=== PATIENT | female | born 1990 | race Caucasian/White ===

== ENCOUNTER → 2017-06-16 15:09 | Outpatient (CLI) | payer MEDICAID, SELFPAY | PROVIDERS: Visit Provider Obstetrics & Gynecology | DX: R30.0 Dysuria (principal) | CPT/HCPCS: 87086; 87088 ==

== ENCOUNTER → 2017-06-23 14:53 | Outpatient (CLI) | payer MEDICAID, SELFPAY | DX: O28.3 Abnormal ultrasonic finding on antenatal screening of mother (principal) | CPT/HCPCS: 36415 ==

== ENCOUNTER 2017-08-05 20:25 | Outpatient (CLI) | payer MEDICAID, SELFPAY ==
[2017-08-05 21:27] LABS: Bacteria 0 SEEN /hpf (None Seen); Mucous, Urine 0 SEEN /hpf (<or=2+)
[2017-08-05 21:48] LABS: Color, Urine Yellow (Yellow); Glucose, Dipstick Normal (Normal); Ketone-Dipstick Negative (Negative); Leukocyte Esterase-Dipstick Negative /ul (Negative); Nitrite-Dipstick Negative (Negative); Occult Blood-Urine 10 /ul (Negative); Protein-Dipstick 100 mg/dl (Negative); Specific Gravity, Urine 1.015 (1.002-1.030); Urine Bilirubin Dipstick Negative (Negative); Urine Clarity Clear (Clear); Urine Urobilinogen Normal (Normal); Urine pH 6.5 (5.0 - 8.0)
[2017-08-05 21:49] LABS: Red Blood Cells-Urine 0-5 SEEN /hpf (0-5); Squamous Epithelial Cells - UA 5-10 SEEN /hpf (5-10); White Blood Cells 0-5 SEEN /hpf (0-5)
[2017-08-05 21:51] VITALS: BMI 35.9
--- NOTE | 2017-08-06 13:06 | OB.TRI.NOTE ---
History of Present Illness Date of Service: 08/05/17 Was patient seen by the physician?: Yes Reason For Visit: R/O LABOR Date of Service: 08/05/17 Final BASILIO: 12/01/17 Gestational age: 23 Weeks and 2 Days History of Present Illness: 27 yo female with twin IUP at 23 + wks. presents for evaluation due to some akers, possible red/pink vaginal dischg which happened today. no recent IC. No yeast symptoms. No cramping. She has been seeing [facility] for evaluation and to follow slightly discordant growth of identical twins. No other concerns. Just anxious and felt better coming in for evaluation, to be sure all OK. Home Medications Medication Instructions Recorded Folic Acid 1 mg PO DAILY 08/05/17 [place]-3 Fatty Acids [Fish Oil] 600 mg PO DAILY 08/05/17 Vits [Prenatabs FA] 1 tablet PO DAILY 08/05/17 Allergies No Known Allergies Allergy (Verified 08/05/17 21:53) Physical Exam General: Alert, Oriented x3, Cooperative, No apparent distress Cardiovascular: Regular rate Abdomen: Soft, Non Tender, Gravid Cervix Dilation (cm): 0 - PELVIC EXAM: speculum placed, No blood noted. Physiologic dischg only Station: -3 Effacement (%): 0 NST - FHR Rate Baby A Baseline: 130 Uterine Activity:: no UCs noted. - FHR Rate Baby B Baseline: 130 Impression/Plan 24 wk twin IUP. Physiologic dischg, no evidence of blood on exam. Keep appt with [facility] as planned.
--- NOTE | 2017-08-06 13:11 | OB.TRI.HP_ITS ---
History of Present Illness Date of Service: 08/05/17 Was patient seen by the physician?: Yes Reason For Visit: R/O LABOR Date of Service: 08/05/17 Final BASILIO: 12/01/17 Gestational age: 23 Weeks and 2 Days History of Present Illness: 27 yo female with twin IUP at 23 + wks. presents for evaluation due to some akers, possible red/pink vaginal dischg which happened today. no recent IC. No yeast symptoms. No cramping. She has been seeing [facility] for evaluation and to follow slightly discordant growth of identical twins. No other concerns. Just anxious and felt better coming in for evaluation, to be sure all OK. Home Medications Medication Instructions Recorded Folic Acid 1 mg PO DAILY 08/05/17 [place]-3 Fatty Acids [Fish Oil] 600 mg PO DAILY 08/05/17 Vits [Prenatabs FA] 1 tablet PO DAILY 08/05/17 Allergies No Known Allergies Allergy (Verified 08/05/17 21:53) Physical Exam General: Alert, Oriented x3, Cooperative, No apparent distress Cardiovascular: Regular rate Abdomen: Soft, Non Tender, Gravid Cervix Dilation (cm): 0 - PELVIC EXAM: speculum placed, No blood noted. Physiologic dischg only Station: -3 Effacement (%): 0 NST - FHR Rate Baby A Baseline: 130 Uterine Activity:: no UCs noted. - FHR Rate Baby B Baseline: 130 Impression/Plan 24 wk twin IUP. Physiologic dischg, no evidence of blood on exam. Keep appt with [facility] as planned.
== END 2017-08-05 22:00 | disposition home or self-care (01) ==
LOC: WPOUT 21:05 → WP 21:06
PROVIDERS: Visit Provider Obstetrics & Gynecology
DX: O30.002 Twin pregnancy, unspecified number of placenta and unspecified number of amniotic sacs, second trimester (principal); Z3A.24 24 weeks gestation of pregnancy
CPT/HCPCS: 59050; 81001; 99218; G0378

== ENCOUNTER → 2020-02-29 14:30 | Outpatient (CLI) | payer MEDICAID, SELFPAY ==
[2020-02-29 15:04] LABS: Bacteria 0 SEEN /hpf (None Seen); Mucous, Urine 0 SEEN /hpf (<or=2+); Red Blood Cells-Urine 0 SEEN /hpf (0-5); White Blood Cells 0 SEEN /hpf (0-5)
[2020-02-29 15:50] LABS: Glucose, Dipstick Normal (Normal); Ketone-Dipstick Negative (Negative); Leukocyte Esterase-Dipstick Negative /ul (Negative); Nitrite-Dipstick Negative (Negative); Occult Blood-Urine Negative /ul (Negative); Protein-Dipstick 30 mg/dl (Negative); Urine Bilirubin Dipstick Negative (Negative); Urine Clarity Clear (Clear); Urine Urobilinogen Normal (Normal)
[2020-02-29 15:58] LABS: Color, Urine SEE COMMENT BELOW (Yellow)
[2020-02-29 16:44] LABS: Squamous Epithelial Cells - UA 0-5 SEEN /hpf (5-10)
== END ==
PROVIDERS: Visit Provider Obstetrics & Gynecology
DX: N39.0 Urinary tract infection, site not specified (principal)
CPT/HCPCS: 81001; 87086; 87088

== ENCOUNTER → 2020-03-24 13:05 | Outpatient (CLI) | payer MEDICAID, SELFPAY ==
[2020-03-24 14:40] LABS: Absolute Lymphocyte Count 2.19 X10^3/uL (0.83-4.51); Absolute Neutrophil Count 10.1 X10^3/uL (2.0-7.7); Basophil# 0.04 X10^3/uL; Basophil% 0.3 % (0-1); Color, Urine Yellow (Yellow); Eosinophil# 0.06 X10^3/uL; Eosinophils% 0.5 % (0-5); Glucose, Dipstick Normal (Normal); Hemoglobin 13.6 g/dL (12.0-15.0); Ketone-Dipstick 5 mg/dl (Negative); Leukocyte Esterase-Dipstick Negative /ul (Negative); Lymphocyte # 2.19 X10^3/ul (4.0); Lymphocyte % 16.7 % (19-41); Mean Corp Hgb Conc 31.6 g/dL (32-36); Mean Corpuscular Hgb 27.2 pg (27.0-32.0); Mean Platelet Vol. 10.4 fl (6.2-12.0); Monocyte# 0.59 X10^3/uL; Monocyte% 4.5 % (0-10); NRBC Flagged by Analyzer 0 % (0-5); Neutrophil # 10.12 X10^3/uL (2.7-7.7); Neutrophil % 77.4 % (47-70); Nitrite-Dipstick Negative (Negative); Occult Blood-Urine 10 /ul (Negative); Platelet Count 494 K/mm3 (150-450); Protein-Dipstick 500 mg/dl (Negative); RBC Distribution Width CV 14.4 % (11.6-14.6); RBC Distribution Width SD 44.9 fl (35.1-43.9); Urine Bilirubin Dipstick Negative (Negative); Urine Clarity Sl. Cloudy (Clear); Urine Urobilinogen Normal (Normal); White Blood Count 13.1 K/mm3 (4.4-11.0)
[2020-03-24 15:11] LABS: ALB/GLOB Ratio 0.7 RATIO (0.9-2.4); AST(SGOT) 14 U/L (15-37); Alanine Aminotransfer ALT/SGPT 30 U/L (13-56); Albumin, Serum 3.4 g/dL (3.2-5.0); Alkaline Phosphatase 78 U/L (45-117); Anion Gap 8 (5-15); BUN 8 mg/dL (7-18); BUN/Creat Ratio 11.8 RATIO (10-20); Calcium,Total 9.6 mg/dL (8.5-10.1); Chloride 104 mmol/L (98-107); Creatinine, Serum 0.68 mg/dL (0.55-1.02); EST Glomerular Filtration Rate 109 mL/min (>60); Est Glom Filt Rate - Afr Amer 132 mL/min (>60); Globulin 4.9 g/dL (2.2-4.2); Glucose 78 mg/dL (74-106); Potassium 3.7 mmol/L (3.5-5.1); Protein, Total 8.3 g/dL (6.4-8.2); Sodium Level 136 mmol/L (136-145); Thyroid Stim Hormone (TSH) 0.79 uIU/mL (0.358-3.74)
[2020-03-24 15:12] LABS: Amphetamine Urine VISTA NEGATIVE (<1000 ng/mL); Barbiturate Urine VISTA NEGATIVE (< 200 ng/mL); Benzodiazepine Urine VISTA NEGATIVE (< 200 ng/mL); Cocaine Urine VISTA NEGATIVE (< 300 ng/mL); Ecstacy Urine VISTA NEGATIVE (< 500 ng/mL); Methadone Urine VISTA NEGATIVE (< 300 ng/mL); PCP Urine VISTA NEGATIVE (< 25 ng/mL); THC Urine VISTA NEGATIVE (< 50 ng/mL); Vista UDS pH Range 6
[2020-03-24 16:23] LABS: HIV - WCH Non-Reactive (Nonreactive); Hepatitis B Surface Antigen Non-Reactive (Nonreactive); Hepatitis C Antibody Non-Reactive (Nonreactive); Progesterone Level 14.06 ng/mL (See Comment); Rubella IgG Reactive (Nonreactive); Vitamin D,25 Hydroxy 17.6 ng/mL
[2020-03-28 03:07] LABS: Chlamydia By Nucleic Acid AMP Negative (Negative)
[2020-03-28 06:27] LABS: Gonococcus By Nucleic Acid AMP Negative (Negative)
[2020-03-28 15:03] LABS: HPV Reflexed? NOT INDICATED
[2020-03-30 01:20] LABS: Prenatal RPR NONREACTIVE (NONREACTIVE)
== END ==
PROVIDERS: Visit Provider Obstetrics & Gynecology
DX: Z34.81 Encounter for supervision of other normal pregnancy, first trimester (principal); Z3A.08 8 weeks gestation of pregnancy; R30.0 Dysuria
CPT/HCPCS: 36415; 80053; 80307; 81002; 82306; 84144; 84443; 85025; 86703; 86762; 86803; 87086; 87088; 87340; 87491; 87591; 88175; G0145

== ENCOUNTER → 2020-04-21 10:58 | Outpatient (CLI) | payer MEDICAID, SELFPAY ==
[2020-04-21 12:23] LABS: Glucose Challenge Gest 1H 50g 83 mg/dL (70-140)
[2020-04-21 12:34] LABS: Progesterone Level 10.88 ng/mL (See Comment)
== END ==
PROVIDERS: Visit Provider Obstetrics & Gynecology
DX: Z34.81 Encounter for supervision of other normal pregnancy, first trimester (principal)
CPT/HCPCS: 36415; 82950; 84144

== ENCOUNTER → 2020-04-24 12:11 | Outpatient (CLI) | payer MEDICAID, SELFPAY ==
[2020-04-24 13:45] LABS: Progesterone Level 14.05 ng/mL (See Comment)
== END ==
PROVIDERS: Visit Provider Obstetrics & Gynecology
DX: O30.041 Twin pregnancy, dichorionic/diamniotic, first trimester (principal); Z3A.00 Weeks of gestation of pregnancy not specified
CPT/HCPCS: 36415; 84144

== ENCOUNTER → 2020-05-16 11:30 | Outpatient (CLI) | payer MEDICAID, SELFPAY ==
[2020-05-16 11:35] LABS: Mucous, Urine 0 SEEN /hpf (<or=2+); Red Blood Cells-Urine 0 SEEN /hpf (0-5); White Blood Cells 0 SEEN /hpf (0-5)
[2020-05-16 13:46] LABS: Color, Urine Yellow (Yellow); Glucose, Dipstick Normal (Normal); Ketone-Dipstick Negative (Negative); Leukocyte Esterase-Dipstick Negative /ul (Negative); Nitrite-Dipstick Negative (Negative); Occult Blood-Urine 10 /ul (Negative); Protein-Dipstick 100 mg/dl (Negative); Specific Gravity, Urine 1.005 (1.002-1.030); Urine Bilirubin Dipstick Negative (Negative); Urine Clarity Clear (Clear); Urine Urobilinogen Normal (Normal)
[2020-05-16 13:47] LABS: Bacteria RARE /hpf (None Seen); Squamous Epithelial Cells - UA 0-5 SEEN /hpf (5-10)
[2020-05-16 13:49] LABS: Anion Gap 7 (5-15); BUN 6 mg/dL (7-18); BUN/Creat Ratio 10.7 RATIO (10-20); Calcium,Total 8.7 mg/dL (8.5-10.1); Chloride 105 mmol/L (98-107); Creatinine, Serum 0.56 mg/dL (0.55-1.02); EST Glomerular Filtration Rate 136 mL/min (>60); Est Glom Filt Rate - Afr Amer 165 mL/min (>60); Glucose 89 mg/dL (74-106); Potassium 3.6 mmol/L (3.5-5.1); Sodium Level 135 mmol/L (136-145)
[2020-05-16 13:54] LABS: Progesterone Level 17.68 ng/mL (See Comment)
== END ==
PROVIDERS: Visit Provider Obstetrics & Gynecology
DX: N97.0 Female infertility associated with anovulation (principal); R80.9 Proteinuria, unspecified; R30.0 Dysuria
CPT/HCPCS: 36415; 80048; 81001; 84144; 87086; 87088

== ENCOUNTER → 2020-06-05 11:24 | Outpatient (CLI) | payer MEDICAID, SELFPAY ==
[2020-06-05 13:41] LABS: Progesterone Level 26.98 ng/mL (See Comment)
== END ==
PROVIDERS: Visit Provider Obstetrics & Gynecology
DX: O30.041 Twin pregnancy, dichorionic/diamniotic, first trimester (principal); Z3A.00 Weeks of gestation of pregnancy not specified
CPT/HCPCS: 36415; 84144

== ENCOUNTER → 2020-06-13 13:28 | Outpatient (CLI) | payer MEDICAID, SELFPAY ==
[2020-06-13 14:16] LABS: Mucous, Urine 0 SEEN /hpf (<or=2+); Red Blood Cells-Urine 0 SEEN /hpf (0-5)
[2020-06-13 16:02] LABS: Color, Urine Yellow (Yellow); Glucose, Dipstick Normal (Normal); Ketone-Dipstick Negative (Negative); Leukocyte Esterase-Dipstick Negative /ul (Negative); Nitrite-Dipstick Negative (Negative); Occult Blood-Urine 25 /ul (Negative); Protein-Dipstick 500 mg/dl (Negative); Urine Bilirubin Dipstick Negative (Negative); Urine Clarity Clear (Clear); Urine Urobilinogen Normal (Normal); Urine pH 6.5 (5.0 - 8.0)
[2020-06-13 16:17] LABS: Bacteria 1+ /hpf (None Seen); Fine Granular Cast- Urine 0-5 SEEN /lpf (0-5); Hyaline Cast 0-5 SEEN /lpf (0-5); Squamous Epithelial Cells - UA 0-5 SEEN /hpf (5-10); White Blood Cells 0-5 SEEN /hpf (0-5); White Cell Cast 0-5 SEEN /lpf (None Seen)
== END ==
PROVIDERS: Visit Provider Obstetrics & Gynecology
DX: R31.9 Hematuria, unspecified (principal)
CPT/HCPCS: 81001; 87086; 87088

== ENCOUNTER → 2020-07-14 10:12 | Outpatient (CLI) | payer MEDICAID, SELFPAY ==
[2020-07-14 11:27] LABS: Hematocrit 37.3 % (37-47); Hemoglobin 11.5 g/dL (12.0-15.0); Mean Corp Hgb Conc 30.8 g/dL (32-36); Mean Corpuscular Hgb 26.4 pg (27.0-32.0); Mean Corpuscular Volume 85.6 fL (81-99); Platelet Count 389 K/mm3 (150-450); RBC Distribution Width CV 14.2 % (11.6-14.6); RBC Distribution Width SD 44.2 fl (35.1-43.9); Red Blood Count 4.36 M/mm3 (4.2-5.4); White Blood Count 10.7 K/mm3 (4.4-11.0)
[2020-07-14 11:37] LABS: Glucose Challenge Gest 1H 50g 89 mg/dL (70-140)
[2020-07-14 11:43] LABS: Progesterone Level 34.13 ng/mL (See Comment)
== END ==
PROVIDERS: Visit Provider Student in an Organized Health Care Education/Training Program
DX: Z34.82 Encounter for supervision of other normal pregnancy, second trimester (principal)
CPT/HCPCS: 36415; 82950; 84144; 85027

== ENCOUNTER → 2020-08-07 11:52 | Outpatient (CLI) | payer MEDICAID, SELFPAY ==
[2020-08-07 12:41] LABS: Progesterone Level 56.19 ng/mL (See Comment)
== END ==
PROVIDERS: Visit Provider Student in an Organized Health Care Education/Training Program
DX: Z34.83 Encounter for supervision of other normal pregnancy, third trimester (principal); Z87.51 Personal history of pre-term labor
CPT/HCPCS: 36415; 84144

== ENCOUNTER → 2020-09-05 11:22 | Outpatient (CLI) | payer MEDICAID, SELFPAY ==
[2020-09-05 14:27] LABS: Progesterone Level 68.62 ng/mL (See Comment)
== END ==
PROVIDERS: Visit Provider Student in an Organized Health Care Education/Training Program
DX: Z87.51 Personal history of pre-term labor (principal)
CPT/HCPCS: 36415; 84144

== ENCOUNTER → 2020-09-13 16:16 | Outpatient (CLI) | payer MEDICAID, SELFPAY ==
[2020-09-13 16:48] LABS: Hematocrit 34.3 % (37-47); Hemoglobin 10.6 g/dL (12.0-15.0); Mean Corp Hgb Conc 30.9 g/dL (32-36); Mean Corpuscular Hgb 24.9 pg (27.0-32.0); Mean Corpuscular Volume 80.7 fL (81-99); Mean Platelet Vol. 9.6 fl (6.2-12.0); Platelet Count 357 K/mm3 (150-450); RBC Distribution Width CV 14.5 % (11.6-14.6); RBC Distribution Width SD 42.5 fl (35.1-43.9); Red Blood Count 4.25 M/mm3 (4.2-5.4); White Blood Count 8.8 K/mm3 (4.4-11.0)
[2020-09-13 17:06] LABS: Partial Thromboplast Time 28.7 Seconds (24.1-36.2)
[2020-09-13 17:08] LABS: International Normalized Ratio 0.9; Prothrombin Time (Protime)PT. 11.9 SECONDS (11.7-14.9)
[2020-09-13 17:12] LABS: AST(SGOT) 23 U/L (15-37); Alanine Aminotransfer ALT/SGPT 26 U/L (13-56); Creatinine, Serum 0.54 mg/dL (0.55-1.02); EST Glomerular Filtration Rate 141 mL/min (>60); Est Glom Filt Rate - Afr Amer 171 mL/min (>60); Uric Acid 4.7 mg/dL (2.6-6.0)
== END ==
PROVIDERS: Visit Provider Obstetrics & Gynecology
DX: O13.3 Gestational [pregnancy-induced] hypertension without significant proteinuria, third trimester (principal); Z3A.00 Weeks of gestation of pregnancy not specified
CPT/HCPCS: 36415; 82565; 84450; 84460; 84550; 85027; 85610; 85730

== ENCOUNTER → 2020-09-15 12:04 | Outpatient (CLI) | payer MEDICAID, SELFPAY ==
[2020-09-15 12:19] LABS: 24HR. UA Prot. Total Volume 2900 mL; Urine Protein (24 Hour) 170.6 mg/dL (<11.9)
== END ==
PROVIDERS: Visit Provider Obstetrics & Gynecology
DX: O13.9 Gestational [pregnancy-induced] hypertension without significant proteinuria, unspecified trimester (principal); Z3A.00 Weeks of gestation of pregnancy not specified
CPT/HCPCS: 81050; 84156

== ENCOUNTER 2020-09-21 08:35 | Inpatient (IN) | payer MEDICAID, SELFPAY ==
[2020-09-20] VITALS (8 sets, daily range): BP systolic 137–156; BP diastolic 77–93; PULSE 80–93; TEMP 36.3–36.6; O2SAT 98–99; BMI 41.5
[2020-09-20] MEDS: Lactated Ringers 1,000 ML 999 ML IV (17:30)
[2020-09-20 17:48] LABS: Hematocrit 35.8 % (37-47); Hemoglobin 11.1 g/dL (12.0-15.0); Mean Corpuscular Hgb 25.2 pg (27.0-32.0); Mean Corpuscular Volume 81.4 fL (81-99); Mean Platelet Vol. 9.7 fl (6.2-12.0); Platelet Count 353 K/mm3 (150-450); RBC Distribution Width CV 14.5 % (11.6-14.6); RBC Distribution Width SD 42.8 fl (35.1-43.9); White Blood Count 5.6 K/mm3 (4.4-11.0)
[2020-09-20 18:07] LABS: AST(SGOT) 51 U/L (15-37); Alanine Aminotransfer ALT/SGPT 61 U/L (13-56); Creatinine, Serum 0.49 mg/dL (0.55-1.02); EST Glomerular Filtration Rate 158 mL/min (>60); Est Glom Filt Rate - Afr Amer 191 mL/min (>60); Estimated Creatinine Clearance 152.44 ml/min; Uric Acid 4.8 mg/dL (2.6-6.0)
[2020-09-20 19:28] LABS: Protein, Urine (Random) 295.7 mg/dL (<11.9); Protein:Creat Ratio 4029 mg/g CRE (0-200)
[2020-09-20] MEDS: Betamethasone/Betamethasone 30 MG/5 ML Vial 12 MG IM (21:00)
[2020-09-20 22:09] LABS: Probe Check PASS
[2020-09-20 22:11] LABS: Group B Strep DNA By PCR POSITIVE (Negative)
[2020-09-21] VITALS (34 sets, daily range): BP systolic 115–160; BP diastolic 55–92; PULSE 61–94; RESP 16–18; TEMP 35.8–36.9; O2SAT 95–100
[2020-09-21 04:55] LABS: Absolute Lymphocyte Count 1.31 X10^3/uL (0.83-4.51); Absolute Neutrophil Count 5.5 X10^3/uL (2.0-7.7); Basophil# 0.02 X10^3/uL; Basophil% 0.3 % (0-1); Hematocrit 33.8 % (37-47); Hemoglobin 10.7 g/dL (12.0-15.0); Lymphocyte # 1.31 X10^3/ul (0.83-4.51); Lymphocyte % 18.5 % (19-41); Mean Corp Hgb Conc 31.7 g/dL (32-36); Mean Corpuscular Hgb 25.2 pg (27.0-32.0); Mean Corpuscular Volume 79.5 fL (81-99); Mean Platelet Vol. 9.5 fl (6.2-12.0); Monocyte# 0.19 X10^3/uL; Monocyte% 2.7 % (0-10); NRBC Flagged by Analyzer 0 % (0-5); Neutrophil # 5.53 X10^3/uL (2.7-7.7); Neutrophil % 77.8 % (47-70); Platelet Count 346 K/mm3 (150-450); RBC Distribution Width CV 14.6 % (11.6-14.6); Red Blood Count 4.25 M/mm3 (4.2-5.4); White Blood Count 7.1 K/mm3 (4.4-11.0)
[2020-09-21 05:07] LABS: Anion Gap 7 (5-15); BUN 3 mg/dL (7-18); BUN/Creat Ratio 6.3 RATIO (10-20); Chloride 108 mmol/L (98-107); Creatinine, Serum 0.48 mg/dL (0.55-1.02); EST Glomerular Filtration Rate 163 mL/min (>60); Est Glom Filt Rate - Afr Amer 197 mL/min (>60); Estimated Creatinine Clearance 155.61 ml/min; Glucose 128 mg/dL (74-106); Potassium 3.4 mmol/L (3.5-5.1); Sodium Level 140 mmol/L (136-145)
[2020-09-21 05:45] LABS: AST(SGOT) 49 U/L (15-37); Alanine Aminotransfer ALT/SGPT 68 U/L (13-56); Albumin, Serum 2.1 g/dL (3.2-5.0); Alkaline Phosphatase 124 U/L (45-117); Bilirubin, Direct 0.07 mg/dL (0.00-0.30); Globulin 4.3 g/dL (2.2-4.2); Protein, Total 6.4 g/dL (6.4-8.2)
--- NOTE | 2020-09-21 08:50 | PCM.HP.BLA ---
History and Physical Date of Admission: 09/20/20 History of This : This is a 30-year-old G2, P1 who presents to labor and delivery due to issues of proteinuria, headache and a recent history of elevated blood pressures. Upon presentation her blood pressures are 140s over 80s and initial blood work showed elevated liver functions and confirmed continued severe proteinuria. Repeat liver function tests this morning showed persistent elevation. Platelets are normal. Patient had a headache prior to presentation but this resolved with some IV fluids. Patient has had issues with flulike symptoms over the past week. Patient is 34+ weeks with a prior section for twins at 28 weeks gestation. OB PROBLEM LIST: Declines genetics testing. States she is NOT allergic to Ibuprofen or Amoxicillin. Has taken both multiple times without any type of reaction. 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 PLACE OF DLEIVERY LABOR YES/NO COMMENTS/ COMPLICATIONS 09/03 28 0 2 lbs. 1 oz. M C-Sect Spinal [facility] yes B 2#12, ABRUPTION, IUGR MEDICAL HISTORY O Neg. + Pos. DETAIL POSITIVE REMARKS INCLUDE DATE & TREATMENT O Neg. + Pos. DETAIL POSITIVE REMARKS INCLUDE DATE & TREATMENT GENETIC SCREENING/TERATOLOGY COUNSELING INCLUDES PATIENT, BABY'S FATHER, OR ANYONE IN EITHER FAMILY WITH: YES NO YES NO 1. PATIENT'S AGE >35 YEARS OF ESTIMATED DATE OF DELIVERY No 12. AVELINA'S CHOREA No 2. THALASSENMIA (NORTH KOREAN, MALAY, MEDITERRANEAN, OR BACKGROUND): MCV <80 No 13. MENTAL RETARDATION/AUTISM No 3. NEURAL TUBE DEFECT (MENINGOMYELOCELE, SPINA BIFICA, OR ANENCEPHALY) No IF YES, WAS PERSON TESTED FOR FRAGILE X? No 4. CONGENITAL HEART DEFECT No 14. OTHER INHERITED GENETIC OR CHROMOSOMAL DISORDER No 5. DOWN SYNDROME No 15. MATERNAL METABOLIC DISORDER (EG, TYPE 1 DIABETES, PKU) No 6. SOPHIA-SACHS (EG, SIKHISM, CAJUN, THAI SCOTTISH) No 16. PATIENT OR BABY'S FATHER HAD A CHILD WITH DEFECTS NOT LISTED ABOVE No 7. BRET DISEASE 17. RECURRENT LOSS, OR A ASTILLBIRTH No 8. SICKLE CELL DISEASE OR TRAIT () No 18. MEDICATIONS (INCLUIDNG SUPPLEMENTS, VITAMINS, HERBS OR OTC DRUGS) /ILLICIT/RECREATIONAL DRUGS /ALCOHOL SINCE LAST MENSTRUAL PERIOD Yes 9. HEMOPHILIA OR OTHER BLOOD DISORDERS No IF YES, AGENT(S) AND STRENGTH/DOSAGE 10. MUSCULAR DSTROPHY No 11. CYSTIC FIBROSIS No-declines screening 19. ANY OTHER COMMENTS/ COUNSELING progesterone IM, promethazine INFECTION HISTORY YES NO YES NO 1. LIVE WITH SOMEONE WITH TB OR EXPOSED TO TB No 4. HISTORY OF STD, GONORRHEA, CHLAMYDIA, HPV, SYPHILIS No 2. PATIENT OR PARTNER HAS HISTORY OF GENITAL HERPES No 5. OTHER (See Comments) 3. RASH OR VIRAL ILLNESS SINCE LAS MENTRUAL PERIOD No COMMENTS Hx HPV INTERVIEWER'S SIGNATURE INITIAL PHYSICAL EXAMINATION DATE 03/24/2020 HEIGHT 64.50 inches BP 130/84 WEIGHT 231.79130 pounds 1. HEENT normocephalic, atraumatic, sclerae anicteric 12. VULVA non-tender without lesions 2. FUNDI EOMI with normal external exam 13. VAGINA vaginal mchugh are pink and moist without loss of rugae and no evidence of atropy 3. TEETH 14. CERVIX without cervical motion tenderness and has normal size and features without evident lesions 4. THYROID thyroid normal size and texture 15. UTERUS SIZE 5-6 cm in size, mobile and nontender 5. BREASTS No dominant masses, no tenderness, no axillary adenopathy, no nipple discharge, no skin changes 16. ADNEXA clear without massess or tenderness 6. LUNGS CTA x2 without wheezes, crackles or rales 17. RECTUM 7. HEART Regular rate and rhythm without rubs, murmurs, or gallops 18. DIAGONAL CONJUGATE 8. ABDOMEN Without hepatosplenomegaly, distention, masses, rebound, or guarding; normal bowel sounds; no hernias 19. SPINES 9. EXTREMITIES No edema or calf tenderness 20. SACRUM 10. SKIN No rash, lesions, or ulcers 21. SUBPUBIC ARCH 11 LYMPH NODES Palpation of lymph nodes in neck and groins within normal limits 22. GYNECOID PELVIS TYPE COMMENTS (Number and explain abnormals) Hx HPV PREPREGNANCY WEIGHT 231 DRUG ALLERGY LATEX ALLERGY No Known Drug Allergies Ibuprofen Amoxicillin No Known Drug Allergies NONE IS BLOOD TRANSFUSION ACCEPTABLE BERNICE AN EMERGENCY? YES NO ANESTHESIA CONSULT PLANNED YES NO PROBLEMS/PLANS 1 Declines genetics testing. 2 States she is NOT allergic to Ibuprofen or Amoxicillin. Has taken both multiple times without any type of reaction. 3 4g PROTEINURIA 4 ASA 81mg in second trimester 5 Chronic intermittent hematuria 6 Considering TOLAC 7 G1- MCDA twins, short cervix, PIH/abruption, C/S at 28wga 8 IM progesterone 9 PREECLAMPSIA - deliver at 37+ wga MEDICATION LIST START DATE STOP DATE 1 folic acid 1 mg tablet 04/28/2017 03/24/2020 2 Fish Oil 1,000 mg (120 mg-180 mg) capsule 05/27/2017 03/24/2020 3 Keflex 500 mg capsule 06/16/2017 02/29/2020 4 Keflex 500 mg capsule 02/29/2020 03/24/2020 5 progesterone 50 mg/mL intramuscular oil 03/24/2020 03/31/2020 6 Vitamin D3 125 mcg (5,000 unit) tablet 04/21/2020 05/25/2020 7 28 mg-800 mcg tablet 04/22/2017 8 promethazine 25 mg tablet 03/24/2020 9 progesterone 50 mg/mL intramuscular oil 03/31/2020 10 aspirin 81 mg tablet,delayed release 05/02/2020 11 progesterone micronized 100 mg capsule 05/17/2020 12 Vitamin D3 125 mcg (5,000 unit) tablet 05/25/2020 13 Zofran 4 mg tablet 05/26/2020 14 ondansetron 4 mg disintegrating tablet 07/14/2020 15 Pepcid 20 mg tablet 08/22/2020 BASILIO CONFIRMATION FINAL BASILIO 10/29/2020 04/21/20 12 + o 130/76 234 1+/- 0 4 SHM 05/16/20 16 + - 132/88 237 2+/- 0 4 SHM nausea 06/13/20 20 20 ? + + 132/74 239 3+/neg 0 4 SHM US today, glucola given 07/14/20 24 24 + + 146/84 244 1+/- tr 4 CM 07/25/20 26 + 138/80 245 2+/- 0 08/07/20 28 28 + + 134/88 245 2+/- sl 2 CM 08/22/20 30 on US + 134/78 248 tr/- 0 2 JM see note 08/24/20 30 / 248 / JM 09/05/20 32 32 V + + 136/82 249 2+/neg 0 2 CM 09/13/20 33 + dec 150/80 250 3+/- sl NST for dec FM. Repeat B/P: 144/82 PROBLEMS 02/29/20 Jillian is here following call to Triage w c/o UTI symptoms. Hx 3-4 days of urinary urgency, frequency and stinging at urethra. Having some low to mid back pain. She states she's 5-6 weeks w probable BASILIO October 29, 2020. Clean catch urine obtained w long dip- SG 1.000, pH 6.0, protein 1+ with remainder WNL. T.98.[address] EDWARDS. Urine to lab for complete UA and C&S. Keflex escripted to [place] by Dr EDWARDS. MACIEJ. 03/24/20 Jillian is being seen for missed menses. FOB is with pt for visit today. . 29 years old. UPT in office is positive. LMP 01/23/20. Pt is about 8 weeks and 5 days. BASILIO 10/29/20. Pt is nauseous and spitting due to nausea. She would like prescription for nausea. Last pap 2017 WNL, pt would like to talk about not having that done due to last having some bleeding. STD cultures due today. information reviewed and given to pt. Medicaitons and allergies are up to date. AM 03/24/20 as above. hx emergent C/S in 2018 for placental abruption at 28 6/7 wga for mono-di twin gestation previously complicated by short cervix and growth discordance. She was told she had preeclampsia, but denies elevated BP and notes only that she had blood and protein in her urine. She reports her 2 yo boys are active and healthy with mild neurologic impairments at this time. She is accompanied today by her partner Bhavani Quiroz. Reports anxiety about this and risk for recurrent PTL, placental abruption. +fatigue and nausea. No recent travel or plans for travel. shadia 04/21/20 Jillian is here with SO for 12 + 5 PNV. Reports that she is feeling much better since she has been on Promethazine. Still has some nausea and no emesis. No edema present today. Expressed that she might have felt baby move but not sure. Expressed wanting to know if she can have IC. Medications and allergies reviewed. No other concerns or questions expressed today. ROSAURAW New 04/21/20 Jillian is here for appt with Dr EDWARDS and will be giving Progesterone medication and they requested teaching. Reviewed large muscle for this injection. Reviewed upper outer quadrant of hip. Technique for drawing, giving, aspiration reviewed and demonstrated. All questions answered. Both feel confident they can do this and was not as bad as Jillian felt it might be. LMT 04/21/20 US today AGA, BASILIO 10/29/20, CL 42mm. Pt did not yet start progesterone. Progesterone IM injection teaching today. Reviewed labs reviewed. Start Vitamin D 5000 IU PO daily. Will need progesterone levels [id number] by Napro protocol. Nausea significantly improved. Has started weaning Promethazine. Early glucola today. 05/01/20 TELEHEALTH NOB--- Jillian is a 30 yo G 2 P 2 with BASILIO 10-29-20 planning RCS vs TOLAC at [facility] w epidural using [facility] for post discharge ped care and to breastfeed. was in [facility] from week 23 to 28.6 with PTL when twin boys with IUGR were born by PCS after abruption weighing 2# 1 oz and 2# 12 oz. Jillian states she was unable to produce milk to breastfeed despite pumping and IBCLC assistance. The boys are 2 1/2 y now, healthy but both w hypothyroidism- possibly re to extreme prematurity. FOB is Bhavani Quiroz. He and Jillian are both on SSI Disability. They live in a trailer together w their sons. They are pleased about the pg. Jillian is a lifetime non smoker, denies street drug use and rarely drinks alcohol. Her diet sounds balanced with lactose free milk, minimal caffeine and close to 2+ liters of water daily with NVP allowing. They are on [facility]. Jillian states she has NKA to drugs and clarified she is NOT allergic to Ibuprofen or Amoxicillin. Genetics Screening form completed no family issues. Her meds are IM progesterone and promethazine besides vitamins and Vit D 3. Warning signs in pg reviewed as well as wearing her seatbelt low on her abd, lifting restriction of 25#, walking 20-30 min most days with understanding voiced. Past medical history includes chickenpox, HPV, Crohn's as a teen but IBS now, anxiety w some depression. She have no cats but she is aware of litter box issues. She has a copy of What to Expect. She hasn't had a flu shot but was enc to do so. Office Class suggested as well as Gladys Bowden's book Making More Milk. As Jillian states she made no milk she could have functional insufficient glandular tissue. She stated she really wants to try to nurse this baby if possible. Enc to call w any concerns. Visit took almost 45 min. Jodie RUSSELL. 05/16/20 Jillian is here with her SO for a PNV. SL nausea, wonders if she should continue taking promethazine. Decreased fatigue. Reports she had UTI sx's over last week and took a few of the antibiotic pills she was given for a UTI at the beginning of her . No longer having sx's. 2+ protein in urine, denies dizziness and changes in vision. MK 05/16/20 Nausea improved, taking promethazine prn ok. Discussed movement. Continues progesterone IM qTues and Friday pm. U/A, Ucx today, reviewed importance of urine testing with UTI in and discouraged self treatment and partial treatment to avoid abx resistance. 06/13/20 Jillian is here for PNV following US. Very excited about another boy. Twin boys at home. Having good FM. Taking promethazine half tab in am and half in pm. Eating well and taking fluids but does have issues with nausea and gagging. No vomiting. Urine long dipped. Protein 3+, glucose neg, pH 6, blood 2+, spG 1.010, ketones tr. Having no urinary symptoms. Urine clear, darrick. States she had this with previous prreg. LSS 06/13/20 Anatomy scan today, wnl, EFW 69th%. Placenta ANTERIOR no previa, ok for TOLAC. Pt still considering. MALE, circ planned. D/C'd prometrium. Will continue progesterone injections only. Discussed r/b/i ASA 81mg in including theoretical increased risk for platelet abnormaly. Pt elects to start. PTL precautions. Glucola info given for next visit. Chronic hematuria, proteinuria, etiology unknown with normal kidney function. Ucx today. Will plan to refer to Urology unless has gross hematuria or large protein. 07/14/20 Jillian and SO are here for appt following blood draw. Baby active. Jillian has heartburn daily which she treats w Tums. Pepcid suggested. She's having diarrhea 4-5x w. Also feels her anxiety is worse lately. Cheerful and talkative. MACIEJ. 07/14/20 24/5w visit. Hx of PTD secondary to pre-e/abruption with mono/di twins. Doing 2x weekly progesterone injections. Anxiety/depression - feels anxious and like this is working. DIsucssed counseling, pt consider. Declines medications. Will notify if she is ready. Diarrhea - 4-5x weekly. Discussed diet changes, she is not very willing to do this. Does not appear to be infectious. Okay to use immodium as needed. Nausea - change phenergan to zofran. No changes/not new. BP slightly elevated today - will have pt come for BP RN check in 2w due o hx. Obesity - will need growth US. F/u 4w. CM 07/25/20 Jillian is here w Bhavani RIBERA for nurse visit BP check. Feeling well. No headaches. No epigastric pain. No edema. BP 138/80 with large cuff lt arm. Parents pleased w BP. Reviewed w Dr PARKS To keep next visit. Reminded plenty of water and watch sodium intake. States not too good at that but I do try. Cheerful, talkative. MACIEJ. DATE 09/21/2020 Page Number 6 NAME ZENOBIA OSORIO [facility] [id number] Medical Record 08/07/20 Reporting decreased FM past few days. Anterior placenta. Reporting a headache the past few days, but resolved w/Tylenol. Cramping last Friday night for a few hours. No spotting. No leaking fluid. Asking to have progesterone checked today. kbm 08/07/20 28/1w visit. Hx of PTD secondary to twins with abruption. On progesterone, level checked today. Hx of PIH - BP wnl. Reports some decreased movements, NST REACTIVE today. Discussed kick counts. F/u 2w. CM 08/22/20 Jillian is here for visit today. She is anxious regarding as prior twin delivery with early abruption/emergency C/S. She is concerned as she has occ ctx and some cramping often in the middle of the night. She is advised regarding PTL- call if progressive or worsening ctx's. TO WP if SROM. Discussed late term discomforts. Having increased heartburn that TUMS does not help and would like Rx for Pepcid. She has anterior placenta and discusses this. Feels mvmt when at rest but not as much when doing things. Discussed anterior placenta does decrease perception of mvmt. Sometimes feels very fatigued and worried about anemia. Advised CBC done and appears ok. Some fatigue is normal in . Call if concerned. U/S done today and will discuss this with Dr Ernie Moulton. LMT 08/22/20 30wk, u/s today with Hx of PTD growth AGA and cervical length 39mm. Consider repeat gorwth at 34wks. Pt skipped visit secondary to wait time, called multiple times with no answer. Will need discussion of the u/s and follow up scheduled. DONNA 08/24/20 TELEHEALTH VISIT: Patient called for u/s results that were not reviewed at 08/22/20 appt. U/s AGA, hx of PTD but CL 3.9cm. All wnl. BPP /, reassuring. Pt states abdominal pain at appt went away, noted that babies position at that time was placing pressure on the areas of pain. Pt to keep scheduled appts. JM 09/05/20 Jillian is here with SO for PNV. Requesting progesterone level check. Drawn today. Feeling well with some lower abd cramping. No LOF. Good FM. No edema presently but states her fingers do occ feel swollen. Urine 2+/neg. No complaints. LSS 09/05/20 32/2w. Hx of PTD. On progesterone, level checked today. F/u 2w. CM 09/13/20 Jillian is here for a NST for dec FM x 3 days, as well as uterine tightening. She feels occasional period-like cramping, but none today. She states that she feels a little FM. She denies spotting/LoF. Slight edema noted below knees, no pitting. Jillian is familiar with NST/EEFM. She denies headaches/visual changes/epigastric pian. DTR's 2+ bilaterally. B/P checked twice, second time in a left tilt position. Report to Dr. Maddox, PIH labs will be drawn today. NST reactive, read per DR. Maddox. 6 ctx's noted in 26 minutes on EEFM, lasting 50-70, all felt as tightening, not uncomfortable. Jillian is in agreement with having PIH labs drawn, as she has a hx of PIH with her last . She will call the office if she has further concerns. AW COMMENTS DATE 09/21/2020 Page Number 7 NAME ZENOBIA OSORIO [facility] [id number] Medical Record Lab Results since: 03/03/2020 ORDER DATEIN DESCRIPTION VALUE COMMENT PROTEIN, URINE 24HR 09/15/20 NOTE UR COLLECT TIME 24.0 UR TOTAL VOLUME 2900 URINE PROTEIN 170.6 24HR UR PROTEIN 4947.4 ALANINE AMINOTRANSFERAS (SGPT) 09/13/20 NOTE ALT 26 AST(SGOT) 09/13/20 NOTE AST 23 URIC ACID 09/13/20 NOTE URIC 4.7 SERUM CREATININE AND GFR 09/13/20 NOTE CREAT,SERUM 0.54 EST GFR 141 EST GFR - AA 171 PARTIAL THROMBOPLAST TIME 09/13/20 NOTE PTT 28.7 PROTHROMBIN TIME W/INR 09/13/20 NOTE PROTIME 11.9 INR 0.9 CBC-COMPLETE BLOOD CNT NO DIFF 09/13/20 NOTE WBC 8.8 RBC 4.25 HGB 10.6 HCT 34.3 MCV 80.7 MCH 24.9 MCHC 30.9 RDW CV 14.5 RDW SD 42.5 PLT 357 MPV 9.6 PROGESTERONE LEVEL 09/05/20 NOTE PROGESTERONE 68.62 PROGESTERONE LEVEL 08/07/20 NOTE PROGESTERONE 56.19 PROGESTERONE LEVEL 07/14/20 NOTE PROGESTERONE 34.13 DATE 09/21/2020 Page Number 8 NAME ZENOBIA OSORIO [facility] [id number] Medical Record GLUCOSE CHALLENGE GEST 1H 50G 07/14/20 NOTE GLU GEST 50G 1H 89 CBC-COMPLETE BLOOD CNT NO DIFF 07/14/20 NOTE WBC 10.7 RBC 4.36 HGB 11.5 HCT 37.3 MCV 85.6 MCH 26.4 MCHC 30.8 RDW CV 14.2 RDW SD 44.2 PLT 389 MPV 10.0 URINE CULTURE 06/13/20 NOTE URINALYSIS, COMPLETE 06/13/20 NOTE WBC 0-5 SEEN RBC 0 SEEN EPI,SQUAMOUS 0-5 SEEN BACTERIA 1+ MUCUS 0 SEEN CAST,HYALINE 0-5 SEEN CAST,FINE GRAN 0-5 SEEN CAST,WBC 0-5 SEEN PROGESTERONE LEVEL 06/05/20 NOTE PROGESTERONE 26.98 CULTURE, URINE 05/16/20 NOTE PROGESTERONE LEVEL 05/16/20 NOTE PROGESTERONE 17.68 BASIC METABOLIC PROFILE (BMP) 05/16/20 NOTE GLU 89 BUN 6 CREAT,SERUM 0.56 EST GFR 136 DATE 09/21/2020 Page Number 9 NAME ZENOBIA [facility]OVER [facility] [id number] Medical Record EST GFR - AA 165 BUN/CRE 10.7 CA 8.7 NA 135 K 3.6 CL 105 CO2 23.0 GAP 7 URINALYSIS, COMPLETE 05/16/20 NOTE COLOR Yellow CLARITY Clear GLUCOSE, UR Normal BILIRUBIN URINE Negative KETONE UR Negative SP.GR. DIPSTX 1.005 PH UR 7.0 PROT DIPSTX 100 UROBILI Normal NITRITE UR Negative OCCULT BLOOD-UR 10 LEUK ESTERASE Negative WBC 0 SEEN RBC-UA 0 SEEN SQUAM EPI 0-5 SEEN BACTERIA RARE MUCUS, URINE 0 SEEN PROGESTERONE LEVEL 04/24/20 NOTE PROGESTERONE 14.05 PROGESTERONE LEVEL 04/21/20 NOTE PROGESTERONE 10.88 GLUCOSE CHALLENGE GEST 1H 50G 04/21/20 NOTE GLU GEST 50G 1H 83 RPR 03/24/20 NOTE RPR NONREACTIVE CULTURE, URINE 03/24/20 NOTE HEPATITIS C ANTIBODY 03/24/20 NOTE HEPATITIS C AB Non-Reactive HEPATITIS B SURFACE ANTIGEN 03/24/20 NOTE HEPB SURFACE AG Non-Reactive HIV - [facility] 03/24/20 NOTE DATE 09/21/2020 Page Number 10 NAME ZENOBIA GLOVER [facility] [id number] Medical Record HIV - [facility] Non-Reactive RUBELLA IGG 03/24/20 NOTE RUBELLA IGG Reactive PROGESTERONE LEVEL 03/24/20 NOTE PROGESTERONE 14.06 VITAMIN D,25 HYDROXY 03/24/20 NOTE VITAMIN D 25-OH 17.6 T AND S-NO CHARGE W/PNP 03/24/20 BLOOD TYPE GEL O POSITIVE AB SCREEN GEL NEGATIVE URINE DRUG SCREEN (VISTA) 03/24/20 NOTE TO BE CONFIRMED SOUMYATA UDS PH 6 AMPHETAMINES NEGATIVE BARBITIURATES NEGATIVE BENZODIAZIPINE NEGATIVE COCAINE NEGATIVE ECSTACY NEGATIVE METHADONE NEGATIVE OPIATES NEGATIVE PCP NEGATIVE THC NEGATIVE THYROID STIM HORMONE (TSH) 03/24/20 NOTE TSH 0.79 COMPREHENSIVE METABOLIC PROFIL 03/24/20 NOTE GLU 78 BUN 8 CREAT,SERUM 0.68 EST GFR 109 EST GFR - AA 132 BUN/CRE 11.8 T PROT 8.3 ALB 3.4 GLOB 4.9 A/G 0.7 DATE 09/21/2020 Page Number 11 NAME ZENOBIA [facility] [id number] Medical Record CA 9.6 AST 14 ALK P 78 ALT 30 T BILI 0.30 NA 136 K 3.7 CL 104 CO2 24.0 GAP 8 CBC W/DIFF, AUTOMATED 03/24/20 NOTE WBC 13.1 RBC 5.00 HGB 13.6 HCT 43.0 MCV 86.0 MCH 27.2 MCHC 31.6 RDW CV 14.4 RDW SD 44.9 PLT 494 MPV 10.4 NEUT% 77.4 LY% 16.7 MONO% 4.5 EO% 0.5 BASO% 0.3 IM GRAN % 0.600 ABSOLUTE NEUT 10.1 ABSOLUTE LYMPH 2.19 NRBC, FLAGGED 0 URINALYSIS, ROUTINE (DIPSTICK) 03/24/20 NOTE COLOR Yellow CLARITY Sl. Cloudy GLUCOSE, UR Normal BILIRUBIN URINE Negative KETONE UR 5 SP.GR. DIPSTX 1.020 PH UR 6.0 PROT DIPSTX 500 UROBILI Normal NITRITE UR Negative OCCULT BLOOD-UR 10 LEUK ESTERASE Negative PAP I-G W/RFX HRHPV-APTIMA 03/24/20 NOTE ZULEYMA CONNER PERFORM TEST METHOD COMM . PAPSMR HPV RFLX CHLAMYDIA/GC SADI APTIMA 03/24/20 NOTE RMUA,NUC ACID Negative GC BY NUC ACID Negative Impression/Plan: 34-week 5-day gestation with severe preeclampsia. Patient was given steroids overnight in anticipation of possible delivery today. Blood pressures and platelets stable at present. Plan to proceed with repeat low transverse cervical section later today. Discussed risk, benefits, alternatives and all questions were answered.
[2020-09-21] MEDS: Acetaminophen 500 MG Tablet 1000 MG PO ×3 (09:47→22:40)
[2020-09-21] MEDS: Betamethasone/Betamethasone 30 MG/5 ML Vial 12 MG IM (09:48)
[2020-09-21] MEDS: 0.9% Saline Lock 10 ML Syringe IV (09:49)
[2020-09-21] MEDS: Lactated Ringers 1,000 ML 999 ML IV (09:49)
[2020-09-21] MEDS: Lactated Ringers 1,000 ML 150 ML IV (10:50)
[2020-09-21] MEDS: Sodium Citrate/Citric Acid 30 ML UDC PO (11:57)
[2020-09-21] MEDS: Cefazolin 2 GM in 0.9% Normal Saline 100 ML IV (12:02)
[2020-09-21] MEDS: Oxytocin 30 units/NS 500 ml 30 UNITS/500 ML IV.SOLN 167 UNITS IV (13:15)
--- NOTE | 2020-09-21 13:17 | OP.PCM_ITS ---
Problems Associated Problem List Diagnoses (1) delivery delivered: Report of Operation Date of Procedure: 09/21/20 Pre-Operative Diagnosis: Preeclampsia with severe features Prior section Post-Operative Diagnosis: Preeclampsia with severe features Prior section Surgery/Procedure Performed:: Repeat low transverse section Description of Surgical Findings:: Normal uterus and bilateral tubes and ovaries. No significant pelvic adhesions. fisher clam: Gladys Louise Type of Anesthesia: Spinal Anesthesiologist: Jeffrey Booker Specimen's removed: placenta - to special [facility] Estimated Blood Loss (mL): 600 Fluids Replaced: 800 ml Description of Procedure: Indications: 30 yo 2para 0102 at 34 5 /7 weeks gestational age admitted with preeclampsia, headache. Betamethasone was administered and her headache resolved however she had persistently elevated LFTs and was advised to proceed with delivery. She had prior section and desired a repeat. Procedural risks including but not limited to pain, bleeding, infection, injury to bowel or bladder, VTE, scarring and placenta accreta d/o with need for hysterectomy, as well as potential for hysterectomy, related to hemorrhage and loss of life were discussed preoperatively. The patient declined tubal sterilization and IUD at time of delivery. Patient was given opportunity to ask questions and questions answered to her satisfaction. She desired to proceed. PROCEDURE: Patient was brought to the OR and spinal anesthetic administered. Chen catheter was placed and patient was prepped and draped in sterile fashion. Time out performed. The spinal was found to be adequate. A Pfannensteil incision was made and brought down to incise the subcutaneous tissue and rectus fascia at the midline. The fascial incision was extended using curved Valenzuela scissors. The superior leaflet of the rectus fascia was bluntly and sharply dissected from the underlying rectus abdominus muscles. Similarly, the inferior leaflet of the rectus fascia was dissected from the underlying muscle. The rectus abdominus was at the midline and the peritoneum entered bluntly. The peritoneal incision was extended bluntly. A bladder blade was placed and the vesicouterine peritoneum identified. A bladder flap was created. A low transverse hysterotomy was made using the Metzembaum scissors with amniotomy revealing clear fluid. The hysterotomy was extended cephalad and caudad. The head was elevated to the hysterotomy and with gentle fundal pressure the head delivered. Infant mouth and nares were bulb suctioned and body delivered revealing a vigorous male infant. The cord was doubly clamped and cut and the infant passed to the awaiting Pediatric Hospitalist. The placenta was expressed from the uterus and appeared intact on inspection. The uterus was cleared of debris. The bladder was reintroduced and hysterotomy was repaired with 0 Vicryl in running interlocking fashion. There was excellent hemostasis. The paracolic gutters were cleared and adnexae inspected. The bladder blade was removed. The peritoneum was closed using 2-0 Vicryl. The rectus fascia was reapproximated using 0-Stratafix. The subcutaneous tissue was reapproximated with 2-0 Vicryl. The skin was closed with 4-0 Monocryl by the MASONRY INSTRUCTOR under my supervision. A Mepilex occlusive dressing as placed over the incisional wound. The fundus was firm. The patient was transferred to the recovery room for further care with complication. She tolerated the procedure well. Admit VTE Documentation VTE Present on Admission: No VTE Mechan Device Prophylaxis: SCD's VTE Pharm Prophylaxis ordered?: Yes
[2020-09-21] MEDS: Ketorolac 30 MG/ML Syringe IV ×2 (13:50→20:39)
[2020-09-21] MEDS: Magnesium Sulfate 4gm/100mL 4 GM/100 ML IV.SOLN. IV (14:51)
[2020-09-21] MEDS: Magnesium Sulfate 4gm/100mL 2 GM/50 ML IV.SOLN. IV (15:11)
[2020-09-21] MEDS: Magnesium Sulfate 20 GM/500 ML BAG IV (15:21)
[2020-09-21] MEDS: Lactated Ringers 1,000 ML 100 ML IV (16:16)
[2020-09-21 17:17] LABS: Hematocrit 35.6 % (37-47); Hemoglobin 11.1 g/dL (12.0-15.0); Mean Corp Hgb Conc 31.2 g/dL (32-36); Mean Corpuscular Volume 80.2 fL (81-99); Mean Platelet Vol. 9.6 fl (6.2-12.0); Platelet Count 413 K/mm3 (150-450); RBC Distribution Width CV 14.7 % (11.6-14.6); RBC Distribution Width SD 42.8 fl (35.1-43.9); Red Blood Count 4.44 M/mm3 (4.2-5.4); White Blood Count 17.5 K/mm3 (4.4-11.0)
[2020-09-21 18:06] LABS: ALB/GLOB Ratio 0.5 RATIO (0.9-2.4); AST(SGOT) 43 U/L (15-37); Alanine Aminotransfer ALT/SGPT 64 U/L (13-56); Albumin, Serum 2.1 g/dL (3.2-5.0); Alkaline Phosphatase 110 U/L (45-117); Anion Gap 9 (5-15); BUN 5 mg/dL (7-18); BUN/Creat Ratio 10.5 RATIO (10-20); Calcium,Total 7.5 mg/dL (8.5-10.1); Chloride 104 mmol/L (98-107); Creatinine, Serum 0.48 mg/dL (0.55-1.02); EST Glomerular Filtration Rate 163 mL/min (>60); Est Glom Filt Rate - Afr Amer 197 mL/min (>60); Estimated Creatinine Clearance 155.61 ml/min; Globulin 4.1 g/dL (2.2-4.2); Glucose 122 mg/dL (74-106); LDH 236 U/L (84-246); Potassium 3.2 mmol/L (3.5-5.1); Protein, Total 6.2 g/dL (6.4-8.2); Sodium Level 138 mmol/L (136-145)
[2020-09-21] MEDS: Heparin Injection (Vial) 5,000 UNIT/ML VIAL 5000 UNIT SC (22:39)
[2020-09-22] VITALS (12 sets, daily range): BP systolic 110–145; BP diastolic 49–79; PULSE 64–81; RESP 16–18; TEMP 36.1–36.7; O2SAT 98–99
[2020-09-22] MEDS: Magnesium Sulfate 20 GM/500 ML BAG IV (01:29)
[2020-09-22] MEDS: Lactated Ringers 1,000 ML 100 ML IV (01:40)
[2020-09-22] MEDS: Ketorolac 30 MG/ML Syringe IV ×2 (02:40→08:41)
[2020-09-22] MEDS: Acetaminophen 500 MG Tablet 1000 MG PO ×4 (04:44→22:53)
[2020-09-22 05:02] LABS: Hematocrit 33.6 % (37-47); Hemoglobin 10.4 g/dL (12.0-15.0); Mean Corpuscular Hgb 25.4 pg (27.0-32.0); Mean Corpuscular Volume 82.2 fL (81-99); Mean Platelet Vol. 9.3 fl (6.2-12.0); Platelet Count 393 K/mm3 (150-450); RBC Distribution Width CV 14.7 % (11.6-14.6); RBC Distribution Width SD 44.1 fl (35.1-43.9); Red Blood Count 4.09 M/mm3 (4.2-5.4); White Blood Count 12.4 K/mm3 (4.4-11.0)
[2020-09-22 05:20] LABS: ALB/GLOB Ratio 0.4 RATIO (0.9-2.4); AST(SGOT) 30 U/L (15-37); Alanine Aminotransfer ALT/SGPT 57 U/L (13-56); Albumin, Serum 1.8 g/dL (3.2-5.0); Alkaline Phosphatase 105 U/L (45-117); Anion Gap 7 (5-15); BUN 5 mg/dL (7-18); BUN/Creat Ratio 9.5 RATIO (10-20); Chloride 105 mmol/L (98-107); Creatinine, Serum 0.53 mg/dL (0.55-1.02); EST Glomerular Filtration Rate 145 mL/min (>60); Est Glom Filt Rate - Afr Amer 175 mL/min (>60); Estimated Creatinine Clearance 140.93 ml/min; Glucose 115 mg/dL (74-106); Potassium 3.3 mmol/L (3.5-5.1); Protein, Total 5.8 g/dL (6.4-8.2); Sodium Level 140 mmol/L (136-145)
[2020-09-22] MEDS: Heparin Injection (Vial) 5,000 UNIT/ML VIAL 5000 UNIT SC ×3 (06:43→23:52)
--- NOTE | 2020-09-22 08:12 | PCM.PN.OB ---
Subjective Subjective: Denies headache, vision changes, shortness of breath, chest pain, palpitations. Her pain is controlled. No flatus yet. She is pumping. Tolerates PO without nausea or vomiting. Objective Data Objective Data Vital Signs: Vital Signs Temp Pulse Resp BP Pulse Ox 98.0 F 72 16 134/77 H 98 09/22/20 07:49 09/22/20 08:00 09/22/20 08:00 09/22/20 08:00 09/22/20 08:00 Oxygen Delivery Method Room Air Weight: 113.2 kg Body Mass Index (BMI) 41.5 Intake & Output: Intake and Output for Last 24 Hours 09/20/20 09/21/20 09/22/20 23:59 23:59 23:59 Intake Total 1000 / 1000 4445.00 / 4445.00 2270.83 / 2270.83 Output Total 1935 / 1935 3300 / 3300 Balance 1000 / 1000 2510.00 / 2510.00 -1029.17 / -1029.17 Lab / Micro Data Result Diagrams: 09/22/20 04:50 09/22/20 04:50 Labs: Laboratory Results - last 24 hr 09/21/20 09/21/20 09/22/20 16:52 16:52 04:50 WBC 17.5 H 12.4 H RBC 4.44 4.09 L Hgb 11.1 L 10.4 L Hct 35.6 L 33.6 L MCV 80.2 L 82.2 MCH 25.0 L 25.4 L MCHC 31.2 L 31.0 L RDW Std Deviation 42.8 44.1 H RDW Coeff of Mckinley 14.7 H 14.7 H Plt Count 413 393 MPV 9.6 9.3 Sodium 138 Potassium 3.2 L Chloride 104 Carbon Dioxide 25.0 Anion Gap 9 BUN 5 L Creatinine 0.48 L Estim Creat Clear Calc 155.61 Est GFR (MDRD) Af Amer 197 Est GFR (MDRD) Non-Af 163 BUN/Creatinine Ratio 10.5 Glucose 122 H Calcium 7.5 L Total Bilirubin 0.30 AST 43 H ALT 64 H Alkaline Phosphatase 110 Lactate Dehydrogenase 236 Total Protein 6.2 L Albumin 2.1 L Globulin 4.1 Albumin/Globulin Ratio 0.5 L 09/22/20 04:50 WBC RBC Hgb Hct MCV MCH MCHC RDW Std Deviation RDW Coeff of Mckinley Plt Count MPV Sodium 140 Potassium 3.3 L Chloride 105 Carbon Dioxide 28.0 Anion Gap 7 BUN 5 L Creatinine 0.53 L Estim Creat Clear Calc 140.93 Est GFR (MDRD) Af Amer 175 Est GFR (MDRD) Non-Af 145 BUN/Creatinine Ratio 9.5 L Glucose 115 H Calcium 7.0 L Total Bilirubin 0.10 L AST 30 ALT 57 H Alkaline Phosphatase 105 Lactate Dehydrogenase Total Protein 5.8 L Albumin 1.8 L Globulin 4.0 Albumin/Globulin Ratio 0.4 L Micro: Microbiology 09/20/20 22:10 Interface Orders SARS-CoV-2 Antigen (Rapid) - Final Physical Exam Const alert, oriented x3, no apparent distress and well nourished General Appearance: cooperative and comfortable Orientation / Consciousness: awake, oriented to person, oriented to place and oriented to time HEENT normocephalic Eyes no scleral icterus Resp normal respiratory effort and normal air movement Auscultation: clear to auscultation bilaterally Cardio regular rate, regular rhythm, S1 normal heart sound and S2 normal heart sound GI soft to palpation, non-tender and non-distended Inspection: other Other Details: incisional dressing c/d/i Uterus Palpation: uterus fundus firm and other OB nontender at umbilicus Extremity General Extremity: other findings; Negative for calf tenderness Skin no rashes or lesions noted Neuro oriented x3 Neuro Narrative: +1 b/l LE DTRs, no clonus Psych mental status grossly normal Assessment & Plan (1) Pre-eclampsia: QUALIFIERS: Trimester: third trimester Qualified Code(s): O14.93 - Unspecified pre-eclampsia, third trimester PLAN: BPs normalizing with diuresis d/c IV magnesium No worsening of labs Potassium low - will replete PO (2) delivery delivered: PLAN: Routine post op care /pump education Infant in Special Care Nursery
[2020-09-22] MEDS: Potassium Chloride Oral Tablet 20 MEQ PO ×2 (08:42→18:35)
[2020-09-22] MEDS: 0.9% Saline Lock 10 ML Syringe IV (08:58)
--- NOTE | 2020-09-22 10:43 | NURSING ---
IV wrapped in plastic so patient can take a shower
[2020-09-22] MEDS: Ibuprofen 600 MG Tablet PO ×2 (14:06→20:12)
--- NOTE | 2020-09-22 16:35 | CASEMGMT ---
Social Work Assessment Labor and Delivery Unit Patient Address: [place] [address] Phone number: [phone] Date of Referral: 09.22.2020 Time of Referral: 829 Referred By: Social Work identification Date of Intervention: 09.22.2020 Time of Intervention: 1634 Reason for Referral: Baby admitted to the [facility]; maternal history of anxiety. History obtained from: medical records and mother of baby (MOB) Jillian Blanchard. Household composition: MOB, father of baby (FOB) True Quiroz, and patient's 2 older siblings. ?Home is reported to be a trailer, and is reported as safe and adequate. Patient's parent/guardian status: MOB is a 30 year old single female, involved with the FOB for the last 13 years. ?MOB denies any domestic violence or intimate partner abuse in this relationship. ??Parents now have 3 children together: ?Twins Judd and Richard who are 2.5 years old, and then patient/ Mehrdad (born 09.21.2019). ? Medical History: MOB is G2, P2 to 3 after delivering Mehrdad. ?? care adequate. ??Maternal history of 28 week delivery with twins and placental abruption. ??Pre-eclampsia during with Mehrdad. ??Delivering Mehrdad at 34 weeks gestation. ?Apgars 9 and 10 at 1 and 5 minutes of life. ?? Educational Status: DIANE reports she finished the 10th grade and dropped out. ?Denies any IEP in school or learning/comprehension issues. ?? Financial Status: MOB and FOB are both on SSI disability related to diagnoses of anxiety.? Infant Supplies: Reports to have bassinet, pack-n-play, car seat, clothing, diapers, wipes for baby. Planning to breast and bottle feed. Childcare/Caregiver(s): MOB and FOB. Transportation: MOB denies any issues.?? Programs/Agencies Involved: Active with S for food and medical. Active with WIC. Denies any other agency involvement such as children services (or history of such), no legal issues, and declines referrals to support programs such as [employer] or [employer]. Behavioral Health Issues: Mental Health History: MOB had history of depression and anxiety, with history of counseling, but denies any current involvement. Initially denied that mood and anxiety were of concerns, but later on in conversation acknowledged that may have had some flairs of such during this , with the COVID pandemic adding a layer of stress. MOB denies any history of suicidal ideation, planning, intent, or attempts. No thoughts of harm to others. Substance Use History: Denies any illicit drugs use or alcohol use during . Reports as a teen may have used marijuana. No tobacco use. Drug Screens: Maternal drug screen negative on 03.24.2020. No further testing for mom or baby Family/Social Stressors: COVID Pandemic creating feelings of increased isolation. Baby now admitted to [facility]. Support Systems: MOB reports support from the FOB, parents, sister, and FOB's parents. ???MOB reports to feel to have an adequate support system. ? Depression/Shaken Baby/Safe Sleeping : Educated to said topics. ASSESSMENT: Met with MOB in her room on [facility] labor and delivery unit. MOB pleasant, cooperative, and willing to talk to aids social worker. Educated MOB that this radio news writer is the aids social worker assigned to the [facility], for continuity of care of families. MOB expressed understanding. MOB with anxious mood, good eye contact, slightly rapid speech but directable. MOB acknowledges that has felt emotional today and teary off/on. MOB reports to feel her mood is doing okay though, and reports acceptance of baby being in [facility]. MOB reports to just want baby to have the care needed, and understands from last NICU experience that the baby getting needs met is the most important. MOB reports to feel to have a good support system, has all supplies set for the baby at home including a car seat and a safe sleep space. MOB educated to mood and anxiety disorders, risk for such, and importance of self care. MOB reports should symptoms become distressing for MOB, the MOB would seek out additional help and support. MOB reports to cope by taking things out with her mother or sister. MOB reports FOB is also a support. Supportive listening offered. Providing MOB with [facility] resource list and packet on mood and anxiety disorders. PLAN: MOB will discharge home when ready for discharge. Social work will be following family while on the [facility]. No other services requested or indicated. -MONE Cheatham, NISA
[2020-09-23 02:20] VITALS: BP 147/91; PULSE 87; RESP 16
[2020-09-23] MEDS: NIFEdipine 30 MG Tablet PO ×2 (02:24→11:18)
[2020-09-23] MEDS: Ibuprofen 600 MG Tablet PO ×4 (03:37→21:01)
[2020-09-23] MEDS: Acetaminophen 500 MG Tablet 1000 MG PO ×4 (04:56→22:07)
[2020-09-23] MEDS: Heparin Injection (Vial) 5,000 UNIT/ML VIAL 5000 UNIT SC ×3 (05:53→22:07)
[2020-09-23 07:35] VITALS: BP 153/93; PULSE 87; RESP 18; TEMP 36.6
[2020-09-23] MEDS: Potassium Chloride Oral Tablet 20 MEQ PO ×2 (08:46→16:55)
--- NOTE | 2020-09-23 09:45 | PCM.PN.OB ---
Subjective Subjective: Overall no overnight complaints. Patient notes moments of emotion but not depression. Pain well controlled. Objective Data Objective Data Vital Signs: Vital Signs Temp Pulse Resp BP Pulse Ox 97.8 F 87 18 153/93 H 98 09/23/20 07:35 09/23/20 07:35 09/23/20 07:35 09/23/20 07:35 09/22/20 14:45 Oxygen Delivery Method Room Air Weight: 249 lb 9.012 oz Body Mass Index (BMI) 41.5 Intake & Output: Intake and Output for Last 24 Hours 09/21/20 09/22/20 09/23/20 23:59 23:59 23:59 Intake Total 4445.00 / 4445.00 3043.33 / 3043.33 Output Total 1935 / 1935 3700 / 3700 Balance 2510.00 / 2510.00 -656.67 / -656.67 Lab / Micro Data Result Diagrams: 09/22/20 04:50 09/22/20 04:50 Micro: Microbiology 09/20/20 22:10 Interface Orders SARS-CoV-2 Antigen (Rapid) - Final Physical Exam Const alert, oriented x3 and no apparent distress HEENT normocephalic Neck full ROM Resp normal respiratory effort, no retractions and no use of accessory muscles Extremity normal to inspection, full ROM and no clubbing, cyanosis or edema Skin no rashes or lesions noted Psych mental status grossly normal, affect normal and speech normal Assessment & Plan (1) delivery delivered: PLAN: Postoperative day 1. Preeclampsia with severe features based on severe range blood pressures. Started on Procardia XL 30 mg daily, for early repeat dose this morning. We will continue to monitor blood pressures and increase p.o. medications as needed. Patient currently asymptomatic denies headache, visual changes, chest pain, shortness of breath, nausea vomiting, right upper quadrant pain. HELLP labs normalizing. Will consider d/c POD# 3-4 if BP's wnl. Patient emotional over night but overall happy, discussed depression and offered treatment but patient declined. To consider going forward.
[2020-09-23 11:15] VITALS: BP 151/97; PULSE 87; RESP 16; TEMP 36.2
[2020-09-23 16:50] VITALS: BP 149/81; PULSE 75; RESP 20; TEMP 36.4
[2020-09-23 21:00] VITALS: BP 150/75; PULSE 71; RESP 16; TEMP 36.4
[2020-09-24] MEDS: Ibuprofen 600 MG Tablet PO ×3 (02:35→15:22)
[2020-09-24 02:36] VITALS: BP 138/75; PULSE 71; RESP 16; TEMP 37
[2020-09-24] MEDS: Acetaminophen 500 MG Tablet 1000 MG PO ×2 (04:18→10:20)
[2020-09-24] MEDS: Heparin Injection (Vial) 5,000 UNIT/ML VIAL 5000 UNIT SC ×2 (06:07→15:22)
[2020-09-24 08:56] VITALS: BP 148/79; PULSE 61; RESP 16; TEMP 36; O2SAT 99
[2020-09-24] MEDS: Potassium Chloride Oral Tablet 20 MEQ PO (09:01)
[2020-09-24] MEDS: NIFEdipine 60 MG Tablet PO (09:30)
--- NOTE | 2020-09-24 10:24 | PCM.PN.OB ---
Subjective Subjective: No overnight complaints. Pain well controlled. Denies visual changes, chest pain, shortness of breath, nausea vomiting, right upper quadrant pain. Feels much more emotionally stable. Objective Data Objective Data Vital Signs: Vital Signs Temp Pulse Resp BP Pulse Ox 96.8 F L 61 16 148/79 H 99 09/24/20 08:56 09/24/20 08:56 09/24/20 08:56 09/24/20 08:56 09/24/20 08:56 Oxygen Delivery Method Room Air Weight: 249 lb 9.012 oz Body Mass Index (BMI) 41.5 Intake & Output: Intake and Output for Last 24 Hours 09/22/20 09/23/20 09/24/20 23:59 23:59 23:59 Intake Total 3043.33 / 3043.33 1200 / 1200 700 / 700 Output Total 3700 / 3700 Balance -656.67 / -656.67 1200 / 1200 700 / 700 Lab / Micro Data Result Diagrams: 09/22/20 04:50 09/22/20 04:50 Micro: Microbiology 09/20/20 22:10 Interface Orders SARS-CoV-2 Antigen (Rapid) - Final Physical Exam Const alert, oriented x3 and no apparent distress HEENT normocephalic Neck full ROM Resp normal respiratory effort, no retractions and no use of accessory muscles Extremity normal to inspection and full ROM Psych mental status grossly normal, affect normal and speech normal Assessment & Plan (1) delivery delivered: PLAN: Postoperative day 3. Pain well controlled. Patient with severe preeclampsia previously started on Procardia XL 30 mg daily. Today with borderline blood pressures will increase dose to Procardia XL 60 mg daily. If blood pressures stable will discharge home this afternoon. Educated on preeclamptic signs and symptoms. For blood pressure check this week in office. To order blood pressure cuff at home, discussed blood pressure ranges.
--- NOTE | 2020-09-24 10:27 | PCM.DC ---
Discharge Instructions Diet Discharge Diet: No restrictions Activity Discharge Activity: Return to Normal Activity, May Drive, May Shower and - (No tub baths for 2 weeks) May resume sexual activity in: 4-6 weeks Lifting Restrictions: No lifting over 25 pounds for 3 weeks Dressing / Incision Call your doctor if your incision/area has: Continuous Slow Oozing, Sudden Increased Bleeding and Foul Smelling Discharge Call your doctor if you observe: Fever of 101 or Higher, Shortness of breath and Chest pain Follow Up Care Please Follow Up With: Jonel Moulton MD When: 1 week blood pressure check, 2 week postoperative, 6-week Test Results: Test results from this visit will be discussed in further detail at your follow-up appointment, if applicable. Discharge Plan Admission Admit Date/Time: 09/21/20 08:35 Attending Provider: Kay Rocha Primary Care Provider: Care Physician,Christiana Primary Instructions Patient Instructions: After a Vaginal Discharge Orders/Prescriptions Prescriptions: No Action progesterone [Progesterone-50] 50 mg/mL Oil 50 mg IM QWEEK RF: 0 One Daily [phone] mg-mcg-mg Combo Pack 1 pkg PO DAILY RF: 0 Referrals / Follow Up: Care Physician,No Primary [Primary Care Provider] -
[2020-09-24 12:06] VITALS: BP 139/80; PULSE 75; RESP 16; TEMP 36.3
--- NOTE | 2020-09-24 12:10 | NURSING ---
Call placed to Dr. Moulton to update on patient's blood pressure. Retake BP at 1400. Call with results.
[2020-09-24 14:25] VITALS: BP 150/85
--- NOTE | 2020-09-24 14:26 | NURSING ---
Dr. Moulton notified of patient's BP. Plan is for patient to be seen in the office and discharge.
--- NOTE | 2020-09-26 18:13 | PCM.PN.OB ---
Subjective Subjective No issues overnight. Doing well. OOB. Denies heavy lochia. No voiding difficulty. Objective Data Objective Data Vital Signs: Vital Signs Temp Pulse Resp BP Pulse Ox 97.3 F L 75 16 150/85 H 99 09/24/20 12:06 09/24/20 12:06 09/24/20 12:06 09/24/20 14:25 09/24/20 08:56 Oxygen Delivery Method Room Air Weight: 113.2 kg Body Mass Index (BMI) 41.5 Intake & Output: Intake and Output for Last 24 Hours 09/24/20 09/25/20 09/26/20 23:59 23:59 23:59 Intake Total 700 / 700 Balance 700 / 700 Lab / Micro Data Result Diagrams: 09/22/20 04:50 09/22/20 04:50 Micro: Microbiology 09/20/20 22:10 Interface Orders SARS-CoV-2 Antigen (Rapid) - Final Physical Exam Const alert, oriented x3 and no apparent distress Resp normal respiratory effort and normal air movement Cardio regular rate, regular rhythm, S1 normal heart sound and S2 normal heart sound GI normal to inspection, nondistended, normoactive bowel sounds, soft to palpation, non-tender and non-distended Uterus Palpation: uterus fundus firm and other OB fundus nontender Extremity no calf tenderness Neuro oriented x3 Assessment & Plan (1) Pre-eclampsia: QUALIFIERS: Trimester: third trimester Qualified Code(s): O14.93 - Unspecified pre-eclampsia, third trimester (2) delivery delivered:
== END 2020-09-24 15:27 | disposition home or self-care (01) | DRG 540 ==
LOC: WPOUT 08:40 → WP 08:40
PROVIDERS: Obstetrics & Gynecology; Admitting Provider Obstetrics & Gynecology; Referring Provider Obstetrics & Gynecology; Visit Provider Obstetrics & Gynecology
DX: O14.14 Severe pre-eclampsia complicating childbirth (principal); O34.211 Maternal care for low transverse scar from previous cesarean delivery; Z20.822 Contact with and (suspected) exposure to COVID-19; Z3A.34 34 weeks gestation of pregnancy; Z37.0 Single live birth
CPT/HCPCS: 59025; 59050; 80048; 80053; 80076; 82565; 82570; 83615; 84156; 84450; 84460; 84550; 85025; 85027; 86850; 86900; 86901; 87426; 87653; 96372; 99218; 99251; J7120; A4216; G0378; G0463; J0702; J2405

== ENCOUNTER → 2020-11-13 11:16 | Outpatient (CLI) | payer MEDICAID, SELFPAY ==
[2020-09-20 16:59] VITALS: BMI 41.5
[2020-11-13 11:36] LABS: 24 Hour Urine Protein 2535.1 mg/24HR (<150 MG/24HR); 24HR. UA Prot. Total Volume 2525 mL; Urine Protein (24 Hour) 100.4 mg/dL (<11.9)
== END ==
PROVIDERS: Visit Provider Obstetrics & Gynecology
DX: R80.9 Proteinuria, unspecified (principal)
CPT/HCPCS: 81050; 84156

== ENCOUNTER → 2020-11-30 11:11 | Outpatient (CLI) | payer MEDICAID, SELFPAY ==
[2020-09-20 16:59] VITALS: BMI 41.5
[2020-11-30 12:31] LABS: Creatinine, Urine (random) < 13.00 mg/dL (NO RANGE EST.); Protein, Urine (Random) 46.1 mg/dL (<11.9)
== END ==
PROVIDERS: Visit Provider Internal Medicine Nephrology
DX: R80.9 Proteinuria, unspecified (principal)
CPT/HCPCS: 82570; 84156

== ENCOUNTER → 2020-12-08 12:53 | Outpatient (CLI) | payer MEDICAID, SELFPAY ==
[2020-09-20 16:59] VITALS: BMI 41.5
--- NOTE | 2020-12-08 12:56 | US_ITS ---
STUDY: RENAL ULTRASOUND - COMPLETE REASON FOR EXAM: Female, 30 years old. PROTEINURIA TECHNIQUE: Ultrasound evaluation of the kidneys was performed with real-time and static conway-scale imaging. COMPARISON: None. FINDINGS: RIGHT KIDNEY: Normal location of the right kidney, which is normal in size. The right kidney measures 11.1 cm x 5.1 cm x 4.1 cm. There is a normal cortex of the right kidney. The renal cortex measures 1.3 cm. There is no right renal mass or cyst. There are no right renal calculi. There is no right hydronephrosis. DISTAL RIGHT URETER: There is non-visualization of the distal right ureter. There is no demonstrated right ureterovesical junction calculus. There is a visualized right ureteral jet. LEFT KIDNEY: Normal location of the left kidney, which is normal in size. The left kidney measures 10.6 cm x 5 cm x 5.5 cm. There is a normal cortex of the left kidney. The renal cortex measures 1.5 cm. There is no left renal mass or cyst. There are no left renal calculi. There is no left hydronephrosis. DISTAL LEFT URETER: There is non-visualization of the distal left ureter. There is no demonstrated left ureterovesical junction calculus. There is a visualized left ureteral jet. BLADDER: The distended urinary bladder has a volume of 220 ml. There is a normal wall thickness of the distended urinary bladder. There is no demonstrated mass within the urinary bladder. There are no demonstrated bladder calculi. US/Kidney and Bladder IMPRESSION: Normal ultrasound of the kidneys and urinary bladder. Electronically Signed: Sadiq Arriola MD at 14:49 EDT , Service support ,
== END ==
PROVIDERS: PCP Nurse Practitioner Family; Referring Provider Internal Medicine Nephrology; Visit Provider Internal Medicine Nephrology
DX: R80.9 Proteinuria, unspecified (principal)
CPT/HCPCS: 76770

== ENCOUNTER → 2020-12-26 11:00 | Outpatient (CLI) | payer MEDICAID, SELFPAY ==
[2020-09-20 16:59] VITALS: BMI 41.5
[2020-12-26 11:24] LABS: 24HR. UA Prot. Total Volume 2600 mL; Urine Protein (24 Hour) 131.1 mg/dL (<11.9)
[2020-12-26 12:01] LABS: Hematocrit 41.7 % (37-47); Hemoglobin 12.8 g/dL (12.0-15.0); Mean Corp Hgb Conc 30.7 g/dL (32-36); Mean Corpuscular Hgb 24.7 pg (27.0-32.0); Mean Corpuscular Volume 80.5 fL (81-99); Mean Platelet Vol. 9.7 fl (6.2-12.0); Platelet Count 383 K/mm3 (150-450); RBC Distribution Width CV 15.1 % (11.6-14.6); RBC Distribution Width SD 44.2 fl (35.1-43.9); Red Blood Count 5.18 M/mm3 (4.2-5.4); White Blood Count 8.3 K/mm3 (4.4-11.0)
[2020-12-26 12:17] LABS: Protein, Urine (Random) 678.2 mg/dL (<11.9); Protein:Creat Ratio 2886 mg/g CRE (0-200)
[2020-12-26 12:19] LABS: Albumin, Serum 3.5 g/dL (3.2-5.0); BUN 10 mg/dL (7-18); BUN/Creat Ratio 15.4 RATIO (10-20); Calcium,Total 8.8 mg/dL (8.5-10.1); Chloride 106 mmol/L (98-107); Creatinine, Serum 0.65 mg/dL (0.55-1.02); EST Glomerular Filtration Rate 114 mL/min (>60); Est Glom Filt Rate - Afr Amer 138 mL/min (>60); Glucose 94 mg/dL (74-106); Phosphorus 2.8 mg/dL (2.5-4.9); Potassium 3.6 mmol/L (3.5-5.1); Sodium Level 140 mmol/L (136-145)
[2020-12-28 13:23] LABS: Anti-Nuclear Antibody Test Negative (.)
== END ==
PROVIDERS: PCP Nurse Practitioner Family; Referring Provider Internal Medicine Nephrology; Visit Provider Internal Medicine Nephrology
DX: R80.9 Proteinuria, unspecified (principal)
CPT/HCPCS: 36415; 80069; 81050; 82570; 84156; 85027; 86038

== ENCOUNTER → 2021-03-07 11:11 | Outpatient (CLI) | payer MEDICAID, SELFPAY ==
[2021-03-07 12:05] LABS: Protein, Urine (Random) 53.3 mg/dL (<11.9); Protein:Creat Ratio 3862 mg/g CRE (0-200)
[2021-03-07 12:10] LABS: Hematocrit 41.6 % (37-47); Hemoglobin 12.6 g/dL (12.0-15.0); Mean Corp Hgb Conc 30.3 g/dL (32-36); Mean Corpuscular Hgb 24.8 pg (27.0-32.0); Mean Corpuscular Volume 81.9 fL (81-99); Mean Platelet Vol. 9.9 fl (6.2-12.0); Platelet Count 424 K/mm3 (150-450); RBC Distribution Width CV 15.1 % (11.6-14.6); RBC Distribution Width SD 45.2 fl (35.1-43.9); Red Blood Count 5.08 M/mm3 (4.2-5.4); White Blood Count 7.8 K/mm3 (4.4-11.0)
[2021-03-07 12:43] LABS: Albumin, Serum 3.4 g/dL (3.2-5.0); BUN 9 mg/dL (7-18); BUN/Creat Ratio 13.5 RATIO (10-20); Calcium,Total 8.9 mg/dL (8.5-10.1); Chloride 106 mmol/L (98-107); Creatinine, Serum 0.67 mg/dL (0.55-1.02); EST Glomerular Filtration Rate 111 mL/min (>60); Est Glom Filt Rate - Afr Amer 134 mL/min (>60); Glucose 94 mg/dL (74-106); Phosphorus 2.7 mg/dL (2.5-4.9); Potassium 3.9 mmol/L (3.5-5.1); Sodium Level 139 mmol/L (136-145)
[2021-03-09 08:15] LABS: Anti-Nuclear Antibody Test Negative (.)
== END ==
PROVIDERS: PCP Nurse Practitioner Family; Referring Provider Internal Medicine Nephrology; Visit Provider Internal Medicine Nephrology
DX: R80.9 Proteinuria, unspecified (principal)
CPT/HCPCS: 36415; 80069; 82570; 84156; 85027; 86038

== ENCOUNTER → 2021-03-20 11:49 | Outpatient (CLI) | payer MEDICAID, SELFPAY ==
[2021-03-20 12:32] LABS: Hematocrit 39.7 % (37-47); Hemoglobin 12.4 g/dL (12.0-15.0); Mean Corp Hgb Conc 31.2 g/dL (32-36); Mean Corpuscular Hgb 25.7 pg (27.0-32.0); Mean Corpuscular Volume 82.4 fL (81-99); Mean Platelet Vol. 9.9 fl (6.2-12.0); Platelet Count 378 K/mm3 (150-450); RBC Distribution Width CV 15.6 % (11.6-14.6); RBC Distribution Width SD 47.1 fl (35.1-43.9); Red Blood Count 4.82 M/mm3 (4.2-5.4); White Blood Count 9.1 K/mm3 (4.4-11.0)
[2021-03-20 12:50] LABS: Albumin, Serum 3.4 g/dL (3.2-5.0); BUN 8 mg/dL (7-18); BUN/Creat Ratio 11.1 RATIO (10-20); Calcium,Total 8.8 mg/dL (8.5-10.1); Chloride 105 mmol/L (98-107); Creatinine, Serum 0.72 mg/dL (0.55-1.02); EST Glomerular Filtration Rate 101 mL/min (>60); Est Glom Filt Rate - Afr Amer 122 mL/min (>60); Glucose 98 mg/dL (74-106); Phosphorus 3.3 mg/dL (2.5-4.9); Potassium 3.9 mmol/L (3.5-5.1); Sodium Level 139 mmol/L (136-145)
[2021-03-20 13:04] LABS: Protein:Creat Ratio 2397 mg/g CRE (0-200)
== END ==
PROVIDERS: PCP Nurse Practitioner Family; Referring Provider Internal Medicine Nephrology; Visit Provider Internal Medicine Nephrology
DX: R80.9 Proteinuria, unspecified (principal)
CPT/HCPCS: 36415; 80069; 82570; 84156; 85027

== ENCOUNTER → 2021-03-26 08:38 | Outpatient (CLI) | payer MEDICAID, SELFPAY ==
[2021-03-26] VITALS (8 sets, daily range): BP systolic 112–135; BP diastolic 59–89; PULSE 64–86; RESP 12–25; TEMP 37.2; O2SAT 96–100; BMI 37.4
[2021-03-26 09:05] LABS: International Normalized Ratio 0.9
[2021-03-26] MEDS: fentaNYL 100 MCG/2 ML Ampul IV (10:05)
[2021-03-26] MEDS: Midazolam 2 MG/2 ML Syringe IV (10:05)
[2021-03-26] MEDS: Lidocaine 2% (20 ml mdv) 20 ML Vial INFILT (10:15)
--- NOTE | 2021-03-26 10:25 | KI_PTH ---
PATIENT: DEVON FREGOSO LOC: CT U#:[id number] AGE/SX: 35/F ROOM: RE03/26/[address]: Dr. Diana Vazquez DO : 1990 BED: DIS: SPEC #: [id number] RECD: 03/26/21 10:31 STATUS: ESTELA REAlex #: [id number] JANES: 03/26/21 10:[address]: Diana Vazquez DEPT: SURGICAL PATHOLOGY RECD BY: Kita Moreno ENTERED: 03/26/21 11:51 SP TYPE: KIDNEY BX OTHR DR: Margaret Segura, TRANSPORTATION ECONOMICS TEACHER-C Tissues: Kidney, NOS Procedures: Fluorescent Antibody (ACH) Sp St Grp II Kidney (ACH) Kidney Biopsy (ACH) Fluorescent antibody (ACH) add'l HEADER OPERATION: CT-guided left kidney biopsy PRE-OP DIAGNOSIS: Proteinuria TISSUE SUBMITTED: Kidney 18-gauge x4 MICROSCOPIC DIAGNOSIS Kidney, needle biopsy: Predominantly medullary renal tissue, insufficient for complete evaluation (see microscopic description and comment). Tubular changes suggestive of acute tubular necrosis. COMMENT The biopsy has only scant amounts of cortex, thus limiting full evaluation. Based on the tissue available, the glomeruli look normal, although with the caveat that only four glomeruli are sampled on light microscopy and two on immunofluorescence, with none on electron microscopy. It is possible that there is an unsampled glomerular process. There is no evidence of IgA or other immunoglobulin deposition on immunofluorescence microscopy. Evaluation for minimal change disease cannot be completed due to the absence of glomeruli on the tissue utilized for electron microscopy studies. Some cortical tubules are in the light microscopy sections and show damage, suggestive of acute tubular necrosis. Given that the specimen is insufficient for full evaluation, clinical correlation is recommended. MICROSCOPIC DESCRIPTION The tissue submitted for light microscopy shows multiple cores of predominantly renal medulla with scant cortical tissue. There are four glomeruli present, one of which is globally sclerotic. Glomeruli show no evidence of segmental scars, crescent formation, necrosis, thrombosis or inflammation. PAS, silver and trichrome stains show no evidence of glomerular basement membrane double contours, spikes or fuchsinophilic immune-type deposits. The amount of cortex is so limited that valuation of the degree of interstitial fibrosis and tubular atrophy is not possible. Tubules show sloughing of epithelial mchugh, suggestive of acute tubular necrosis. Arteries and arterioles are limited, but the ones present do not show significant arterio- or arteriosclerosis. The tissue submitted for immunofluorescence studies shows two glomeruli, none of which are globally sclerotic. IgG, IgA, IgM, C3, C1q, albumin and fibrinogen all show nonspecific staining. The tissue submitted for electron microscopy studies does not contain any glomeruli on toluidine blue stained thick sections. No ultrastructural examination was performed. GROSS DESCRIPTION The specimen is sent entirely to [facility] for diagnosis. Received within transport media labeled with the patient?s name and ?kidney biopsy? are six core fragments of akers-pink soft tissue, ranging in size from 0.3-1.5 cm in length. Tissue is submitted fresh for immunofluorescence, in glutaraldehyde for electron microscopy and the remaining in formalin for light microscopy (cassette A1).
--- NOTE | 2021-03-26 10:30 | CT_ITS ---
PROCEDURE: CT GUIDED PERCUTANEOUS KIDNEY BIOPSY. DATE: 03/26/2021. INDICATION: Female, 30 years old. Proteinuria PHYSICIAN: Sadiq Arriola M.D. MEDICATIONS: 2 mg of VERSED and 50 mcg of FENTANYL. Conscious sedation was started at 10:05 AM and terminated at 10:22 AM. The patient was independently monitored by the nurse. ACCESS SITE: Lower pole left kidney. NEEDLE: 18-gauge core biopsy needle. SPECIMEN: 4 18-gauge cores. EBL: None. COMPLICATIONS: None immediate. RADIATION DOSAGE (If Supplied By Facility): CTDIvol = ( 11 ) mGy, DLP = ( 357.73 ) mGycm. Individualized dose optimization techniques were utilized. The risks, benefits, and alternatives to the procedure and sedation were explained to the patient. The specific risk of hemorrhage requiring further treatment or intervention was detailed and accepted. Written informed consent was obtained. The patient was placed on the CT table in the prone position. Multiple axial images were obtained from the lung base through the caudal extent of the kidneys. An appropriate entry site was identified and a barbara made on the skin. The skin overlying the [left] posterior flank was prepped and draped in sterile fashion. 1% lidocaine was administered subcutaneously for local anesthesia. Initially, a 22 gauge needle was advanced and CT images confirmed good needle position. The 22 gauge needle was then exchanged for an 17 gauge introducer needle which was advanced. Repeat CT images confirmed good needle trajectory and tip position. The introducer needle was then advanced into the periphery of the inferior renal pole, and CT images were again obtained to confirm exact tip location. The inner stylet of the introducer needle was then removed and an 18 gauge coaxial needle was advanced thru the introducer needle and biopsy performed. A total of [4 ] passes were performed and the specimen collected was sent to Pathology for further evaluation. The needle was withdrawn. Hemostasis was achieved with manual compression and a sterile dressing was applied. Repeat CT images of the biopsy area was performed which demonstrated no gross bleeding or hematoma. The patient tolerated the procedure well without immediate complications. The patient was transported to the [floor/recovery area] in stable condition. CT/Biopsy/Inj or Needle Placement IMPRESSION: Successful CT guided percutaneous kidney biopsy. Conscious sedation protocol was followed. Electronically Signed: Sadiq Arriola MD at 10:46 EST , Service support ,
== END | disposition home or self-care (01) ==
PROVIDERS: PCP Nurse Practitioner Family; Referring Provider Internal Medicine Nephrology; Visit Provider Internal Medicine Nephrology
DX: R80.9 Proteinuria, unspecified (principal)
CPT/HCPCS: 50200; 36415; 77012; 85610; 85730; 88300; 88305; 88313; 88346; 88350; 99156; J7040; A4216

== ENCOUNTER → 2021-04-19 11:14 | Outpatient (CLI) | payer MEDICAID, SELFPAY ==
[2021-04-19 11:34] LABS: Hematocrit 39.3 % (37-47); Hemoglobin 12.6 g/dL (12.0-15.0); Mean Corp Hgb Conc 32.1 g/dL (32-36); Mean Corpuscular Hgb 25.7 pg (27.0-32.0); Mean Platelet Vol. 9.8 fl (6.2-12.0); Platelet Count 391 K/mm3 (150-450); RBC Distribution Width CV 15.2 % (11.6-14.6); RBC Distribution Width SD 44.1 fl (35.1-43.9); Red Blood Count 4.91 M/mm3 (4.2-5.4); White Blood Count 9.3 K/mm3 (4.4-11.0)
[2021-04-19 11:45] LABS: Protein, Urine (Random) 363.4 mg/dL (<11.9); Protein:Creat Ratio 2125 mg/g CRE (0-200)
[2021-04-19 12:05] LABS: Albumin, Serum 3.5 g/dL (3.2-5.0); BUN 9 mg/dL (7-18); BUN/Creat Ratio 13.2 RATIO (10-20); Calcium,Total 8.8 mg/dL (8.5-10.1); Chloride 107 mmol/L (98-107); Creatinine, Serum 0.68 mg/dL (0.55-1.02); EST Glomerular Filtration Rate 108 mL/min (>60); Est Glom Filt Rate - Afr Amer 131 mL/min (>60); Glucose 97 mg/dL (74-106); Phosphorus 2.6 mg/dL (2.5-4.9); Potassium 3.9 mmol/L (3.5-5.1); Sodium Level 138 mmol/L (136-145)
== END ==
LOC: LAB.FUTURE 11:15 → LAB 11:20
PROVIDERS: PCP Nurse Practitioner Family; Visit Provider Internal Medicine Nephrology
DX: R80.9 Proteinuria, unspecified (principal)
CPT/HCPCS: 36415; 80069; 82570; 84156; 85027

== ENCOUNTER → 2021-05-10 11:33 | Outpatient (CLI) | payer MEDICAID, SELFPAY ==
[2021-05-10 12:02] LABS: Partial Thromboplast Time 33.1 Seconds (24.1-36.2)
[2021-05-10 12:08] LABS: International Normalized Ratio 0.9; Prothrombin Time (Protime)PT. 11.9 SECONDS (11.7-14.9)
== END ==
PROVIDERS: PCP Nurse Practitioner Family; Visit Provider Internal Medicine Nephrology
DX: R80.9 Proteinuria, unspecified (principal)
CPT/HCPCS: 36415; 85610; 85730

== ENCOUNTER → 2021-05-15 08:49 | Outpatient (CLI) | payer MEDICAID, SELFPAY ==
[2021-05-15] VITALS (9 sets, daily range): BP systolic 111–135; BP diastolic 17–78; PULSE 17–78; RESP 12–71; TEMP 36.9; O2SAT 94–100; BMI 37.4
--- NOTE | 2021-05-15 08:57 | CT_ITS ---
PROCEDURE: CT-guided percutaneous random renal biopsy. CLINICAL HISTORY: Female, 31 years old presenting withPROTEINURIA, UNSPECIFIED. CONSENT: Time-Out Called: Yes Consent form signed: YES PT-PTT Levels Checked: Yes PROCEDURE: CT-guided percutaneous right renal biopsy. Patient oriented dose modulation technique utilized. SEDATION: VERSED 2 mg and FENTANYL 100 mcg intravenous. PERFORMING PHYSICIAN: Raghu Mccray MD DATE OF PROCEDURE: 05/15/2021 MEDICAL CODING SPECIALIST: NONE ESTIMATED BLOOD LOSS: Minimal SPECIMENS REMOVED: Sample sent to laboratory with appropriate orders. COMPLICATIONS: None TECHNIQUE: The procedure, risks, alternatives and complications were explained to the patient and written informed consent was obtained. Patient was positioned prone on the CT table. A timeout procedure was obtained. Limited axial CT images of the abdomen were obtained and demonstrated bilateral kidneys, the decision was made to biopsy the lower pole of the right kidney.. An access site was marked on the patient''s skin overlying the posterolateral aspect of the lower pole of the right kidney after which the overlying skin was prepared in standard, sterile fashion. The skin was anesthetized with lidocaine and a small skin incision was made. Under CT fluoroscopic guidance a 17-gauge coaxial introducer needle was intermittently advanced into the lower pole of the right kidney. An 18 gauge coaxial core biopsy needle was then inserted through the needle and 5 core biopsy specimens were obtained and sent to lab for analysis. Gelfoam embolization of the biopsy site and access tract was then performed after which the access needle was removed and sterile dressing was applied. Follow-up imaging demonstrated no evidence of significant complications. The patient tolerated the procedure well with no immediate complications and was transferred to recovery in stable condition. CT/Biopsy/Inj or Needle Placement IMPRESSION: Technically successful random percutaneous CT biopsy of the lower pole of the right kidney, five 18-gauge core biopsy specimens obtained and sent to lab for analysis. Electronically Signed: Raghu Mccray MD at 12:38 EST Tel , Service support ,
[2021-05-15] MEDS: fentaNYL 100 MCG/2 ML Ampul IV ×2 (10:54→11:14)
[2021-05-15] MEDS: Midazolam 2 MG/2 ML Syringe IV ×2 (10:55→11:14)
[2021-05-15] MEDS: 0.9% Saline Lock 10 ML Syringe IV (10:57)
[2021-05-15] MEDS: Lidocaine 2% (20 ml mdv) 20 ML Vial INFILT (11:04)
--- NOTE | 2021-05-15 11:28 | KID_PTH ---
PATIENT: DEVON FREGOSO LOC: CT U#:[id number] AGE/SX: 35/F ROOM: RE05/15/[address]: Dr. Diana Vazquez DO : 1990 BED: DIS: SPEC #: [id number] RECD: 05/15/21 11:47 STATUS: ESTELA REQ #: [id number] JANES: 05/15/21 11:[address]: Diana Vazquez DEPT: SURGICAL PATHOLOGY RECD BY: Kita Moreno ENTERED: 05/15/21 13:03 SP TYPE: KIDNEY OTHR DR: Margaret Segura, SNUFF PACKING MACHINE OPERATOR-C Tissues: Kidney, NOS Procedures: Electron Microscopy (ACH) Fluorescent Antibody (ACH) Sp St Grp II Kidney (ACH) Kidney Biopsy (ACH) Fluorescent antibody (ACH) add'l HEADER OPERATION: CT-guided kidney biopsy - right PRE-OP DIAGNOSIS: Not noted TISSUE SUBMITTED: Right kidney 18-gauge x5 cores MICROSCOPIC DIAGNOSIS Kidney, right, renal biopsy: 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 Arteriosclerosis (large and mid-sized vasculature), mild. COMMENT The findings are those of adequate (adequately sampled) renal cortex and medulla with a total of 33 glomeruli or portions of glomeruli for histologic evaluation. Four glomeruli demonstrate global sclerosis and overall shrunken nature while three glomeruli demonstrate focal and segmental pattern of glomerulosclerosis (partial glomerulosclerosis) with predominantly vascular pole/hilar areas of sclerosis in the absence of hypercellularity or acute glomerulonephritis. No epithelial crescents are seen. Immunofluorescent microscopy studies are uniformly negative to immune deposits. No appreciable tubular atrophy of interstitial/parenchymal fibrosis is identified in renal parenchyma (light microscopy). Protein resorption droplets (tubular epithelial cell cytoplasm) are noted consistent with the patient?s history of proteinuria and peripheral edema. Although mild arterial sclerosis/arteriosclerosis is noted, no significant arteriolar hyalinosis is seen. No significant diabetic changes are identified. The findings are those of glomerulosclerosis (few) in the background of otherwise normal-appearing renal parenchyma with numerous tubular epithelial cell cytoplasm protein resorption droplets and with isolated focal and segmental sclerosis pattern of injury within open glomeruli which demonstrate normal mesangial matrix and cellularity. The remainder (open) glomeruli demonstrate normal basement membranes as well as epithelial cell/cellularity. The presence of normal glomerular basement membrane thickness with uniform epithelial/podocyte foot process effacement by electron microscopy in the absence of electron-dense deposits, altered basement membranes or increased mesangial/glomerular cellularity or inflammatory infiltrate best fits with focal and segmental pattern of glomerulosclerosis. Ultrastructural studies also demonstrate focal epithelial capillary loop collapse and segmental sclerosis of glomerulus (ultrastructural studies). The presence of global glomerulosclerosis (few) in the background of unscarred renal interstitium and with few glomeruli demonstrating normal mesangial matrix and cellularity and with focal and segmental glomerulosclerosis pattern of injury best fits with focal and segmental glomerulosclerosis pattern of injury as would be seen in primary focal and segmental glomerulosclerosis, NOS. No appreciable arteriolar hyalinosis or hypertensive changes are noted to explain vascular-pole collapse in these few glomeruli. The presence of uniform foot process effacement best fits with the patient?s history of proteinuria and edema in the absence of other vascular lesions. A primary focal and segmental glomerulosclerosis, not otherwise specified, is most favored in the case/patient. Clinical correlation and follow-up are essential. MICROSCOPIC DESCRIPTION LIGHT MICROSCOPY: Good/adequate biopsy consisting of cortical medullary portions of renal parenchyma and up to 21 glomeruli are portions of glomeruli for histologic evaluation. Two glomeruli demonstrate global sclerosis and overall shrunken nature/diameter while and additional three glomeruli demonstrate focal and segmental pattern of glomerular sclerosis with thickening of Aguirre?s capsule and with hilar/perihilar collapse (sclerosis). No interstitial inflammatory infiltrate is seen. No areas of tubular atrophy or interstitial fibrosis or marked interstitial fibrosis is seen. No marked arteriolar hyalinosis is identified. Mild arterial sclerosis is noted. PAS stain highlights glomeruli as well as focal and segmental collapse in three glomeruli. These areas are seen in vascular pole/perihilar region and are not associated with significant arteriolar hyalinosis. Moderate protein resorption droplets are identified when epithelial (tubular epithelial) cell cytoplasm. Nicholas (silver) stain also highlights focal and segmental (perihilar) pattern of injury in three glomeruli and demonstrates otherwise normal-thickness glomerular basement membranes and open capillary loops and the remainder of glomeruli. No areas of thickening are seen. No ?breaks,? ?splits,? or irregular luminal outlines are seen. Trichrome stain is negative for interstitial fibrosis. No fuchsinophilic deposits are identified with an open capillary loops within open glomeruli. Three glomeruli demonstrate focal and segmental pattern of sclerosis with trichrome-positive areas of sclerosis in vascular pole and near region of hilum; two of these glomeruli demonstrate associated Aguirre?s capsule fibrosis. IMMUNOFLUORESCENCE: tissue submitted for immunofluorescence microscopy demonstrates renal cortex and medulla and up to seven glomeruli or portions of glomeruli for histologic evaluation. One glomerulus demonstrates global sclerosis and oval shrunken nature/diameter. IgG, IgA, IgM, C3, C1q. and fibrin are negative with glomeruli, tubules and vascular structures. Albumin demonstrates 2+ positivity within tubular cell (epithelial cell) cytoplasm (resorption droplets), but is negative in vascular structures and glomeruli. ELECTRON MICROSCOPY: Toluidine blue-stained sections (thick/?diaper machine tender? sections) reveal predominantly renal cortex and up to five glomeruli or portions of glomeruli for histologic evaluation. One glomerulus demonstrates global sclerosis and overall shrunken nature/diameter of the remaining glomeruli demonstrate open capillary loops with normal mesangial matrix and cellularity and glomerular basement membrane thickness. Small areas of focal and segmental collapse/sclerosis area identified within one glomerulus but these are not associated with increased inflammatory cell infiltrate or increase in glomerular/mesangial cellularity. Ultrastructure examination reveals a normal-thickness glomerular basement membranes with uniform epithelial foot process effacement within one glomerulus examined ultrastructure only. The glomerulus also demonstrates two areas of focal and segmental capillary loop collapse in the absence of glomerular acute or chronic inflammation or increase glomerular cellularity. No electron-dense deposits are identified. No abnormal deposition of extracellular material is seen. GROSS DESCRIPTION The specimen is sent entirely to [facility] for diagnosis. Received in transport media labeled with the patient?s name and ?CT-guided kidney biopsy - right,? the specimen consists of 5 thin cylindrical cores of akers to akers-yellow renal parenchyma which are, in range, 0.3 to 1.4 cm maximum dimension. Laboratory Mechanic Helper section/piece is submitted for immunofluorescence microscopy while additional piece/section is submitted for electron microscopic studies. The remainder of the specimen is entirely submitted as A1.
== END | disposition home or self-care (01) ==
PROVIDERS: PCP Nurse Practitioner Family; Referring Provider Internal Medicine Nephrology; Visit Provider Internal Medicine Nephrology
DX: R80.9 Proteinuria, unspecified (principal); N26.9 Renal sclerosis, unspecified
CPT/HCPCS: 50200; 77012; 88305; 88313; 88346; 88348; 88350; 99156; 99157; J7040; A4216

== ENCOUNTER 2021-05-30 12:19 | Outpatient (CLI) | payer MEDICAID, SELFPAY ==
[2021-05-30 12:45] LABS: Hematocrit 42.1 % (37-47); Hemoglobin 12.9 g/dL (12.0-15.0); Mean Corp Hgb Conc 30.6 g/dL (32-36); Mean Corpuscular Hgb 25.1 pg (27.0-32.0); Mean Corpuscular Volume 82.1 fL (81-99); Mean Platelet Vol. 9.6 fl (6.2-12.0); Platelet Count 431 K/mm3 (150-450); RBC Distribution Width CV 14.5 % (11.6-14.6); RBC Distribution Width SD 43.3 fl (35.1-43.9); Red Blood Count 5.13 M/mm3 (4.2-5.4); White Blood Count 7.6 K/mm3 (4.4-11.0)
[2021-05-30 12:54] LABS: Protein, Urine (Random) 76.5 mg/dL (<11.9); Protein:Creat Ratio 2325 mg/g CRE (0-200)
[2021-05-30 12:58] LABS: Partial Thromboplast Time 33.9 Seconds (24.1-36.2)
[2021-05-30 13:02] LABS: International Normalized Ratio 0.9; Prothrombin Time (Protime)PT. 11.4 SECONDS (11.7-14.9)
[2021-05-30 13:10] LABS: Albumin, Serum 3.5 g/dL (3.2-5.0); BUN 9 mg/dL (7-18); BUN/Creat Ratio 13.4 RATIO (10-20); Calcium,Total 9.2 mg/dL (8.5-10.1); Chloride 106 mmol/L (98-107); Creatinine, Serum 0.67 mg/dL (0.55-1.02); EST Glomerular Filtration Rate 110 mL/min (>60); Est Glom Filt Rate - Afr Amer 133 mL/min (>60); Glucose 86 mg/dL (74-106); Phosphorus 2.8 mg/dL (2.5-4.9); Potassium 4.1 mmol/L (3.5-5.1); Sodium Level 138 mmol/L (136-145)
== END 2021-05-30 23:59 | disposition short-term general hospital (02) ==
LOC: LAB 12:22
PROVIDERS: PCP Nurse Practitioner Family; Referring Provider Internal Medicine Nephrology
DX: R80.9 Proteinuria, unspecified (principal)
CPT/HCPCS: 36415; 80069; 82570; 84156; 85027; 85610; 85730

== ENCOUNTER 2021-06-25 10:20 | Outpatient (CLI) | payer MEDICAID, SELFPAY ==
[2021-06-25 12:00] LABS: Albumin, Serum 3.6 g/dL (3.2-5.0); BUN 13 mg/dL (7-18); BUN/Creat Ratio 19.4 RATIO (10-20); Calcium,Total 8.8 mg/dL (8.5-10.1); Chloride 104 mmol/L (98-107); Creatinine, Serum 0.67 mg/dL (0.55-1.02); EST Glomerular Filtration Rate 110 mL/min (>60); Est Glom Filt Rate - Afr Amer 133 mL/min (>60); Glucose 93 mg/dL (74-106); Phosphorus 2.6 mg/dL (2.5-4.9); Sodium Level 136 mmol/L (136-145)
[2021-06-28 11:02] LABS: Cyclosporine 92 ng/mL (100-400)
== END 2021-06-25 23:59 | disposition home or self-care (01) ==
PROVIDERS: PCP Nurse Practitioner Family; Referring Provider Internal Medicine Nephrology; Visit Provider Internal Medicine Nephrology
DX: N04.1 Nephrotic syndrome with focal and segmental glomerular lesions (principal)
CPT/HCPCS: 36415; 80069; 80158

== ENCOUNTER 2021-08-01 10:57 | Outpatient (CLI) | payer MEDICAID, SELFPAY ==
[2021-08-01 11:29] LABS: Hematocrit 41.2 % (37-47); Hemoglobin 13.1 g/dL (12.0-15.0); Mean Corp Hgb Conc 31.8 g/dL (32-36); Mean Corpuscular Volume 81.7 fL (81-99); Mean Platelet Vol. 9.8 fl (6.2-12.0); Platelet Count 382 K/mm3 (150-450); RBC Distribution Width CV 15.3 % (11.6-14.6); RBC Distribution Width SD 45.1 fl (35.1-43.9); Red Blood Count 5.04 M/mm3 (4.2-5.4); White Blood Count 8.8 K/mm3 (4.4-11.0)
[2021-08-01 11:40] LABS: Protein:Creat Ratio 1147 mg/g CRE (0-200)
[2021-08-01 11:51] LABS: Albumin, Serum 3.9 g/dL (3.2-5.0); BUN 12 mg/dL (7-18); BUN/Creat Ratio 14.7 RATIO (10-20); Calcium,Total 9.5 mg/dL (8.5-10.1); Chloride 105 mmol/L (98-107); Creatinine, Serum 0.81 mg/dL (0.55-1.02); EST Glomerular Filtration Rate 88 mL/min (>60); Est Glom Filt Rate - Afr Amer 106 mL/min (>60); Glucose 91 mg/dL (74-106); Phosphorus 3.5 mg/dL (2.5-4.9); Sodium Level 138 mmol/L (136-145)
== END 2021-08-01 23:59 | disposition home or self-care (01) ==
LOC: LAB 10:58
PROVIDERS: PCP Nurse Practitioner Family; Visit Provider Internal Medicine Nephrology
DX: N04.1 Nephrotic syndrome with focal and segmental glomerular lesions (principal)
CPT/HCPCS: 36415; 80069; 82570; 84156; 85027

== ENCOUNTER → 2021-12-04 | Outpatient (CLI) | payer MEDICAID, SELFPAY ==
[2021-12-04 11:51] LABS: Protein:Creat Ratio 1304 mg/g CRE (0-200)
[2021-12-04 12:08] LABS: ALB/GLOB Ratio 0.9 RATIO (0.9-2.4); AST(SGOT) 13 U/L (15-37); Alanine Aminotransfer ALT/SGPT 21 U/L (13-56); Albumin, Serum 3.7 g/dL (3.2-5.0); Alkaline Phosphatase 65 U/L (45-117); Anion Gap 7 (5-15); BUN 11 mg/dL (7-18); BUN/Creat Ratio 15.4 RATIO (10-20); Chloride 103 mmol/L (98-107); Creatinine, Serum 0.72 mg/dL (0.55-1.02); EST Glomerular Filtration Rate 102 mL/min (>60); Est Glom Filt Rate - Afr Amer 123 mL/min (>60); Glucose 97 mg/dL (74-106); Potassium 3.9 mmol/L (3.5-5.1); Protein, Total 7.7 g/dL (6.4-8.2); Sodium Level 137 mmol/L (136-145)
== END | disposition home or self-care (01) ==
LOC: LAB 10:45
PROVIDERS: PCP Nurse Practitioner Family; Referring Provider Internal Medicine Nephrology; Visit Provider Internal Medicine Nephrology
DX: N04.1 Nephrotic syndrome with focal and segmental glomerular lesions (principal)
CPT/HCPCS: 36415; 80053; 82570; 84156

== ENCOUNTER → 2022-05-27 | Outpatient (CLI) | payer MEDICAID, SELFPAY ==
[2022-05-27 09:47] LABS: Protein, Urine (Random) 32.3 mg/dL (<11.9); Protein:Creat Ratio 1313 mg/g CRE (0-200)
[2022-05-27 10:03] LABS: Albumin, Serum 3.6 g/dL (3.2-5.0); BUN 12 mg/dL (7-18); BUN/Creat Ratio 16.5 RATIO (10-20); Calcium,Total 8.9 mg/dL (8.5-10.1); Chloride 101 mmol/L (98-107); Creatinine, Serum 0.73 mg/dL (0.55-1.02); EST Glomerular Filtration Rate 99 mL/min (>60); Est Glom Filt Rate - Afr Amer 120 mL/min (>60); Glucose 87 mg/dL (74-106); Potassium 3.6 mmol/L (3.5-5.1); Sodium Level 138 mmol/L (136-145)
== END | disposition home or self-care (01) ==
LOC: LAB 09:22
PROVIDERS: PCP Nurse Practitioner Family; Referring Provider Internal Medicine Nephrology; Visit Provider Internal Medicine Nephrology
DX: R80.9 Proteinuria, unspecified (principal)
CPT/HCPCS: 36415; 80069; 82570; 84156

== ENCOUNTER → 2022-10-04 | Outpatient (CLI) | payer MEDICAID, SELFPAY ==
[2022-10-04 12:07] LABS: Erythrocyte Sedimentation Rate 29 mm/hr (0-30)
[2022-10-04 12:10] LABS: Absolute Lymphocyte Count 1.88 X10^3/uL (0.83-4.51); Basophil# 0.03 X10^3/uL; Basophil% 0.4 % (0-1); Eosinophil# 0.08 X10^3/uL; Eosinophils% 0.9 % (0-5); Hematocrit 42.5 % (37-47); Hemoglobin 13.2 g/dL (12.0-15.0); Lymphocyte # 1.88 X10^3/ul (0.83-4.51); Lymphocyte % 22.2 % (19-41); Mean Corp Hgb Conc 31.1 g/dL (32-36); Mean Corpuscular Volume 83.7 fL (81-99); Monocyte# 0.41 X10^3/uL; Monocyte% 4.8 % (0-10); NRBC Flagged by Analyzer 0 % (0-5); Neutrophil # 6.04 X10^3/uL (2.7-7.7); Neutrophil % 71.2 % (47-70); Platelet Count 430 K/mm3 (150-450); RBC Distribution Width CV 14.6 % (11.6-14.6); RBC Distribution Width SD 44.1 fl (35.1-43.9); Red Blood Count 5.08 M/mm3 (4.2-5.4); White Blood Count 8.5 K/mm3 (4.4-11.0)
[2022-10-04 12:12] LABS: ALB/GLOB Ratio 0.8 RATIO (0.9-2.4); AST(SGOT) 20 U/L (15-37); Alanine Aminotransfer ALT/SGPT 24 U/L (13-56); Albumin, Serum 3.9 g/dL (3.2-5.0); Alkaline Phosphatase 82 U/L (45-117); Anion Gap 5 (5-15); BUN 12 mg/dL (7-18); BUN/Creat Ratio 16.2 RATIO (10-20); CRP 5.91 mg/L (0.0-3.0); Calcium,Total 9.2 mg/dL (8.5-10.1); Chloride 107 mmol/L (98-107); Creatinine, Serum 0.74 mg/dL (0.55-1.02); EST Glomerular Filtration Rate 97 mL/min (>60); Est Glom Filt Rate - Afr Amer 117 mL/min (>60); Globulin 4.7 g/dL (2.2-4.2); Glucose 94 mg/dL (74-106); LDH 202 U/L (84-246); Magnesium 1.7 mg/dL (1.6-2.6); Protein, Total 8.6 g/dL (6.4-8.2); Sodium Level 136 mmol/L (136-145)
[2022-10-07 15:08] LABS: Endomysial Antibody IgA Negative (Negative); Immunoglobulin A 254 mg/dL (87-352); t-Transglutaminase IgA <2 U/mL (0-3)
[2022-10-09 17:08] LABS: Anti-Centromere B Ab <0.2 AI (0.0-0.9); Anti-Chromatin <0.2 AI (0.0-0.9); Anti-Jo <0.2 AI (0.0-0.9); Anti-Mitochondrial AB <20.0 Units (0.0-20.0); Anti-Scleroderma-70 AB <0.2 AI (0.0-0.9); Anti-dsDNA Ab <1 IU/mL (0-9); Beef <0.10 kU/L (Class 0); Chocolate <0.10 kU/L (Class 0); Corn <0.10 kU/L (Class 0); Egg, Whole <0.10 kU/L (Class 0); Milk (Cow) <0.10 kU/L (Class 0); Peanut <0.10 kU/L (Class 0); Pork <0.10 kU/L (Class 0); RNP Ab 0.2 AI (0.0-0.9); SJOGREN'S Anti-SS-A test < 0.2 AI (0.0-0.9); SJOGREN'S Anti-SS-B test 2.4 AI (0.0-0.9); Smith Ab <0.2 AI (0.0-0.9); Soybean <0.10 kU/L (Class 0); Wheat <0.10 kU/L (Class 0)
[2022-10-10 11:09] LABS: Albumin 3.7 g/dL (2.9-4.4); Alpha-1-Globulins 0.2 g/dL (0.0-0.4); Cytoplasmic Ab (C-ANCA) <1:20 titer (Neg:<1:20); Gamma Globulin 1.2 g/dL (0.4-1.8); Immunoglobulin A 252 mg/dL (87-352); Immunoglobulin E 16 IU/mL (6-495); Immunoglobulin G 1197 mg/dL (586-1602); Immunoglobulin M 142 mg/dL (26-217); PROEL- TOTAL PROTEIN 7.5 g/dL (6.0-8.5); Perinuclear Ab (P-ANCA) <1:20 titer (Neg:<1:20)
== END | disposition home or self-care (01) ==
PROVIDERS: PCP Nurse Practitioner Family; Referring Provider Internal Medicine Gastroenterology; Visit Provider Internal Medicine Gastroenterology
DX: K52.9 Noninfective gastroenteritis and colitis, unspecified (principal)
CPT/HCPCS: 36415; 80053; 82784; 82785; 83516; 83615; 83735; 84165; 85025; 85652; 86003; 86005; 86140; 86225; 86235; 86255; 86256; 86334

== ENCOUNTER → 2022-10-25 | Outpatient (CLI) | payer MEDICAID, SELFPAY ==
[2022-10-30 22:07] LABS: Pancreatic Elastase, Fecal 226 (>200)
[2022-11-03 22:06] LABS: Calprotectin, Stool 287 ug/g (0-120); Fats, Neutral Normal (.); Fats, Total Normal (.)
== END | disposition home or self-care (01) ==
LOC: LABSPEC 10:49
PROVIDERS: PCP Nurse Practitioner Family; Referring Provider Internal Medicine Gastroenterology; Visit Provider Internal Medicine Gastroenterology
DX: K58.9 Irritable bowel syndrome, unspecified (principal); K52.9 Noninfective gastroenteritis and colitis, unspecified
CPT/HCPCS: 82274; 82653; 82705; 83630; 83993; 87177; 87209; 87329; 87493; 87506

== ENCOUNTER → 2022-11-09 | Outpatient (CLI) | payer MEDICAID, SELFPAY ==
[2022-11-09 11:20] LABS: Protein, Urine (Random) 219.8 mg/dL (<11.9); Protein:Creat Ratio 859 mg/g CRE (0-200)
[2022-11-09 11:21] LABS: Albumin, Serum 3.4 g/dL (3.2-5.0); BUN 11 mg/dL (7-18); BUN/Creat Ratio 14.9 RATIO (10-20); Calcium,Total 8.9 mg/dL (8.5-10.1); Chloride 107 mmol/L (98-107); Creatinine, Serum 0.74 mg/dL (0.55-1.02); EST Glomerular Filtration Rate 97 mL/min (>60); Est Glom Filt Rate - Afr Amer 118 mL/min (>60); Glucose 91 mg/dL (74-106); Phosphorus 2.5 mg/dL (2.5-4.9); Potassium 3.9 mmol/L (3.5-5.1); Sodium Level 138 mmol/L (136-145)
== END | disposition home or self-care (01) ==
LOC: LAB 09:46
PROVIDERS: PCP Nurse Practitioner Family; Referring Provider Internal Medicine Nephrology; Visit Provider Internal Medicine Nephrology
DX: R80.9 Proteinuria, unspecified (principal)
CPT/HCPCS: 36415; 80069; 82570; 84156

== ENCOUNTER → 2022-11-20 | Outpatient (CLI) | payer MEDICAID, SELFPAY ==
--- NOTE | 2022-11-20 09:09 | MRI_ITS ---
MR Enterography Abdomen/Pelvis WO/W Contrast 11/20/2022 11:08 AM COMPARISON: None available. CLINICAL HISTORY: K52.9 - Noninfective gastroenteritis and colitis, unspecified TECHNIQUE: Following oral administration of enteric contrast and administration of glucagon, multiplanar T1 and T2 weighted images along with dynamic post-gadolinium images were obtained through the abdomen and pelvis. 20 cc of IV Clariscan was used. FINDINGS: GI Tract: Several short loops of small bowel demonstrate increased wall thickening and mucosal hyperenhancement including the terminal ileum. There is surrounding inflammatory changes. No stricture, fistula, or obstruction. No drainable fluid collections. Liver: Unremarkable Gallbladder: Unremarkable Spleen: Unremarkable Pancreas: Unremarkable Adrenal Glands: Unremarkable Kidneys: Unremarkable Reproductive: Unremarkable Bladder: Unremarkable Lymphadenopathy: Absent Ascites: Absent Bones: No suspicious lesions MRI/Enterography Abd/Pel IMPRESSION: Findings consistent with acute flare of inflammatory bowel disease, most likely Crohn''s disease. No stricture, fistula, or obstruction. No drainable fluid collections. Electronically Signed: Ross Greer MD at 0:06 EDT ,
[2022-11-20 09:42] VITALS: BP 161/78; PULSE 81; RESP 16; TEMP 36.9; O2SAT 98; BMI 38.2
[2022-11-20] MEDS: Glucagon 1 MG/ML Syringe IV (11:30)
[2022-11-20 11:45] VITALS: BP 155/99; PULSE 98; RESP 16; O2SAT 97
== END | disposition home or self-care (01) ==
PROVIDERS: PCP Nurse Practitioner Family; Referring Provider Internal Medicine Gastroenterology; Visit Provider Internal Medicine Gastroenterology
DX: K52.9 Noninfective gastroenteritis and colitis, unspecified (principal); K50.90 Crohn's disease, unspecified, without complications
CPT/HCPCS: 74183; 96374; A9575; J1610

== ENCOUNTER 2023-01-10 05:23 | Day surgery (SDC) | payer MEDICAID, SELFPAY ==
--- NOTE | 2023-01-10 | IMM_PTH ---
PATIENT: DEVON FREGOSO LOC: EN U#:[id number] AGE/SX: 32/ ROOM: RE01/10/[address]: Dr. Benji Burch DO : 1990 BED: DIS: 01/10/2023 SPEC #: [id number] RECD: 01/10/23 14:09 STATUS: ESTELA REAlex #: [id number] JANES: 01/10/23 00:[address]: Benji Burch DEPT: IMMUNOHISTOCHEMISTRY RECD BY: Ismael Pappas ENTERED: 01/10/23 14:10 SP TYPE: IMMUNO OTHR DR: Margaret Segura, LABOR TRAINER-C Tissues: Gastric mucous membrane Procedures: H Pylori (initial) PHYSICIAN & [place] [id number] SPECIMEN INFORMATION: Tissue Source: B - Gastric antrum, F - Rectum polyp Clinical Info: Chronic diarrhea Specimen Number: [id number] B & F CPT code: 39698 x2, 78177 x6 METHODOLOGY: Deparaffinized sections of prefer/formalin-fixed tissue or PAP/DQ stained slides are incubated with monoclonal/polyclonal antibodies/oligonucleotide probes. Localization is made via biotin free immunoperoxidase method. Appropriate controls are performed and reacted as expected. Results on target cell population are indicated in the following table: RESULTS: ANTIBODY / CLONE RESULT Block B H Pylori (polyclonal) negative Block F AE1-3 (AE1/AE3/PCK26) negative CK8 (43psmeB70) negative Vimentin (V9) positive Actin (1A4) negative Desmin (CE-R-11) negative S-100 (4C4.9) positive Ki-67 (30-9) positive, very low These tests were developed and their performance characteristics determined by [facility]. They may not have been cleared or approved by the U.S. Food and Drug Administration. The FDA has determined that such clearance or approval is not necessary. The above immunohistochemical/dualISH markers are ordered and reviewed by the Pathologist. INTERPRETATION: A. Gastric antrum, biopsy: Negative for Helicobacter pylori organisms. F. Rectum polyp, biopsy: Consistent with mucosal neuroma. CHLEITA:jorge 01/14/2023
[2023-01-10] MEDS: Lactated Ringers 1,000 ML 15 ML IV (06:00)
[2023-01-10 06:04] VITALS: BP 145/100; PULSE 95; RESP 16; TEMP 36.6; O2SAT 100; BMI 37.4
[2023-01-10 06:05] LABS: Internal QC Validated? YES +Cl - CLEAR BKGD; Pregnancy, Urine Negative Negative
--- NOTE | 2023-01-10 06:30 | EGD_PTH ---
PATIENT: DEVON FREGOSO LOC: EN U#:[id number] AGE/SX: 32/F ROOM: RE01/10/[address]: Dr. Benji Burch DO : 1990 BED: DIS: 01/10/2023 SPEC #: [id number] RECD: 01/10/23 11:55 STATUS: ESTELA REAlex #: [id number] JANES: 01/10/23 06:[address]: Benji Burch DEPT: SURGICAL PATHOLOGY RECD BY: Kita Moreno ENTERED: 01/10/23 13:03 SP TYPE: EGD BIOPSY [facility] DR: Margaret Segura, CHIEF CATALYST OPERATOR-C Tissues: A - Duodenum, NOS B - Gastric mucous membrane C - Esophagus, NOS D - Ileum, NOS E - COLON BIOPSY F - Rectum, NOS Procedures: Surgery Specimen Level IV HEADER OPERATION: Colonoscopy, EGD ([facility]), biopsy PRE-OP DIAGNOSIS: Chronic diarrhea TISSUE SUBMITTED: A - Duodenum biopsy, B - Gastric antrum biopsy, H. pylori and path, C - Distal esophagus biopsy, D - Terminal ileum biopsy, E - Appendiceal orifice biopsy, F - Rectum polyp biopsy MICROSCOPIC DIAGNOSIS A. Duodenum, biopsy: Fragments of duodenal mucosa with focal gastric metaplasia. B. Gastric antrum, biopsy: Mild gastritis. See microscopic description and comment. C. Distal esophagus, biopsy: Fragments of gastroesophageal mucosa with chronic inflammation. Intestinal metaplasia (goblet cell metaplasia) not identified. See comment. D. Terminal ileum, biopsy: Fragments of small intestinal mucosa with mild chronic active inflammation. See microscopic description. E. Appendiceal orifice, biopsy: Focal mild chronic active colitis. See microscopic description. F. Rectal polyp, biopsy: Consistent with mucosal neuroma. See comment. SJ:rg 01/13/2023 COMMENT B. The results of immunohistochemistry for Helicobacter pylori will be reported separately ([id number]). C. Alcian blue/PAS stain with matched control is used in the evaluation of the specimen. F. Immunohistochemistry ([id number]) supports the above diagnosis. MICROSCOPIC DESCRIPTION Slides are reviewed. B. The specimen shows fragments of gastric mucosa with chronic inflammatory cell infiltrates in the lamina propria consisting of lymphocytes and plasma cells, consistent with mild chronic gastritis. D. The specimen shows fragments of small intestinal mucosa with acute and chronic inflammatory cell infiltrate in the lamina propria, mild granular distortion and cryptitis. Crypt abscesses or granulomas are not seen. No evidence of dysplasia. E. The specimen shows fragments of colonic mucosa with acute and chronic inflammatory cell infiltrate in the lamina propria, cryptitis, crypt abscesses and minimal glandular distortion. Granulomas are not seen. No evidence of dysplasia. GROSS DESCRIPTION A - Received in fixative is one container labeled with the patient's name and designated duodenum biopsy. The specimen consists of multiple irregular fragments of light akers soft tissue that in aggregate measure 1.0 x 0.3 x 0.1 cm. The specimen is totally submitted in one cassette. B - Received in fixative is one container labeled with the patient's name and designated antrum biopsy. The specimen consists of one irregular fragment of light akers soft tissue that measures 0.5 x 0.3 x 0.1 cm. The specimen is totally submitted in one cassette. C - Received in fixative is one container labeled with the patient's name and designated distal esophagus biopsy. The specimen consists of two irregular fragments of light akers soft tissue that in aggregate measure 0.6 x 0.3 x 0.1 cm. The specimen is totally submitted in one cassette. D - Received in fixative is one container labeled with the patient's name and designated terminal ileum biopsy. The specimen consists of multiple irregular fragments of light akers soft tissue that in aggregate measure 1.8 x 0.5 x 0.1 cm. The specimen is totally submitted in one cassette. E - Received in fixative is one container labeled with the patient's name and designated appendiceal orifice biopsy. The specimen consists of multiple irregular fragments of light akers soft tissue that in aggregate measure 1.0 x 0.4 x 0.1 cm. The specimen is totally submitted in one cassette. F - Received in fixative is one container labeled with the patient's name and designated rectum polyp biopsy. The specimen consists of one irregular fragment of light akers soft tissue that measures 0.3 x 0.2 x 0.1 cm. The specimen is totally submitted in one cassette. / SJ:rg 01/10/2023 TC:2 [facility]: [id number] x6, 83517
--- NOTE | 2023-01-10 06:34 | PCM.HP.BLA ---
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 PCP OV 07.03.22 with generalized abdominal pain, nausea, loose stools and bloating with PO intake exacerbating. Previously established with GI as teen who diagnosed Crohn?s disease. *BGI established 10.04.22 GI distress onset 14/15 years with colonoscopy and reports Crohn?s; she does not remember any follow ups but PCP did prescribe Pentasa which was effective at that time; symptoms resolved and medication stopped. Symptoms are as noted above. She will avoid PO intake to minimize stool. Stools occur up to 15/day or more with abdominal cramping and urgency. Notes anxiety may have component. ROS Const Constitutional: No anorexia, fatigue, fever(s), weight change or sleep problems Eyes Eyes: No change in vision ENT ENT: No abnormal hearing, difficulty swallowing, mouth lesions, tongue swelling or throat swelling Resp Respiratory: No cough or shortness of breath Cardio Cardiology: No chest pain at rest, chest pain with exertion, shortness of breath or dyspnea on exertion Gastro GI: No difficulty swallowing Genitourinary-Female: No difficulty urinating or burning urination Musc Musculoskeletal: No joint pain, joint swelling, muscle weakness or decreased muscle mass Skin Skin: No hair loss in leg, yellowing of the eye, itchy eyes, rash, skin ulcer or skin swelling Neuro Neurology: No abnormal hearing, abnormal movements, confusion, unsteady gait/balance or memory loss Psych Psychiatric: No anxiety, No confusion and No memory loss Endo Endocrine: No fatigue or weight change Aller/Imm Allergy/Immunologic: No itchy eyes, throat swelling or tongue swelling Gt/Lymp Hematologic/Lymphatic: No easy bleeding, easy bruising or enlarged lymph nodes Exam Const General: cooperative and comfortable Nutritional Appearance: average body habitus and well nourished [facility] Head: normal to inspection Ears: hearing grossly normal bilaterally Nose: external nose normal Face and sinus: normal facial exam Mouth: oral mucosae normal Throat: posterior oropharynx normal Eyes General: appearance normal, both eyes and all related structures Neck Neck: normal visual inspection Chest Chest palpation & inspection: normal inspection of the chest and normal palpation of entire chest wall Resp Effort & Inspection: normal respiratory effort Auscultation: Bilateral: Clear to Auscultation Cardio Palpation: normal PMI Rate: regular rate Rhythm: regular rhythm GI Inspection: normal to inspection Auscultation: normal bowel sounds Percussion: normal to percussion Palpation: no hepatosplenomegaly Skin General: no rashes or lesions noted Neuro General: patient alert Extrem General: normal to inspection Psych Affect: normal affect Quality Reporting Tobacco Screening ([facility] 138) Smoking Status: Never smoker Assessment and Plan Assessment and Plan (1) Chronic diarrhea: Status: Chronic Plan: 32-year-old mother of 3 with history of focal segmental glomerulosclerosis. She has a pre-existing history of possible Crohn's disease that was treated with 5-ASA medication such as Pentasa. She is having diarrhea on a daily basis but is mostly in the mid afternoon to late evening. She is not having any nocturnal diarrhea. She has no rashes, arthritis or I findings possibly consistent with Crohn's disease. She is on cyclosporine at a 5 mg kilogram dose and when she takes 100 mg twice a day for focal segmental glomerulosclerosis. This has allowed her nephrotic range protein to go down to about 1.3 g from 4 to 4 g/day. Treatment with cyclosporine is also used in the treatment of Crohn's disease of the small bowel. She will need to undergo biochemical testing and staging with an EGD and colonoscopy and possible MR enterography and capsule endoscopy in order to delineate the extent of her disease biochemically, radiologically and histologically. She is okay with this plan Orders: Orders Comprehensive Metabolic Profil Today K52.9 - Noninfective gastroenteritis and colitis, unspecified CRP Today K52.9 - Noninfective gastroenteritis and colitis, unspecified LDH Today K52.9 - Noninfective gastroenteritis and colitis, unspecified CBC W/Diff, Automated Today K52.9 - Noninfective gastroenteritis and colitis, unspecified Erythrocyte Sed Rate Today K52.9 - Noninfective gastroenteritis and colitis, unspecified Allergen, Rast Food Profile Today K52.9 - Noninfective gastroenteritis and colitis, unspecified Anti-Mitochondrial AB Today K52.9 - Noninfective gastroenteritis and colitis, unspecified CARMITA Comprehensive Panel Today K52.9 - Noninfective gastroenteritis and colitis, unspecified Calprotectin, Stool Today K52.9 - Noninfective gastroenteritis and colitis, unspecified Fecal Fat, Qualitative Today K52.9 - Noninfective gastroenteritis and colitis, unspecified OVA+PARA w/Giardia EIA [id number] Today K52.9 - Noninfective gastroenteritis and colitis, unspecified CDIFF (PCR) Today K52.9 - Noninfective gastroenteritis and colitis, unspecified ENTERIC PATHOGEN PANEL STOOL Today K52.9 - Noninfective gastroenteritis and colitis, unspecified, K58.9 - Irritable bowel syndrome without diarrhea Stool Occult Blood iFOB Today K52.9 - Noninfective gastroenteritis and colitis, unspecified Stool Lactoferrin/WBC Today K52.9 - Noninfective gastroenteritis and colitis, unspecified ANCA Today K52.9 - Noninfective gastroenteritis and colitis, unspecified Celiac Disease Profile Today K52.9 - Noninfective gastroenteritis and colitis, unspecified Immunoglobulins G/A/M/E Today K52.9 - Noninfective gastroenteritis and colitis, unspecified GLORY + Protein Elect, Serum Today K52.9 - Noninfective gastroenteritis and colitis, unspecified Pancreatic Elastase, Fecal Today K52.9 - Noninfective gastroenteritis and colitis, unspecified Miscellaneous Lab Procedure Today K52.9 - Noninfective gastroenteritis and colitis, unspecified Miscellaneous Lab Procedure 2 Today K52.9 - Noninfective gastroenteritis and colitis, unspecified Magnesium Today K52.9 - Noninfective gastroenteritis and colitis, unspecified I have examined the patient and the H&P has been reviewed. There are no clinical changes since date of exam.
[2023-01-10 07:07] VITALS: BP 117/91; BP 145/100; PULSE 81; RESP 18; TEMP 36.5; O2SAT 97
[2023-01-10 07:09] VITALS: BP 115/77; BP 145/100; PULSE 71; RESP 18; O2SAT 97
--- NOTE | 2023-01-10 07:10 | OP.EGD_ITS ---
Patient Name: Jillian Blanchard Procedure Date: 01/10/2023 6:22 AM Date of : 1990 Age: 32 Procedure: Upper GI endoscopy Indications: Generalized abdominal pain Providers: Benji Burch DO Referring MD: Martinez Greco Medicines: Monitored Anesthesia Care Patient Profile: This is a 32 year old female. Refer to note in patient chart for documentation of history and physical. Patient has symptoms of chronic abdominal cramping, chronic epigastric abdominal pain and chronic nausea. Complications: No immediate complications. Procedure: Pre-Anesthesia Assessment: - Prior to the procedure, a History and Physical was performed, and patient medications and allergies were reviewed. The patient is competent. The risks and benefits of the procedure and the sedation options and risks were discussed with the patient. All questions were answered and informed consent was obtained. Patient identification and proposed procedure were verified by the physician in the pre-procedure area. Mental Status Examination: alert and oriented. Airway Examination: normal oropharyngeal airway and neck mobility. Respiratory Examination: clear to auscultation. CV Examination: normal. Prophylactic Antibiotics: The patient does not require prophylactic antibiotics. Prior Anticoagulants: The patient has taken no anticoagulant or antiplatelet agents. ASA Grade Assessment: II - A patient with mild systemic disease. After reviewing the risks and benefits, the patient was deemed in satisfactory condition to undergo the procedure. The anesthesia plan was to use monitored anesthesia care (MAC). Immediately prior to administration of medications, the patient was re-assessed for adequacy to receive sedatives. The heart rate, respiratory rate, oxygen saturations, blood pressure, adequacy of pulmonary ventilation, and response to care were monitored throughout the procedure. The physical status of the patient was re-assessed after the procedure. After obtaining informed consent, the endoscope was passed under direct vision. Throughout the procedure, the patient's blood pressure, pulse, and oxygen saturations were monitored continuously. The Colonoscope was introduced through the mouth, and advanced to the second part of duodenum. The upper GI endoscopy was accomplished without difficulty. The patient tolerated the procedure well. Scope In: 6:42:17 AM Scope Out: 6:47:22 AM Total Procedure Duration Time 0 hours 5 minutes 5 seconds Findings: The Z-line was irregular and was found 39 cm from the incisors. Biopsies were taken with a cold forceps for histology. Verification of patient identification for the specimen was done. Estimated blood loss was minimal. Patchy mildly erythematous mucosa without bleeding was found in the gastric body and in the gastric antrum. Biopsies were taken with a cold forceps for histology. Verification of patient identification for the specimen was done. Estimated blood loss was minimal. Biopsies were taken with a cold forceps for Helicobacter pylori testing. Verification of patient identification for the specimen was done. Estimated blood loss was minimal. No gross lesions were noted in the second portion of the duodenum. Biopsies were taken with a cold forceps for histology. Verification of patient identification for the specimen was done. Estimated blood loss was minimal. Impression: - Z-line irregular, 39 cm from the incisors. Biopsied. - Erythematous mucosa in the gastric body and antrum. Biopsied. - No gross lesions in the second portion of the duodenum. Biopsied. Recommendation: - Discharge patient to home. - Resume previous diet. - Continue present medications. - Await pathology results. Procedure Code(s): --- Professional --- 14502, Esophagogastroduodenoscopy, flexible, transoral; with biopsy, single or multiple CPT copyright 2021 [employer] [place] [employer]. All rights reserved. The codes documented in this report are preliminary and upon data coder operator review may be revised to meet current compliance requirements. Benji Burch DO 01/10/2023 7:09:43 AM This report has been signed electronically. Number of Addenda: 0 Note Initiated On: 01/10/2023 6:22 AM
--- NOTE | 2023-01-10 07:10 | OP.CCLET_ITS ---
01/10/2023 Martinez Greco Re : Upper GI endoscopy procedure for Jillian Blanchard Dear Imelda This procedure was performed on Tuesday, January 10, 2023. My impressions and recommendations are as follows: Impressions : - Z-line irregular, 39 cm from the incisors. Biopsied. - Erythematous mucosa in the gastric body and antrum. Biopsied. - No gross lesions in the second portion of the duodenum. Biopsied. Recommendations : - Discharge patient to home. - Resume previous diet. - Continue present medications. - Await pathology results. My findings are described in the full procedure note, which is enclosed. If I can be of further assistance, please feel free to contact me at . Sincerely, Benji Burch, 01/10/2023 7:09:43 AM This report has been signed electronically.
[2023-01-10 07:14] VITALS: BP 112/77; BP 145/100; PULSE 60; RESP 18; O2SAT 95
--- NOTE | 2023-01-10 07:15 | OP.COLON_ITS ---
Patient Name: Jillian Blanchard Procedure Date: 01/10/2023 6:47 AM Date of : 1990 Age: 32 Procedure: Colonoscopy Indications: Suspected Crohn's disease of the small bowel Providers: Benji Burch DO Referring MD: Martinez Greco Medicines: Monitored Anesthesia Care Patient Profile: This is a 32 year old female. Refer to note in patient chart for documentation of history and physical. Patient has symptoms of chronic abdominal cramping, chronic epigastric abdominal pain and chronic nausea. Last Colonoscopy: more than 10 years ago. Complications: No immediate complications. Procedure: Pre-Anesthesia Assessment: - Prior to the procedure, a History and Physical was performed, and patient medications and allergies were reviewed. The patient is competent. The risks and benefits of the procedure and the sedation options and risks were discussed with the patient. All questions were answered and informed consent was obtained. Patient identification and proposed procedure were verified by the physician in the pre-procedure area. Mental Status Examination: alert and oriented. Airway Examination: normal oropharyngeal airway and neck mobility. Respiratory Examination: clear to auscultation. CV Examination: normal. Prophylactic Antibiotics: The patient does not require prophylactic antibiotics. Prior Anticoagulants: The patient has taken no anticoagulant or antiplatelet agents. ASA Grade Assessment: II - A patient with mild systemic disease. After reviewing the risks and benefits, the patient was deemed in satisfactory condition to undergo the procedure. The anesthesia plan was to use monitored anesthesia care (MAC). Immediately prior to administration of medications, the patient was re-assessed for adequacy to receive sedatives. The heart rate, respiratory rate, oxygen saturations, blood pressure, adequacy of pulmonary ventilation, and response to care were monitored throughout the procedure. The physical status of the patient was re-assessed after the procedure. After I obtained informed consent, the scope was passed under direct vision. Throughout the procedure, the patient's blood pressure, pulse, and oxygen saturations were monitored continuously. The Colonoscope was introduced through the anus and advanced to the terminal ileum. The colonoscopy was performed without difficulty. The patient tolerated the procedure well. The quality of the bowel preparation was good. The terminal ileum, ileocecal valve, appendiceal orifice, and rectum were photographed. Scope In: 6:49:34 AM Scope Withdrawal Time 0 hours 8 minutes 1 second Scope Out: 7:00:18 AM Total Procedure Duration Time 0 hours 10 minutes 44 seconds Findings: The perianal and digital rectal examinations were normal. A 5 mm polyp was found in the rectum. The polyp was sessile. The polyp was removed with a cold snare. Resection and retrieval were complete. Verification of patient identification for the specimen was done. Estimated blood loss was minimal. Inflammation characterized by congestion (edema), erosions, granularity and aphthous ulcerations was found as small patches surrounded by normal mucosa 1 cm apart. The ascending colon, the cecum, the appendiceal orifice and the ileocecal valve were spared. The inflammation was moderate in severity. Biopsies were taken with a cold forceps for histology. Verification of patient identification for the specimen was done. Estimated blood loss was minimal. Inflammation characterized by granularity, mucus, scarring and aphthous ulcerations was found in the distal ileum and in the terminal ileum. The inflammation was moderate in severity. Biopsies were taken with a cold forceps for histology. Verification of patient identification for the specimen was done. Estimated blood loss was minimal. Impression: - One 5 mm polyp in the rectum, removed with a cold snare. Resected and retrieved. - Colitis. Inflammation was found in the colon 1 cm apart. This was moderate in severity. Biopsied. - Crohn's disease. Inflammation was found. This was moderate in severity. Biopsied. Recommendation: - Discharge patient to home. - Resume previous diet. - Continue present medications. - Await pathology results. - Repeat colonoscopy to assess disease activity. Procedure Code(s): --- Professional --- 15462, Colonoscopy, flexible; with removal of tumor(s), polyp(s), or other lesion(s) by snare technique 78126, 59, Colonoscopy, flexible; with biopsy, single or multiple CPT copyright 2021 [employer]. All rights reserved. The codes documented in this report are preliminary and upon hims coder review may be revised to meet current compliance requirements. Benji Burch DO 01/10/2023 7:14:53 AM This report has been signed electronically. Number of Addenda: 0 Note Initiated On: 01/10/2023 6:47 AM
--- NOTE | 2023-01-10 07:15 | OP.CCLET_ITS ---
01/10/2023 Martinez Greco Re : Colonoscopy procedure for Jillian Blanchard Chelar Imelda This procedure was performed on Tuesday, January 10, 2023. My impressions and recommendations are as follows: Impressions : - One 5 mm polyp in the rectum, removed with a cold snare. Resected and retrieved. - Colitis. Inflammation was found in the colon 1 cm apart. This was moderate in severity. Biopsied. - Crohn's disease. Inflammation was found. This was moderate in severity. Biopsied. Recommendations : - Discharge patient to home. - Resume previous diet. - Continue present medications. - Await pathology results. - Repeat colonoscopy to assess disease activity. My findings are described in the full procedure note, which is enclosed. If I can be of further assistance, please feel free to contact me at . Sincerely, Benji Burch, 01/10/2023 7:14:53 AM This report has been signed electronically.
[2023-01-10 07:19] VITALS: BP 101/59; BP 145/100; PULSE 56; RESP 18; TEMP 36; O2SAT 98
[2023-01-10 07:50] VITALS: BP 145/100
[2023-01-15 09:09] LABS: HEPATITIS B SURFACE AG Negative (Negative); Hep C Antibodies Non Reactive (Non Reactive); Hepatitis A IgM Antibody Negative (Negative); Hepatitis B Core AB IgM Negative (Negative); QNTFERON TB Mitogen Value > 10.00 IU/mL (.); QNTFERON TB Nil Value 0.52 IU/mL (.); QNTFERON TB1+ Ag Value 0.34 IU/mL (.); QNTFERON TB2+ Ag Value 0.18 IU/mL (.); QNTIFERON TB Positive Criteria Negative (Negative)
== END 2023-01-10 08:02 | disposition home or self-care (01) ==
LOC: EN 05:24 → AC 05:25
PROVIDERS: Anesthesiology; PCP Nurse Practitioner Family; Referring Provider Nurse Practitioner Family; Visit Provider Internal Medicine Gastroenterology
PROC: 0DJD8ZZ Inspection of Lower Intestinal Tract, Via Natural or Artificial Opening Endoscopic (ICD-10-PCS; CPT 45378; principal; 2023-01-10 06:25)
DX: K52.9 Noninfective gastroenteritis and colitis, unspecified (principal); K50.90 Crohn's disease, unspecified, without complications; R10.84 Generalized abdominal pain; K62.1 Rectal polyp; K29.70 Gastritis, unspecified, without bleeding
CPT/HCPCS: 43239; 45380; 45385; 36415; 80074; 81025; 86480; 88305; 88342; J7120; J2405

== ENCOUNTER → 2023-03-27 | Outpatient (CLI) | payer MEDICAID, SELFPAY ==
[2023-03-27 10:37] LABS: Erythrocyte Sedimentation Rate 14 mm/hr (0-30)
[2023-03-27 10:40] LABS: Absolute Lymphocyte Count 2.13 X10^3/uL (0.83-4.51); Absolute Neutrophil Count 5.5 X10^3/uL (2.0-7.7); Basophil# 0.03 X10^3/uL; Basophil% 0.4 % (0-1); Eosinophil# 0.15 X10^3/uL; Eosinophils% 1.8 % (0-5); Lymphocyte # 2.13 X10^3/ul (0.83-4.51); Lymphocyte % 25.6 % (19-41); Mean Corp Hgb Conc 30.8 g/dL (32-36); Mean Corpuscular Hgb 26.2 pg (27.0-32.0); Mean Corpuscular Volume 85.2 fL (81-99); Mean Platelet Vol. 10.1 fl (6.2-12.0); Monocyte# 0.41 X10^3/uL; Monocyte% 4.9 % (0-10); NRBC Flagged by Analyzer 0 % (0-5); Neutrophil # 5.54 X10^3/uL (2.7-7.7); Neutrophil % 66.6 % (47-70); Platelet Count 447 K/mm3 (150-450); RBC Distribution Width CV 14.3 % (11.6-14.6); RBC Distribution Width SD 44.1 fl (35.1-43.9); Red Blood Count 4.58 M/mm3 (4.2-5.4); White Blood Count 8.3 K/mm3 (4.4-11.0)
[2023-03-27 10:51] LABS: CRP 7.63 mg/L (0.0-3.0)
[2023-03-27 10:58] LABS: Protein, Urine (Random) 227.8 mg/dL (<11.9); Protein:Creat Ratio 1186 mg/g CRE (0-200)
[2023-03-28 12:09] LABS: Anti-Centromere B Ab <0.2 AI (0.0-0.9); Anti-Chromatin <0.2 AI (0.0-0.9); Anti-Jo <0.2 AI (0.0-0.9); Anti-Scleroderma-70 AB <0.2 AI (0.0-0.9); Anti-dsDNA Ab <1 IU/mL (0-9); RNP Ab <0.2 AI (0.0-0.9); SJOGREN'S Anti-SS-A test < 0.2 AI (0.0-0.9); SJOGREN'S Anti-SS-B test 1.7 AI (0.0-0.9); Smith Ab <0.2 AI (0.0-0.9)
== END | disposition home or self-care (01) ==
PROVIDERS: Internal Medicine Gastroenterology; PCP Nurse Practitioner Family; Referring Provider Internal Medicine Nephrology; Visit Provider Internal Medicine Nephrology
DX: R80.9 Proteinuria, unspecified (principal)
CPT/HCPCS: 36415; 82570; 84156; 85025; 85652; 86140; 86225; 86235

== ENCOUNTER → 2023-07-10 | Outpatient (CLI) | payer MEDICAID, SELFPAY ==
[2023-07-10 12:24] LABS: Anion Gap 4 (5-15); BUN 11 mg/dL (7-18); BUN/Creat Ratio 15.3 RATIO (10-20); Calcium,Total 8.6 mg/dL (8.5-10.1); Chloride 107 mmol/L (98-107); Creatinine, Serum 0.72 mg/dL (0.55-1.02); EST Glomerular Filtration Rate 100 mL/min (>60); Est Glom Filt Rate - Afr Amer 121 mL/min (>60); Glucose 95 mg/dL (74-106); Potassium 3.9 mmol/L (3.5-5.1); Sodium Level 137 mmol/L (136-145)
[2023-07-10 14:50] LABS: Protein, Urine (Random) 169.6 mg/dL (<11.9); Protein:Creat Ratio 1170 mg/g CRE (0-200)
== END | disposition home or self-care (01) ==
LOC: LAB 11:05
PROVIDERS: PCP Nurse Practitioner Family; Referring Provider Internal Medicine Nephrology; Visit Provider Internal Medicine Nephrology
DX: R80.9 Proteinuria, unspecified (principal); N04.1 Nephrotic syndrome with focal and segmental glomerular lesions
CPT/HCPCS: 36415; 80048; 82570; 84156

== ENCOUNTER 2023-09-12 09:37 | Outpatient (CLI) | payer MEDICAID, SELFPAY ==
[2023-09-12 10:06] VITALS: BP 159/88; PULSE 66; RESP 16; TEMP 36.1; O2SAT 97; BMI 38.9
[2023-09-12] MEDS: 0.9% NaCl Peripheral Flush Adult/Peds IV (10:15)
[2023-09-12] MEDS: 0.9% NaCl IVPB Med Flush (250 mL) 15 ML IV (10:50)
[2023-09-12] MEDS: Vedolizumab 300 MG in 0.9% Normal Saline (250mL Bag) 250 ML 500 MG IV (10:50)
[2023-09-12 11:38] VITALS: BP 138/81; PULSE 72; RESP 16; TEMP 36.3
== END 2023-09-12 09:38 | disposition home or self-care (01) ==
LOC: MEDOUTP 09:37
PROVIDERS: PCP Nurse Practitioner Family; Referring Provider Internal Medicine Gastroenterology; Visit Provider Internal Medicine Gastroenterology
DX: K50.90 Crohn's disease, unspecified, without complications (principal)
CPT/HCPCS: 96365; J7050; A4216; J3380

== ENCOUNTER 2023-09-26 10:21 | Outpatient (CLI) | payer MEDICAID, SELFPAY ==
[2023-09-26 10:26] VITALS: BP 149/74; PULSE 65; RESP 16; TEMP 36.1; O2SAT 99
[2023-09-26] MEDS: 0.9% NaCl Peripheral Flush Adult/Peds IV (10:29)
[2023-09-26] MEDS: 0.9% NaCl IVPB Med Flush (250 mL) 15 ML IV (10:29)
[2023-09-26] MEDS: Vedolizumab 300 MG in 0.9% Normal Saline (250mL Bag) 250 ML 500 MG IV (10:53)
[2023-09-26 11:36] VITALS: BP 137/76; PULSE 76; TEMP 36.4
== END 2023-09-26 10:22 | disposition home or self-care (01) ==
LOC: MEDOUTP 10:21
PROVIDERS: PCP Nurse Practitioner Family; Referring Provider Internal Medicine Gastroenterology; Visit Provider Internal Medicine Gastroenterology
DX: K50.90 Crohn's disease, unspecified, without complications (principal)
CPT/HCPCS: 96365; J7050; A4216; J3380

== ENCOUNTER 2023-10-24 10:18 | Outpatient (CLI) | payer MEDICAID, SELFPAY ==
[2023-10-24 10:34] VITALS: BP 149/95; PULSE 62; RESP 16; TEMP 36.2; O2SAT 100; BMI 37.4
[2023-10-24] MEDS: 0.9% NaCl Peripheral Flush Adult/Peds IV (10:44)
[2023-10-24] MEDS: 0.9% NaCl IVPB Med Flush (250 mL) 15 ML IV (10:44)
[2023-10-24] MEDS: Vedolizumab 300 MG in 0.9% Normal Saline (250mL Bag) 250 ML 500 MG IV (10:52)
[2023-10-24 11:44] VITALS: BP 149/78; PULSE 55
== END 2023-10-24 23:59 | disposition home or self-care (01) ==
LOC: MEDOUTP 10:18
PROVIDERS: PCP Nurse Practitioner Family; Referring Provider Internal Medicine Gastroenterology; Visit Provider Internal Medicine Gastroenterology
DX: K50.90 Crohn's disease, unspecified, without complications (principal)
CPT/HCPCS: 96365; J7050; A4216; J3380

== ENCOUNTER 2023-12-19 10:26 | Outpatient (CLI) | payer MEDICAID, SELFPAY ==
[2023-12-19 10:36] VITALS: BP 124/72; PULSE 72; RESP 16; TEMP 36.8; O2SAT 97; BMI 36.9
[2023-12-19] MEDS: 0.9% NaCl Peripheral Flush Adult/Peds IV (10:46)
[2023-12-19] MEDS: Vedolizumab 300 MG in 0.9% Normal Saline (250mL Bag) 250 ML 500 MG IV (10:46)
[2023-12-19] MEDS: 0.9% Normal Saline (100mL Bag) 100 ML 15 ML IV (10:46)
[2023-12-19 11:28] VITALS: BP 130/70; PULSE 60; RESP 16; TEMP 36.8; O2SAT 98
== END 2023-12-19 23:59 | disposition home or self-care (01) ==
LOC: MEDOUTP 10:26
PROVIDERS: PCP Nurse Practitioner Family; Referring Provider Internal Medicine Gastroenterology; Visit Provider Internal Medicine Gastroenterology
DX: K50.90 Crohn's disease, unspecified, without complications (principal)
CPT/HCPCS: 96365; J7050; A4216; J3380

== ENCOUNTER → 2024-01-02 | Outpatient (CLI) | payer MEDICAID, SELFPAY ==
[2024-01-02 11:03] LABS: Bacteria 0 SEEN /hpf (None Seen); Mucous, Urine 0 SEEN /hpf (<or=2+); Red Blood Cells-Urine 0 SEEN /hpf (0-5); White Blood Cells 0 SEEN /hpf (0-5)
[2024-01-02 11:51] LABS: Color, Urine Yellow (Yellow); Glucose, Dipstick Normal (Normal); Ketone-Dipstick Negative (Negative); Leukocyte Esterase-Dipstick Negative /ul (Negative); Nitrite-Dipstick Negative (Negative); Occult Blood-Urine 10 /ul (Negative); Protein-Dipstick 100 mg/dl (Negative); Urine Bilirubin Dipstick Negative (Negative); Urine Clarity Clear (Clear); Urine Urobilinogen Normal (Normal)
[2024-01-02 11:57] LABS: Absolute Lymphocyte Count 1.92 X10^3/uL (0.83-4.51); Basophil# 0.04 X10^3/uL; Basophil% 0.5 % (0-1); Eosinophil# 0.13 X10^3/uL; Eosinophils% 1.5 % (0-5); Hematocrit 42.8 % (37-47); Hemoglobin 13.5 g/dL (12.0-15.0); Lymphocyte # 1.92 X10^3/ul (0.83-4.51); Lymphocyte % 22.4 % (19-41); Mean Corp Hgb Conc 31.5 g/dL (32-36); Mean Corpuscular Hgb 27.4 pg (27.0-32.0); Mean Corpuscular Volume 86.8 fL (81-99); Mean Platelet Vol. 10.1 fl (6.2-12.0); Monocyte# 0.48 X10^3/uL; Monocyte% 5.6 % (0-10); NRBC Flagged by Analyzer 0 % (0-5); Neutrophil # 5.99 X10^3/uL (2.7-7.7); Neutrophil % 69.8 % (47-70); Platelet Count 414 K/mm3 (150-450); RBC Distribution Width CV 13.7 % (11.6-14.6); RBC Distribution Width SD 43.3 fl (35.1-43.9); Red Blood Count 4.93 M/mm3 (4.2-5.4); White Blood Count 8.6 K/mm3 (4.4-11.0)
[2024-01-02 12:00] LABS: Squamous Epithelial Cells - UA 0-5 SEEN /hpf (5-10)
[2024-01-02 12:05] LABS: Erythrocyte Sedimentation Rate 16 mm/hr (0-30)
[2024-01-02 12:14] LABS: ALB/GLOB Ratio 0.9 RATIO (0.9-2.4); AST(SGOT) 14 U/L (15-37); Alanine Aminotransfer ALT/SGPT 25 U/L (13-56); Albumin, Serum 3.8 g/dL (3.2-5.0); Alkaline Phosphatase 75 U/L (45-117); Anion Gap 6 (5-15); BUN 10 mg/dL (7-18); BUN/Creat Ratio 14.2 RATIO (10-20); CRP 4.68 mg/L (0.0-3.0); Calcium,Total 9.1 mg/dL (8.5-10.1); Chloride 104 mmol/L (98-107); EST Glomerular Filtration Rate 102 mL/min (>60); Est Glom Filt Rate - Afr Amer 123 mL/min (>60); Globulin 4.3 g/dL (2.2-4.2); Glucose 99 mg/dL (74-106); LDH 180 U/L (84-246); Potassium 4.1 mmol/L (3.5-5.1); Protein, Total 8.1 g/dL (6.4-8.2); Sodium Level 136 mmol/L (136-145)
[2024-01-06 20:08] LABS: QNTFERON TB Mitogen Value > 10.00 IU/mL (.); QNTFERON TB Nil Value 0.08 IU/mL (.); QNTFERON TB1+ Ag Value 0.08 IU/mL (.); QNTFERON TB2+ Ag Value 0.08 IU/mL (.); QNTIFERON TB Positive Criteria Negative (Negative)
== END | disposition home or self-care (01) ==
LOC: LAB 11:00
PROVIDERS: PCP Nurse Practitioner Family; Referring Provider Internal Medicine Gastroenterology; Visit Provider Internal Medicine Gastroenterology
DX: K50.00 Crohn's disease of small intestine without complications (principal); R79.9 Abnormal finding of blood chemistry, unspecified
CPT/HCPCS: 36415; 80053; 81001; 83615; 85025; 85652; 86140; 86480; 87086; 87088

== ENCOUNTER 2024-02-13 10:20 | Outpatient (CLI) | payer MEDICAID, SELFPAY ==
[2024-02-13 10:32] VITALS: BP 134/80; PULSE 60; RESP 16; TEMP 36.1; O2SAT 100; BMI 36.6
[2024-02-13] MEDS: Vedolizumab 300 MG in 0.9% Normal Saline (250mL Bag) 250 ML 500 MG IV (11:19)
[2024-02-13] MEDS: 0.9% NaCl IVPB Med Flush (250 mL) 15 ML IV (11:19)
[2024-02-13] MEDS: 0.9% NaCl Peripheral Flush Adult/Peds IV (11:55)
[2024-02-13 12:07] VITALS: BP 144/87; PULSE 79; RESP 16; TEMP 36.1; O2SAT 97
== END 2024-02-13 23:59 | disposition home or self-care (01) ==
LOC: MEDOUTP 10:20
PROVIDERS: PCP Nurse Practitioner Family; Referring Provider Internal Medicine Gastroenterology; Visit Provider Internal Medicine Gastroenterology
DX: K50.90 Crohn's disease, unspecified, without complications (principal)
CPT/HCPCS: 96365; J7050; A4216; J3380

== ENCOUNTER → 2024-03-02 | Outpatient (CLI) | payer MEDICAID, SELFPAY ==
[2024-03-02 11:53] LABS: Protein, Urine (Random) 66.8 mg/dL (<11.9); Protein:Creat Ratio 953 mg/g CRE (0-200)
[2024-03-02 12:08] LABS: Anion Gap 3 (5-15); BUN 10 mg/dL (7-18); BUN/Creat Ratio 14.5 RATIO (10-20); Calcium,Total 9.3 mg/dL (8.5-10.1); Chloride 105 mmol/L (98-107); Creatinine, Serum 0.69 mg/dL (0.55-1.02); EST Glomerular Filtration Rate 104 mL/min (>60); Est Glom Filt Rate - Afr Amer 126 mL/min (>60); Glucose 95 mg/dL (74-106); Potassium 4.1 mmol/L (3.5-5.1); Sodium Level 136 mmol/L (136-145)
== END | disposition home or self-care (01) ==
LOC: LAB 10:56
PROVIDERS: PCP Nurse Practitioner Family; Referring Provider Internal Medicine Nephrology; Visit Provider Internal Medicine Nephrology
DX: N04.1 Nephrotic syndrome with focal and segmental glomerular lesions (principal)
CPT/HCPCS: 36415; 80048; 82570; 84156

== ENCOUNTER 2024-04-09 10:25 | Outpatient (CLI) | payer MEDICAID, SELFPAY ==
[2024-04-09 10:58] VITALS: BP 132/75; PULSE 62; RESP 16; TEMP 36.3
[2024-04-09] MEDS: Vedolizumab 300 MG in 0.9% Normal Saline (250mL Bag) 250 ML 500 MG IV (11:37)
[2024-04-09] MEDS: 0.9% NaCl IVPB Med Flush (250 mL) 15 ML IV (11:40)
[2024-04-09] MEDS: 0.9% NaCl Peripheral Flush Adult/Peds IV (11:40)
[2024-04-09 12:26] VITALS: BP 120/69; PULSE 80; RESP 16; TEMP 36.8
== END 2024-04-09 23:59 | disposition home or self-care (01) ==
LOC: MEDOUTP 10:25
PROVIDERS: PCP Nurse Practitioner Family; Referring Provider Internal Medicine Gastroenterology; Visit Provider Internal Medicine Gastroenterology
DX: K50.90 Crohn's disease, unspecified, without complications (principal)
CPT/HCPCS: 96365; J7050; A4216; J3380

== ENCOUNTER 2024-06-11 10:19 | Outpatient (CLI) | payer MEDICAID, SELFPAY ==
[2024-06-11 10:30] VITALS: BP 142/85; PULSE 86; RESP 16; TEMP 35.9; O2SAT 97; BMI 37.9
[2024-06-11] MEDS: 0.9% NaCl Peripheral Flush Adult/Peds IV (10:41)
[2024-06-11] MEDS: Vedolizumab 300 MG in 0.9% Normal Saline (250mL Bag) 250 ML 500 MG IV (10:57)
[2024-06-11 11:39] VITALS: BP 135/71; PULSE 73
== END 2024-06-11 23:59 | disposition home or self-care (01) ==
PROVIDERS: PCP Nurse Practitioner Family; Referring Provider Internal Medicine Gastroenterology; Visit Provider Internal Medicine Gastroenterology
DX: K50.90 Crohn's disease, unspecified, without complications (principal)
CPT/HCPCS: 96365; A4216; J3380

== ENCOUNTER → 2024-06-18 | Outpatient (CLI) | payer MEDICAID, SELFPAY ==
[2024-06-18 12:10] LABS: Hematocrit 39.2 % (37-47); Hemoglobin 12.8 g/dL (12.0-15.0); Mean Corp Hgb Conc 32.7 g/dL (32-36); Mean Corpuscular Hgb 27.4 pg (27.0-32.0); Mean Corpuscular Volume 83.9 fL (81-99); Platelet Count 392 K/mm3 (150-450); RBC Distribution Width CV 13.3 % (11.6-14.6); RBC Distribution Width SD 40.4 fl (35.1-43.9); Red Blood Count 4.67 M/mm3 (4.2-5.4); White Blood Count 9.7 K/mm3 (4.4-11.0)
[2024-06-18 12:37] LABS: CRP 5.92 mg/L (0.0-3.0)
[2024-06-23 13:07] LABS: ANTINUCLEAR ANTIBODIES DIRECT Positive (Negative); Anti-Histone Abs 0.5 Units (0.0-0.9); Anti-dsDNA Ab <1 IU/mL (0-9); RNP Ab <0.2 AI (0.0-0.9); SJOGREN'S Anti-SS-A test < 0.2 AI (0.0-0.9); SJOGREN'S Anti-SS-B test 1.6 AI (0.0-0.9)
== END | disposition home or self-care (01) ==
LOC: LAB 11:11
PROVIDERS: PCP Nurse Practitioner Family
DX: R76.8 Other specified abnormal immunological findings in serum (principal)
CPT/HCPCS: 36415; 85027; 86038; 86140; 86225; 86235

== ENCOUNTER → 2024-06-21 | Outpatient (CLI) | payer MEDICAID, SELFPAY ==
[2024-06-21 11:47] LABS: Erythrocyte Sedimentation Rate 24 mm/hr (0-30)
[2024-06-21 11:55] LABS: CRP 6.48 mg/L (0.0-3.0)
== END | disposition home or self-care (01) ==
PROVIDERS: PCP Nurse Practitioner Family; Referring Provider Internal Medicine Gastroenterology; Visit Provider Internal Medicine Gastroenterology
DX: K50.00 Crohn's disease of small intestine without complications (principal)
CPT/HCPCS: 85652; 86140

== ENCOUNTER 2024-08-11 10:08 | Outpatient (CLI) | payer MEDICAID, SELFPAY ==
[2024-08-11 10:20] VITALS: BP 137/67; PULSE 71; RESP 16; TEMP 36.1; O2SAT 98; BMI 38.2
[2024-08-11] MEDS: 0.9% NaCl Peripheral Flush Adult IV (10:22)
[2024-08-11] MEDS: Vedolizumab 300 MG in 0.9% Normal Saline (250mL Bag) 250 ML 500 MG IV (10:43)
[2024-08-11] MEDS: 0.9% NaCl IVPB Med Flush (100mL) 15 ML IV (10:43)
[2024-08-11 11:35] VITALS: BP 137/67; PULSE 71; RESP 16; TEMP 36.1; O2SAT 98
== END 2024-08-11 23:59 | disposition home or self-care (01) ==
LOC: MEDOUTP 10:08
PROVIDERS: PCP Nurse Practitioner Family; Referring Provider Internal Medicine Gastroenterology; Visit Provider Internal Medicine Gastroenterology
DX: K50.90 Crohn's disease, unspecified, without complications (principal)
CPT/HCPCS: 96365; A4216; J3380

== ENCOUNTER 2024-10-01 10:24 | Outpatient (CLI) | payer MEDICAID, SELFPAY ==
[2024-10-01 10:39] VITALS: BP 138/80; PULSE 86; RESP 16; TEMP 36.2; O2SAT 98; BMI 38.2
[2024-10-01] MEDS: 0.9% NaCl IVPB Med Flush (100mL) 15 ML IV (10:44)
[2024-10-01] MEDS: 0.9% NaCl Peripheral Flush Adult IV (10:44)
[2024-10-01] MEDS: Vedolizumab 300 MG in 0.9% Normal Saline (250mL Bag) 250 ML 500 MG IV (11:14)
[2024-10-01 11:52] VITALS: BP 138/77; PULSE 83; RESP 16; TEMP 36.1
== END 2024-10-01 23:59 | disposition home or self-care (01) ==
LOC: MEDOUTP 10:24
PROVIDERS: PCP Nurse Practitioner Family; Referring Provider Internal Medicine Gastroenterology; Visit Provider Internal Medicine Gastroenterology
DX: K50.90 Crohn's disease, unspecified, without complications (principal)
CPT/HCPCS: 96365; A4216; J3380

== ENCOUNTER → 2024-10-19 | Outpatient (CLI) | payer MEDICAID, SELFPAY ==
[2024-10-19 11:20] LABS: Hematocrit 40.2 % (37-47); Hemoglobin 12.8 g/dL (12.0-15.0); Mean Corp Hgb Conc 31.8 g/dL (32-36); Mean Corpuscular Hgb 26.6 pg (27.0-32.0); Mean Corpuscular Volume 83.6 fL (81-99); Platelet Count 415 K/mm3 (150-450); RBC Distribution Width CV 14.3 % (11.6-14.6); RBC Distribution Width SD 43.2 fl (35.1-43.9); Red Blood Count 4.81 M/mm3 (4.2-5.4)
[2024-10-19 11:46] LABS: Anion Gap 11 (5-15); BUN 10 mg/dL (4-19); BUN/Creat Ratio 16.5 RATIO (10-20); Calcium,Total 9.1 mg/dL (7.6-11.0); Carbon Dioxide 22.6 mmol/L (21.0-32.0); Chloride 103 mmol/L (98-108); Creatinine, Serum 0.62 mg/dL (0.70-1.20); EST Glomerular Filtration Rate 121 (>60); Glucose 95 mg/dL (70-99); Potassium 4.2 mmol/L (3.3-5.1); Sodium Level 137 mmol/L (133-145)
[2024-10-19 11:50] LABS: Protein:Creat Ratio 1598 mg/g CRE (0-200)
--- OUTSIDE RECORDS SUMMARY | 2024-10-19 21:08 | XMS RPT_ITS | CCD ---
Author Organization [facility] Care Team Providers Care Business Support Assistant Name Role Phone ADAN GONSALEZ Unavailable Unavailable ELAINE ARLET, SUMMER T Unavailable Unavailab le NO PRIMARY CARE, MD Unavailable Unavailable ADAN GONSALEZ Unavailable Unavailable CHELE ARLET, SUMMER T Unavailable Unavailab le NO PRIMARY CARE, MD Unavailable Unavailable JHON BALL Unavailable Unavailable ELAINE ARLET, SUMMER T Unavailable Unavailab le NO PRIMARY CARE, MD Unavailable Unavailable KANDY BENITEZ Unavailable Unavailable ELAINE ARLET, SUMMER T Unavailable Unavailab le NO PRIMARY CARE, MD Unavailable Unavailable ADAN GONSALEZ Unavailable Unavailable CHELE ARLET, SUMMER T Unavailable Unavailab le NO PRIMARY CARE, MD Unavailable Unavailable SHERRI, LIAN T Unavailable Unavailable ELAINE ARLET, SUMMER T Unavailable Unavailab le NO PRIMARY CARE, MD Unavailable Unavailable SHERRI, LIAN T Unavailable Unavailable SHERRI, LIAN T Unavailable Unavailable NO PRIMARY CARE, MD Unavailable Unavailable SHERRI, LIAN T Unavailable Unavailable ELAINE ARLET, SUMMER T Unavailable Unavailab le NO PRIMARY CARE, MD Unavailable Unavailable ADAN GONSALEZ Unavailable Unavailable ELAINE ARLET, SUMMER T Unavailable Unavailab le NO PRIMARY CARE, MD Unavailable Unavailable DUY, LIAN L Unavailable Unavailable SHERRI, LIAN T Unavailable Unavailable NO PRIMARY CARE, MD Unavailable Unavailable DUY, LIAN L Unavailable Unavailable SHERRI, LIAN T Unavailable Unavailable NO PRIMARY CARE, MD Unavailable Unavailable DUY, LIAN L Unavailable Unavailable DUY, LIAN L Unavailable Unavailable NO PRIMARY CARE, MD Unavailable Unavailable Imelda RADIOLOGIC TECHNOLOGIST.Myles OWEN Primary Care Provider Imelda FRAIRE.Myles OWEN Primary Care Provider Imelda DNA SEQUENCING ASSOCIATE, DNA SEQUENCING ASSOCIATE-C Myles Primary Care Provider [phone] Imelda DNA SEQUENCING ASSOCIATE, DNA SEQUENCING ASSOCIATE-C Myles Referring Provider Dr. Sri Andersen Attending Provider Unavailable Primary Care Provider Unavailabl e Dr. Sri Andersen Other Provider Trill DNA SEQUENCING ASSOCIATE, DNA SEQUENCING ASSOCIATE-C Myles Primary Care Provider Trill DNA SEQUENCING ASSOCIATE, DNA SEQUENCING ASSOCIATE-C Myles Referring Provider Dr. Sri Andersen Attending Provider Dr. Sri Andersen Other Provider Trill DNA SEQUENCING ASSOCIATE, DNA SEQUENCING ASSOCIATE-C Myles Primary Care Provider Trill DNA SEQUENCING ASSOCIATE, DNA SEQUENCING ASSOCIATE-C Myles Referring Provider Dr. Sri Andersen Attending Provider Trill RADIOLOGIC TECHNOLOGIST.CLINICAL DIRECTOR, Myles C Primary Care Provider ROSA LESLIE Attending Unavailable FRIENDSRI Referring Unavailable DOV ANTON Attending Unavailable Trill DNA SEQUENCING ASSOCIATE-C, Myles Primary Care Provider Dr. Sri Andersen DO Attending Provider Dr. Sri Andersen DO Referring Provider DOV ANTON Attending Provider [phone] DOV ANTON Referring Provider Trill DNA SEQUENCING ASSOCIATE-C, Myles Referring Provider TRILL, MYLES C Referring Unavailable TRILL, MYLES C Primary Care Unavailable TRILL, MYLES C Primary Care Unavailable TRILL, MYLES C Attending Unavailable SELF Referring Unavailable Trill DNA SEQUENCING ASSOCIATE, Myles Primary Care Unavailable Friend, Sri Attending Unavailable Friend, Sri Referring Unavailable Trill DNA SEQUENCING ASSOCIATE, Myles Primary Care Unavailable Friend, Sri Attending Unavailable Friend, Sri Referring Unavailable Friend, Sri Attending Unavailable Trill DNA SEQUENCING ASSOCIATE, Myles Referring Unavailable Trill DNA SEQUENCING ASSOCIATE, Myles Primary Care Unavailable Trill DNA SEQUENCING ASSOCIATE, Myles Primary Care Unavailable Friend, Sri Attending Unavailable Trill DNA SEQUENCING ASSOCIATE, Myles Referring Unavailable Trill DNA SEQUENCING ASSOCIATE, Myles Primary Care Unavailable Trill DNA SEQUENCING ASSOCIATE, Myles Referring Unavailable Friend, Sri Attending Unavailable Trill DNA SEQUENCING ASSOCIATE, Myles Primary Care Unavailable Friend, Sri Attending Unavailable Friend, Sri Referring Unavailable Trill DNA SEQUENCING ASSOCIATE, Myles Primary Care Unavailable Diana Vazquez Attending Unavailable George, Diana Referring Unavailable Trill DNA SEQUENCING ASSOCIATE, Myles Primary Care Unavailable Friend, Sri Attending Unavailable Friend, Sri Referring Unavailable Trill DNA SEQUENCING ASSOCIATE, Myles Primary Care Unavailable Friend, Sri Attending Unavailable Friend, Sri Referring Unavailable Trill DNA SEQUENCING ASSOCIATE, Myles Primary Care Unavailable Friend, Sri Attending Unavailable Friend, Sri Referring Unavailable Trill DNA SEQUENCING ASSOCIATE, Myles Primary Care Unavailable GAMA, IA Referring Unavailable GAMA, IA Attending Unavailable Trill DNA SEQUENCING ASSOCIATE, Myles Primary Care Unavailable Friend, Sri Referring Unavailable Friend, Sri Attending Unavailable Trill DNA SEQUENCING ASSOCIATE, Myles Primary Care Unavailable Friend, Sri Referring Unavailable Friend, Sri Attending Unavailable George, Diana Attending Unavailable Trill DNA SEQUENCING ASSOCIATE, Myles Primary Care Unavailable Trill DNA SEQUENCING ASSOCIATE, Myles Primary Care Unavailable GAMA, IA Referring Unavailable Diana Vazquez Attending Unavailable Friend, Sri Referring Unavailable Friend, Sri Attending Unavailable Trill DNA SEQUENCING ASSOCIATE, Myles Primary Care Unavailable Allergies Allergy Classification Reported Allergen(s) Allergy Type Date of Onset Reaction(s) Facility (11 sources) amoxicillin; Translations: [AMOXICILLIN] Drug Allergy 8 Other: See Comments [facility] Repository (16 sources) ibuprofen; Translations: [IBUPROFEN] Drug Allergy 7 Other: See Comments [facility] Medications Current Medications Medication Drug Class(es) Dates Sig (Normalized) Sig (Original) acetaminophen 325 mg oral tablet (5 sources) take 1 tablet by mouth every six hours as needed acetaminophen (Tylenol) 325 MG tablet Take 325 mg by mouth every 6 hours as needed. Active benzoyl peroxide 0.05 mg/mg / erythromycin 0.03 mg/mg topical gel (17 sources) Macrolide, Macrolide Antimicrobial Start: 07-03-2022 End: 10-13-2024 Erythromycin-Benzo yl Peroxide gel Indications: Acne vulgaris Apply to affected area two times a day. APPLY TO AFFECTED AREA 46.6 g 11 10/13/2024 Active Start: 05-17-2022 End: 07-03-2022 Erythromycin-Benzoyl Peroxid e gel Apply to affected area twice daily. APPLY TO AFFECTED AREA 0 05/17/2022 07/03/2022 Discontinued Comment on above: Apply to affected ar ea twice daily. APPLY TO AFFECTED AREA Apply to affected ar ea two times a day. APPLY TO AFFECTED AREA cycloSPORINE 100 mg oral capsule (20 sources) Calcineurin Inhibitor Immunosuppressant Start: 07-20-2021 cycloSPORINE (SANDIMMUNE) 100 mg capsule 07/20/2021 Active Start: 07-20-2021 take 100 mg by mouth once daily Cyclosporine Active 100 MG PO DAILY July 18, 2022 1:00am On Hold: Order Changed docosahexaenoic acid 120 mg / eicosapentaenoic acid 180 mg oral capsule (5 sources) take 1 capsule by mouth twice daily fish oil-omega-3 fatty acids 1000 MG capsule Take 300 mg by mouth twice a day. Active lisinopril 10 mg oral tablet (20 sources) Angiotensin Converting Enzyme Inhibitor Start: 03-26-20 21 take 1 tablet by mouth once daily lisinopril (ZESTRIL, PRINIVIL) 10 mg tablet Take 10 mg by mouth once daily. 07/16/2021 Active take 1 tablet by mouth twice precious ly lisinopril 10 MG tablet Take 10 mg by mouth 2 times daily. Active Comment on above: Take 10 mg by mouth once daily. VIT W/NA-WLTTMOPIA-AN PO (5 sources) take 1 tablet by mouth once daily VIT W/KT-QSUNTLDWC-RY PO Take 1 tablet by mouth daily. Active tretinoin 0.25 mg/ml topical cream (14 sources) Retinoid Start: 2 End: 5 tretinoin (RETIN-A) 0.025 % topical cream Indications: Acne vulgaris Apply 1 application to affected area daily at bedtime. 20 g 5 10/13/2024 11/12/2024 Active Comment on above: Apply 1 application to affected area daily at bedtime. vedolizumab 300 mg injection (10 sources) Integrin Receptor Antagonist Start: 4 Vedolizumab (Entyvio) 300 mg recon soln Active 300 mg IV .[id number] August 22, 2023 12:00am 300 mg intravenously [id number]; 300 mg; Infuse 300mg per IV route at 0,2,6,then every 8 weeks for Crohn's K50.90 Completed/Discontinued Medications Medication Drug Class(es) Dates Sig (Normalized) Sig (Original) budesonide 3 mg delayed release oral capsule (8 sources) Corticosteroid Start: 11-28-2022 End: 07-30-2023 take 3 capsules by mouth once daily Budesonide 3 mg capsule,delayed,ext end.release Discontinued 9 mg PO DAILY November 28, 2022 12:00am July 30, 2023 9:43am On Hold: PATIENT HAS NOT STARTED MED Start: 11-28-2022 End: 07-30-2023 take 9 mg by mouth once daily Budesonide Discontinued 9 MG PO DAILY November 28, 2022 12:00am July 30, 2023 9:43am On Hold: PATIENT HAS NOT STARTED MED colestipol hydrochloride 1000 mg oral tablet (6 sources) Bile Acid Sequestrant Start: 02-27-2023 End: 04-10-2023 Colestipol 1 gram tablet Discontinued 1 g PO THREE TIMES A DAY 126 42 February 27, 2023 12:00am 2023 1:00am April 10, 2023 1:04am dicyclomine hydrochloride 20 mg oral tablet (6 sources) Anticholinergic Start: 03-03-2023 End: 07-30-2023 take 1 tablet by mouth three times daily as needed for pain Dicyclomine 20 mg tablet Discontinued 20 mg PO THREE TIMES A DAY as needed for abdominal pain 90 March 03, 2023 12:00am July 30, 2023 9:43am fluconazole 150 mg oral tablet (5 sources) Azole Antifungal Start: 07-14-2023 End: 10-13-2024 fluconazole (DIFLUCAN) 150 mg tablet Indications: vulvovaginal candidiasis Take 1 tablet by mouth once, may repeat dose in 72 hours for persistent symptoms 2 tablet 3 07/14/2023 10/13/2024 Discontinued Comment on above: Take 1 tablet by pawel once, may repeat dose in 72 hours for persistent symptoms hydrocortisone 25 mg/ml topical cream (5 sources) Corticosteroid Start: 08-05-2018 hydrocortisone topical cream 2.5% mesalamine 500 mg extended release oral capsule (12 sources) Aminosalicylate Start: 03-20-2023 End: 04-19-2023 take 2 capsules by mouth twice daily Mesalamine (Pentasa) 500 mg capsule, extended release Discontinued 1000 mg PO TWICE A DAY 120 March 20, 2023 12:00am April 18, 2023 1:00am April 19, 2023 1:28am Start: 03-03-2023 End: 07-30-2023 take 2 capsules by mouth twice daily Mesalamine (Pentasa) 500 mg capsule, extended release Discontinued 1000 mg PO TWICE A DAY 120 March 03, 2023 12:00am July 30, 2023 9:43am methylPREDNISolone (2 sources) Corticosteroid Start: 04-18-2022 End: 07-03-2022 methylPREDNISolone (MEDROL, MELBA,) 4 mg Dose-Pack As Instructed per package 21 tablet 0 04/18/2022 07/03/2022 Discontinued Start: 04-18-2022 methylPREDNISo lone (MEDROL, MELBA,) 4 mg Dose-Pack As Instructed per package 21 tablet 0 04/18/2022 Active Comment on above: As Instructed per vidhya ckage Problems Active Problems Problem Classification Problem Date Documented Da te Episodic/Chronic Acute and chronic tonsillitis (1 source) Hypertrophy of tonsils; Translations: [Hypertrophy of tonsils] Chronic Anxiety disorders (20 sources) Anxiety; Translations: [Anxiety disorder, unspecified] Onset: 06-27-2016 11-15-2016 Chronic Conditions associated with dizziness or vertigo (3 sources) Dizziness; Translations: [Dizziness and giddiness] Onset: 10-13-2024 10-13-2024 Episodic Genitourinary symptoms and ill-defined conditions (1 source) Proteinuria; Translations: [Proteinuria, unspecified] Onset: 10-13-2024 10-13-2024 Episodic Headache; including migraine (2 sources) Headache; Translations: [Left-sided headache] 07-14-2023 Episodic Hypertension complicating ; childbirth and the puerperium (11 sources) Pre-eclampsia; Translations: [Unspecified pre-eclampsia, unspecified trimester] 09-22-2020 Episodic Malaise and fatigue (2 sources) Fatigue; Translations: [Other fatigue] Onset: 10-13-2024 10-13-2024 Episodic Mood disorders (12 sources) Major depression, single episode; Translations: [Major depressive disorder, single episode, unspecified] Onset: 04-08-2017 04-08-2017 Chronic Nausea and vomiting (2 sources) Nausea; Translations: [Nausea] Episodic Nephritis; nephrosis; renal sclerosis (14 sources) Focal segmental glomerulosclerosis; 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] Onset: 07-25-2021 07-25-2021 Chronic Nonmalignant breast conditions (3 sources) Mastodynia; Translations: [Mastodynia] Onset: 06-23-2024 06-23-2024 Episodic Nonspecific chest pain (3 sources) Tight chest; Translations: [Other chest pain] Onset: 10-13-2024 10-13-2024 Episodic Other complications of ; puerperium affecting management of mother (2 sources) delivery - delivered; Translations: [Encounter for delivery without indication] 09-21-2020 Episodic Other complications of ; puerperium affecting management of mother (9 sources) Deliveries by ; Translations: [Encounter for delivery without indication] 10-04-2022 Episodic Other connective tissue disease (1 source) Swelling of hand; Translations: [Other specified soft tissue disorders] 06-25-2023 Episodic Other connective tissue disease (1 source) Swelling of bilateral feet; Translations: [Other specified soft tissue disorders] 06-23-2023 Episodic Other gastrointestinal disorders (2 sources) Abdominal bloating; Translations: [Abdominal distension (gaseous)] Episodic Other hematologic conditions (1 source) History of anemia; Translations: [Personal history of diseases of the blood and blood-forming organs and certain disorders involving the immune mechanism] 06-23-2023 Episodic Other hereditary and degenerative nervous system conditions (1 source) Blepharospasm; 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 Chronic Other inflammatory condition of skin (1 source) Palmar erythema; Translations: [Other specified erythematous conditions] 10-13-2024 Episodic Other inflammatory condition of skin (1 source) Other specified erythematous conditions; Translations: [Palmar erythema] Onset: 10-13-2024 Episodic Other nervous system disorders (1 source) Taste sense altered; Translations: [Unspecified disturbances of smell and taste] 07-14-2023 Episodic Other nutritional; endocrine; and metabolic disorders (1 source) Weight gain; Translations: [Abnormal weight gain] Episodic Other skin disorders (15 sources) Acne vulgaris; Translations: [Acne vulgaris] Onset: 03-28-2017 03-28-2017 Episodic Other skin disorders (1 source) Night sweats; Translations: [Generalized hyperhidrosis] 10-13-2024 Episodic Other skin disorders (1 source) Generalized hyperhidrosis; Translations: [Night sweats] Onset: 10-13-2024 Episodic Other upper respiratory disease (1 source) Pain in throat; Translations: [Pain in throat] Episodic Regional enteritis and ulcerative colitis (20 sources) Crohn's disease; Translations: [Crohn's disease, unspecified, without complications] Onset: 06-22-2023 02-07-2023 Chronic Residual codes; unclassified (1 source) Flushing; Translations: [Flushing] 10-13-2024 Episodic Residual codes; unclassified (1 source) Flushing; Translations: [Hot flashes] Onset: 10-13-2024 Episodic Unclassified (1 source) Headaches; Translations: [Headaches] Onset: 10-13-2024 Past or Other Problems Problem Classification Problem Date Documented Da te Episodic/Chronic Acute posthemorrhagic anemia (11 sources) Acute posthemorrhagic anemia; Translations: [Acute posthemorrhagic anemia] Onset: 09-17-2017 09-17-2017 Episodic Hemorrhage during ; abruptio placenta; placenta previa (3 sources) Placental abruption; Translations: [Premature separation of placenta, unspecified, third trimester] Onset: 09-17-2017 Resolved: 09-17-2017 09-17-2017 Episodic Immunizations and screening for infectious disease (12 sources) Anti-nuclear factor positive; Translations: [Other specified abnormal immunological findings in serum] Onset: 04-30-2024 04-30-2024 Episodic Noninfectious gastroenteritis (20 sources) Chronic diarrhea; Translations: [Noninfective gastroenteritis and colitis, unspecified] Onset: 12-03-2022 Episodic Other gastrointestinal disorders (4 sources) Irritable bowel syndrome; Translations: [Irritable bowel syndrome without diarrhea] Onset: 10-30-2022 Resolved: 10-13-2024 07-21-2023 Chronic Other and delivery including normal (3 sources) Diamniotic-monochorio roderick twins; Translations: [Twin , monochorionic/diamnio tic, unspecified trimester] Onset: 08-07-2017 Resolved: 09-17-2017 09-17-2017 Episodic Other screening for suspected conditions (not mental disorders or infectious disease) (20 sources) Patient encounter status; Translations: [Encounter for screening for diabetes mellitus] Onset: 01-02-2024 Episodic Other skin disorders (1 source) Acne vulgaris; Translations: [Acne vulgaris] Onset: 03-28-2017 Episodic Results Test Name Value Interpretation Reference Range Facility 25(OH)D3 SerPl-mCncon 2024 25-hydroxyvitamin D3 [Mass/Vol] 25.1 ng/mL Low >=30.0 [facility] Comment on above: Order Comment: Speci men Type: BLOOD SPECIMEN Ordering Facility: [facility] Address: [address] [place] [address] Result Comment: Clajay sification of 25 [place] Vitamin D status: Deficiency: <= 20.0 ng/ml. Insufficiency: 21.0-29.0 ng/ml. Sufficiency: >= 30.0 ng/ml. Performed By: #### 1 989-3 #### [facility] CLIA [id number] [address] [place] [id number] [place] 25-hydroxyvitamin D3 [Mass/V ol]on 10-13-2024 Interpretation and review of laboratory results Abnormal [facility] C-REACTIVE PROTEINon 025 CRP [Mass/Vol] 0.7 mg/dL NINF - 0.9 mg/dL [facility] CBC panel Auto (Bld)on 10-13 Erythrocyte distribution width (RBC) [Ratio] 13.9 % 11.5 - 15.0 % [facility] Hematocrit (Bld) [Volume fraction] 40.8 % 36.0 - 46.0 % [facility] Hemoglobin (Bld) [Mass/Vol] 12.7 g/dL 11.5 - 15.5 g/dL [facility] Interpretation and review of laboratory results Abnormal [facility] MCH (RBC) [Entitic mass] 26.7 pg 26. 0 - 34.0 pg [facility] MCHC (RBC) [Mass/Vol] 31.1 g/dL 30.5 - 36.0 g/dL [facility] MCV (RBC) [Entitic vol] 85.7 fL 80.0 - 100.0 fL [facility] Platelet mean volume (Bld) [Entitic vol] 9.9 fL 9.0 - 12.7 fL [facility] Platelets (Bld) [#/Vol] 404 10*3/uL High [facility] RBC (Bld) [#/Vol] 4.76 10*6/uL 3.90 - 5.20 m/uL [facility] WBC (Bld) [#/Vol] 7.28 10*3/uL [facility] Erythrocyte distribution width (RBC) [Ratio] 13.9 % Normal 11.5-15.0 [facility] Comment on above: Order Comment: Speci medina Type: BLOOD SPECIMEN Ordering Facility: [facility] Address: [address] [place] [address] Performed By: #### 5 8410-2 #### [facility] CLIA [id number] [address] [place], [place] [id number] [place] [address] [place] [facility] Hematocrit (Bld) [Volume fraction] 40.8 % Normal 36.0-46.0 [facility] Comment on above: Order Comment: Speci medina Type: BLOOD SPECIMEN Ordering Facility: [facility] Address: [address] [place] [address] Performed By: #### 5 8410-2 #### [facility] CLIA [id number] [address] [id number] [place] Hemoglobin (Bld) [Mass/Vol] 12.7 g/dL Normal 11.5-15.5 [facility] Comment on above: Order Comment: Speci men Type: BLOOD SPECIMEN Ordering Facility: [facility] Address: [address] [place] [address] Performed By: #### 5 8410-2 #### [facility] CLIA [id number] [address] [place] [id number] [place] MCH (RBC) [Entitic mass] 26.7 pg Normal 26.0-34.0 [facility] Comment on above: Order Comment: Speci men Type: BLOOD SPECIMEN Ordering Facility: [facility] Address: [address] [place] [address] Performed By: #### 5 8410-2 #### [facility] CLIA [id number] [address] [place] [address] [place] MCHC (RBC) [Mass/Vol] 31.1 g/dL Normal 30.5-36.0 [facility] Comment on above: Order Comment: Speci men Type: BLOOD SPECIMEN Ordering Facility: [facility] Address: [address] [place] [address] Performed By: #### 5 8410-2 #### [facility] CLIA [id number] [address] [place] [address] [place] MCV (RBC) [Entitic vol] 85.7 fL Normal 80.0-100.0 [facility] Comment on above: Order Comment: Speci men Type: BLOOD SPECIMEN Ordering Facility: [facility] Address: [address] [place] [address] Performed By: #### 5 8410-2 #### [facility] CLIA [id number] [address] [place], [place] [id number] [place] [address] [place] Platelet mean volume (Bld) [Entitic vol] 9.9 fL Normal 9.0-12.7 [facility] Comment on above: Order Comment: Speci men Type: BLOOD SPECIMEN Ordering Facility: [facility] Address: [address] [place] [address] Performed By: #### 5 8410-2 #### [facility] CLIA [id number] [address] [place] [address] [place] Platelets (Bld) [#/Vol] 404 10*3/uL High 150-400 [facility] Comment on above: Order Comment: Speci men Type: BLOOD SPECIMEN Ordering Facility: [facility] Address: [address] [place] [address] Performed By: #### 5 8410-2 #### [facility] CLIA [id number] [address] [place] [address] [place] RBC (Bld) [#/Vol] 4.76 10*6/uL Normal 3.90-5.20 [facility] Comment on above: Order Comment: Jeannine haney Type: BLOOD SPECIMEN Ordering Facility: [facility] [address]: [address] [place] [id number] Performed By: #### 5 8410-2 #### [facility] CLIA [id number] [address] [place] [address] [facility] WBC (Bld) [#/Vol] 7.28 10*3/uL Normal 3.70-11.00 [facility] Comment on above: Order Comment: Jeannine medina Type: BLOOD SPECIMEN Ordering Facility: [facility] Address: [address] [place] [id number] Performed By: #### 5 8410-2 #### [facility] CLIA [id number] [address] [place] [address] [facility] CNOVon 10-13-2024 CNOV Office Visit (AGCRISTIAN LARIOS) ----- DEVON BLANCHARD ([id number]) 1990 [facility] Date Time Provider Department 10/13/24 11:20 AM MYLES FELIX During your visit today, we recorded the following information about you: Temperature Pulse Blood pressure Weight 97.9 degrees 72/minute 124/74 105.7 kg Height 1.651 m Myles Felix, RADIOLOGIC TECHNOLOGIST.CLINICAL DIRECTOR 10/13/2024 11:57 AM Signed Subjective The patient consented to the use of ambient [employer] software for draft documentation of the visit consistent with [facility]?s Notice of Privacy Practices. LIZZETH Walsh is a 34-year-old female with a history of Crohn's disease, nephropathy, and depression, presenting for a wellness visit. Devon reports situational depression secondary to relationship stressors and weight gain. She denies current use of antidepressants and expresses reluctance to initiate them due to already being on multiple medications. She endorses fatigue and requests comprehensive blood work to monitor for potential side effects of her current medications. She also requests a refill of her acne medication. Devon is currently under the care of Dr. Vazquez for nephropathy and Dr. Andersen for Crohn's disease. She reports stable kidney function, with the last evaluation in February or March showing proteinuria of 900 grams. She is scheduled for a follow-up in 1-2 weeks. She is on Entyvio for Crohn's disease, administered every 8 weeks, and reports good control of her symptoms. She is also on cyclosporine for approximately 3.5 years. Devon reports erythema of the palms, which she has been experiencing for about 1.5 years. She notes that this erythema often occurs during heat exposure, potential flares, and premenstrual syndrome (PMS). She also reports a sensation of chest tightness and tension in her arms and shoulders during these episodes, but denies tachycardia, palpitations, or chest pain. She has a history of anxiety since childhood and does not believe these symptoms are anxiety-related. She denies arthralgia, myalgia, or urinary issues. She reports a positive CARMITA test in May and is scheduled to see her teasel setter, Dr. Dov Anton, on October 26. Devon has a history of regular menstrual cycles with severe PMS, including both physical and mental symptoms. She reports hot flashes during ovulation and night sweats during severe PMS episodes. She also experiences migraines at the onset of menstruation and reports constant dizziness. She notes that her hormonal symptoms have intensified since childbirth. She reports weight gain after losing 16 pounds last summer and struggles with maintaining a healthy diet. She denies recent iron level checks and has not had an echocardiogram since 2019. She also reports current allergy symptoms. I reviewed past medical, surgical, social, and family histories today and updated chart. Allergies, chronic medications, and supplements were also reviewed. PAST MEDICAL HISTORY Diagnosis Date Abnormal Pap smear of cervix Acute blood loss anemia 09/17/2017 FSGS (focal segmental glomerulosclerosis) 07/25/2021 Mental disorder Placental abruption in third trimester (HCC) 09/17/2017 PAST SURGICAL HISTORY Procedure Laterality Date CATARACT EXTRACTION HX EXTRACTION ERUPTED TOOTH 2012 INCISION LINGUAL FRENUM FRENOTOMY 3yo ALLERGIES Patient has no known allergies. MEDICATIONS vedolizumab (ENTYVIO) 300 mg injection Inject 300 mg intravenously. lisinopril (ZESTRIL, PRINIVIL) 10 mg tablet Take 10 mg by mouth once daily. cycloSPORINE (SANDIMMUNE) 100 mg capsule tretinoin (RETIN-A) 0.025 % topical cream Apply 1 application to affected area daily at bedtime. Erythromycin-Benzoyl Peroxide gel Apply to affected area two times a day. APPLY TO AFFECTED AREA FAMILY HISTORY Problem Relation Age of Onset Hypertension Maternal Grandfather Social History Tobacco Use Smoking status: Never Smokeless tobacco: Never Vaping Use Vaping status: Never Used Substance Use Topics Alcohol use: No Drug use: No Review of Systems Constitutional: Positive for diaphoresis and fatigue. Negative for appetite change, chills, fever and unexpected weight change. Regained weight that was lost over last summer HENT: Negative for congestion, ear pain, rhinorrhea and sore throat. Eyes: Negative for pain, discharge, itching and visual disturbance. Respiratory: Negative for cough, shortness of breath and wheezing. Cardiovascular: Negative for chest pain, palpitations and leg swelling. Face and hands swollen Gastrointestinal: Negative for abdominal pain, constipation, diarrhea, nausea and vomiting. Genitourinary: Negative for difficulty urinating. Musculoskeletal: Negative for arthralgias. Skin: Negative for rash. Neurological: Positive for dizziness, tremors, weakness and headaches. Psychiatric/Behavioral: Positive for d (more content not included)... Normal [facility] CORTISOL, SERUMon 10-13-2024 Cortisol [Mass/Vol] 9 ug/dL 4.8 - 19 .5 ug/dL [facility] Comment on above: Provided reference r esther is from 6-10 AM sample collection time. Cortisol Reference Range: 6-10 AM = 4.8-19.5 ug/dL, 4-8 PM = 2.5-11.9 ug/dL CRP SerPl-ncon 10-13-2024 CRP [Mass/Vol] 0.7 mg/dL Normal <0.9 [facility] Comment on above: Order Comment: Speci men Type: BLOOD SPECIMEN Ordering Facility: [facility] Address: [address] [place] [address] Performed By: #### 1 988-5, 79780-4, 95410-9, [facility] #### [facility] CLIA [id number] [address] [place] [address] [place] Cobalamin (Vitamin B12) [Mas s/Vol]on 10-13-2024 Interpretation and review of laboratory results Normal [facility] Comprehensive metabolic 2000 panelon 10-13-2024 Albumin [Mass/Vol] 4.4 g/dL 3.9 - 4.9 g/dL [facility] ALP [Catalytic activity/Vol] 77 U/L 34 - 123 U/L [facility] ALT With P-5'-P [Catalytic activity/Vol] 18 U/L 7 - 38 U/L [facility] Anion gap [Moles/Vol] 14 mmol/L 8 - 15 mmol/L [facility] AST With P-5'-P [Catalytic activity/Vol] 18 U/L 13 - 35 U/L [facility] Bilirubin [Mass/Vol] 0.4 mg/dL 0.2 - 1 .3 mg/dL [facility] Calcium [Mass/Vol] 9.1 mg/dL 8.5 - 10. 2 mg/dL [facility] Chloride [Moles/Vol] 102 mmol/L 98 - 10 7 mmol/L [facility] CO2 [Moles/Vol] 23 mmol/L 22 - 30 mmol/L [facility] Creatinine [Mass/Vol] 0.68 mg/dL 0.58 - 0.96 mg/dL [facility] GFR/1.73 sq M.predicted among non-blacks MDRD (S/P/Bld) [Vol rate/Area] 118 mL/min/{1.73_m2} - [facility] Comment on above: Estimated Glomerular Filtration Rate (eGFR) is calculated using the 2020 CKD-EPI creatinine equation. This equation utilizes serum creatinine, sex, and age as parameters. The creatinine assay has traceable calibration to isotope dilution-mass spectrometry. Refer to KDIGO guidelines for clinical interpretation. In patients with unstable renal function, e.g. those with acute kidney injury, the eGFR may not accurately reflect actual GFR. Glucose [Mass/Vol] 93 mg/dL 74 - 99 mg/dL [facility] Comment on above: The [place] Diabete s Association (ADA) provides guidance for cutoff values for fasting glucose and random glucose. The ADA defines fasting as no caloric intake for at least 8 hours. Fasting plasma glucose results between 100 to 125 mg/dL indicate increased risk for diabetes (prediabetes). Fasting plasma glucose results greater than or equal to 126 mg/dL meet the criteria for diagnosis of diabetes. In the absence of unequivocal hyperglycemia, results should be confirmed by repeat testing. In a patient with classic symptoms of hyperglycemia or hyperglycemic crisis, random plasma glucose results greater than or equal to 200 mg/dL meet the criteria for diagnosis of diabetes. Reference: Standards of Medical Care in Diabetes 2016, [place] Diabetes Association. Diabetes Care. 2016.39(Suppl 1). Potassium [Moles/Vol] 4.3 mmol/L 3.7 - 5.1 mmol/L [facility] Protein [Mass/Vol] 7.8 g/dL 6.3 - 8.0 g/dL [facility] Sodium [Moles/Vol] 139 mmol/L 136 - 144 mmol/L [facility] Urea nitrogen [Mass/Vol] 10 mg/dL 7 - 21 mg/dL [facility] Albumin [Mass/Vol] 4.4 g/dL Normal 3.9-4.9 [facility] Comment on above: Order Comment: Jeannine haney Type: BLOOD SPECIMEN Ordering Facility: [facility] Address: [address] [place] [address] Performed By: #### 1 988-5, 23936-7, 83273-8, TSHRF #### [facility] CLIA [id number] [address] [facility] ALP [Catalytic activity/Vol] 77 U/L Normal 34-123 [facility] Comment on above: Order Comment: Jeannine haney Type: BLOOD SPECIMEN Ordering Facility: [facility] Address: [address] [place] [address] Performed By: #### 1 988-5, 78534-3, 62751-0, TSHRF #### [facility] CLIA [id number] [address] [place], [place] [address] [place] [address] OF CARMINE ALT With P-5'-P [Catalytic activity/Vol] 18 U/L Normal 7-38 [facility] Comment on above: Order Comment: Jeannine haney Type: BLOOD SPECIMEN Ordering Facility: [facility] Address: [address] [place] [address] Performed By: #### 1 988-5, 85156-8, 07898-0, TSHRF #### [facility] [place] [facility] CLIA [id number] [address] [place] [address] [place] Anion gap [Moles/Vol] 14 mmol/L Normal 8-15 [facility] Comment on above: Order Comment: Speci men Type: BLOOD SPECIMEN Ordering Facility: [facility] Address: [address] [place] [address] Performed By: #### 1 988-5, 16964-2, 41957-6, TSHRF #### [facility] [place] [facility] CLIA [id number] [address] [place] [address] [place] AST With P-5'-P [Catalytic activity/Vol] 18 U/L Normal 13-35 [facility] Comment on above: Order Comment: Speci men Type: BLOOD SPECIMEN Ordering Facility: [facility] Address: [address] [place] [address] Performed By: #### 1 988-5, 74191-0, , TSHRF #### [facility] [place] [facility] CLIA [id number] [address] [place] [address] [place] Bilirubin [Mass/Vol] 0.4 mg/dL Normal 0.2-1.3 [facility] Comment on above: Order Comment: Speci men Type: BLOOD SPECIMEN Ordering Facility: [facility] Address: [address] [place] [address] Performed By: #### 1 988-5, 94872-2, 82470-2, TSHRF #### [facility] [place] [facility] CLIA [id number] [address] [place] [address] [place] Calcium [Mass/Vol] 9.1 mg/dL Normal 8.5-10.2 [facility] Comment on above: Order Comment: Speci men Type: BLOOD SPECIMEN Ordering Facility: [facility] Address: [address] [place] [address] Performed By: #### 1 988-5, 96451-4, 81219-9, TSHRF #### [facility] [place] [facility] CLIA [id number] [address] [place] [address] [place] Chloride [Moles/Vol] 102 mmol/L Normal 98-107 [facility] Comment on above: Order Comment: Speci men Type: BLOOD SPECIMEN Ordering Facility: [facility] Address: [address] [place] [address] Performed By: #### 1 988-5, 60838-2, 60968-6, TSHRF #### [facility] [place] [facility] CLIA [id number] [address] [place] [address] [place] CO2 [Moles/Vol] 23 mmol/L Normal 22-30 [facility] Comment on above: Order Comment: Speci men Type: BLOOD SPECIMEN Ordering Facility: [facility] Address: [address] [place] [address] Performed By: #### 1 988-5, 14980-6, 66290-8, TSHRF #### [facility] CLIA [id number] [address] Creatinine [Mass/Vol] 0.68 mg/dL Normal 0.58-0.96 [facility] Comment on above: Order Comment: Speci men Type: BLOOD SPECIMEN Ordering Facility: [facility] Address: [address] [place] [address] Performed By: #### 1 988-5, 59809-3, 87500-8, TSHRF #### [facility] CLIA [id number] [address] [place], [place] [address] [place] [address] Creatinine and Glomerular filtration rate.predicted panel (S/P/Bld) 118 mL/min/1.73m??? Normal >=60 [facility] Comment on above: Order Comment: Speci men Type: BLOOD SPECIMEN Ordering Facility: [facility] Address: [address] [place] [address] Result Comment: Indu mated Glomerular Filtration Rate (eGFR) is calculated using the 2020 CKD-EPI creatinine equation. This equation utilizes serum creatinine, sex, and age as parameters. The creatinine assay has traceable calibration to isotope dilution-mass spectrometry. Refer to KDIGO guidelines for clinical interpretation. In patients with unstable renal function, e.g. those with acute kidney injury, the eGFR may not accurately reflect actual GFR. Performed By: #### 1 988-5, 45100-2, , TSHRF #### [facility] [place] [facility] CLIA [id number] [address] [place] [address] [place] Glucose [Mass/Vol] 93 mg/dL Normal 74-99 [facility] Comment on above: Order Comment: Jeannine haney Type: BLOOD SPECIMEN Ordering Facility: [facility] Address: [address] [place] [address] Result Comment: The [place] Diabetes Association (ADA) provides guidance for cutoff values for fasting glucose and random glucose. The ADA defines fasting as no caloric intake for at least 8 hours. Fasting plasma glucose results between 100 to 125 mg/dL indicate increased risk for diabetes (prediabetes). Fasting plasma glucose results greater than or equal to 126 mg/dL meet the criteria for diagnosis of diabetes. In the absence of unequivocal hyperglycemia, results should be confirmed by repeat testing. In a patient with classic symptoms of hyperglycemia or hyperglycemic crisis, random plasma glucose results greater than or equal to 200 mg/dL meet the criteria for diagnosis of diabetes. Reference: Standards of Medical Care in Diabetes 2016, [place] Diabetes Association. Diabetes Care. 2016.39(Suppl 1). Performed By: #### 1 988-5, 85791-9, , TSHRF #### [facility] [place] [facility] CLIA [id number] [address] [place] [address] [place] Potassium [Moles/Vol] 4.3 mmol/L Normal 3.7-5.1 [facility] Comment on above: Order Comment: Jeannine haney Type: BLOOD SPECIMEN Ordering Facility: [facility] Address: [address] [place] [address] Performed By: #### 1 988-5, 11782-2, , TSHRF #### [facility] [place] [facility] CLIA [id number] [address] [place] [address] [place] Protein [Mass/Vol] 7.8 g/dL Normal 6.3-8.0 [facility] Comment on above: Order Comment: Speci men Type: BLOOD SPECIMEN Ordering Facility: [facility] Address: [address] [place] [address] Performed By: #### 1 988-5, 91526-8, 00430-6, TSHRF #### [facility] [place] [facility] CLIA [id number] [address] [place] [address] [place] Sodium [Moles/Vol] 139 mmol/L Normal 136-144 [facility] Comment on above: Order Comment: Speci men Type: BLOOD SPECIMEN Ordering Facility: [facility] Address: [address] [place] [address] Performed By: #### 1 988-5, 44871-1, , TSHRF #### [facility] [place] [facility] CLIA [id number] [address] [place] [address] [place] Urea nitrogen [Mass/Vol] 10 mg/dL Normal 7-21 [facility] Comment on above: Order Comment: Speci men Type: BLOOD SPECIMEN Ordering Facility: [facility] Address: [address] [place] [address] Performed By: #### 1 988-5, 20297-8, , TSHRF #### [facility] [place] [facility] CLIA [id number] [address] [place] [address] [facility] Cortis SerPl-mCncon 10-14-19 25 Cortisol [Mass/Vol] 9.0 ug/dL Normal 4.8-19.5 [facility] Comment on above: Order Comment: Speci men Type: BLOOD SPECIMENOrdering Facility: [facility] Address: [address] [place] [address] Result Comment: Prov ided reference range is from 6-10 AM sample collection time. Cortisol Reference Range: 6-10 AM = 4.8-19.5 ug/dL, 4-8 PM = 2.5-11.9 ug/dL Performed By: #### 2 143-6 ####[facility] [id number] [place] [address] [place] Cortisol [Mass/Vol]on 2024 Interpretation and review of laboratory results Normal [facility] Iron and Iron binding capaci ty panelon 10-13-2024 Interpretation and review of laboratory results Abnormal [facility] Iron [Mass/Vol] 50 ug/dL 41 - 186 ug/dL [facility] Iron binding capacity [Mass/Vol] 409 ug/dL High 232 - 386 ug/dL [facility] Iron saturation [Mass fraction] 12.2 % Low 15.0 - 57.0 % [facility] Iron [Mass/Vol] 50 ug/dL Normal 41-186 [facility] Comment on above: Order Comment: Speci men Type: BLOOD SPECIMENOrdering Facility: [facility] Address: [address] [place] [address] Performed By: #### 2 132-9, 43364-8 ####[facility] [id number] [address] Iron binding capacity [Mass/Vol] 409 ug/dL High 232-386 [facility] Comment on above: Order Comment: Speci men Type: BLOOD SPECIMENOrdering Facility: [facility] Address: [address] [place] [address] Performed By: #### 2 132-9, 04136-5 ####[facility] [id number] [address] Iron saturation [Mass fraction] 12.2 % Low 15.0-57.0 [facility] Comment on above: Order Comment: Speci men Type: BLOOD SPECIMENOrdering Facility: [facility] Address: [address] [place] [address] Performed By: #### 2 132-9, 20653-5 ####[facility] [id number] [address] Lipid 1996 panelon 5 Cholesterol [Mass/Vol] 214 mg/dL High NINF - 200 mg/dL [facility] Comment on above: <200 mg/dL, Desirabl e 200-239 mg/dL, Borderline high >239 mg/dL, High Cholesterol in HDL [Mass/Vol] 44 mg/dL 39 - PINF mg/dL [facility] Comment on above: 40-59 mg/dL, Accepta ble >59 mg/dL, High: Negative risk factor for coronary heart disease <40 mg/dL, Low: Positive risk factor for coronary heart disease Cholesterol in LDL [Mass/Vol] 113 mg/dL High NINF - 100 mg/dL [facility] Comment on above: <100 mg/dL, Optimal 100-129 mg/dL, Near optimal/above optimal 130-159 mg/dL, Borderline high 160-189 mg/dL, High >189 mg/dL, Very high Secondary prevention optimal LDL Cholesterol levels are recommended to be <70 mg/dL LDL cholesterol is calculated using the Zavaleta-NIH equation. Cholesterol in LDL/Cholesterol in HDL [Mass ratio] 2.57 {ratio} High NINF - 2.54 [facility] Comment on above: Reference: 1. National Cholesterol Education Program ATP III Guideline At-A-Glance Quick Desk Reference: National Heart, Lung, and Blood [place]. National Institutes of Health. 2001: NIH Publication No. 01-3305. 2. An International Atherosclerosis Society position paper: global recommendations for the management of dyslipidemia: executive summary, Atherosclerosis. 2014: 232(2):410-413. Cholesterol in VLDL [Mass/Vol] 57 mg/dL High NINF - 30 mg/dL [facility] Cholesterol non HDL [Mass/Vol] 170 mg/dL High NINF - 130 mg/dL [facility] Comment on above: <130 mg/dL, Optimal 130-159 mg/dL, Near optimal/above optimal 160-189 mg/dL, Borderline high 190-219 mg/dL, High >219 mg/dL, Very high Secondary prevention optimal non HDL Cholesterol levels are recommended to be <100 mg/dL Cholesterol.total/Cholest cathi in HDL [Mass ratio] 4.86 {ratio} NINF - 5.10 [facility] Fasting Time 12 hrs [facility] Interpretation and review of laboratory results Abnormal [facility] Triglyceride [Mass/Vol] 329 mg/dL High NINF - 150 mg/dL [facility] Comment on above: <150 mg/dL, Normal 150-199 mg/dL, Borderline high 200-499 mg/dL, High >499 mg/dL, Very high Cholesterol [Mass/Vol] 214 mg/dL High <200 [facility] Comment on above: Order Comment: Jeannine haney Type: BLOOD SPECIMEN Ordering Facility: [facility] Address: [address] [place] [address] Result Comment: <200 mg/dL, Desirable 200-239 mg/dL, Borderline high >239 mg/dL, High Performed By: #### 1 988-5, 74856-4, 93267-7, TSHRF #### [facility] [place] [facility] CLIA [id number] [address] [place] [address] [place] Cholesterol in HDL [Mass/Vol] 44 mg/dL Normal >39 [facility] Comment on above: Order Comment: Jeannine medina Type: BLOOD SPECIMEN Ordering Facility: [facility] Address: [address] [place] [address] Result Comment: 40-5 9 mg/dL, Acceptable >59 mg/dL, High: Negative risk factor for coronary heart disease <40 mg/dL, Low: Positive risk factor for coronary heart disease Performed By: #### 1 988-5, 98886-8, 89095-2, TSHRF #### [facility] [place] [facility] CLIA [id number] [address] [place] [address] [place] Cholesterol in LDL [Mass/Vol] 113 mg/dL High <100 [facility] Comment on above: Order Comment: Jeannine medina Type: BLOOD SPECIMEN Ordering Facility: [facility] Address: [address] [place] [address] Result Comment: <100 mg/dL, Optimal 100-129 mg/dL, Near optimal/above optimal 130-159 mg/dL, Borderline high 160-189 mg/dL, High >189 mg/dL, Very high Secondary prevention optimal LDL Cholesterol levels are recommended to be <70 mg/dL LDL cholesterol is calculated using the Zavaleta-NIH equation. Performed By: #### 1 988-5, 05992-1, 76992-8, TSHRF #### [facility] [place] [facility] CLIA [id number] [address] [place] [address] [place] Cholesterol in LDL/Cholesterol in HDL [Mass ratio] 2.57 {ratio} High <2.54 [facility] Comment on above: Order Comment: Jeannine haney Type: BLOOD SPECIMEN Ordering Facility: [facility] Address: [address] [place] [address] Result Comment: Toshia vidal: 1. National Cholesterol Education Program ATP III Guideline At-A-Glance Quick Desk Reference: National Heart, Lung, and Blood [place]. National Institutes of Health. 2001: NIH Publication No. 01-3305. 2. An International Atherosclerosis Society position paper: global recommendations for the management of dyslipidemia: executive summary, Atherosclerosis. 2014: 232(2):410-413. Performed By: #### 1 988-5, 07329-5, 07453-1, TSHRF #### [facility] [place] [facility] CLIA [id number] [address] [place] [address] [place] Cholesterol in VLDL [Mass/Vol] 57 mg/dL High <30 [facility] Comment on above: Order Comment: Jeannine haney Type: BLOOD SPECIMEN Ordering Facility: [facility] Address: [address] [place] [address] Performed By: #### 1 988-5, 36059-1, 01378-2, TSHRF #### [facility] [place] [facility] CLIA [id number] [address] [place] [address] [place] Cholesterol non HDL [Mass/Vol] 170 mg/dL High <130 [facility] Comment on above: Order Comment: Jeannine haney Type: BLOOD SPECIMEN Ordering Facility: [facility] Address: [address] [place] [address] Result Comment: <130 mg/dL, Optimal 130-159 mg/dL, Near optimal/above optimal 160-189 mg/dL, Borderline high 190-219 mg/dL, High >219 mg/dL, Very high Secondary prevention optimal non HDL Cholesterol levels are recommended to be <100 mg/dL Performed By: #### 1 988-5, 15707-0, 23817-9, TSHRF #### [facility] [place] [facility] CLIA [id number] [address] [place] [address] [place] Cholesterol.total/Cholest cathi in HDL [Mass ratio] 4.86 {ratio} Normal <5.10 [facility] Comment on above: Order Comment: Speci men Type: BLOOD SPECIMEN Ordering Facility: [facility] Address: [address] [place] [address] Performed By: #### 1 988-5, 94922-1, 47589-5, TSHRF #### [facility] [place] [facility] CLIA [id number] [address] [place] [address] [place] FASTING TIME 12 hrs Normal [facility] Comment on above: Order Comment: Speci men Type: BLOOD SPECIMEN Ordering Facility: [facility] Address: [address] [place], [place] [address] Performed By: #### 1 988-5, 49274-6, 23498-4, TSHRF #### [facility] [place] [facility] CLIA [id number] [address] [place] [address] [place] Triglyceride [Mass/Vol] 329 mg/dL High <150 [facility] Comment on above: Order Comment: Speci men Type: BLOOD SPECIMEN Ordering Facility: [facility] Address: [address] [place] [address] Result Comment: <150 mg/dL, Normal 150-199 mg/dL, Borderline high 200-499 mg/dL, High >499 mg/dL, Very high Performed By: #### 1 988-5, 94843-6, 64399-4, TSHRF #### [facility] [place] [facility] CLIA [id number] [address] [place] [address] [place] [place] MAGNESIUMon 10-13-2024 Magnesium [Mass/Vol] 1.8 mg/dL 1.7 - 2 .3 mg/dL [facility] Magnesium SerPl-mCncon 10-13 Magnesium [Mass/Vol] 1.8 mg/dL Normal 1.7-2.3 [facility] Comment on above: Order Comment: Speci men Type: BLOOD SPECIMENOrdering Facility: [facility] Address: [address] [place], [place] [id number] Performed By: #### 2 777-1, 76127-9 ####[facility] LABCLIA [id number] [place] [address] [place] Magnesium [Mass/Vol]on 10-13 Interpretation and review of laboratory results Normal [facility] No Panel Informationon 10-13 Interpretation and review of laboratory results Normal [facility] PHOSPHORUS INORGANICon 10-13 Phosphate [Mass/Vol] 2.6 mg/dL Low 2.7 - 4 .8 mg/dL [facility] Phosphate SerPl-mCncon 10-13 Phosphate [Mass/Vol] 2.6 mg/dL Low 2.7-4.8 [facility] Comment on above: Order Comment: Speckim haney Type: BLOOD SPECIMENOrdering Facility: [facility] Address: [address] [place] [address] Performed By: #### 2 777-1, 66496-2 ####[facility] LOD LABCLIA [id number] [place] [address] [place] [facility] Phosphate [Mass/Vol]on 10-13 Interpretation and review of laboratory results Abnormal [facility] Prolactin SerPl-ncon 10-13 Prolactin [Mass/Vol] 7.8 ng/mL Normal 4.4-33.8 [facility] Comment on above: Order Comment: Speckim haney Type: BLOOD SPECIMENOrdering Facility: [facility] Address: [address] [place] [address] Result Comment: Prol actin test is performed using the [employer] Electrochemiluminescence Immunoassay method. Results obtained with different methods or kits cannot be used interchangeably. Performed By: #### 2 842-3 ####[facility] [id number] [place] [address] [place] TSH W/REFLEX FT4on 5 TSH Qn 0.999 m[IU]/L [facility] Comment on above: If the patient is pr egnant, TSH reference range varies by gestational period: First Trimester (weeks 9-12): 0.180-2.990 mIU/L Second Trimester: 0.110-3.980 mIU/L Third Trimester: 0.480-4.710 mIU/L Dimas Paul et al. A Practical Approach for the Verifications and Determination of Site- and Trimester-Specific Reference Intervals for Thyroid Function tests in . Thyroid, 2019:29:3:412-420. Contreras Carlin et al. 2017 Guidelines of the [place] Thyroid [employer] for the Diagnosis and Management of Thyroid Disease during and the . Thyroid, 2017:27:3:315-389. TSH Qn 0.999 m[IU]/L Normal 0.270-4.20 0 [facility] Comment on above: Order Comment: Speci men Type: BLOOD SPECIMEN [facility]ing Facility[facility] Address: [address] [place] [address] Result Comment: If t he patient is , TSH reference range varies by gestational period: First Trimester (weeks 9-12): 0.180-2.990 mIU/L Second Trimester: 0.110-3.980 mIU/L Third Trimester: 0.480-4.710 mIU/L miguel angel Messer. A Practical Approach for the Verifications and Determination of Site- and Trimester-Specific Reference Intervals for Thyroid Function tests in . Thyroid, 2019:29:3:412-420. Contreras Carlin et al. 2017 Guidelines of the [place] Thyroid Association for the Diagnosis and Management of Thyroid Disease during and the . Thyroid, 2017:27:3:315-389. Performed By: #### 1 988-5, 17784-6, 61735-2, TSHRF #### [facility] CLIA [id number] [address] [place] [address] [place] VITAMIN B12on 10-13-2024 Cobalamin (Vitamin B12) [Mass/Vol] 455 pg/mL 232 - 1245 pg/mL [facility] VITAMIN D 25 HYDROXYon 10-13 25-hydroxyvitamin D3 [Mass/Vol] 25.1 ng/mL Low 30.0 - PINF ng/mL [facility] Comment on above: Classification of 25 [place] Vitamin D status: Deficiency: <= 20.0 ng/ml. Insufficiency: 21.0-29.0 ng/ml. Sufficiency: >= 30.0 ng/ml. Vit B12 SerPl-mCncon 025 Cobalamin (Vitamin B12) [Mass/Vol] 455 pg/mL Normal 232-1245 [facility] Comment on above: Order Comment: Speci men Type: BLOOD SPECIMENOrdering Facility: [facility] Address: [place] [address] Performed By: #### 2 132-9, 36264-2 ####[facility] LABORATORYCLIA [id number] [place] [address] [place] 36on 07-22-2024 36 Hello, Our office has attempted to contact your patient twice, to schedule their Diagnostic Breast Imaging. Thank you, Michelle Jordan Patient Parimutuel Ticket Checker [facility] Breast Imaging Normal [facility] [id number] 06-30-2024 [facility] Misc. COMMENT Normal . [facility] Comment on above: Order Comment: [id number] 7VEDOLIZUMAB LEVEL SERUM RED RF Result Comment: Test Ordered: [id number] Vedolizumab Drug + Antibody Vedolizumab 47 ug/mL ES Reference Range: . Quantitation Limit: <1.3 ug/mL Results of 1.3 or higher indicate detection of vedolizumab. COMMENTS: - The optimal drug concentration depends upon patient- specific factors including the disease and desired therapeutic endpoint. - The following vedolizumab trough concentration targets have been proposed: > 30.0 ug/mL at week 2 (1) > 24.0 ug/mL at week 6 (1) > 14 ug/mL during maintenance (1) - Mucosal healing in UC was more common in patients with higher week 6 trough levels (>30).(2) - Highest quartile week 6 levels (>35.8) and lowest quartile (<17.2) corresponded to week 52 remission rates of 37% and 15%, respectively.(3) - Patients with Crohn's Disease and Ulcerative Colitis had similar vedolizumab pharmacokinetic data.(4) - This assay measures the antibody-unbound (free) fraction of vedolizumab when serum anti-vedolizumab antibodies are present. Anti-Vedolizumab Antibody <25 ng/mL ES Reference Range: . Quantitation Limit: < 25 ng/mL. Results of 25 or higher indicate detection of anti- vedolizumab antibodies. COMMENTS: - Anti-vedolizumab antibodies developed in about 13% of IBD patients.(5) - Patients with persistently positive anti-vedolizumab antibodies had undetectable or reduced vedolizumab levels.(5) - Anti-drug antibody positivity should be interpreted in the context of the concomitant free drug level. - Serial measurements over time may be helpful. - This anti-vedolizumab antibody assay is drug tolerant, and all positive results are verified for anti-drug antibody specificity by a confirmatory test. References: 1. Elsa Carlin, et al. Clin Gastroenterol Hepatol 2018;16: 1937-46. 2. Raven Lin, et al. Inflamm Bowel Dis 2014;20:S1-S3. 3. Susy MT, et al. Aliment Pharmacol Ther 2019;49: 408-418. 4. Ace WALTON, et al. BioDrugs 2015;29:57-67. 5. [employer], Entyvio: [place] prescribing information. Accessed 08 Apr 2016. These tests were developed and their performance characteristics determined by [facility]. They have not been cleared or approved by the Food and Drug Administration. However, these electrochemiluminescence immunoassay (ECLIA) measurements of vedolizumab and anti-vedolizumab antibody (constituting DoseASSURE VDZ) have been developed and validated in accordance with FDA Guidance document, Assay Development and Validation for Immunogenicity Testing of Therapeutic Protein Products (2019). Performed at: [facility] [address] [place] [id number] Associate Professor Plant Pathology: Rickey Keita MD, Phone: [phone] Performed at: [address] [id number] Associate Professor Plant Pathology: Greg Keita PhD, Phone: [phone] Performed By: #### L 400.0001, L3400.8000, L501.6710, M100.2200, L101.9900, L504.2610, L500.4050, L100.0100 #### [facility] [place], [address] ANTINUCLEAR ANTIBODIES [facility] 06-23-2024 CARMITA,DIRECT Positive Abnormal Negative [facility] Comment on above: Result Comment: Perf ormed at: - [facility] [address] [id number] Associate Professor Plant Pathology: Greg Keita PhD, Phone: [phone] Performed at: - [facility] [id number] Associate Professor Plant Pathology: Nia Ryan MD, Phone: [phone] Performed By: #### L 400.0001, L3400.8000, L501.6710, M100.2200, L101.9900, L504.2610, L500.4050, L100.0100 #### [facility] [address] [place], [address] Anti-Histone Abson 5 ANTI-HISTONE AB 0.5 Units Normal 0.0-0.9 [facility] Comment on above: Result Comment: Nega tive <1.0 Weak Positive 1.0 - 1.5 Moderate Positive 1.6 - 2.5 Strong Positive >2.5 Performed By: #### L 400.0001, L3400.8000, L501.6710, M100.2200, L101.9900, L504.2610, L500.4050, L100.0100 #### [facility] [address] [place], [place], [id number] Anti-dsDNA Abon 06-23-2024 ANTI-DNA (DS)AB <1 Normal 0-9 [facility] Comment on above: Result Comment: Nega tive <5 Equivocal 5 - 9 Positive >9 AMENDED REPORT 06/23/24 1307 dsDNA AB previously reported as: Test not performed Performed By: #### L 400.0001, L3400.8000, L501.6710, M100.2200, L101.9900, L504.2610, L500.4050, L100.0100 #### [facility] [address] [place], [place], [id number] Office Visiton 06-23-2024 Follow-up visit [id number] Myra Blanchard 1990 F Date Provider Department Center 06/23/2024 [id number] LESLIE Baldomero [facility] OB Offi Family History Problem Relation Age of Onset No Known Problems Maternal Grandfather Anxiety disorder Mother No Known Problems Paternal Grandmother Depression Mother Cancer Maternal Grandmother Comments: skin cancer Depression Father No Known Problems Paternal Grandfather Family Status - Relation Status Age at Maternal Grandfather Mother Alive Paternal Grandmother Maternal Grandmother Alive Father Alive Paternal Grandfather Level of Service:[address]115 [place] INITIAL PREVENTIVE MEDICINE NEW PT AGE 18-39YRS Reason for Visit and Comments: New Patient [542] - Left breast pain recently worse in 6 month Normal [facility] Progress Noteon 06-23-2024 Progress Note Devon Blanchard 34 y.o. HPI: The patient was seen and examined today for her annual exam. Interested in STI screening, had intercourse with different partner last year and wants to be sure. Back with life long partner now. Also had chronic left breast pain since 2021. On immunosuppressants for FGS (kidney issues) and Crohns. No LMP recorded. Sexually Active: yes Any problems no Regular Periods: yes STD History: no, requests screening Control: partner with vasectomy Family History of Breast, Ovarian , Colon or Uterine Cancer: no Preventative Health Testing: Date of Last Pap Smear: UTD Abnormal Pap Smear History: yes HPV in the past Colposcopy History: no Mammogram: never Colonoscopy per PCP HPV vaccine discuss next visit OB History Para Term AB Living 2 2 1 1 0 3 SAB IAB Ectopic Multiple Live Births 0 0 0 1 3 # Outcome Date GA Lbr Nikolai/2nd Weight Sex Type Anes PTL Lv 2 Term 2020 CS-Classical DARLENE 1A 09/14/17 28w6d 2 lb 1.9 oz (0.96 kg) M CS-LTranv Spinal N DARLENE Comments: Apgars 2,7 Complications: Abruptio Placenta Name: Richard 1B 2 lb 12.8 oz (1.27 kg) M Spinal DARLENE Comments: Apgars 5,7 Name: Judd Past Medical History: Diagnosis Date Anxiety Depression Past Surgical History: Procedure Laterality Date CATARACT EXTRACTION TYMPANOSTOMY TUBE PLACEMENT WISDOM TOOTH EXTRACTION Review of Systems REVIEW OF SYSTEMS: Gen: denies weight loss, fatigue, fevers/chills GI: denies change in appetite, bloating, pain, lumps/masses, change in bowel/bladder habits Urinary: denies dysuria, frequency, hematuria, incontinence : see HPI Objective: BP 124/76 Ht 5' 5.5 (1.664 m) Wt 234 lb (106 kg) BMI 38.35 kg/m? Physical Exam Gen: normal appearance, NAD Neuro: AAOx3 Psych: normal affect Lungs: normal respiratory effort Heart: normal rate Breasts: No lymphadenopathy, no nipple discharge, no masses, no skin changes External genitalia: normal, no lesions, no skin discoloration, normal introitus Urethral meatus: normal, no diverticulum or irritation present Vagina: normal, no lesions Cervix: no lesions, no motion tenderness, normal appearance Uterus: normal mobility, non tender, normal size, shape and consistency Adnexa: no masses or tenderness bilaterally Bladder: non tender Assessment: Diagnosis Plan 1. Well woman exam with routine gynecological exam Pap Smear 2. Screening for cervical cancer Pap Smear 3. Encounter for assessment of STD exposure Chlamydia/N.Gonorrhoeae and T. Vaginalis RNA, QL TMA ([facility]) Trichomonas vaginalis RNA, Qualitative, TMA, Female Hepatitis C antibody Hepatitis B surface antigen HIV-1 and HIV-2 Antigen-Antibody Screen RPR Hepatitis C antibody Hepatitis B surface antigen HIV-1 and HIV-2 Antigen-Antibody Screen RPR 4. Breast pain, left Bilateral breast US limited Plan: 1. Perform monthly self breast exam. Exercise at least 30min three times per week. 2. Maintain yearly visits with DATA INTEGRATION ANALYST for well-woman exam. 3. Establish care with General PCP for routine health maintenance. -pt on lisinopril, current partner with vasectomy, reviewed risk a/w Follow up in about 1 year (around 06/23/2025) for Annual. Orders Placed This Encounter Procedures Chlamydia/N.Gonorrhoeae and T. Vaginalis RNA, QL TMA ([facility]) Bilateral breast US limited Standing Status: Future Standing Expiration Date: 08/21/2025 Trichomonas vaginalis RNA, Qualitative, TMA, Female Hepatitis C antibody Standing Status: Future Number of Occurrences: 1 Standing Expiration Date: 06/23/2025 Hepatitis B surface antigen Standing Status: Future Number of Occurrences: 1 Standing Expiration Date: 06/23/2025 HIV-1 and HIV-2 Antigen-Antibody Screen Standing Status: Future Number of Occurrences: 1 Standing Expiration Date: 06/23/2025 RPR Standing Status: Future Number of Occurrences: 1 Standing Expiration Date: 06/23/2025 Normal [facility] ENDOSCOPY SUPPORT SPECIALIST Abon 06-23-2024 ENDOSCOPY SUPPORT SPECIALIST Ab <0.2 Normal 0.0-0.9 [facility] Comment on above: Result Comment: AMENDED REPORT 06/23/241306 ENDOSCOPY SUPPORT SPECIALIST Ab previously reported as: Test not performed Performed By: #### L 400.0001, L3400.8000, L501.6710, M100.2200, L101.9900, L504.2610, L500.4050, L100.0100 #### [facility] [address] [place], [place], [id number] ([phone]) Sjogren's Antibodies A/Bon 0 06-23-2024 ANTI-SS-A < 0.2 Normal 0.0-0.9 [facility] Comment on above: Result Comment: AMENDED REPORT 06/23/241306 Anti-SS-A previously reported as: Test not performed Performed By: #### L 400.0001, L3400.8000, L501.6710, M100.2200, L101.9900, L504.2610, L500.4050, L100.0100 #### [facility] [address] [place], [place], [id number] [phone] ANTI-SS-B 1.6 AI High 0.0-0.9 [facility] Comment on above: Result Comment: AMENDED REPORT 06/23/241306 Anti-SS-B previously reported as: Test not performed Performed By: #### L 400.0001, L3400.8000, L501.6710, M100.2200, L101.9900, L504.2610, L500.4050, L100.0100 #### [facility] [address] [place], [place], [phone] ([phone] C-reactive protein measureme nt by high sensitivity methodOrdered By: Sri Andersen on 06-21-2024 C-Reactive Protein Extended Range 6.48 mg/L High 0.0-3.0 [facility] Comment on above: C-Reactive Protein ( CRP) provides useful information for thediagnosis, therapy and monitoring of inflammatory processesand associated diseases. For the evaluation of Relative Riskfor Cardiovascular Disease, a High Sensitivity CRP (HSCRP)should be ordered. C-reactive protein measurement by high sensitivity method 6.48 mg/L High 0.0-3.0 [facility] Comment on above: C-Reactive Protein ( CRP) provides useful information for thediagnosis, therapy and monitoring of inflammatory processesand associated diseases. For the evaluation of Relative Riskfor Cardiovascular Disease, a High Sensitivity CRP (HSCRP)should be ordered. CRPon 06-21-2024 C-REACTIVE PROT 6.48 mg/L High 0.0-3.0 [facility] Comment on above: Result Comment: C-Re active Protein (CRP) provides useful information for the diagnosis, therapy and monitoring of inflammatory processes and associated diseases. For the evaluation of Relative Risk for Cardiovascular Disease, a High Sensitivity CRP (HSCRP) should be ordered. Performed By: #### L 400.0001, L3400.8000, L501.6710, M100.2200, L101.9900, L504.2610, L500.4050, L100.0100 #### [facility] [address] [place], [place], [id number] Erythrocyte Sed Rateon 06-21 SED RATE 24 mm/hr Normal 0-30 [facility] Comment on above: Performed By: #### L 400.0001, L3400.8000, L501.6710, M100.2200, L101.9900, L504.2610, L500.4050, L100.0100 #### [facility] [address] [place], [place], [id number] Erythrocyte sedimentation ra teOrdered By: Sri Andersen on 06-21-2024 ESR (Bld) [Velocity] 24 mm/h 0-30 [facility] Gastroenterology Visit Repor ton 06-21-2024 Gastroenterology Visit Report [facility]astroenterology [address] [place] [address] OFFICE VISIT Date of Service: 06/21/24 MR#: [id number] Acct: [id number] Name: DEVON BLANCHARD Rep #: [id number] : 1990 Provider: Sri Andersen DO Age/Sex: 34/F Location: [facility] Status: Signed Intake Vital Signs 12/19/23 10:36 06/11/24 10:30 Height 5 ft 5 in 5 ft 5 in Intake Visit Reasons: 6 Month f/u Chief Complaint: entyvio Allergies ibuprofen Allergy (Intermediate, Verified 06/11/24 10:28) Other Medications ???Medication ???Instructions ???Recorded ???Confirmed ???Type lisinopril 10 mg tablet 10 mg PO DAILY 03/26/21 06/21/24 H istory cyclosporine 100 mg capsule 100 mg PO BID 11/20/22 06/21/24 Hi story vedolizumab 300 mg intravenous 300 mg IV .B2cgwcp 08/22/23 History solution (Entyvio) PFSH Medical History (Updated 02/07/23 @ 11:[address] Leblanc Friend, DO) Wears glasses Depression History of renal disease Migraine headache History of Crohn's disease Heartburn Non-smoker Leg cramps History of stress test Acne vulgaris Mental disorder Nausea Bloating Chronic diarrhea delivery delivered HPV (human papilloma virus) infection Anxiety Pre-eclampsia Surgical History (Updated 12/13/22 @ 10:36 by Margaret Bynum) Hx of right cataract extraction Hx of left cataract extraction Hx of wisdom tooth extraction Previous section Social History Smoking Status: Never smoker HPI HPI Chief Complaint: entyvio Details: DEVON BLANCHARD, is a 34 F who presents to the office today for follow up. PMH focal segmental glomerulosclerosis (ob/gyn physician Dr. Vazquez), mental disorder. PCP OV 2 with generalized abdominal pain, nausea, loose stools and bloating with PO intake exacerbating. Previously established with GI as teen who diagnosed Crohn???s disease. *BGI established 10.04.22 GI distress onset 14/15 years with colonoscopy and reports Crohn???s; she does not remember any follow ups but PCP did prescribe Pentasa which was effective at that time; symptoms resolved and medication stopped. Symptoms are as noted above. She will avoid PO intake to minimize stool. Stools occur up to 15/day or more with abdominal cramping and urgency. Notes anxiety may have component. ? Biochemical CBC, ESR, CMP, LFT, RAST, celiac, GAME, ANCA, IBD, MPO, PR3 without pertinent abnormality ? CRP H5.91, SS-B +2.4 ? Stool elastase, fat, c.difficile, EP, O/P, giardia. ? Occult +, lactoferrin +, calprotectin H287 Contact 11.06.22 with blood and stool results; offered rheumatology referral, MREnterography versus capsule endoscopy. ? MREnterography 11.20.22 several loops of small bowel with wall thickening and mucosal hyperenhancement including TI with surrounding inflammatory changes. Contact 11.29.22 with enterography results. Recommend capsule endoscopy and Budesonide 9mg. will pursue capsule endoscopy after EGD/colon if needed. ? 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 Biochemical hepatitis, TB WNL Contact 01.21.23 with results. Likely needs Stelara; mucosal neuroma repeat colon in one year. Has concern regarding use of Stelara with cyclosporine and will wait until later this month to discuss. OV 02.07.23 Budesonide not started. Feels she is doing well since LV but does have concern with abdominal discomfort, loose stools, N/V. No joint pain, rashes, vision changes. Continues with cyclosporine for management of glomerulosclerosis which is very well uncontrolled and numbers have been trending downward for this. ? Biochemical 03.27.23 CBC, ESR, Stelara ab WNL. ? CRP H7.63, SSB +1.7 ? Urine (Dr. Vazquez) total protein H227.8, protein/creatinine H1186 Update 04.18.23 clear Entyvio through urologist. Note to Dr. Vazquez delivered 04.21.23. Dr. Vazquez is agreeable to whatever medication is indicated through GI. OV 3 for the last 10 days she has been having abdominal pain and loose stools; felt it may have been following some days of poor diet. Currently taking lisinopril for protein in her urine. OV 01.02.24 (more content not included)... Normal [facility] CARMITA serumon 06-18-2024 Anti-Nuclear Antibody Screen Positive High Negative [facility] Comment on above: Performed at: [address] [id number] Director: Greg Keita PhD, Phone: [phone] at: BN - [facility] [address] [id number] Director: Nia Ryan MD, Phone: [phone] C-reactive protein measureme nt by high sensitivity methodon 06-18-2024 C-Reactive Protein Extended Range 5.92 mg/L High 0.0-3.0 [facility] Comment on above: C-Reactive Protein ( CRP) provides useful information for thediagnosis, therapy and monitoring of inflammatory processesand associated diseases. For the evaluation of Relative Riskfor Cardiovascular Disease, a High Sensitivity CRP (HSCRP)should be ordered. C-reactive protein measurement by high sensitivity method 5.92 mg/L High 0.0-3.0 [facility] Comment on above: C-Reactive Protein ( CRP) provides useful information for thediagnosis, therapy and monitoring of inflammatory processesand associated diseases. For the evaluation of Relative Riskfor Cardiovascular Disease, a High Sensitivity CRP (HSCRP)should be ordered. CBC-Complete Blood Cnt No Di ffon 06-18-2024 Erythrocyte distribution width (RBC) [Ratio] 13.3 % Normal 11.6-14.6 [facility] Comment on above: Performed By: #### L 400.0001, L3400.8000, L501.6710, M100.2200, L101.9900, L504.2610, L500.4050, L100.0100 #### [facility] [address] [place], [address] Hematocrit (Bld) [Volume fraction] 39.2 % Normal 37-47 [facility] Comment on above: Performed By: #### L 400.0001, L3400.8000, L501.6710, M100.2200, L101.9900, L504.2610, L500.4050, L100.0100 #### [facility] [address] [facility] [place], [address] Hemoglobin (Bld) [Mass/Vol] 12.8 g/dL Normal 12.0-15.0 [facility] Comment on above: Performed By: #### L 400.0001, L3400.8000, L501.6710, M100.2200, L101.9900, L504.2610, L500.4050, L100.0100 #### [facility] [address] [place], [address] MCH (RBC) [Entitic mass] 27.4 pg Normal 27.0-32.0 [facility] Comment on above: Performed By: #### L 400.0001, L3400.8000, L501.6710, M100.2200, L101.9900, L504.2610, L500.4050, L100.0100 #### [facility] [address] [place], [address] MCHC (RBC) [Mass/Vol] 32.7 g/dL Normal 32-36 [facility] Comment on above: Performed By: #### L 400.0001, L3400.8000, L501.6710, M100.2200, L101.9900, L504.2610, L500.4050, L100.0100 #### [facility] [address] [place], [place], [id number] (344) MCV (RBC) [Entitic vol] 83.9 fL Normal 81-99 [facility] Comment on above: Performed By: #### L 400.0001, L3400.8000, L501.6710, M100.2200, L101.9900, L504.2610, L500.4050, L100.0100 #### [facility] [address] [place], [address] Platelet mean volume (Bld) [Entitic vol] 10.0 fL Normal 6.2-12.0 [facility] Comment on above: Performed By: #### L 400.0001, L3400.8000, L501.6710, M100.2200, L101.9900, L504.2610, L500.4050, L100.0100 #### [facility] [address] [place], [address] Platelets (Bld) [#/Vol] 392 10*3/uL Normal 150-450 [facility] Comment on above: Performed By: #### L 400.0001, L3400.8000, L501.6710, M100.2200, L101.9900, L504.2610, L500.4050, L100.0100 #### [facility] [address] [place], [address] RBC (Bld) [#/Vol] 4.67 10*6/uL Normal 4.2-5.4 [facility] Comment on above: Performed By: #### L 400.0001, L3400.8000, L501.6710, M100.2200, L101.9900, L504.2610, L500.4050, L100.0100 #### [facility] [address] [place], [address] RDW SD 40.4 fl Normal 35.1-43.9 [facility] Comment on above: Performed By: #### L 400.0001, L3400.8000, L501.6710, M100.2200, L101.9900, L504.2610, L500.4050, L100.0100 #### [facility] [address] [place], [address] WBC (Bld) [#/Vol] 9.7 10*3/uL Normal 4.4-11.0 [facility] Comment on above: Performed By: #### L 400.0001, L3400.8000, L501.6710, M100.2200, L101.9900, L504.2610, L500.4050, L100.0100 #### [facility] [address] [place], [address] CRPon 06-18-2024 C-REACTIVE PROT 5.92 mg/L High 0.0-3.0 [facility] Comment on above: Result Comment: C-Re active Protein (CRP) provides useful information for the diagnosis, therapy and monitoring of inflammatory processes and associated diseases. For the evaluation of Relative Risk for Cardiovascular Disease, a High Sensitivity CRP (HSCRP) should be ordered. Performed By: #### L 400.0001, L3400.8000, L501.6710, M100.2200, L101.9900, L504.2610, L500.4050, L100.0100 #### [facility] [address] [place], [address] DNA double strand Ab Qn (S)o n 06-18-2024 Anti-Double Strand DNA Antibody <1 IU/mL 0-9 [facility] Comment on above: Negative <5 Equivoca l 5 - 9 Positive >9Previous reported result: TNP IU/mLEdited by: IAN on 06/23/24:1307 AMENDED REPORT 06/23/24 1307 dsDNA AB previously reported as: Test not performed Erythrocyte distribution wid th ratioon 06-18-2024 Erythrocyte distribution width (RBC) [Ratio] 13.3 % 11.6-14.6 [facility] Erythrocyte distribution wid th standard deviationon 06-18-2024 Erythrocyte distribution width (RBC) [Entitic vol] 40.4 fL 35.1-43.9 [facility] Erythrocyte distribution width (RBC) [Ratio] 40.4 fl 35.1-43.9 [facility] Hematocrit Auto (Bld) [Volum e fraction]on 06-18-2024 Hematocrit (Bld) [Volume fraction] 39.2 % 37-47 [facility] Hemoglobin measurementon Hemoglobin (Bld) [Mass/Vol] 12.8 g/dL 12.0-15.0 [facility] Histone Ab Qn (S)on 06-18-19 Histone IgG Antibody 0.5 Units 0.0-0.9 [facility] Comment on above: Negative <1.0 Weak P ositive 1.0 - 1.5 Moderate Positive 1.6 - 2.5 Strong Positive >2.5 MCV (mean corpuscular volume ) determinationon 01-31-2025 MCV (RBC) [Entitic vol] 83.9 fL 81-99 [facility] Mean corpuscular hemoglobin (MCH) determinationon 06-18-2024 MCH (RBC) [Entitic mass] 27.4 pg 27.0-32.0 [facility] Mean corpuscular hemoglobin concentration (MCHC) determinationon 06-18-2024 MCHC (RBC) [Mass/Vol] 32.7 g/dL 32-36 [facility] Mean platelet volume determi nationon 06-18-2024 Platelet mean volume (Bld) [Entitic vol] 10.0 fL 6.2-12.0 [facility] Platelet counton 06-18-2024 Platelets (Bld) [#/Vol] 392 10*3/uL 150-450 [facility] RBC Auto (Bld) [#/Vol]on RBC (Bld) [#/Vol] 4.67 10*6/uL 4.2-5.4 [facility] ENDOSCOPY SUPPORT SPECIALIST abon 06-18-2024 ENDOSCOPY SUPPORT SPECIALIST Antibody <0.2 AI 0.0-0.9 [facility] Comment on above: Previous reported re sult: TNP AIEdited by: IAN on 06/23/24:1307 AMENDED REPORT 06/23/24 130 ENDOSCOPY SUPPORT SPECIALIST Ab previously reported as: Test not performed SS-A IgG antibody assayon SS-A/Ro IgG Antibody < 0.2 AI 0.0-0.9 [facility] Comment on above: Previous reported re sult: TNP AIEdited by: IAN on 06/23/24:1307 AMENDED REPORT 06/23/24 1307 Anti-SS-A previously reported as: Test not performed SS-B IgG antibody assayon SS-B/La IgG Antibody 1.6 AI High 0.0-0.9 [facility] Comment on above: Previous reported re sult: TNP AIEdited by: IAN on 06/23/24:1307 AMENDED REPORT 06/23/24 1307 Anti-SS-B previously reported as: Test not performed Serum DNA double strand anti body assay (units/volume)on 06-18-2024 DNA double strand Ab Qn (S) [IU]/mL 0-9 [facility] Comment on above: Negative <5 Equivoca l 5 - 9 Positive >9Previous reported result: TNP IU/mLEdited by: IAN on 06/23/24:1307 AMENDED REPORT 06/23/24 1307 dsDNA AB previously reported as: Test not performed Serum histone antibody assay (units/volume)on 06-18-2024 Histone Ab Qn (S) 0.5 Units 0.0-0.9 [facility] Comment on above: Negative <1.0 Weak P ositive 1.0 - 1.5 Moderate Positive 1.6 - 2.5 Strong Positive >2.5 White blood cell (WBC) count on 06-18-2024 WBC (Bld) [#/Vol] 9.7 10*3/uL 4.4-11.0 [facility] 36on 06-17-2024 36 Faxed lab orders to [phone] [facility] 36on 06-16-2024 36 Name of caller: Rafaela caro Contact phone number: [phone] Relationship to Patient: patient Provider: Dr Anton Practice: Rheumatology Chief Complaint/Reason for Call: Patient called stating that [facility] did not received the lab orders and asking to re fax to [phone]. Please advise. Best time of day caller can be reached: Any Patient advised that office/PCP has 24-48 business hours to return their call: N/A [place] [address]on 06-01-2024 36 Faxed lab orders to [facility] per pt request. [facility] 36 Name of caller: Rafaela caro Contact phone number: [phone] Relationship to Patient: patient Provider: Dr. Anton Practice: Rheumatology Chief Complaint/Reason for Call: Patient is requesting all lab work be faxed to [facility]. Please advise. Best time of day caller can be reached: Any Patient advised that office/PCP has 24-48 business hours to return their call: Yes [facility] Office Visiton 04-30-2024 Follow-up visit [id number] Myra Blanchard 1990 F Date Provider Department Center 04/30/2024 [id number] [facility]TON RHEUM C None Family History Problem Relation Age of Onset No Known Problems Maternal Grandfather Anxiety disorder Mother No Known Problems Paternal Grandmother Depression Mother Cancer Maternal Grandmother Comments: skin cancer Depression Father No Known Problems Paternal Grandfather Family Status - Relation Status Age at Maternal Grandfather Mother Alive Paternal Grandmother Maternal Grandmother Alive Father Alive Paternal Grandfather Level of Service:61853 SC OFFICE/OUTPATIENT NEW MODERATE MDM 45 MINUTES Reason for Visit and Comments: Consult [484] - Abnormal labs Normal [facility] Progress Noteon 04-30-2024 Progress Note CHIEF COMPLAINT: swe lling HPI: 34 y/o woman with a history of increasing swelling in her hands and face which occur daily. She notices some occasional discoloration in her hands with a turn red on the palms. The symptoms started approximately 10 months ago. She has not had Raynaud's symptoms or sensitivity to cold. She has not had joint stiffness or pain. She does have a history of Crohn's disease, and is currently being treated with Entyvio which is working very well. 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 She has responded well to the medication and follows closely with her ob/gyn physician Dr. Vazquez. Her blood pressure has been doing well as have her labs with this. She started this medication in 2021. She has not had recurrent infections. The patient has no history of psoriasis. She does not have any photosensitivity or alopecia or mouth sores. She does not complain of dry eyes or dry mouth. With her swelling symptoms, she had autoimmune testing done, and was noted to have an elevated SSB but not SSA. Her other lupus serologies at the time in December 2022 were normal. The patient has been on prednisone for both of her conditions in the past, and is currently off of it. She has a family history of osteoarthritis in her mother, but no family history of lupus or other autoimmune disease. She was referred for further evaluation for possible underlying autoimmune conditions given her positive SSB antibody. General: no weight loss, fevers or night sweats HEENT: no dry eyes or mouth, oral ulcers, no visual changes or red eyes, no changes in hearing CV: no chest pain or palpitations Pulm: no worsening shortness of breath, no pleurisy GI: no nausea, GERD : no dysuria, incontinence or changes in kidney function Neuro: no new headaches, weakness or seizures Skin: no new rashes or skin lesions No Known Allergies Current Outpatient Medications Medication Sig Dispense Refill acetaminophen (Tylenol) 325 MG tablet Take 325 mg by mouth every 6 hours as needed. benzoyl peroxide-erythromycin (Benzamycin) gel Apply topically 2 times daily. cycloSPORINE (SandIMMUNE) 100 MG capsule Take 100 mg by mouth 2 times daily. lisinopril 10 MG tablet Take 10 mg by mouth 2 times daily. vedolizumab (Entyvio) 300 MG injection Infuse 300 mg into a venous catheter Once. fish oil-omega-3 fatty acids 1000 MG capsule Take 300 mg by mouth twice a day. (Patient not taking: Reported on 04/30/2024) VIT W/MC-[id number] PO Take 1 tablet by mouth daily. (Patient not taking: Reported on 04/30/2024) No current facility-administered medications for this visit. Past Medical History: Diagnosis Date Anxiety Depression Past Surgical History: Procedure Laterality Date CATARACT EXTRACTION TYMPANOSTOMY TUBE PLACEMENT WISDOM TOOTH EXTRACTION Family History Problem Relation Name Age of Onset No Known Problems Maternal Grandfather Anxiety disorder Mother No Known Problems Paternal Grandmother Depression Mother Cancer Maternal Grandmother skin cancer Depression Father No Known Problems Paternal Grandfather Social History Socioeconomic History Marital status: Significant Other Spouse name: Not on file Number of children: Not on file Years of education: Not on file Highest education level: Not on file Occupational History Not on file Tobacco Use Smoking status: Never Smokeless tobacco: Never Vaping Use Vaping status: Never Used Substance and Sexual Activity Alcohol use: No Drug use: No Sexual activity: Not on file Other Topics Concern Not on file Social History Narrative Not on file Social Drivers of Health Financial Resource Strain: Not on file Food Insecurity: Not on file Transportation Needs: Not on file Physical Activity: Not on file Stress: Not on file Social Connections: Not on file Intimate Partner Violence: Not on file Housing Stability: Not on file OBJECTIVE: Visit Vitals BP 129/85 (BP Location: Left arm, Patient Position: Sitting, BP Cuff Size: Large adult) Pulse 81 HEENT: no red or dry eyes, oral mucosa moist and without lesions, no alopecia or scalp rashes, no lymphadenopathy CV: S1S2 no mrg Pulm: CTA bilat without wheezes, crackles Abd: soft, nontender MSK: mild swelling in hands, no tenderness or warmth, good ROM Neuro: CN 2-12 grossly intact, strength 5/5, no sensory loss in UE, LE, DTRs 1+ Skin: no rashes, no purpura, no bruising A/P: 1) hand and occasional face swelling, with previous SSB positivity but no syndrome consistent with Sjogren's or lupus at present. She has significant autoimmune conditions including Crohn's disease and FSGS, but these are stable on current medications. We will recheck her full lupus and Sjogren's serologies, as well as a CRP. Would not recommend changing any of her other medications at this time, but may consider once daily hydroxychloroqu (more content not included)... Normal [facility] Basic Metabolic Profile (BMP )on 03-02-2024 BUN/CRE 14.5 RATIO Normal - [facility] Comment on above: Performed By: #### L 400.0001, L3400.8000, L501.6710, M100.2200, L101.9900, L504.2610, L500.4050, L100.0100 #### [facility] [address] [place], [address] CA,Total 9.3 mg/dL Normal 8.5-10.1 [facility] Comment on above: Performed By: #### L 400.0001, L3400.8000, L501.6710, M100.2200, L101.9900, L504.2610, L500.4050, L100.0100 #### [facility] [address] [place], [address] Chloride [Moles/Vol] 105 mmol/L Normal 98-107 [facility] Comment on above: Performed By: #### L 400.0001, L3400.8000, L501.6710, M100.2200, L101.9900, L504.2610, L500.4050, L100.0100 #### [facility] [address] [place], [address] CO2 [Moles/Vol] 28.0 mmol/L Normal 21.0-32.0 [facility] Comment on above: Performed By: #### L 400.0001, L3400.8000, L501.6710, M100.2200, L101.9900, L504.2610, L500.4050, L100.0100 #### [facility] [address] [place], [address] Creatinine [Mass/Vol] 0.69 mg/dL Normal 0.55-1.02 [facility] Comment on above: Result Comment: The validity of the calculated GFR GFRAA in patients over 70 years has not been determined. Clinical correlation is essential. Performed By: #### L 400.0001, L3400.8000, L501.6710, M100.2200, L101.9900, L504.2610, L500.4050, L100.0100 #### [facility] [address] [place], [address] EST GFR - AA 126 mL/min Normal >60 [facility] Comment on above: Result Comment: Afri can [place] GFR Calc Performed By: #### L 400.0001, L3400.8000, L501.6710, M100.2200, L101.9900, L504.2610, L500.4050, L100.0100 #### [facility] [address] [place], [address] GAP 3 Low 5-15 [facility] Comment on above: Performed By: #### L 400.0001, L3400.8000, L501.6710, M100.2200, L101.9900, L504.2610, L500.4050, L100.0100 #### [facility] [address] [place], [address] GFR/1.73 sq M.predicted among non-blacks MDRD (S/P/Bld) [Vol rate/Area] 104 mL/min/{1.73_m2} Normal >60 [facility] Comment on above: Result Comment: Non- GFR Calc Performed By: #### L 400.0001, L3400.8000, L501.6710, M100.2200, L101.9900, L504.2610, L500.4050, L100.0100 #### [facility] [address] [place], [address] Glucose [Mass/Vol] 95 mg/dL Normal 74-106 [facility] Comment on above: Performed By: #### L 400.0001, L3400.8000, L501.6710, M100.2200, L101.9900, L504.2610, L500.4050, L100.0100 #### [facility] [address] [place], [address] Potassium [Moles/Vol] 4.1 mmol/L Normal 3.5-5.1 [facility] Comment on above: Performed By: #### L 400.0001, L3400.8000, L501.6710, M100.2200, L101.9900, L504.2610, L500.4050, L100.0100 #### [facility] [address] [place], [address] Sodium [Moles/Vol] 136 mmol/L Normal 136-145 [facility] Comment on above: Performed By: #### L 400.0001, L3400.8000, L501.6710, M100.2200, L101.9900, L504.2610, L500.4050, L100.0100 #### [facility] [address] [place], [address] Urea nitrogen [Mass/Vol] 10 mg/dL Normal 7-18 [facility] Comment on above: Performed By: #### L 400.0001, L3400.8000, L501.6710, M100.2200, L101.9900, L504.2610, L500.4050, L100.0100 #### [facility] [address] [place], [address] Protein+Creatinine Ratio,Uri neon 03-02-2024 PROT:CRE RATIO 953 mg/g CRE High 0-200 [facility] Comment on above: Performed By: #### L 400.0001, L3400.8000, L501.6710, M100.2200, L101.9900, L504.2610, L500.4050, L100.0100 #### [facility] [address] [place], [address] Protein (U) [Mass/Vol] 66.8 mg/dL High <11.9 [facility] Comment on above: Performed By: #### L 400.0001, L3400.8000, L501.6710, M100.2200, L101.9900, L504.2610, L500.4050, L100.0100 #### [facility] [address] [place], [address] UR CREAT 70.10 mg/dL Normal NO RANGE EST. [facility] Comment on above: Performed By: #### L 400.0001, L3400.8000, L501.6710, M100.2200, L101.9900, L504.2610, L500.4050, L100.0100 #### [facility] [address] [place], [address] Quantiferon TB-Gold+on 01-05 QFT MITOGEN LAMBERTO > 10.00 Normal . [facility] Comment on above: Performed By: #### L 400.0001, L3400.8000, L501.6710, M100.2200, L101.9900, L504.2610, L500.4050, L100.0100 #### [facility] [address] [place], [address] QFT NIL VALUE 0.08 IU/mL Normal . [facility] Comment on above: Performed By: #### L 400.0001, L3400.8000, L501.6710, M100.2200, L101.9900, L504.2610, L500.4050, L100.0100 #### [facility] [address] [place], [place], [address] QFT TB GOLD+ Comment Normal . [facility] Comment on above: Result Comment: Eddi tiFERON-TB Gold Plus is a qualitative indirect test for M tuberculosis infection (including disease) and is intended for use in conjunction with risk assessment, radiography, and other medical and diagnostic evaluations. The QuantiFERON-TB Gold Plus result is determined by subtracting the Nil value from either TB antigen (Ag) value. The Mitogen tube serves as a control for the test. Performed By: #### L 400.0001, L3400.8000, L501.6710, M100.2200, L101.9900, L504.2610, L500.4050, L100.0100 #### [facility] [address] [place], [place], [id number] QFT TB POS CRIT Negative Normal Negative [facility] Comment on above: Result Comment: No r esponse to M tuberculosis antigens detected. Infection with M tuberculosis is unlikely, but high risk individuals should be considered for additional testing (ATS/IDSA/CDC Clinical Practice Guidelines, 2017). The reference range is an Antigen minus Nil result of <0.35 IU/mL. The specimen received for QuantiFERON testing was incubated by the ordering institution. Specific procedures outlined in our Directory of Services and in the package insert for the QuantiFERON Gold (In Tube) test must be followed to enable for proper stimulation of cells for the production of interferon gamma. Chemiluminescence immunoassay methodology Performed at: [facility] [id number] Associate Professor Plant Pathology: Greg Keita PhD, Phone: [phone] Performed By: #### L 400.0001, L3400.8000, L501.6710, M100.2200, L101.9900, L504.2610, L500.4050, L100.0100 #### [facility] [address] [place], [address] QFT TB1+ AG LAMBERTO 0.08 IU/mL Normal . [facility] Comment on above: Performed By: #### L 400.0001, L3400.8000, L501.6710, M100.2200, L101.9900, L504.2610, L500.4050, L100.0100 #### [facility] [address] [place], [address] QFT TB2+ AG LAMBERTO 0.08 IU/mL Normal . [facility] Comment on above: Performed By: #### L 400.0001, L3400.8000, L501.6710, M100.2200, L101.9900, L504.2610, L500.4050, L100.0100 #### [facility] [address] [place], [address] Urine Cultureon 01-04-2024 URC Below infection leve l. Mixed Gram Positive Organisms Hazard Count 1000-10,000 MIXC Mixed contaminants. Submit a new specimen if indicated. Normal [facility] Comment on above: Performed By: #### L 400.0001, L3400.8000, L501.6710, M100.2200, L101.9900, L504.2610, L500.4050, L100.0100 #### [facility] [address] [place], [address] CBC W/Diff, Automatedon - Absolute Lymph 1.92 X10 3/uL Normal 0.83-4.51 [facility] Comment on above: Performed By: #### L 400.0001, L3400.8000, L501.6710, M100.2200, L101.9900, L504.2610, L500.4050, L100.0100 #### [facility] [address] [place], [address] Absolute Neut 6.0 X10 3/uL Normal 2.0-7.7 [facility] Comment on above: Performed By: #### L 400.0001, L3400.8000, L501.6710, M100.2200, L101.9900, L504.2610, L500.4050, L100.0100 #### [facility] [address] [place], [address] Basophils/100 WBC (Bld) 0.5 % Normal 0-1 [facility] Comment on above: Performed By: #### L 400.0001, L3400.8000, L501.6710, M100.2200, L101.9900, L504.2610, L500.4050, L100.0100 #### [facility] [address] [place], [address] Eosinophils/100 WBC (Bld) 1.5 % Normal 0-5 [facility] Comment on above: Performed By: #### L 400.0001, L3400.8000, L501.6710, M100.2200, L101.9900, L504.2610, L500.4050, L100.0100 #### [facility] [address] [place], [address] Erythrocyte distribution width (RBC) [Ratio] 13.7 % Normal 11.6-14.6 [facility] Comment on above: Performed By: #### L 400.0001, L3400.8000, L501.6710, M100.2200, L101.9900, L504.2610, L500.4050, L100.0100 #### [facility] [address] [place], [address] Hematocrit (Bld) [Volume fraction] 42.8 % Normal 37-47 [facility] Comment on above: Performed By: #### L 400.0001, L3400.8000, L501.6710, M100.2200, L101.9900, L504.2610, L500.4050, L100.0100 #### [facility] [address] [place], [address] Hemoglobin (Bld) [Mass/Vol] 13.5 g/dL Normal 12.0-15.0 [facility] Comment on above: Performed By: #### L 400.0001, L3400.8000, L501.6710, M100.2200, L101.9900, L504.2610, L500.4050, L100.0100 #### [facility] [address] [place], [address] IG% 0.200 Normal 0.0-0.9 [facility] Comment on above: Result Comment: IG% - Immature Granulocytes (promyelocytes, myelocytes and metamyelocytes) > 1% indicates that a LEFT SHIFT is Present. Performed By: #### L 400.0001, L3400.8000, L501.6710, M100.2200, L101.9900, L504.2610, L500.4050, L100.0100 #### [facility] [address] [place], [address] Lymphocytes/100 WBC (Bld) 22.4 % Normal 19-41 [facility] Comment on above: Performed By: #### L 400.0001, L3400.8000, L501.6710, M100.2200, L101.9900, L504.2610, L500.4050, L100.0100 #### [facility] [address] [place], [address] MCH (RBC) [Entitic mass] 27.4 pg Normal 27.0-32.0 [facility] Comment on above: Performed By: #### L 400.0001, L3400.8000, L501.6710, M100.2200, L101.9900, L504.2610, L500.4050, L100.0100 #### [facility] [address] [place], [address] MCHC (RBC) [Mass/Vol] 31.5 g/dL Low 32-36 [facility] Comment on above: Performed By: #### L 400.0001, L3400.8000, L501.6710, M100.2200, L101.9900, L504.2610, L500.4050, L100.0100 #### [facility] [address] [place], [address] MCV (RBC) [Entitic vol] 86.8 fL Normal 81-99 [facility] Comment on above: Performed By: #### L 400.0001, L3400.8000, L501.6710, M100.2200, L101.9900, L504.2610, L500.4050, L100.0100 #### [facility] [address] [place], [address] Monocytes/100 WBC (Bld) 5.6 % Normal 0-10 [facility] Comment on above: Performed By: #### L 400.0001, L3400.8000, L501.6710, M100.2200, L101.9900, L504.2610, L500.4050, L100.0100 #### [facility] [address] [place], [address] Neutrophils/100 WBC (Bld) 69.8 % Normal 47-70 [facility] Comment on above: Performed By: #### L 400.0001, L3400.8000, L501.6710, M100.2200, L101.9900, L504.2610, L500.4050, L100.0100 #### [facility] [address] [place], [address] Nucleated RBC (Bld) [#/Vol] 0 10*3/uL Normal 0-5 [facility] Comment on above: Performed By: #### L 400.0001, L3400.8000, L501.6710, M100.2200, L101.9900, L504.2610, L500.4050, L100.0100 #### [facility] [address] [place], [address] Platelet mean volume (Bld) [Entitic vol] 10.1 fL Normal 6.2-12.0 [facility] Comment on above: Performed By: #### L 400.0001, L3400.8000, L501.6710, M100.2200, L101.9900, L504.2610, L500.4050, L100.0100 #### [facility] [address] [place], [address] Platelets (Bld) [#/Vol] 414 10*3/uL Normal 150-450 [facility] Comment on above: Performed By: #### L 400.0001, L3400.8000, L501.6710, M100.2200, L101.9900, L504.2610, L500.4050, L100.0100 #### [facility] [address] [place], [address] RBC (Bld) [#/Vol] 4.93 10*6/uL Normal 4.2-5.4 [facility] Comment on above: Performed By: #### L 400.0001, L3400.8000, L501.6710, M100.2200, L101.9900, L504.2610, L500.4050, L100.0100 #### [facility] [address] [place], [address] RDW SD 43.3 fl Normal 35.1-43.9 [facility] Comment on above: Performed By: #### L 400.0001, L3400.8000, L501.6710, M100.2200, L101.9900, L504.2610, L500.4050, L100.0100 #### [facility] [address] [place], [place], [id number] WBC (Bld) [#/Vol] 8.6 10*3/uL Normal 4.4-11.0 [facility] Comment on above: Performed By: #### L 400.0001, L3400.8000, L501.6710, M100.2200, L101.9900, L504.2610, L500.4050, L100.0100 #### [facility] [address] [place], [address] CRPon 01-02-2024 C-REACTIVE PROT 4.68 mg/L High 0.0-3.0 [facility] Comment on above: Order Comment: 1 Result Comment: C-Re active Protein (CRP) provides useful information for the diagnosis, therapy and monitoring of inflammatory processes and associated diseases. For the evaluation of Relative Risk for Cardiovascular Disease, a High Sensitivity CRP (HSCRP) should be ordered. Performed By: #### L 400.0001, L3400.8000, L501.6710, M100.2200, L101.9900, L504.2610, L500.4050, L100.0100 #### [facility] [address] [place], [address] Comprehensive Metabolic Prof ilon 01-02-2024 Albumin [Mass/Vol] 3.8 g/dL Normal 3.2-5.0 [facility] Comment on above: Order Comment: 1 Performed By: #### L 400.0001, L3400.8000, L501.6710, M100.2200, L101.9900, L504.2610, L500.4050, L100.0100 #### [facility] [address] [place], [address] Albumin/Globulin [Mass ratio] 0.9 {ratio} Normal 0.9-2.4 [facility] Comment on above: Order Comment: 1 Performed By: #### L 400.0001, L3400.8000, L501.6710, M100.2200, L101.9900, L504.2610, L500.4050, L100.0100 #### [facility] [address] [place], [address] ALK P 75 U/L Normal 45-117 [facility] Comment on above: Order Comment: 1 Performed By: #### L 400.0001, L3400.8000, L501.6710, M100.2200, L101.9900, L504.2610, L500.4050, L100.0100 #### [facility] [address] [place], [address] ALT [Catalytic activity/Vol] 25 U/L Normal 13-56 [facility] Comment on above: Order Comment: 1 Performed By: #### L 400.0001, L3400.8000, L501.6710, M100.2200, L101.9900, L504.2610, L500.4050, L100.0100 #### [facility] [address] [place], [address] AST [Catalytic activity/Vol] 14 U/L Low 15-37 [facility] Comment on above: Order Comment: 1 Performed By: #### L 400.0001, L3400.8000, L501.6710, M100.2200, L101.9900, L504.2610, L500.4050, L100.0100 #### [facility] [address] [place], [address] Bilirubin [Mass/Vol] 0.60 mg/dL Normal 0.20-1.00 [facility] Comment on above: Order Comment: 1 Result Comment: For patients on eltrombopag therapy, use of Dimension [place] TBIL is not recommended. Performed By: #### L 400.0001, L3400.8000, L501.6710, M100.2200, L101.9900, L504.2610, L500.4050, L100.0100 #### [facility] [address] [place], [address] BUN/CRE 14.2 RATIO Normal 10-20 [facility] Comment on above: Order Comment: 1 Performed By: #### L 400.0001, L3400.8000, L501.6710, M100.2200, L101.9900, L504.2610, L500.4050, L100.0100 #### [facility] [address] [place], [address] CA,Total 9.1 mg/dL Normal 8.5-10.1 [facility] Comment on above: Order Comment: 1 Performed By: #### L 400.0001, L3400.8000, L501.6710, M100.2200, L101.9900, L504.2610, L500.4050, L100.0100 #### [facility] [address] [place], [address] Chloride [Moles/Vol] 104 mmol/L Normal 98-107 [facility] Comment on above: Order Comment: 1 Performed By: #### L 400.0001, L3400.8000, L501.6710, M100.2200, L101.9900, L504.2610, L500.4050, L100.0100 #### [facility] [address] [place], [address] CO2 [Moles/Vol] 26.0 mmol/L Normal 21.0-32.0 [facility] Comment on above: Order Comment: 1 Performed By: #### L 400.0001, L3400.8000, L501.6710, M100.2200, L101.9900, L504.2610, L500.4050, L100.0100 #### [facility] [address] [place], [address] Creatinine [Mass/Vol] 0.70 mg/dL Normal 0.55-1.02 [facility] Comment on above: Order Comment: 1 Result Comment: The validity of the calculated GFR GFRAA in patients over 70 years has not been determined. Clinical correlation is essential. Performed By: #### L 400.0001, L3400.8000, L501.6710, M100.2200, L101.9900, L504.2610, L500.4050, L100.0100 #### [facility] [address] [place], [address] EST GFR - AA 123 mL/min Normal >60 [facility] Comment on above: Order Comment: 1 Result Comment: Afri can [place] GFR Calc Performed By: #### L 400.0001, L3400.8000, L501.6710, M100.2200, L101.9900, L504.2610, L500.4050, L100.0100 #### [facility] [address] [place], [place], [id number] (909) GAP 6 Normal 5-15 [facility] Comment on above: Order Comment: 1 Performed By: #### L 400.0001, L3400.8000, L501.6710, M100.2200, L101.9900, L504.2610, L500.4050, L100.0100 #### [facility] [address] [place], [address] GFR/1.73 sq M.predicted among non-blacks MDRD (S/P/Bld) [Vol rate/Area] 102 mL/min/{1.73_m2} Normal >60 [facility] Comment on above: Order Comment: 1 Result Comment: Non- GFR Calc Performed By: #### L 400.0001, L3400.8000, L501.6710, M100.2200, L101.9900, L504.2610, L500.4050, L100.0100 #### [facility] [address] [place], [address] Globulin (S) [Mass/Vol] 4.3 g/dL High 2.2-4.2 [facility] Comment on above: Order Comment: 1 Performed By: #### L 400.0001, L3400.8000, L501.6710, M100.2200, L101.9900, L504.2610, L500.4050, L100.0100 #### [facility] [address] [place], [address] Glucose [Mass/Vol] 99 mg/dL Normal 74-106 [facility] Comment on above: Order Comment: 1 Performed By: #### L 400.0001, L3400.8000, L501.6710, M100.2200, L101.9900, L504.2610, L500.4050, L100.0100 #### [facility] [address] [place], [address] Potassium [Moles/Vol] 4.1 mmol/L Normal 3.5-5.1 [facility] Comment on above: Order Comment: 1 Performed By: #### L 400.0001, L3400.8000, L501.6710, M100.2200, L101.9900, L504.2610, L500.4050, L100.0100 #### [facility] [address] [place], [address] Sodium [Moles/Vol] 136 mmol/L Normal 136-145 [facility] Comment on above: Order Comment: 1 Performed By: #### L 400.0001, L3400.8000, L501.6710, M100.2200, L101.9900, L504.2610, L500.4050, L100.0100 #### [facility] [address] [place], [address] T PROT 8.1 g/dL Normal 6.4-8.2 [facility] Comment on above: Order Comment: 1 Performed By: #### L 400.0001, L3400.8000, L501.6710, M100.2200, L101.9900, L504.2610, L500.4050, L100.0100 #### [facility] [address] [place], [address] Urea nitrogen [Mass/Vol] 10 mg/dL Normal 7-18 [facility] Comment on above: Order Comment: 1 Performed By: #### L 400.0001, L3400.8000, L501.6710, M100.2200, L101.9900, L504.2610, L500.4050, L100.0100 #### [facility] [address] [place], [address] Erythrocyte Sed Rateon 01-01 SED RATE 16 mm/hr Normal 0-30 [facility] Comment on above: Performed By: #### L 400.0001, L3400.8000, L501.6710, M100.2200, L101.9900, L504.2610, L500.4050, L100.0100 #### [facility] [address] [place], [address] Gastroenterology Visit Repor ton 01-02-2024 Gastroenterology Visit Report [facility] [address] [place] [address] OFFICE VISIT Date of Service: 01/02/24 MR#: [id number] Acct: [id number] Name: ZENOBIADEVONMINDY PALOMINO Rep #: [id number] : 1990 Provider: Sri Andersen DO Age/Sex: 33/F [facility] [facility] [place]: Signed Intake Vital Signs 01/10/23 06:04 12/19/23 10:36 Height 5 ft 5 in 5 ft 5 in Intake Visit Reasons: 6 M FU Allergies ibuprofen Allergy (Intermediate, Verified 12/19/23 10:36) Other Medications ???Medication ???Instructions ???Recorded ???Confirmed ???Type lisinopril 10 mg tablet 10 mg PO DAILY 03/26/21 01/02/24 History cyclosporine 100 mg capsule 100 mg PO BID 11/20/22 01/02/24 History vedolizumab 300 mg intravenous 300 mg IV .[id number] 08/22/23 01/02/24 History solution (Entyvio) PFSH Medical History (Updated 02/07/23 @ 11:[address] Leblanc Friend, DO) Wears glasses Depression History of renal disease Migraine headache History of Crohn's disease Heartburn Non-smoker Leg cramps History of stress test Acne vulgaris Mental disorder Nausea Bloating Chronic diarrhea delivery delivered HPV (human papilloma virus) infection Anxiety Pre-eclampsia Surgical History (Updated 12/13/22 @ 10:36 by Margaret Bynum) Hx of right cataract extraction Hx of left cataract extraction Hx of wisdom tooth extraction Previous section Social History Smoking Status: Never smoker HPI HPI Details: DEVON BLANCHARD, is a 33 F who presents to the office today for follow up. PMH focal segmental glomerulosclerosis (ob/gyn physician Dr. Vazquez), mental disorder. PCP OV 2.15.23 with generalized abdominal pain, nausea, loose stools and bloating with PO intake exacerbating. Previously established with GI as teen who diagnosed Crohn???s disease. *BGI established 5.19.23 GI distress onset 14/15 years with colonoscopy and reports Crohn???s; she does not remember any follow ups but PCP did prescribe Pentasa which was effective at that time; symptoms resolved and medication stopped. Symptoms are as noted above. She will avoid PO intake to minimize stool. Stools occur up to 15/day or more with abdominal cramping and urgency. Notes anxiety may have component. ? Biochemical CBC, ESR, CMP, LFT, RAST, celiac, GAME, ANCA, IBD, MPO, PR3 without pertinent abnormality ? CRP H5.91, SS-B +2.4 ? Stool elastase, fat, c.difficile, EP, O/P, giardia. ? Occult +, lactoferrin +, calprotectin H287 Contact 11.06.22 with blood and stool results; offered rheumatology referral, MREnterography versus capsule endoscopy. ? MREnterography 11.20.22 several loops of small bowel with wall thickening and mucosal hyperenhancement including TI with surrounding inflammatory changes. Contact 11.29.22 with enterography results. Recommend capsule endoscopy and Budesonide 9mg. will pursue capsule endoscopy after EGD/colon if needed. ? 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 Biochemical hepatitis, TB WNL Contact 01.21.23 with results. Likely needs Stelara; mucosal neuroma repeat colon in one year. Has concern regarding use of Stelara with cyclosporine and will wait until later this month to discuss. OV 02.07.23 Budesonide not started. Feels she is doing well since LV but does have concern with abdominal discomfort, loose stools, N/V. No joint pain, rashes, vision changes. Continues with cyclosporine for management of glomerulosclerosis which is very well uncontrolled and numbers have been trending downward for this. ? Biochemical 03.27.23 CBC, ESR, Stelara ab WNL. ? CRP H7.63, SSB +1.7 ? Urine (Dr. Vazquez) total protein H227.8, protein/creatinine H1186 Update 04.18.23 clear Entyvio through urologist. Note to Dr. Vazquez delivered 04.21.23. Dr. Vazquez is agreeable to whatever medication is indicated through GI. OV 3 for the last 10 days she has been having abdominal pain and loose stools; felt it may have been following some days of poor diet. Currently taking lisinopril for protein in her urine. OV 01.02.24 pt reports that she has noticed improvement since starting entyvio. (more content not included)... Normal [facility] LDHon 01-02-2024 LDH 180 U/L Normal 84-246 [facility] Comment on above: Order Comment: 1 Performed By: #### L 400.0001, L3400.8000, L501.6710, M100.2200, L101.9900, L504.2610, L500.4050, L100.0100 #### [facility] [address] [place], [address] Urinalysis, Completeon 01-01 EPI,SQUAMOUS 0-5 SEEN Normal 5-10 [facility] Comment on above: Order Comment: ANISHA CTOR TO SPECIFY Performed By: #### L 400.0001, L3400.8000, L501.6710, M100.2200, L101.9900, L504.2610, L500.4050, L100.0100 #### [facility] [address] [place], [address] BACTERIA 0 SEEN Normal None Seen [facility] Comment on above: Order Comment: ANISHA CTOR TO SPECIFY Performed By: #### L 400.0001, L3400.8000, L501.6710, M100.2200, L101.9900, L504.2610, L500.4050, L100.0100 #### [facility] [address] [place], [address] Mucus Ql (Urine sed) 0 SEEN Normal [facility] Comment on above: Order Comment: COLLE CTOR TO SPECIFY Performed By: #### L 400.0001, L3400.8000, L501.6710, M100.2200, L101.9900, L504.2610, L500.4050, L100.0100 #### [facility] [address] [place], [address] RBC 0 SEEN Normal 0-5 [facility] Comment on above: Order Comment: COLLE CTOR TO SPECIFY Performed By: #### L 400.0001, L3400.8000, L501.6710, M100.2200, L101.9900, L504.2610, L500.4050, L100.0100 #### [facility] [address] [place], [place], [id number] WBC 0 SEEN Normal 0-5 [facility] Comment on above: Order Comment: COLLE CTOR TO SPECIFY Performed By: #### L 400.0001, L3400.8000, L501.6710, M100.2200, L101.9900, L504.2610, L500.4050, L100.0100 #### [facility] [address] [place], [place], [id number] CNCAminah 11-11-2023 CNCO Letter Text Normal [facility] Marianne 11-11-2023 ENMANUEL Telephone (SAFIA) ----- BLANCHARDDEVON ([id number]) 1990 F YURY Date Time Provider Department 11/11/23 MYLES FELIX During your visit today, we recorded the following information about you: FabienalvaroAmy MA 11/11/2023 12:01 PM Signed Patient left message on voicemail stating she needs letter for jury duty due to having bad anxiety. PARMINDER Sun Kristin C, APRN.LEXIE 11/11/2023 12:55 PM Signed See letter. Myles Felix APRN.Corry Rodrigez MA 11/11/2023 2:38 PM Signed Left message informing patient, phone number to reach the office was left for any questions or concerns. PARMINDER Gomez Mary, MA 11/12/2023 9:09 AM Signed Patient notified that letter is at front. Amy Lovelace MA Allergies As of Date: 11/11/2023 (No Known Allergies) Date Reviewed: 07/21/2023 Reviewed by: Myles Felix APRN.LEXIE - Fully Assessed Reason for Visit: Patient Update [1234] Prescriptions as of 11/12/2023 - tretinoin (RETIN-A) 0.025 % topical cream Apply 1 application to affected area daily at bedtime. - Erythromycin-Benzoyl Peroxide gel Apply to affected area two times a day. APPLY TO AFFECTED AREA - fluconazole (DIFLUCAN) 150 mg tablet Take 1 tablet by mouth once, may repeat dose in 72 hours for persistent symptoms - lisinopril (ZESTRIL, PRINIVIL) 10 mg tablet Take 10 mg by mouth once daily. - cycloSPORINE (SANDIMMUNE) 100 mg capsule Problem List As Of Date 11/11/2023 Noted Resolved Anxiety [F41.9] 06/27/2016 Acne vulgaris [L70.0] 03/28/2017 Major depressive disorder, single episode [F32.*04/08/2017 Monochorionic diamniotic twin gestation [O30.03*08/07/2017 09/17/2017 Acute blood loss anemia [D62] 09/17/2017 Placental abruption in third trimester [O45.93] 09/17/2017 09/17/2017 FSGS (focal segmental glomerulosclerosis) [N05.*07/25/2021 Irritable bowel syndrome without diarrhea [K58.*10/30/2022 Crohn's disease (HCC) [K50.90] 07/21/2023 Chronic diarrhea [K52.9] 12/03/2022 Crohn's disease of both small and large intesti*06/22/2023 Encounter Status:Closed by AMY LOVELACE on 11/11/23 [facility] [place] 10[facility]07[facility]20[facility] ----- DEVON BLANCHARD ([id number]) 1990 [facility] Date Time Provider Department 10/07/23 [facility] During your visit today, we recorded the following information about you: Lian Em MA 10/07/2023 9:08 AM Signed Called pt name in waiting room and hallway, no answer Allergies As of Date: 10/07/2023 (No Known Allergies) Date Reviewed: 07/21/2023 Reviewed by: Myles Felix APRN.[facility] - Fully Assessed Reason for Visit: Appointment [186] Prescriptions as of 10/07/2023 - tretinoin (RETIN-A) 0.025 % topical cream Apply 1 application to affected area daily at bedtime. - Erythromycin-Benzoyl Peroxide gel Apply to affected area two times a day. APPLY TO AFFECTED AREA - fluconazole (DIFLUCAN) 150 mg tablet Take 1 tablet by mouth once, may repeat dose in 72 hours for persistent symptoms - lisinopril (ZESTRIL, PRINIVIL) 10 mg tablet Take 10 mg by mouth once daily. - cycloSPORINE (SANDIMMUNE) 100 mg capsule Problem List As Of Date 10/07/2023 Noted Resolved Anxiety [F41.9] 06/27/2016 Acne vulgaris [L70.0] 03/28/2017 Major depressive disorder, single episode [F32.*04/08/2017 Monochorionic diamniotic twin gestation [O30.03*08/07/2017 09/17/2017 Acute blood loss anemia [D62] 09/17/2017 Placental abruption in third trimester [O45.93] 09/17/2017 09/17/2017 FSGS (focal segmental glomerulosclerosis) [N05.*07/25/2021 Irritable bowel syndrome without diarrhea [K58.*10/30/2022 Crohn's disease (HCC) [K50.90] 07/21/2023 Chronic diarrhea [K52.9] 12/03/2022 Crohn's disease of both small and large intesti*06/22/2023 Encounter Status:Closed by LIAN EM on 10/07/23 [facility] 36on 08-28-2023 36 Name of Caller: Rafaela caro Contact Reason for Appointment: reschedule 08/20/23 ostomy rn appointment Office Name: [facility] Rheumatology [facility] 36on 08-20-2023 36 Canceled pt [employer] appt per pt req. [facility] 36 Name of Caller: Rafaela caro Contact Reason for Appointment: Pt needs to resx ppt due to not feeling well Office Name: Rheum [facility] Basophil percentageOrdered B y: Diana Vazquez on 07-10-2023 Chloride [Moles/Vol] 107 mmol/L 98-107 [facility] Glucose [Mass/Vol] 95 mg/dL 74-106 [facility] Potassium [Moles/Vol] 3.9 mmol/L 3.5-5.1 [facility] Sodium [Moles/Vol] 137 mmol/L 136-145 [facility] - Chemistry and C hemistry - challengeOrdered By: Diana Vazquez on 07-10-2023 CO2 [Moles/Vol] 26.0 mmol/L 21.0-32.0 [facility] Urea nitrogen/Creatinine [Mass ratio] 15.3 mg/mg 10-20 [facility] No Panel InformationOrdered By: Diana Vazquez on 07-10-2023 Estimated GFR (MDRD) Amer 121 mL/min >60 [facility] Comment on above: GFR Calc Estimated GFR (MDRD) Non-Af Amer 100 mL/min >60 [facility] Comment on above: Non- GFR Calc Serum or plasma calcium estela urement (mass/volume)Ordered By: Diana Vazquez on 07-10-2023 Calcium [Mass/Vol] 8.6 mg/dL 8.5-10.1 [facility] Serum or plasma creatinine m easurement (mass/volume)Ordered By: Diana Vazquez on 07-10-2023 Creatinine [Mass/Vol] 0.72 mg/dL 0.55-1.02 [facility] Comment on above: The validity of the calculated GFR & GFRAA in patients over 70 years has not been determined. Clinical correlation is essential. Serum or plasma urea nitroge n measurement (mass/volume)Ordered By: Diana Vazquez on 07-10-2023 Urea nitrogen [Mass/Vol] 11 mg/dL 7-18 [facility] Thin prep Papanicolaou smear with manual screeningOrdered By: Diana Vazquez on 07-10-2023 Protein (U) [Mass/Vol] 169.6 mg/dL 0.0-11.8 [facility] Thin prep Papanicolaou smear with manual screening 4 5-15 [facility] Urine creatinine measurement (mass/volume)Ordered By: Diana Vazquez on 07-10-2023 Creatinine (U) [Mass/Vol] 145.00 mg/dL NO RANGE EST. [facility] Urine protein/creatinine mas s ratioOrdered By: Diana Vazquez on 07-10-2023 Protein/Creatinine (U) [Mass ratio] 1170 mg/g CRE 0-200 [facility] CBC W Auto Differential pane l (Bld)on 06-24-2023 Basophils (Bld) [#/Vol] 0.05 10*3/uL <0.11 k/uL [facility] Basophils/100 WBC (Bld) 0.7 % C [facility] Differential cell count method Nom (Bld) Auto [facility] Eosinophils (Bld) [#/Vol] 0.09 10*3/uL <0.46 k/ uL [facility] Eosinophils/100 WBC (Bld) 1.2 % [facility] Erythrocyte distribution width (RBC) [Ratio] 14.2 % 11.5 - 15.0 % [facility] Hematocrit (Bld) [Volume fraction] 40.0 % 36.0 - 46.0 % [facility] Hemoglobin (Bld) [Mass/Vol] 12.5 g/dL 11.5 - 15.5 g/dL [facility] Immature granulocytes (Bld) [#/Vol] <0.10 k/uL [facility] Immature granulocytes/100 WBC (Bld) 0.3 % [facility] Lymphocytes (Bld) [#/Vol] 1.97 10*3/uL 1. 00 - 4.00 k/uL [facility] Lymphocytes/100 WBC (Bld) 25.7 % [facility] MCH (RBC) [Entitic mass] 26.9 pg 26. 0 - 34.0 pg [facility] MCHC (RBC) [Mass/Vol] 31.3 g/dL 30.5 - 36.0 g/dL [facility] MCV (RBC) [Entitic vol] 86.0 fL 80.0 - 100.0 fL [facility] Monocytes (Bld) [#/Vol] 0.39 10*3/uL <0.87 k/uL [facility] Monocytes/100 WBC (Bld) 5.1 % C [facility] Neutrophils (Bld) [#/Vol] 5.16 10*3/uL 1. 45 - 7.50 k/uL [facility] Neutrophils/100 WBC (Bld) 67.0 % [facility] Nucleated RBC (Bld) [#/Vol] [facility] Nucleated RBC/100 WBC (Bld) [Ratio] [facility] Platelet mean volume (Bld) [Entitic vol] 9.8 fL 9.0 - 12.7 fL [facility] Platelets (Bld) [#/Vol] 375 10*3/uL 150 - 400 k/uL [facility] RBC (Bld) [#/Vol] 4.65 10*6/uL 3.90 - 5.20 m/uL [facility] WBC (Bld) [#/Vol] 7.68 10*3/uL 3.70 - 11.00 k/uL [facility] Comprehensive metabolic 2000 panelon 06-24-2023 Albumin [Mass/Vol] 4.2 g/dL 3.9 - 4.9 g/dL [facility] ALP [Catalytic activity/Vol] 78 U/L 34 - 123 U/L [facility] ALT With P-5'-P [Catalytic activity/Vol] 17 U/L 7 - 38 U/L [facility] Anion gap [Moles/Vol] 11 mmol/L 9 - 18 mmol/L [facility] AST With P-5'-P [Catalytic activity/Vol] 14 U/L 13 - 35 U/L [facility] Bilirubin [Mass/Vol] 0.4 mg/dL 0.2 - 1 .3 mg/dL [facility] Calcium [Mass/Vol] 9.0 mg/dL 8.5 - 10. 2 mg/dL [facility] Chloride [Moles/Vol] 105 mmol/L 97 - 10 5 mmol/L [facility] CO2 [Moles/Vol] 24 mmol/L 22 - 30 mmol/L [facility] Creatinine [Mass/Vol] 0.66 mg/dL 0.58 - 0.96 mg/dL [facility] Estimated Glomerular Filtration Rate 120 mL/min/1.73m >=60 mL/min/1.7 3m [facility] Glucose [Mass/Vol] 98 mg/dL 74 - 99 mg/dL [facility] Potassium [Moles/Vol] 4.2 mmol/L 3.7 - 5.1 mmol/L [facility] Protein [Mass/Vol] 7.4 g/dL 6.3 - 8.0 g/dL [facility] Sodium [Moles/Vol] 140 mmol/L 136 - 144 mmol/L [facility] Urea nitrogen [Mass/Vol] 9 mg/dL 7 - 21 mg/dL [facility] HbA1c (Bld)on 06-24-2023 Average glucose Estimated from glycated hemoglobin (Bld) [Mass/Vol] 100 mg/dL [facility] HbA1c (Bld) [Mass fraction] 5.1 % 4.3 - 5.6 % [facility] Lipid 1996 panelon Cholesterol [Mass/Vol] 190 mg/dL <200 mg/dL [facility] Cholesterol in HDL [Mass/Vol] 40 mg/dL >39 mg/dL [facility] Cholesterol in LDL [Mass/Vol] 92 mg/dL <100 mg/dL [facility] Cholesterol in LDL/Cholesterol in HDL [Mass ratio] 2.30 {ratio} <2.54 [facility] Cholesterol in VLDL [Mass/Vol] 58 mg/dL High <30 mg/dL [facility] Cholesterol non HDL [Mass/Vol] 150 mg/dL High <130 mg/dL [facility] Cholesterol.total/Cholest cathi in HDL [Mass ratio] 4.75 {ratio} <5.10 [facility] Fasting Time 12 hrs [facility] Triglyceride [Mass/Vol] 292 mg/dL High <150 mg/dL [facility] Absolute lymphocyte countOrd ered By: Sri Andersen on 03-27-2023 Lymphocytes Auto (Unsp spec) [#/Vol] 2.13 10*3/uL 0.83-4.51 [facility] Basophil percentageOrdered B y: Sri Andersen on 03-27-2023 Basophil percentage < 0.2 AI 0.0-0.9 [facility] Basophil percentage 1.7 AI 0.0-0.9 [facility] Basophils/100 WBC (Bld) 0.4 % 0-1 [facility] Eosinophils/100 WBC (Bld) 1.8 % 0-5 [facility] Neutrophils (Bld) [#/Vol] 5.5 10*3/uL 2.0-7.7 [facility] Neutrophils/100 WBC (Bld) 66.6 % 47-70 [facility] WBC (Bld) [#/Vol] 8.3 10*3/uL 4.4-11.0 [facility] Blood erythrocytes count (nu mber/volume)Ordered By: Sri Andersen on 03-27-2023 RBC (Bld) [#/Vol] 4.58 10*6/uL 4.2-5.4 [facility] Blood hemoglobin measurement (mass/volume)Ordered By: Sri Andersen on 03-27-2023 Hemoglobin (Bld) [Mass/Vol] 12.0 g/dL 12.0-15.0 [facility] Blood lymphocytes/100 leukoc ytesOrdered By: Sri Andersen on 03-27-2023 Lymphocytes/100 WBC (Bld) 25.6 % 19-41 [facility] Blood monocytes/100 leukocyt esOrdered By: Sri Andersen on 03-27-2023 Monocytes/100 WBC (Bld) 4.9 % 0-10 [facility] Blood platelet mean volumeOr dered By: Sri Andersen on 03-27-2023 Platelet mean volume (Bld) [Entitic vol] 10.1 fL 6.2-12.0 [facility] Determination of erythrocyte mean corpuscular volume (MCV)Ordered By: Sri Andersen on 03-27-2023 MCV (RBC) [Entitic vol] 85.2 fL 81-99 [facility] Erythrocyte sedimentation ra teOrdered By: Sri Andersen on 03-27-2023 ESR (Bld) [Velocity] 14 mm/h 0-30 [facility] Hematocrit Auto (Bld) [Volum e fraction]Ordered By: Sri Andersen on 03-27-2023 Hematocrit (Bld) [Volume fraction] 39.0 % 37-47 [facility] Laboratory - Hematology and Cell countsOrdered By: Sri Andersen on 03-27-2023 Erythrocyte distribution width (RBC) [Entitic vol] 44.1 fL 35.1-43.9 [facility] Erythrocyte distribution width (RBC) [Ratio] 14.3 % 11.6-14.6 [facility] Immature granulocytes/100 WBC (Bld) 0.700 % 0.0-0.9 [facility] Comment on above: IG% - Immature Granu locytes (promyelocytes, myelocytes and metamyelocytes) > 1% indicates that a LEFT SHIFT is Present. MCH (RBC) [Entitic mass] 26.2 pg 27.0-32.0 [facility] Nucleated RBC/100 WBC (Bld) [Ratio] 0 % 0-5 [facility] MCHC Auto (RBC) [Mass/Vol]Or dered By: Sri Andersen on 03-27-2023 MCHC (RBC) [Mass/Vol] 30.8 g/dL 32-36 [facility] No Panel InformationOrdered By: Sri Andersen on 03-27-2023 Centromere B Antibody <0.2 AI 0.0-0.9 [facility] Miscellaneous Test See comment [facility] Comment on above: Scanned image report available in EMR ENDOSCOPY SUPPORT SPECIALIST Antibody <0.2 AI 0.0-0.9 [facility] Platelets bldOrdered By: Shane Andersen on 03-27-2023 Platelets (Bld) [#/Vol] 447 10*3/uL 150-450 [facility] Serum DNA double strand anti body assay (units/volume)Ordered By: Sri Andersen on 03-27-2023 DNA double strand Ab Qn (S) [IU]/mL 0-9 [facility] Comment on above: Negative <5 Equivoca l 5 - 9 Positive >9 Serum Supriya-1 antibody assay (u nits/volume)Ordered By: Sri Andersen on 03-27-2023 Supriya-1 extractable nuclear Ab Qn (S) <0.2 AI 0.0-0.9 [facility] Serum Scl-70 extractable nuc lear antibody assay (units/volume)Ordered By: Sri Andersen on 03-27-2023 SCL-70 extractable nuclear Ab Qn (S) <0.2 AI 0.0-0.9 [facility] Serum Castro extractable nucl ear antibody detectionOrdered By: Sri Andersen on 03-27-2023 Castro extractable nuclear Ab Ql (S) <0.2 AI 0.0-0.9 [facility] Serum or plasma C reactive p rotein measurement (mass/volume)Ordered By: Sri Andersen on 03-27-2023 CRP [Mass/Vol] 7.63 mg/L 0.0-3.0 [facility] Comment on above: C-Reactive Protein ( CRP) provides useful information for thediagnosis, therapy and monitoring of inflammatory processesand associated diseases. For the evaluation of Relative Riskfor Cardiovascular Disease, a High Sensitivity CRP (HSCRP)should be ordered. Urine creatinine measurement (mass/volume)Ordered By: Diana Vazquez on 03-27-2023 Creatinine (U) [Mass/Vol] 192.00 mg/dL NO RANGE EST. [facility] Urine protein measurement (m ass/volume)Ordered By: Diana Vazquez on 03-27-2023 Protein (U) [Mass/Vol] 227.8 mg/dL 0.0-11.8 [facility] Urine protein/creatinine mas s ratioOrdered By: Diana Vazquez on 03-27-2023 Protein/Creatinine (U) [Mass ratio] 1186 mg/g CRE 0-200 [facility] Laboratory - Chemistry and C hemistry - challengeOrdered By: Guilherme Goldstein on 01-10-2023 HCG ( test) Ql (U) Negative [facility] Comment on above: Very dilute urine sp ecimens, as indicated by a low specificgravity, may not contain lead generation representative levels of hCG. If is still suspected, a first morning urinespecimen should be collected 48 hours later and tested. No Panel InformationOrdered By: Sri Andersen on 01-10-2023 Hepatitis A IgM Antibody Negative Negative [facility] Hepatitis B Core IgM Antibody Negative Negative [facility] Hepatitis C Antibody (EIA) Non-Reactive Non Reactive [facility] Hepatitis C Antibody Comment Comment . [facility] Comment on above: Not infected with HC V unless early or acute infection issuspected (which may be delayed in an immunocompromisedindividual), or other evidence exists to indicate HCVinfection.Performed at: [employer] [id number] Director: Greg Keita PhD, Phone: [phone] Qualitative QuantiFERON-TB g old in tube testOrdered By: Sri Andersen on 01-10-2023 M. tuberculosis tuberculin stim IFN-g Ql (Bld) 0.34 IU/mL . [facility] Serum or plasma hepatitis B virus surface antigen detection by immunoassayOrdered By: Sri Andersen on 01-10-2023 HBV surface Ag IA Ql Negative Negative [facility] Thin prep Papanicolaou smear with manual screeningOrdered By: Sri Andersen on 01-10-2023 Thin prep Papanicolaou smear with manual screening Comment . [facility] Comment on above: QuantiFERON-TB Gold Plus is a qualitative indirect test forM tuberculosis infection (including disease) and isintended for use in conjunction with risk assessment,radiography, and other medical and diagnostic evaluations.The QuantiFERON-TB Gold Plus result is determined bysubtracting the Nil value from either TB antigen (Ag)value. The Mitogen tube serves as a control for the test. Thin prep Papanicolaou smear with manual screening 0.18 IU/mL . [facility] Thin prep Papanicolaou smear with manual screening 0.52 IU/mL . [facility] Thin prep Papanicolaou smear with manual screening > 10.00 IU/mL . [facility] Thin prep Papanicolaou smear with manual screening Negative Negative [facility] Comment on above: No response to M tub erculosis antigens detected.Infection with M tuberculosis is unlikely, but high riskindividuals should be considered for additional testing(ATS/IDSA/CDC Clinical Practice Guidelines, 2017). Thereference range is an Antigen minus Nil result of <0.35IU/mL.The specimen received for QuantiFERON testing was incubatedby the ordering institution. Specific procedures outlinedin our Directory of Services and in the package insert forthe QuantiFERON Gold (In Tube) test must be followed toenable for proper stimulation of cells for the productionof interferon gamma. Chemiluminescence immunoassaymethodology Basophil percentageOrdered B y: Diana Vazquez on 11-09-2022 Basophil percentage 2.5 mg/dL 2.5-4.9 [facility] Chloride [Moles/Vol] 107 mmol/L 98-107 [facility] Glucose [Mass/Vol] 91 mg/dL 74-106 [facility] Potassium [Moles/Vol] 3.9 mmol/L 3.5-5.1 [facility] Sodium [Moles/Vol] 138 mmol/L 136-145 [facility] Laboratory - Chemistry and C hemistry - challengeOrdered By: Diana Vazquez on 11-09-2022 CO2 [Moles/Vol] 26.0 mmol/L 21.0-32.0 [facility] Urea nitrogen/Creatinine [Mass ratio] 14.9 mg/mg 10-20 [facility] No Panel InformationOrdered By: Diana Vazquez on 11-09-2022 Estimated GFR (MDRD) Amer 118 mL/min >60 [facility] Comment on above: GFR Calc Estimated GFR (MDRD) Non-Af Amer 97 mL/min >60 [facility] Comment on above: Non- GFR Calc Serum or plasma albumin estela urement (mass/volume)Ordered By: Diana Vazquez on 11-09-2022 Albumin [Mass/Vol] 3.4 g/dL 3.2-5.0 [facility] Serum or plasma calcium estela urement (mass/volume)Ordered By: Diana Vazquez on 11-09-2022 Calcium [Mass/Vol] 8.9 mg/dL 8.5-10.1 [facility] Serum or plasma creatinine m easurement (mass/volume)Ordered By: Diana Vazquez on 11-09-2022 Creatinine [Mass/Vol] 0.74 mg/dL 0.55-1.02 [facility] Comment on above: The validity of the calculated GFR & GFRAA in patients over 70 years has not been determined. Clinical correlation is essential. Serum or plasma urea nitroge n measurement (mass/volume)Ordered By: Diana Vazquez on 11-09-2022 Urea nitrogen [Mass/Vol] 11 mg/dL 7-18 [facility] Urine creatinine measurement (mass/volume)Ordered By: Diana Vazquez on 11-09-2022 Creatinine (U) [Mass/Vol] 256.00 mg/dL NO RANGE EST. [facility] Urine protein measurement (m ass/volume)Ordered By: Diana Vazquez on 11-09-2022 Protein (U) [Mass/Vol] 219.8 mg/dL 0.0-11.8 [facility] Urine protein/creatinine mas s ratioOrdered By: Diana Vazquez on 11-09-2022 Protein/Creatinine (U) [Mass ratio] 859 mg/g CRE 0-200 [facility] No Panel InformationOrdered By: Sri Andersen on 10-25-2022 Giardia Antigen (FARHAD) [facility] Stool Calprotectin 287 ug/g 0-120 [facility] Comment on above: Concentration Interp retation Follow-Up< 5 - 50 ug/g Normal None>50 -120 ug/g Borderline Re-evaluate in 4-6 weeks >120 ug/g Abnormal Repeat as clinically indicatedPerformed at: - [facility] [address] [id number] Director: Greg Keita PhD, Phone: [phone] at: - [facility] [address] [id number] Director: Nia Ryan MD, Phone: [phone] Stool Neutral Fats Normal . [facility] Comment on above: Normal (<60 Droplets /HPF) Stool Pancreatic Elastase 226 >200 [facility] Comment on above: Result Units: ug [address] st./g Severe Pancreatic Insufficiency: <100 Moderate Pancreatic Insufficiency: 100 - 200 Normal: >200Performed at: [facility] [employer] [id number] Director: Nia Ryan MD, Phone: [phone] Ova and parasitesOrdered By: Sri Andersen on 10-25-2022 Ova and parasites identified LM Nom (Unsp spec) [facility] Qualitative fecal fat or lip idsOrdered By: Sri Andersen on 10-25-2022 Fat Ql (Stl) Normal . [facility] Comment on above: Normal (<100 Droplet s/HPF) Absolute lymphocyte countOrd ered By: Sri Andersen on 10-04-2022 Lymphocytes Auto (Unsp spec) [#/Vol] 1.88 10*3/uL 0.83-4.51 [facility] Albumin Elph [Mass/Vol]Order ed By: Sri Andersen on 10-04-2022 Albumin [Mass/Vol] 3.7 g/dL 2.9-4.4 [facility] Atypical perinuclear antineu trophil cytoplasmic antibodies measurementOrdered By: Sri Andersen on 10-04-2022 Neutrophil cytoplasmic Ab.perinuclear.atypical IF (S) [Titer] <1:20 titer Neg:<1:20 [facility] Comment on above: The atypical pANCA p attern has been observed in asignificant percentage of patients with ulcerative colitis,primary sclerosing cholangitis and autoimmune hepatitis.Performed at: [employer] [id number] Director: Greg Keita PhD, Phone: [phone] at: [employer] [id number] Director: Nia Ryan MD, Phone: [phone] Basophil percentageOrdered B y: Sri Andersen on 10-04-2022 Basophil percentage < 0.2 AI 0.0-0.9 [facility] Basophil percentage 2.4 AI 0.0-0.9 [facility] Basophils/100 WBC (Bld) 0.4 % 0-1 [facility] Bilirubin [Mass/Vol] 0.60 mg/dL 0.20-1.00 [facility] Comment on above: For patients on eltr ombopag therapy, use of Dimension [place] TBIL is not recommended. Chloride [Moles/Vol] 107 mmol/L 98-107 [facility] Eosinophils/100 WBC (Bld) 0.9 % 0-5 [facility] Glucose [Mass/Vol] 94 mg/dL 74-106 [facility] LDH [Catalytic activity/Vol] 202 U/L 84-246 [facility] Neutrophils (Bld) [#/Vol] 6.0 10*3/uL 2.0-7.7 [facility] Neutrophils/100 WBC (Bld) 71.2 % 47-70 [facility] Potassium [Moles/Vol] 4.0 mmol/L 3.5-5.1 [facility] Protein [Mass/Vol] 8.6 g/dL 6.4-8.2 [facility] Sodium [Moles/Vol] 136 mmol/L 136-145 [facility] WBC (Bld) [#/Vol] 8.5 10*3/uL 4.4-11.0 [facility] Blood erythrocytes count (nu mber/volume)Ordered By: Sri Andersen on 10-04-2022 RBC (Bld) [#/Vol] 5.08 10*6/uL 4.2-5.4 [facility] Blood hemoglobin measurement (mass/volume)Ordered By: Sri Andersen on 10-04-2022 Hemoglobin (Bld) [Mass/Vol] 13.2 g/dL 12.0-15.0 [facility] Blood lymphocytes/100 leukoc ytesOrdered By: Sri Andersen on 10-04-2022 Lymphocytes/100 WBC (Bld) 22.2 % 19-41 [facility] Blood monocytes/100 leukocyt esOrdered By: Sri Andersen on 10-04-2022 Monocytes/100 WBC (Bld) 4.8 % 0-10 [facility] Blood platelet mean volumeOr dered By: Sri Andersen on 10-04-2022 Platelet mean volume (Bld) [Entitic vol] 10.0 fL 6.2-12.0 [facility] Chocolate RASTOrdered By: Ra royer Andersen on 10-04-2022 Chocolate IgE Qn (S) <0.10 kU/L Class 0 [facility] Comment on above: Performed at: - [facility] [id number] [place], [place] [id number] Director: Greg Keita PhD, Phone: [phone] at: [address] [id number] Director: Nia Ryan MD, Phone: [phone] Determination of erythrocyte mean corpuscular volume (MCV)Ordered By: Sri Andersen on 10-04-2022 MCV (RBC) [Entitic vol] 83.7 fL 81-99 [facility] Erythrocyte sedimentation ra teOrdered By: Sri Andersen on 10-04-2022 ESR (Bld) [Velocity] 29 mm/h 0-30 [facility] Hematocrit Auto (Bld) [Volum e fraction]Ordered By: Sri Andersen on 10-04-2022 Hematocrit (Bld) [Volume fraction] 42.5 % 37-47 [facility] Interpretation of serum or p lasma protein pattern by immunofixation (narrative resultOrdered By: Sri Andersen on 10-04-2022 Protein Fractions Immunofixation Byron [Interp] See comment [facility] Comment on above: Result: Not Observed Laboratory - Chemistry and C hemistry - challengeOrdered By: Sri Andersen on 10-04-2022 ALP [Catalytic activity/Vol] 82 U/L 45-117 [facility] ALT [Catalytic activity/Vol] 24 U/L 13-56 [facility] CO2 [Moles/Vol] 24.0 mmol/L 21.0-32.0 [facility] Magnesium [Mass/Vol] 1.7 mg/dL 1.6-2.6 [facility] Urea nitrogen/Creatinine [Mass ratio] 16.2 mg/mg 10-20 [facility] Laboratory - Hematology and Cell countsOrdered By: Sri Andersen on 10-04-2022 Erythrocyte distribution width (RBC) [Entitic vol] 44.1 fL 35.1-43.9 [facility] Erythrocyte distribution width (RBC) [Ratio] 14.6 % 11.6-14.6 [facility] Immature granulocytes/100 WBC (Bld) 0.500 % 0.0-0.9 [facility] Comment on above: IG% - Immature Granu locytes (promyelocytes, myelocytes and metamyelocytes) > 1% indicates that a LEFT SHIFT is Present. MCH (RBC) [Entitic mass] 26.0 pg 27.0-32.0 [facility] Nucleated RBC/100 WBC (Bld) [Ratio] 0 % 0-5 [facility] Laboratory - Miscellaneous t estsOrdered By: Sri Andersen on 10-04-2022 Service comment (Unsp spec) [Interp] Comment . [facility] Comment on above: Levels of Specific I gE Class Description of Class ----- < 0.10 0 Negative 0.10 - 0.31 0/I Equivocal/Low 0.32 - 0.55 I Low 0.56 - 1.40 II Moderate 1.41 - 3.90 III High 3.91 - 19.00 IV Very High 19.01 - 100.00 V Very High >100.00 [facility] MCHC Auto (RBC) [Mass/Vol]Or dered By: Sri Andersen on 10-04-2022 MCHC (RBC) [Mass/Vol] 31.1 g/dL 32-36 [facility] No Panel InformationOrdered By: Sri Andersen on 10-04-2022 Addendum Document Comment . [facility] Comment on above: Protein electrophore sis scan will follow via computer,mail, or television repairman delivery. Centromere B Antibody <0.2 AI 0.0-0.9 [facility] Endomysial IgA Antibody Negative Negative [facility] Estimated GFR (MDRD) Amer 117 mL/min >60 [facility] Comment on above: GFR Calc Estimated GFR (MDRD) Non-Af Amer 97 mL/min >60 [facility] Comment on above: Non- GFR Calc Immunoglobulin E 16 IU/mL 6-495 [facility] Miscellaneous Test See comment [facility] Comment on above: TEST RESULTS LIMITSA NCA ProfileAnti-MPO Antibodies <0.2 units 0.0-0.9Anti-PR3 Antibodies <0.2 units 0.0-0.9Cytoplasmic (C-ANCA) <1:20 titer Neg:<1:20Perinuclear (P-ANCA) <1:20 titer Neg:<1:20The presence of positive fluorescence exhibiting P-ANCA or C-ANCA patterns alone is not specific for the diagnosis of Doc's Granulomatosis (WG) or microscopic polyangiitis. Decisions about treatment should not be based solely on ANCA IFA results. The [employer] ANCA [employer] Consensus recommends follow up testing of positive sera with both SC-3 and MPO-ANCA enzyme immunoassays. As many as 5% serum samples are positive only by EIA.Ref. AM J Clin Pathol 1999;111:507-513.Atypical pANCA <1:20 titer Neg:<1:20The atypical pANCA pattern has been observed in a significant percentage of patients with ulcerative colitis, primary sclerosing cholangitis and autoimmune hepatitis. TESTING PERFORMED AT [facility]. ORIGINAL REPORT ON FILE IN LAB CONTAINS ADDITIONAL TEST SITE INFORMATION. ENDOSCOPY SUPPORT SPECIALIST Antibody 0.2 AI 0.0-0.9 [facility] [employer] Allergens (RAST) Negative . [facility] Comment on above: Allergens in this mi x are: Blue mussel Fish [place] Shrimp Tuna Platelets bldOrdered By: Shane carson Friend on 10-04-2022 Platelets (Bld) [#/Vol] 430 10*3/uL 150-450 [facility] Serum DNA double strand anti body assay (units/volume)Ordered By: Sri Andersen on 10-04-2022 DNA double strand Ab Qn (S) [IU]/mL 0-9 [facility] Comment on above: Negative <5 Equivoca l 5 - 9 Positive >9 Serum Supriya-1 antibody assay (u nits/volume)Ordered By: Sri Andersen on 10-04-2022 Supriya-1 extractable nuclear Ab Qn (S) <0.2 AI 0.0-0.9 [facility] Serum Scl-70 extractable nuc lear antibody assay (units/volume)Ordered By: Sri Andersen on 10-04-2022 SCL-70 extractable nuclear Ab Qn (S) <0.2 AI 0.0-0.9 [facility] Serum Castro extractable nucl ear antibody detectionOrdered By: Sri Andersen on 10-04-2022 Castro extractable nuclear Ab Ql (S) <0.2 AI 0.0-0.9 [facility] Serum [id number] measu rement by electrophoresisOrdered By: Sri Andersen on 10-04-2022 Alpha 1 globulin Elph [Mass/Vol] 0.2 g/dL 0.0-0.4 [facility] Alpha 1 globulin Elph [Mass/Vol] 1.0 g/dL 0.4-1.0 [facility] Serum beef IgE antibody assa y (units/volume)Ordered By: Sri Andersen on 10-04-2022 Beef IgE Qn (S) <0.10 kU/L Class 0 [facility] Serum classic neutrophil cyt oplasmic antibody assay (units/volume)Ordered By: Sri Andersen on 10-04-2022 Neutrophil cytoplasmic Ab.classic Qn (S) <1:20 titer Neg:<1:20 [facility] Serum corn IgE antibody assa y (units/volume)Ordered By: Sri Andersen on 10-04-2022 Galva IgE Qn (S) <0.10 kU/L Class 0 [facility] Serum cow milk IgE antibody assay (units/volume)Ordered By: Sri Andersen on 10-04-2022 Cow milk IgE Qn (S) <0.10 kU/L Class 0 [facility] Serum globulin measurement ( mass/volume)Ordered By: Sri Andersen on 10-04-2022 Globulin (S) [Mass/Vol] 3.8 g/dL 2.2-3.9 [facility] Serum mitochondria antibody detectionOrdered By: Sri Andersen on 10-04-2022 Mitochondria Ab Ql (S) <20.0 Units 0.0-20.0 [facility] Comment on above: Negative 0.0 - 20.0 Equivocal 20.1 - 24.9 Positive >24.9Mitochondrial (M2) Antibodies are found in 90-96% ofpatients with primary biliary cirrhosis. Serum or plasma C reactive p rotein measurement (mass/volume)Ordered By: Sri Andersen on 10-04-2022 CRP [Mass/Vol] 5.91 mg/L 0.0-3.0 [facility] Comment on above: C-Reactive Protein ( CRP) provides useful information for thediagnosis, therapy and monitoring of inflammatory processesand associated diseases. For the evaluation of Relative Riskfor Cardiovascular Disease, a High Sensitivity CRP (HSCRP)should be ordered. Serum or plasma IgA measurem ent (mass/volume)Ordered By: Sri Andersen on 10-04-2022 IgA [Mass/Vol] 252 mg/dL 87-352 [facility] Serum or plasma IgG measurem ent (mass/volume)Ordered By: Sri Andersen on 10-04-2022 IgG [Mass/Vol] 1197 mg/dL 586-1602 [facility] Serum or plasma IgM measurem ent (mass/volume)Ordered By: Sri Andersen on 10-04-2022 IgM [Mass/Vol] 142 mg/dL 26-217 [facility] Serum or plasma albumin estela urement (mass/volume)Ordered By: Sri Andersen on 10-04-2022 Albumin [Mass/Vol] 3.9 g/dL 3.2-5.0 [facility] Serum or plasma albumin/glob ulin mass ratioOrdered By: Sri Andersen on 10-04-2022 Albumin/Globulin [Mass ratio] 0.8 {ratio} 0.9-2.4 [facility] Serum or plasma beta globuli n measurement by electrophoresis (mass/volume)Ordered By: Sri Andersen on 10-04-2022 Beta globulin Elph [Mass/Vol] 1.4 g/dL 0.7-1.3 [facility] Serum or plasma calcium estela urement (mass/volume)Ordered By: Sri Andersen on 10-04-2022 Calcium [Mass/Vol] 9.2 mg/dL 8.5-10.1 [facility] Serum or plasma creatinine m easurement (mass/volume)Ordered By: Sri Andersen on 10-04-2022 Creatinine [Mass/Vol] 0.74 mg/dL 0.55-1.02 [facility] Comment on above: The validity of the calculated GFR & GFRAA in patients over 70 years has not been determined. Clinical correlation is essential. Serum or plasma gamma globul in measurement by electrophoresis (mass/volume)Ordered By: Sri Andersen on 10-04-2022 Gamma globulin Elph [Mass/Vol] 1.2 g/dL 0.4-1.8 [facility] Serum or plasma immunoelectr ophoresis interpretation (nominal result)Ordered By: Sri Andersen on 10-04-2022 Interpretation IEP [Interp] Comment . [facility] Comment on above: No monoclonality det ected. Serum or plasma urea nitroge n measurement (mass/volume)Ordered By: Sri Andersen on 10-04-2022 Urea nitrogen [Mass/Vol] 12 mg/dL 7-18 [facility] Serum peanut IgE antibody as say (units/volume)Ordered By: Sri Andersen on 10-04-2022 Peanut IgE Qn (S) <0.10 kU/L Class 0 [facility] Serum perinuclear neutrophil cytoplasmic antibody titer by immunofluorescenceOrdered By: Sri Andersen on 10-04-2022 Neutrophil cytoplasmic Ab.perinuclear IF (S) [Titer] <1:20 titer Neg:<1:20 [facility] Comment on above: The presence of posi tive fluorescence exhibiting P-ANCA orC-ANCA patterns alone is not specific for the diagnosis ofWegener's Granulomatosis (WG) or microscopic polyangiitis.Decisions about treatment should not be based solely onANCA IFA results. The [employer] ANCA Group Consensusrecommends follow up testing of positive sera with both SC-3 and MPO-ANCA enzyme immunoassays. As many as 5% serumsamples are positive only by EIA. Ref. AM J Clin Kzupft3176;111:507-513. Serum pork IgE antibody assa y (units/volume)Ordered By: Sri Andersen on 10-04-2022 Pork IgE Qn (S) <0.10 kU/L Class 0 [facility] Serum soybean IgE antibody a ssay (units/volume)Ordered By: Sri Andersen on 10-04-2022 Soybean IgE Qn (S) <0.10 kU/L Class 0 [facility] Serum tissue transglutaminas e IgA antibody assay (units/volume)Ordered By: Sri Andersen on 10-04-2022 tTG IgA Qn (S) <2 U/mL 0-3 [facility] Comment on above: Negative 0 - 3 Weak Positive 4 - 10 Positive >10 Tissue Transglutaminase (tTG) has been identified as the endomysial antigen. Studies have demonstr- ated that endomysial IgA antibodies have over 99% specificity for gluten sensitive enteropathy. Serum wheat IgE antibody ass ay (units/volume)Ordered By: Sri Andersen on 10-04-2022 Wheat IgE Qn (S) <0.10 kU/L Class 0 [facility] Serum whole egg IgE antibody assay (units/volume)Ordered By: Sri Andersen on 10-04-2022 Whole Egg IgE Qn (S) <0.10 kU/L Class 0 [facility] Thin prep Papanicolaou smear with manual screeningOrdered By: Sri Andersen on 10-04-2022 Thin prep Papanicolaou smear with manual screening 20 U/L 15-37 [facility] Thin prep Papanicolaou smear with manual screening 5 5-15 [facility] Thin prep Papanicolaou smear with manual screening 1.0 0.7-1.7 [facility] Total protein bloodOrdered B y: Sri Andersen on 10-04-2022 Protein [Mass/Vol] 7.5 g/dL 6.0-8.5 [facility] US ABD RT UPPER QUADRANTon 0 07-09-2022 [facility] Basophil percentageOrdered B y: Dr. Vazquez on 05-27-2022 Basophil percentage 3.0 mg/dL 2.5-4.9 [facility] Chloride [Moles/Vol] 101 mmol/L 98-107 [facility] Glucose [Mass/Vol] 87 mg/dL 74-106 [facility] Potassium [Moles/Vol] 3.6 mmol/L 3.5-5.1 [facility] Sodium [Moles/Vol] 138 mmol/L 136-145 [facility] Laboratory - Chemistry and C hemistry - challengeOrdered By: Dr. Vazquez on 05-27-2022 CO2 [Moles/Vol] 27.0 mmol/L 21.0-32.0 [facility] Urea nitrogen/Creatinine [Mass ratio] 16.5 mg/mg 10-20 [facility] No Panel InformationOrdered By: Dr. Vazquez on 05-27-2022 Estimated GFR (MDRD) Amer 120 mL/min >60 [facility] Comment on above: GFR Calc Estimated GFR (MDRD) Non-Af Amer 99 mL/min >60 [facility] Comment on above: Non- GFR Calc Serum or plasma albumin estela urement (mass/volume)Ordered By: Dr. Vazquez on 05-27-2022 Albumin [Mass/Vol] 3.6 g/dL 3.2-5.0 [facility] Serum or plasma calcium estela urement (mass/volume)Ordered By: Dr. Vazquez on 05-27-2022 Calcium [Mass/Vol] 8.9 mg/dL 8.5-10.1 [facility] Serum or plasma creatinine m easurement (mass/volume)Ordered By: Dr. Vazquez on 05-27-2022 Creatinine [Mass/Vol] 0.73 mg/dL 0.55-1.02 [facility] Comment on above: The validity of the calculated GFR & GFRAA in patients over 70 years has not been determined. Clinical correlation is essential. Serum or plasma urea nitroge n measurement (mass/volume)Ordered By: Dr. Vazquez on 05-27-2022 Urea nitrogen [Mass/Vol] 12 mg/dL 7-18 [facility] Urine creatinine measurement (mass/volume)Ordered By: Dr. Vazquez on 05-27-2022 Creatinine (U) [Mass/Vol] 24.60 mg/dL NO RANGE EST. [facility] Urine protein measurement (m ass/volume)Ordered By: Dr. Vazquez on 05-27-2022 Protein (U) [Mass/Vol] 32.3 mg/dL 0.0-11.8 [facility] Urine protein/creatinine mas s ratioOrdered By: Dr. Vazquez on 05-27-2022 Protein/Creatinine (U) [Mass ratio] 1313 mg/g CRE 0-200 [facility] Basophil percentageon 2021 Bilirubin [Mass/Vol] 0.70 mg/dL 0.20-1.00 [facility] Work Phone: [phone] Comment on above: For patients on eltr ombopag therapy, use of Dimension [place] TBIL is not recommended. Chloride [Moles/Vol] 103 mmol/L 98-107 [facility] Work Phone: [phone] Glucose [Mass/Vol] 97 mg/dL 74-106 [facility] Work Phone: [phone] Potassium [Moles/Vol] 3.9 mmol/L 3.5-5.1 [facility] Work Phone: [phone] Protein [Mass/Vol] 7.7 g/dL 6.4-8.2 [facility] Work Phone: [phone] Sodium [Moles/Vol] 137 mmol/L 136-145 [facility] Work Phone: [phone] Laboratory - Chemistry and C hemistry - challengeon 12-04-2021 ALP [Catalytic activity/Vol] 65 U/L 45-117 [facility] Work Phone: ALT [Catalytic activity/Vol] 21 U/L 13-56 [facility] Work Phone: CO2 [Moles/Vol] 27.0 mmol/L 21.0-32.0 [facility] Work Phone: [phone] Globulin (S) [Mass/Vol] 4.0 g/dL 2.2-4.2 [facility] Work Phone: [phone] Urea nitrogen/Creatinine [Mass ratio] 15.4 mg/mg 10-20 [facility] Work Phone: No Panel Informationon 12-04 Estimated GFR (MDRD) Amer 123 mL/min >60 [facility] Work Phone: Comment on above: GFR Calc Estimated GFR (MDRD) Non-Af Amer 102 mL/min >60 [facility] Work Phone: Comment on above: Non- GFR Calc Serum or plasma albumin estela urement (mass/volume)on 12-04-2021 Albumin [Mass/Vol] 3.7 g/dL 3.2-5.0 [facility] Work Phone: Serum or plasma albumin/glob ulin mass ratioon 12-04-2021 Albumin/Globulin [Mass ratio] 0.9 {ratio} 0.9-2.4 [facility] Work Phone: Serum or plasma calcium estela urement (mass/volume)on 12-04-2021 Calcium [Mass/Vol] 9.0 mg/dL 8.5-10.1 [facility] Work Phone: Serum or plasma creatinine m easurement (mass/volume)on 12-04-2021 Creatinine [Mass/Vol] 0.72 mg/dL 0.55-1.02 [facility] Work Phone: Comment on above: The validity of the calculated GFR & GFRAA in patients over 70 years has not been determined. Clinical correlation is essential. Serum or plasma urea nitroge n measurement (mass/volume)on 12-04-2021 Urea nitrogen [Mass/Vol] 11 mg/dL 7-18 [facility] Work Phone: Thin prep Papanicolaou smear with manual screeningon 12-04-2021 Thin prep Papanicolaou smear with manual screening 13 U/L 15-37 [facility] Work Phone: Thin prep Papanicolaou smear with manual screening 7 5-15 [facility] Work Phone: Urine creatinine measurement (mass/volume)on 12-04-2021 Creatinine (U) [Mass/Vol] 184.00 mg/dL NO RANGE EST. [facility] Work Phone: Urine protein measurement (m ass/volume)on 12-04-2021 Protein (U) [Mass/Vol] 240.0 mg/dL 0.0-11.8 [facility] Work Phone: Urine protein/creatinine mas s ratioon 12-04-2021 Protein/Creatinine (U) [Mass ratio] 1304 mg/g CRE 0-200 [facility] Work Phone: Comprehensive Panelon 2019 Albumin [Mass/Vol] 4.4 g/dL Normal 3.9-4.9 [facility] Comment on above: Performed By: #### L LP14 #### [facility] [address] [place] [address] ALP [Catalytic activity/Vol] 66 U/L Normal 34-123 [facility] Comment on above: Performed By: #### L LP14 #### [place] [address] ALT-SGPT Blood 25 U/L Normal 7-38 [facility] Comment on above: Performed By: #### L LP14 #### [place] [address] Anion gap [Moles/Vol] 12 mmol/L Normal 9-18 [facility] Comment on above: Performed By: #### L LP14 #### [place] [address] AST-SGOT Blood 20 U/L Normal 13-35 [facility] Comment on above: Performed By: #### L LP14 #### [facility] [address] [place], [place] [address] Bilirubin Ql (U) 0.4 mg/dL Normal 0.2-1.3 [facility] Comment on above: Performed By: #### L LP14 #### [facility] [address] [place] [address] Calcium [Mass/Vol] 9.4 mg/dL Normal 8.5-10.2 [facility] Comment on above: Performed By: #### L LP14 #### [address] [place], [place] [address] Chloride [Moles/Vol] 102 mmol/L Normal 97-105 [facility] Comment on above: Performed By: #### L LP14 #### [facility] [address] [place], [place] [address] CO2 Blood 22 mmol/L Normal 22-30 [facility] Comment on above: Performed By: #### L LP14 #### [facility] [address] [place], [place] [address] Creatinine [Mass/Vol] 0.61 mg/dL Normal 0.58-0.96 [facility] Comment on above: Performed By: #### L LP14 #### [facility] [address] [place], [place] [address] Glucose [Mass/Vol] 94 mg/dL Normal 74-99 [facility] Comment on above: Result Comment: The [place] [employer] (ADA) provides guidance for cutoff values for fasting glucose and random glucose. The ADA defines fasting as no caloric intake for at least 8 hours.Fasting plasma glucose results between 100 to 125 mg/dL indicate increased risk for diabetes (prediabetes). Fasting plasma glucose results greater than or equal to 126 mg/dL meet the criteria for diagnosis of diabetes. In the absence of unequivocal hyperglycemia, results should be confirmed by repeat testing. In a patient with classic symptoms of hyperglycemia or hyperglycemic crisis, random plasma glucose results greater than or equal to 200 mg/dL meet the criteria for diagnosis of diabetes. Reference: Standards of Medical Care in Diabetes 2016; [place] [employer]. Diabetes Care. 2016;39(Suppl 1). Performed By: #### L LP14 #### [facility] [address] [place], [place] [address] Potassium [Moles/Vol] 4.2 mmol/L Normal 3.7-5.1 [facility] Comment on above: Performed By: #### L LP14 #### [facility] [address] [place], [place] [address] Protein [Mass/Vol] 7.7 g/dL Normal 6.3-8.0 [facility] Comment on above: Performed By: #### L LP14 #### [facility] [address] [place], [place] [address] Sodium [Moles/Vol] 136 mmol/L Normal 136-144 [facility] Comment on above: Performed By: #### L LP14 #### [place] [address] Urea nitrogen [Mass/Vol] 9 mg/dL Normal 7-21 [facility] Comment on above: Performed By: #### L LP14 #### [place] [address] Hemogram/Diffon 10-19-2019 Abs. Baso 0.02 thou/cmm Normal 0.00-0.08 [facility] Comment on above: Performed By: #### L CBCD #### [place] [address] Abs. [place] 0.59 thou/cmm Normal 0.20-1.00 [facility] Comment on above: Performed By: #### L CBCD #### [place] [address] Abs. Neut (ANC) 7.04 thou/cmm High 3.00-5.67 [facility] Comment on above: Performed By: #### L CBCD #### [place] [address] Basophils/100 WBC (Bld) 0.2 % Normal [facility] [place] Comment on above: Performed By: #### L CBCD #### [place] [address] Eosinophils (Bld) [#/Vol] 0.12 thou/cmm Normal 0.00-0. 41 [facility] Comment on above: Performed By: #### L CBCD #### [place] [address] Eosinophils/100 WBC (Bld) 1.2 % Normal [facility] Comment on above: Performed By: #### L CBCD #### [place] [address] Erythrocyte distribution width (RBC) [Ratio] 14.5 % Normal 11.5-15.9 [facility] Comment on above: Performed By: #### L CBCD #### [facility] [address] [place], [place] [address] Hematocrit (Bld) [Volume fraction] 42.1 % Normal 37.0-47.0 [facility] Comment on above: Performed By: #### L CBCD #### [facility] [address] [place], [place] [address] Hemoglobin (Bld) [Mass/Vol] 13.5 g/dL Normal 12.0-16.0 [facility] Comment on above: Performed By: #### L CBCD #### [facility] [address] [place], [place] [address] Lymphocytes (Bld) [#/Vol] 2.13 thou/cmm Normal 1.50-3. 65 [facility] Comment on above: Performed By: #### L CBCD #### [address] [address] Lymphocytes/100 WBC (Bld) 21.5 % Normal [facility] Comment on above: Performed By: #### L CBCD #### [address] [address] MCH (RBC) [Entitic mass] 26.8 pg Low 27.0-31.0 [facility] Comment on above: Performed By: #### L CBCD #### [address] [address] MCHC (RBC) [Mass/Vol] 32.1 % Normal 32.0-36.0 [facility] Comment on above: Performed By: #### L CBCD #### [address] [address] MCV (RBC) [Entitic vol] 83.7 fL Normal 81.0-99.0 [facility] [place] Comment on above: Performed By: #### L CBCD #### [address] [address] Monocytes/100 WBC (Bld) 6.0 % Normal [facility] [place] Comment on above: Performed By: #### L CBCD #### [address] [address] Platelet mean volume (Bld) [Entitic vol] 10.3 fL Normal 7.1-10.5 [facility] Comment on above: Performed By: #### L CBCD #### [facility] [address] [place] [address] Platelets (Bld) [#/Vol] 383 thou/cmm Normal 150-400 [facility] Comment on above: Performed By: #### L CBCD #### [facility] [address] [place] [address] RBC (Bld) [#/Vol] 5.03 mil/cmm Normal 4.20-5.40 [facility] Comment on above: Performed By: #### L CBCD #### [place] [address] Seg Neutrophil 71.1 % Normal [facility] Comment on above: Performed By: #### L CBCD #### [facility] [address] [place] [address] WBC (Bld) [#/Vol] 9.9 thou/cmm Normal 4.8-10.5 [facility] Comment on above: Performed By: #### L CBCD #### [place] [address] MDRD eGFRon 10-19-2019 GFR/1.73 sq M predicted among non-blacks MDRD (S/P/Bld) [Vol rate/Area] mL/min/{1.73_m2} Normal >60mL/min/ 1.73m2 [facility] Comment on above: Result Comment: If t he patient is , multiply the result by 1.210. Performed By: #### L GFR #### [place] [address] Magnesium Bloodon 10-19-2019 Magnesium [Mass/Vol] 1.7 mg/dL Normal 1.7-2.3 [facility] Comment on above: Performed By: #### L MAG #### [place] [address] Phosphorus Bloodon 0 Phosphorus Blood 3.3 mg/dL Normal 2.7-4.8 [facility] Comment on above: Performed By: #### L PHOS #### [address] [address] TSHon 10-19-2019 TSH Qn 1.380 uIU/mL Normal 0.270-4.20 0 [facility] Comment on above: Result Comment: Preg wayne: 1st trimester:(9-12 weeks):0.180-2.900 uIU/mL 2nd trimester: 0.110-3.980 uIU/mL 3rd trimester: 0.480-4.710 uIU/mL Patients taking a biotin dose of up to 5 mg/day should refrain from taking biotin for 4 hours prior to sample collection. Patients taking a biotin dose of 5 to 10 mg/day should refrain from taking biotin for 8 hours prior to sample collection. Patients taking a biotin dose > 10 mg/day should consult with their physician or the laboratory prior to having a sample taken. Clinicians should consider biotin interference as a source of error, when clinically suspicious of the laboratory result. Performed By: #### L TSH #### [address] [address] Progress Noteon 10-22-2017 [facility] Authentication Interface Message Text VisitSubjective: Devon Blanchard is a 27 y.o. female who presents for a visit.She is 5 weeks following a low cervical transverse section.I have fully reviewed the and intrapartum course. The delivery was at28 gestational weeks. Delivering Provider: Lian Polanco MD. Outcome:primary section, low transverse incision. Anesthesia: Spinal. course has been well. Baby's course has been in NICU. Baby is feedingby pumped breastmilk, bottle. Bleeding no bleeding. Bowel function is normal.Bladder function is normal. Patient is sexually active. Contraception method iscondoms. depression screenin, pt states currently experiencingmultiple stressors with babies in NICU, housing, etc. Denies SI, HI. Statesdoes not feel Counseling would be helpful at this time as she is very busy.States is aware of Counseling resources if needed.Pt complains of dysuria, states notices mainly in the morning. Denies anyfurther symptomsPatient's medications, allergies, past medical, surgical, , social, andfamily histories were reviewed and updated as appropriate.She is accompanied by her significant other.Review of SystemsReview of SystemsGenitourinary: Positive for dysuria.All other systems reviewed and are negative.Objective: BP 128/72 Ht 166.4 cm Wt 95.4 kg (210 lb 4.8 oz) LMP 02/24/2017Physical ExamNursing note and vitals reviewed.Constitutional: She is oriented to person, place, and time. She appearswell-developed and well-nourished.Pulmonary/ Chest: Effort normal.Abdominal: Soft.Musculoskeletal: Normal range of motion.Neurological: She is alert and oriented to person, place, and time.Skin: Skin is warm and dry.Psychiatric: She has a normal mood and affect. Her behavior is normal.Incision well healedAssessment: Routine exam.Dysuria- urine culture today. Encouraged hydrationPlan:1. Contraception: condoms2. Pt to follow up with DATA INTEGRATION ANALYST for contraception as recent intercourse noted3. Follow up with DATA INTEGRATION ANALYST as scheduled4. Pt to schedule Counseling if neededThe total patient time of the visit was 15 minutes, of which greater than 50% ofthe time was spent counseling and coordinating care. Normal [facility] Urine Cultureon 10-22-2017 Urine culture, bacteria Urine Culture: 1 0,000 - 50,000 CFU/ml of Normal Skin/urogenital jesus Source: URINE Collected: 10/22/17 13:49 Site: Received : 10/22/17 14:28Urine Culture FINAL 10/24/17 08:35 10,000 - 50,000 CFU/ml of Normal Skin/urogenital jesus present Normal [facility] Comment on above: Performed By: #### U SUE ####[facility] [address] [phone] Progress Noteon 09-24-2017 [facility] Authentication Interface Message Text VisitSubjective: Devon Blanchard is a 27 y.o. female who presents for a visit.She is 11 days following a low cervical transverse section.I have fully reviewed the and intrapartum course. The delivery was at28 gestational weeks. Delivering Provider: Lian Polanco MD. Outcome:primary section, low transverse incision. Anesthesia: Spinal. course has been well. Babys courses have been in NICU. Babys arefeeding by pumped breastmilk. Bleeding thin lochia. Bowel function is normal.Bladder function is normal. Patient is not sexually active. Contraception methodis none.Patient's medications, allergies, past medical, surgical, , social, andfamily histories were reviewed and updated as appropriate.She is accompanied by her significant other.Review of SystemsReview of SystemsAll other systems reviewed and are negative.Objective: BP 108/70 Ht 166.4 cm Wt 96.4 kg (212 lb 8 oz) LMP 02/24/2017Physical ExamNursing note and vitals reviewed.Constitutional: She is oriented to person, place, and time. She appearswell-developed and well-nourished.Pulmonary/ Chest: Effort normal.Abdominal: Soft.Musculoskeletal: Normal range of motion.Neurological: She is alert and oriented to person, place, and time.Skin: Skin is warm and dry.Psychiatric: She has a normal mood and affect. Her behavior is normal.Incision evaluated, steri strips removed. Incision intact without redness,ecchymosis, drainage or palpable mass.Assessment: Incision check exam.Plan:1. Contraception: none2. PP precautions reviewed3. Follow up with MFM in 4 weeks.The total patient time of the visit was 10 minutes, of which greater than 50% ofthe time was spent counseling and coordinating care. Normal [facility] Urine Cultureon 07-25-2017 Urine culture, bacteria Urine Culture: Lactobacillus species Source: URINE Collected: 07/25/17 09:29 Site: Received : 07/25/17 09:29Urine Culture FINAL 07/27/17 10:19 10,000 - 50,000 CFU/ml of Normal Skin/urogenital jesus present >100,000 CFU/ml Lactobacillus species Normal [facility] Comment on above: Performed By: #### U SUE ####[place] [address] [place], [place] [phone] Progress Noteon 07-07-2017 [facility] Authentication Interface Message Text Met with patient and True RIBERA for mono/di twins with growth discordance Medical, surgical and family hx reviewedPsycho/Social risk:Support System: FOBFinancial Stressors: deniesFamily Dynamics: lives with fobBehavioral Health Issues: anxiety and depression. No current medsWork History: unemployed Information on [facility] services given.Consent to share information with [facility] team, OB and ecological modeler signed. Pt plans to deliver at [place] with Dr. Pinto unless need for tertiarycare.Sole Stitcher Hand is undecided. Male fetuses- name are Alexia of feeding: breast. Breast feeding booklet given and discussed lactationconsult if desires prenatally.Ultrasound findings today: See report in procedures for details.Pt will follow up in 1 week for reevaluation for TTTSReinforced continued OB care with [place] OBThe total patient time of the visit was 10 minutes, of which greater than 50% ofthe time was spent counseling and coordinating care. Normal [facility] Authentication Interface Message Text Patient was seen by [facility] due to mono/di twins with early discordance. The total patient time of the visit was 15 minutes, of which greater than 50% of the time was spent counseling and coordinating care. Normal [facility] Progress Noteon 06-23-2017 [facility] Authentication Interface Message Text Referred to [facility] due to growth discordance. [facility] appointment scheduled for 07/07 at 10:45 am. Will mail information and directions. [facility] Regaliiation Interface Message Text DOS: 06/23/2017[facility]- MEDICINE CONSULTReferring/Requesti ng Provider: ALBERTO WallerCP: NO PRIMARY CARE, 1, [facility] COMPLAINT: Twin gestationHISTORY OF PRESENT ILLNESS:Devon is a 27 y.o. female at 17w0d referred for a Maternal- Medicineconsultation regarding her twin . Devon's ultrasound reports wereobtained and the earliest scan showed CRL's of 19.3 and 20.6 mm consistent [id number]. There was no documentation of chorionicity in either report. Devon deniesany obstetric complaints today.OB HISTORY:OB HistoryGravida Para Term AB Living1 0 0 0 0 0SAB TAB Ectopic Multiple Live Births0 0 0 0# Outcome Date GA Lbr Nikolai/2nd Weight Sex Delivery Anes PTL Lv1 CurrentPAST MEDICAL HISTORY:Past Medical History:Diagnosis Date Anxiety Depression Gastrointestinal complaints, nonspecific Pt had colonoscopy at 16 y/o that said pt may be starting Crohn's Disese, shehas had no issues since Migraine Seasonal allergies Vaginal Pap smear, abnormal 2008PA SURGICAL HISTORY:Past Surgical History:Procedure Laterality Date CATARACT REMOVAL Had both eyes done at seperate times, 2006 and 2011 COLONOSCOPY TYMPANOSTOMY TUBE PLACEMENT Bilateral WISDOM TOOTH EXTRACTIONPERTINENT FAMILY HISTORY:Family HistoryProblem Relation Age of Onset Depression Mother High Blood Pressure Father Depression Father High Blood Pressure Sister Cancer Maternal Grandmother Skin Heart Disease Paternal GrandmotherMEDS:Current Outpatient PrescriptionsMedication Sig folic acid (FOLVITE) 1 MG tablet Take 1 mg by mouth daily Vit w/Yk-Vlcdewjuk-HH (PNV PO) Take 1 Tab by mouth daily Kerkhoven-3 Fatty Acids (FISH OIL PO) Take 300 mg by mouth 2 times dailyALLERGY:AllergiesAll ergen Reactions Amoxicillin Other (See Comments) Tongue Rash Ibuprofen Other (See Comments) Causes blisters on tongueREVIEW OF SYSTEMS:As mentioned above and in Subjective, all other Review of Systems reviewed andnegative.PHYSICAL EXAM:VITAL SIGNS: BP 137/84 Ht 166.4 cm Wt 90.7 kg (200 lb) LMP 02/24/2017 BMI 32.78 kg/m IMAGING:Suspected monochorionic diamniotic twin gestation with cardiac activity of bothfetuses. Growthdiscordance of 24.2% was noted. Amniotic fluid volume is normal in both sacs. Nogross anatomicdefects were detected on today's scan, although resolution was limited due toearly gestationalage.LABS:No visits with results within 12 Month(s) from this visit.IMPRESSION:Devon is a 27 y.o. female at 17w0d withPatient Active Problem ListDiagnosis Monochorionic diamniotic twin Obesity affecting , antepartum Discordant growth in twin gestation, fetus 1 of multiple gestation Depression affecting pregnancyRECOMMENDATIONS: Suspected monochorionic diamniotic twin gestation: Today s ultrasound findingsand limitations were discussed in detail. We reviewed the etiology ofmonochorionic diamniotic twins and the increased risk of complications includingpreterm labor/delivery, preeclampsia, and gestational diabetes. In addition, wediscussed the complications specific to the monochorionic placenta and vascularanastomoses including twin-twin transfusion syndrome (TTTS), twinanemia-polycythemia sequence (TAPS), and selective growth restriction.Devon was informed that growth discordance in twins is typically defined as anestimated weight difference ? 20%. This occurs in approximately 15% of twingestations. [facility] In addition, Panorama testing which will include information on twinzygosity was completed today. Additional recommendations will follow based Paul's subsequent evaluation and testing.The total patient time of the visit was 40 minutes, of which greater than 50% ofthe time was spent counseling and coordinating care.Adan Gonsalez, Normal [facility] Vital Signs Date Time Vital Sign Value Performing Clinician Facility 10-13-2024 11:21-0400 Body height 165.1 cm Myles Felix APRN.CNP Work Phone: [facility] 10-13-2024 11:21-0400 Body mass index (BMI) [Ratio] 38.77 kg/m2 Myles Felix APRN.CNP Work Phone: [facility] 10-13-2024 11:21-0400 Body temperature 97.9 [degF] Myles Felix APRN.CNP Work Phone: [facility] 10-13-2024 11:21-0400 Body weight 105.69 kg Myles Felix APRN.CNP Work Phone: [facility] 10-13-2024 11:21-0400 Diastolic blood pressure 74 mm[Hg] Myles Felix APRN.CNP Work Phone: [facility] 10-13-2024 11:21-0400 Heart rate 72 /min Myles Felix APRN.CNP Work Phone: [facility] 10-13-2024 11:21-0400 SaO2% (BldA) [Mass fraction] 98 % Myles Felix APRN.CNP Work Phone: [facility] 10-13-2024 11:21-0400 Systolic blood pressure 124 mm[Hg] Myles Felix RADIOLOGIC TECHNOLOGIST.CLINICAL DIRECTOR Work Phone: [facility] 10-01-2024 11:52-0400 Body temperature 96.9 [degF] Myles Trill DNA SEQUENCING ASSOCIATE-C Work Phone: [facility] 10-01-2024 11:52-0400 Diastolic blood pressure 77 mm[Hg] Myles Trill DNA SEQUENCING ASSOCIATE-C Work Phone: [facility] 10-01-2024 11:52-0400 Heart rate 83 /min Myles Trill DNA SEQUENCING ASSOCIATE-C Work Phone: [facility] 10-01-2024 11:52-0400 Respiratory rate 16 /min Myles Trill DNA SEQUENCING ASSOCIATE-C Work Phone: [facility] 10-01-2024 11:52-0400 Systolic blood pressure 138 mm[Hg] Myles Trill DNA SEQUENCING ASSOCIATE-C Work Phone: [facility] 10-01-2024 10:39-0400 Body height 165.1 cm Myles Trill DNA SEQUENCING ASSOCIATE-C Work Phone: [facility] 10-01-2024 10:39-0400 Body mass index (BMI) [Ratio] 38.2 kg/m2 Myles Trill DNA SEQUENCING ASSOCIATE-C Work Phone: [facility] 10-01-2024 10:39-0400 Body weight 104.32 kg Myles Trill DNA SEQUENCING ASSOCIATE-C Work Phone: [facility] 10-01-2024 10:39-0400 SaO2% (BldA) [Mass fraction] 98 % Myles Trill DNA SEQUENCING ASSOCIATE-C Work Phone: [facility] 08-11-2024 11:35-0400 Body temperature 97 [degF] Myles Trill DNA SEQUENCING ASSOCIATE-C Work Phone: [facility] 08-11-2024 11:35-0400 Diastolic blood pressure 67 mm[Hg] Myles Trill DNA SEQUENCING ASSOCIATE-C Work Phone: [facility] 08-11-2024 11:35-0400 Heart rate 71 /min Myles Trill DNA SEQUENCING ASSOCIATE-C Work Phone: [facility] 08-11-2024 11:35-0400 Respiratory rate 16 /min Myles Trill DNA SEQUENCING ASSOCIATE-C Work Phone: [facility] 08-11-2024 11:35-0400 SaO2% (BldA) [Mass fraction] 98 % Myles Trill DNA SEQUENCING ASSOCIATE-C Work Phone: [facility] 08-11-2024 11:35-0400 Systolic blood pressure 137 mm[Hg] Myles Trill DNA SEQUENCING ASSOCIATE-C Work Phone: [facility] 08-11-2024 10:20-0400 Body height 165.1 cm Myles Trill DNA SEQUENCING ASSOCIATE-C Work Phone: [facility] 08-11-2024 10:20-0400 Body mass index (BMI) [Ratio] 38.2 kg/m2 Myles Trill DNA SEQUENCING ASSOCIATE-C Work Phone: [facility] 08-11-2024 10:20-0400 Body weight 104.32 kg Myles Trill DNA SEQUENCING ASSOCIATE-C Work Phone: [facility] 06-23-2024 10:35-0500 Body height 166.4 cm Rosa Leslie MD Work Phone: [facility] 06-23-2024 10:35-0500 Body mass index (BMI) [Ratio] 38.35 kg/m2 Rosa Leslie MD Work Phone: [facility] 06-23-2024 10:35-0500 Body weight 106.14 kg Rosa Leslie MD Work Phone: [facility] 06-23-2024 10:35-0500 Diastolic blood pressure 76 mm[Hg] Rosa Leslie MD Work Phone: [facility] 06-23-2024 10:35-0500 Systolic blood pressure 124 mm[Hg] Rosa Leslie MD Work Phone: [facility] 06-11-2024 11:39-0500 Diastolic blood pressure 71 mm[Hg] Myles Trill DNA SEQUENCING ASSOCIATE-C Work Phone: [facility] 06-11-2024 11:39-0500 Heart rate 73 /min Myles Trill DNA SEQUENCING ASSOCIATE-C Work Phone: [facility] 06-11-2024 11:39-0500 Systolic blood pressure 135 mm[Hg] Myles Trill DNA SEQUENCING ASSOCIATE-C Work Phone: [facility] 06-11-2024 10:30-0500 Body mass index (BMI) [Ratio] 37.9 kg/m2 Myles Trill DNA SEQUENCING ASSOCIATE-C Work Phone: [facility] 06-11-2024 10:30-0500 Body temperature 96.7 [degF] Myles Trill DNA SEQUENCING ASSOCIATE-C Work Phone: [facility] 06-11-2024 10:30-0500 Body weight 103.41 kg Myles Trill DNA SEQUENCING ASSOCIATE-C Work Phone: [facility] 06-11-2024 10:30-0500 Respiratory rate 16 /min Myles Trill DNA SEQUENCING ASSOCIATE-C Work Phone: [facility] 06-11-2024 10:30-0500 SaO2% (BldA) [Mass fraction] 97 % Myles Trill DNA SEQUENCING ASSOCIATE-C Work Phone: [facility] 04-30-2024 12:38-0500 Body height 166.4 cm Dov Anton MD Work Phone: [facility] 04-30-2024 12:38-0500 Body mass index (BMI) [Ratio] 36.87 kg/m2 Dov Anton MD Work Phone: [facility] 04-30-2024 12:38-0500 Body weight 102.06 kg Dov Anton MD Work Phone: [facility] 04-30-2024 12:38-0500 Diastolic blood pressure 85 mm[Hg] Dov Anton MD Work Phone: [facility] 04-30-2024 12:38-0500 Heart rate 81 /min Dov Anton MD Work Phone: [facility] 04-30-2024 12:38-0500 Systolic blood pressure 129 mm[Hg] Dov Anton MD Work Phone: [facility] 09-26-2023 11:36-0400 Body temperature 97.5 [degF] DNA SEQUENCING ASSOCIATE-C Myles Trill DNA SEQUENCING ASSOCIATE Work Phone: [facility] 09-26-2023 11:36-0400 Diastolic blood pressure 76 mm[Hg] DNA SEQUENCING ASSOCIATE-C Myles Trill DNA SEQUENCING ASSOCIATE Work Phone: [facility] 09-26-2023 11:36-0400 Heart rate 76 /min DNA SEQUENCING ASSOCIATE-C Myles Trill DNA SEQUENCING ASSOCIATE Work Phone: [facility] 09-26-2023 11:36-0400 Systolic blood pressure 137 mm[Hg] DNA SEQUENCING ASSOCIATE-C Myles Trill DNA SEQUENCING ASSOCIATE Work Phone: [facility] 09-26-2023 10:26-0400 Body height 165.1 cm DNA SEQUENCING ASSOCIATE-C Myles Trill DNA SEQUENCING ASSOCIATE Work Phone: [facility] 09-26-2023 10:26-0400 Respiratory rate 16 /min DNA SEQUENCING ASSOCIATE-C Myles Trill DNA SEQUENCING ASSOCIATE Work Phone: [facility] 09-26-2023 10:26-0400 SaO2% (BldA) [Mass fraction] 99 % DNA SEQUENCING ASSOCIATE-C Myles Trill DNA SEQUENCING ASSOCIATE Work Phone: [facility] 09-12-2023 11:38-0400 Body temperature 97.4 [degF] DNA SEQUENCING ASSOCIATE-C Myles Trill DNA SEQUENCING ASSOCIATE Work Phone: [facility] 09-12-2023 11:38-0400 Diastolic blood pressure 81 mm[Hg] DNA SEQUENCING ASSOCIATE-C Myles Trill DNA SEQUENCING ASSOCIATE Work Phone: [facility] 09-12-2023 11:38-0400 Heart rate 72 /min DNA SEQUENCING ASSOCIATE-C Myles Trill DNA SEQUENCING ASSOCIATE Work Phone: [facility] 09-12-2023 11:38-0400 Respiratory rate 16 /min DNA SEQUENCING ASSOCIATE-C Myles Trill DNA SEQUENCING ASSOCIATE Work Phone: [facility] 09-12-2023 11:38-0400 Systolic blood pressure 138 mm[Hg] DNA SEQUENCING ASSOCIATE-C Myles Trill DNA SEQUENCING ASSOCIATE Work Phone: [facility] 09-12-2023 10:06-0400 Body height 165.1 cm DNA SEQUENCING ASSOCIATE-C Myles Trill DNA SEQUENCING ASSOCIATE Work Phone: [facility] 09-12-2023 10:06-0400 Body mass index (BMI) [Ratio] 38.9 kg/m2 DNA SEQUENCING ASSOCIATE-C Myles Trill DNA SEQUENCING ASSOCIATE Work Phone: [facility] 09-12-2023 10:06-0400 Body weight 106.14 kg DNA SEQUENCING ASSOCIATE-C Myles Trill DNA SEQUENCING ASSOCIATE Work Phone: [facility] 09-12-2023 10:06-0400 SaO2% (BldA) [Mass fraction] 97 % DNA SEQUENCING ASSOCIATE-C Myles Trill DNA SEQUENCING ASSOCIATE Work Phone: [facility] 07-14-2023 11:16-0500 Body height 165.1 cm Myles Felix RADIOLOGIC TECHNOLOGIST.CLINICAL DIRECTOR Work Phone: [facility] 07-14-2023 11:16-0500 Body temperature 98.01 [degF] Myles Felix RADIOLOGIC TECHNOLOGIST.CLINICAL DIRECTOR Work Phone: [facility] 07-14-2023 11:16-0500 Body weight 104.33 kg Myles Felix RADIOLOGIC TECHNOLOGIST.CLINICAL DIRECTOR Work Phone: [facility] 07-14-2023 11:16-0500 Diastolic blood pressure 76 mm[Hg] Myles Felix RADIOLOGIC TECHNOLOGIST.CLINICAL DIRECTOR Work Phone: [facility] 07-14-2023 11:16-0500 Heart rate 73 /min Myles Felix RADIOLOGIC TECHNOLOGIST.CLINICAL DIRECTOR Work Phone: [facility] 07-14-2023 11:16-0500 SaO2% (BldA) [Mass fraction] 98 % Myles Felix RADIOLOGIC TECHNOLOGIST.CLINICAL DIRECTOR Work Phone: [facility] 07-14-2023 11:16-0500 Systolic blood pressure 126 mm[Hg] Myles Felix RADIOLOGIC TECHNOLOGIST.CLINICAL DIRECTOR Work Phone: [facility] 06-23-2023 11:36-0500 Body height 165.1 cm Sri Queden RADIOLOGIC TECHNOLOGIST.CLINICAL DIRECTOR Work Phone: [facility] 06-23-2023 11:36-0500 Body temperature 97.81 [degF] Sri Queden RADIOLOGIC TECHNOLOGIST.CLINICAL DIRECTOR Work Phone: [facility] 06-23-2023 11:36-0500 Body weight 104.33 kg Sri Queden RADIOLOGIC TECHNOLOGIST.CLINICAL DIRECTOR Work Phone: [facility] 06-23-2023 11:36-0500 Diastolic blood pressure 76 mm[Hg] Sri Queden RADIOLOGIC TECHNOLOGIST.CLINICAL DIRECTOR Work Phone: [facility] 06-23-2023 11:36-0500 Heart rate 70 /min Sri Queden RADIOLOGIC TECHNOLOGIST.CLINICAL DIRECTOR Work Phone: [facility] 06-23-2023 11:36-0500 Respiratory rate 18 /min Sri Queden RADIOLOGIC TECHNOLOGIST.CLINICAL DIRECTOR Work Phone: [facility] 06-23-2023 11:36-0500 SaO2% (BldA) [Mass fraction] 98 % Sri Queden RADIOLOGIC TECHNOLOGIST.CLINICAL DIRECTOR Work Phone: [facility] 06-23-2023 11:36-0500 Systolic blood pressure 122 mm[Hg] Sri Queden RADIOLOGIC TECHNOLOGIST.CLINICAL DIRECTOR Work Phone: [facility] 01-10-2023 07:19-0400 Body temperature 96.8 [degF] DNA SEQUENCING ASSOCIATE-C Myles Felix DNA SEQUENCING ASSOCIATE Work Phone: [facility] 01-10-2023 07:19-0400 Diastolic blood pressure 59 mm[Hg] DNA SEQUENCING ASSOCIATE-C Myles Felix DNA SEQUENCING ASSOCIATE Work Phone: [facility] 01-10-2023 07:19-0400 Heart rate 56 /min DNA SEQUENCING ASSOCIATE-C Myles Trill DNA SEQUENCING ASSOCIATE Work Phone: [facility] 01-10-2023 07:19-0400 Respiratory rate 18 /min DNA SEQUENCING ASSOCIATE-C Myles Trill DNA SEQUENCING ASSOCIATE Work Phone: [facility] 01-10-2023 07:19-0400 SaO2% (BldA) [Mass fraction] 98 % DNA SEQUENCING ASSOCIATE-C Myles Trill DNA SEQUENCING ASSOCIATE Work Phone: [facility] 01-10-2023 07:19-0400 Systolic blood pressure 101 mm[Hg] DNA SEQUENCING ASSOCIATE-C Myles Trill DNA SEQUENCING ASSOCIATE Work Phone: [facility] 01-10-2023 06:04-0400 Body height 165.1 cm DNA SEQUENCING ASSOCIATE-C Myles Trill DNA SEQUENCING ASSOCIATE Work Phone: [facility] 01-10-2023 06:04-0400 Body mass index (BMI) [Ratio] 37.4 kg/m2 DNA SEQUENCING ASSOCIATE-C Myles Trill DNA SEQUENCING ASSOCIATE Work Phone: [facility] 01-10-2023 06:04-0400 Body weight 102 kg DNA SEQUENCING ASSOCIATE-C Myles Trill DNA SEQUENCING ASSOCIATE Work Phone: [facility] 11-20-2022 11:45-0400 Diastolic blood pressure 99 mm[Hg] DNA SEQUENCING ASSOCIATE-C Myles Trill DNA SEQUENCING ASSOCIATE Work Phone: [facility] 11-20-2022 11:45-0400 Heart rate 98 /min DNA SEQUENCING ASSOCIATE-C Myles Trill DNA SEQUENCING ASSOCIATE Work Phone: [facility] 11-20-2022 11:45-0400 Respiratory rate 16 /min DNA SEQUENCING ASSOCIATE-C Myles Trill DNA SEQUENCING ASSOCIATE Work Phone: [facility] 11-20-2022 11:45-0400 SaO2% (BldA) [Mass fraction] 97 % DNA SEQUENCING ASSOCIATE-C Myles Trill DNA SEQUENCING ASSOCIATE Work Phone: [facility] 11-20-2022 11:45-0400 Systolic blood pressure 155 mm[Hg] DNA SEQUENCING ASSOCIATE-C Myles Trill DNA SEQUENCING ASSOCIATE Work Phone: [facility] 11-20-2022 09:42-0400 Body height 165.1 cm DNA SEQUENCING ASSOCIATE-C Myles Trill DNA SEQUENCING ASSOCIATE Work Phone: [facility] 11-20-2022 09:42-0400 Body mass index (BMI) [Ratio] 38.2 kg/m2 DNA SEQUENCING ASSOCIATE-C Myles Trill DNA SEQUENCING ASSOCIATE Work Phone: [facility] 11-20-2022 09:42-0400 Body temperature 98.4 [degF] DNA SEQUENCING ASSOCIATE-C Myles Trill DNA SEQUENCING ASSOCIATE Work Phone: [facility] 11-20-2022 09:42-0400 Body weight 104.32 kg DNA SEQUENCING ASSOCIATE-C Myles Trill DNA SEQUENCING ASSOCIATE Work Phone: [facility] 07-03-2022 11:18-0500 Body height 165.1 cm Myles Felix RADIOLOGIC TECHNOLOGIST.CLINICAL DIRECTOR Work Phone: [facility] 07-03-2022 11:18-0500 Body temperature 98.29 [degF] Myles Felix RADIOLOGIC TECHNOLOGIST.CLINICAL DIRECTOR Work Phone: [facility] 07-03-2022 11:18-0500 Body weight 103.87 kg Myles Felix RADIOLOGIC TECHNOLOGIST.CLINICAL DIRECTOR Work Phone: [facility] 07-03-2022 11:18-0500 Diastolic blood pressure 76 mm[Hg] Myles Felix RADIOLOGIC TECHNOLOGIST.CLINICAL DIRECTOR Work Phone: [facility] 07-03-2022 11:18-0500 Heart rate 76 /min Myles Felix RADIOLOGIC TECHNOLOGIST.CLINICAL DIRECTOR Work Phone: [facility] 07-03-2022 11:18-0500 SaO2% (BldA) [Mass fraction] 98 % Myles Felix RADIOLOGIC TECHNOLOGIST.CLINICAL DIRECTOR Work Phone: [facility] 07-03-2022 11:18-0500 Systolic blood pressure 118 mm[Hg] Myles Trill RADIOLOGIC TECHNOLOGIST.LEXIE Work Phone: [facility] 04-18-2022 09:02-0500 Body temperature 98.01 [degF] Sri Tamezden RADIOLOGIC TECHNOLOGIST.CLINICAL DIRECTOR Work Phone: [facility] 04-18-2022 09:02-0500 Diastolic blood pressure 68 mm[Hg] Sri Queden RADIOLOGIC TECHNOLOGIST.CLINICAL DIRECTOR Work Phone: [facility] 04-18-2022 09:02-0500 Heart rate 64 /min Sri Queden RADIOLOGIC TECHNOLOGIST.CLINICAL DIRECTOR Work Phone: [facility] 04-18-2022 09:02-0500 Respiratory rate 18 /min Sri Tamezden RADIOLOGIC TECHNOLOGIST.CLINICAL DIRECTOR Work Phone: [facility] 04-18-2022 09:02-0500 SaO2% (BldA) [Mass fraction] 98 % Sri Wharton RADIOLOGIC TECHNOLOGIST.CLINICAL DIRECTOR Work Phone: [facility] 04-18-2022 09:02-0500 Systolic blood pressure 114 mm[Hg] Sri Tamezden RADIOLOGIC TECHNOLOGIST.CLINICAL DIRECTOR Work Phone: [facility] Encounters Encounter Date Encounter Type Care Provider Facility Start: 10-19-2024 ambulatory Sri Andersen Facility :[facility] Start: 10-18-2024 ambulatory [facility] Facility: [facility] Start: 10-13-2024 End: 10-13-2024 Patient encounter procedure Myles Felix APRN.CLINICAL DIRECTOR Work Phone: [facility] Comment on above: Well adult exam (Isa amy Dx); Acne vulgaris; Hot flashes; Palmar erythema; Night sweats; Headaches; Chest tightness; Fatigue, unspecified type; Screening for lipid disorders; Dizziness; Major depressive disorder, recurrent episode, mild; Crohn's disease without complication, unspecified gastrointestinal tract location (HCC) Start: 10-13-2024 End: 10-13-2024 Patient encounter status Myles Felix APRN.CNP Work Phone: [facility] Start: 10-13-2024 End: 10-13-2024 ambulatory MYLES BUCKBONNIE Facility:[facility] Start: 10-13-2024 Encounter for genera l adult medical examination without abnormal findings MYLES FELIX [facility] Start: 10-01-2024 End: 10-01-2024 Patient encounter procedure Sri Andersen DO -Medical Out Work Phone: Start: 10-01-2024 End: 10-01-2024 ambulatory Myles Imelda DNA SEQUENCING ASSOCIATE-C Work Phone: [facility] Work Phone: Start: 08-11-2024 End: 08-11-2024 Patient encounter procedure Sri Kiersten DO -Medical Out Work Phone: Start: 08-11-2024 End: 08-11-2024 ambulatory Myles Imelda DNA SEQUENCING ASSOCIATE-C Work Phone: [facility] Work Phone: Start: 07-22-2024 End: 08-24-2024 Telephone encounter Rosa Leslie MD Work Phone: [facility] Comment on above: Appointment Start: 06-23-2024 End: 06-23-2024 Initial preventive medicine new pt age 18-39yrs Rosa Leslie MD Work Phone: [facility] [place] Comment on above: Well woman exam with routine gynecological exam (Primary Dx); Screening for cervical cancer; Encounter for assessment of STD exposure; Breast pain, left Start: 06-23-2024 End: 06-23-2024 Patient encounter procedure Rosa Leslie MD Work Phone: [facility] Work Phone: Start: 06-23-2024 End: 06-23-2024 ambulatory ROSA LESLIE [facility] Start: 06-23-2024 End: 06-23-2024 Encounter for gynecological examination (general) (routine) without abnormal findings ROSA LESLIE [facility] Start: 06-21-2024 End: 06-21-2024 Patient encounter procedure Sri Andersen DO -[facility] Work Phone: Start: 06-21-2024 End: 06-21-2024 ambulatory Myles Trill DNA SEQUENCING ASSOCIATE Facility:[facility] Start: 06-21-2024 End: 06-21-2024 ambulatory Myles Trill DNA SEQUENCING ASSOCIATE Facility:[facility] Start: 06-18-2024 End: 06-18-2024 Patient encounter procedure Myles Trill DNA SEQUENCING ASSOCIATE-C Work Phone: -Laboratory Work Phone: Start: 06-18-2024 End: 06-18-2024 ambulatory Myles Trill DNA SEQUENCING ASSOCIATE Facility:[facility] Start: 06-11-2024 End: 06-11-2024 Patient encounter procedure Sriroyer Andersen DO -Medical Out Work Phone: Start: 06-11-2024 End: 06-11-2024 ambulatory Myles Trill DNA SEQUENCING ASSOCIATE Facility:[facility] Start: 06-01-2024 End: 06-01-2024 Telephone encounter Dov Anton MD Work Phone: [facility] Comment on above: Lab Orders Start: 04-30-2024 End: 04-30-2024 Office outpatient new 45 minutes Dov Anton MD Work Phone: [facility] Comment on above: CARMITA positive (Primar y Dx) Start: 04-30-2024 End: 04-30-2024 ambulatory SRI ANDERSEN [facility] Start: 2024 End: 2024 ambulatory Myles Trill DNA SEQUENCING ASSOCIATE Facility:[facility] Start: 03-10-2024 ambulatory Myles Trill DNA SEQUENCING ASSOCIATE Facili ty:[facility] Start: 03-02-2024 End: 03-02-2024 ambulatory Myles Trill DNA SEQUENCING ASSOCIATE Facility:[facility] Start: 02-13-2024 End: 02-13-2024 ambulatory Myles Trill DNA SEQUENCING ASSOCIATE Facility:[facility] Start: 01-02-2024 End: 01-02-2024 ambulatory Myles Trill DNA SEQUENCING ASSOCIATE Facility:[facility] Start: 01-02-2024 End: 01-02-2024 ambulatory Myles Trill DNA SEQUENCING ASSOCIATE Facility:[facility] Start: 12-19-2023 End: 12-19-2023 ambulatory Myles Trill DNA SEQUENCING ASSOCIATE Facility:[facility] Start: 11-11-2023 Telephone encounter Myles Felix RADIOLOGIC TECHNOLOGIST.CLINICAL DIRECTOR Work Phone: [facility] Comment on above: Patient Update Start: 10-24-2023 End: 10-24-2023 ambulatory Mylesmiguel Felix DNA SEQUENCING ASSOCIATE Facility:[facility] Start: 10-07-2023 Telephone encounter China block MD Work Phone: Neurology Comment on above: Appointment Start: 09-26-2023 End: 09-26-2023 ambulatory DNA SEQUENCING ASSOCIATE-C Myles Felix DNA SEQUENCING ASSOCIATE Work Phone: [facility] Work Phone: Start: 09-26-2023 End: 09-26-2023 Patient encounter procedure DNA SEQUENCING ASSOCIATE-C Myles Felix DNA SEQUENCING ASSOCIATE Work Phone: [facility]-Medical Out Work Phone: Start: 09-12-2023 End: 09-12-2023 ambulatory DNA SEQUENCING ASSOCIATE-C Myles Trill DNA SEQUENCING ASSOCIATE Work Phone: [facility] Work Phone: Start: 09-12-2023 End: 09-12-2023 Patient encounter procedure DNA SEQUENCING ASSOCIATE-C Myles Cieloll DNA SEQUENCING ASSOCIATE Work Phone: [facility]-Medical Out Work Phone: Start: 08-28-2023 Telephone encounter Gavin weiss DO Work Phone: [facility] Comment on above: Appointment Request Start: 08-20-2023 Telephone encounter Gavin weiss DO Work Phone: [facility] Comment on above: resx appt Start: 07-30-2023 End: 07-30-2023 Patient encounter procedure DNA SEQUENCING ASSOCIATE-C Myles Trill DNA SEQUENCING ASSOCIATE Work Phone: [facility] Work Phone: Start: 07-14-2023 End: 07-14-2023 Patient encounter procedure Myles Felix RADIOLOGIC TECHNOLOGIST.CLINICAL DIRECTOR Work Phone: [facility] Comment on above: Well adult exam ([facility] Dx); Acne vulgaris; Eye twitch; Left-sided headache; Altered gustatory perception Start: 07-14-2023 End: 07-14-2023 Patient encounter status Myles Felix RADIOLOGIC TECHNOLOGIST.CLINICAL DIRECTOR Work Phone: [facility] Work Phone: Start: 07-10-2023 End: 07-10-2023 ambulatory [facility] Work Phone: Start: 07-10-2023 End: 07-10-2023 Patient encounter procedure [facility]-Laboratory Work Phone: Start: 06-25-2023 Telephone encounter Myles Felix RADIOLOGIC TECHNOLOGIST.CLINICAL DIRECTOR Work Phone: [facility] Start: 06-23-2023 End: 06-23-2023 Patient encounter procedure Sri Wharton RADIOLOGIC TECHNOLOGIST.CLINICAL DIRECTOR Work Phone: [facility] Comment on above: Swelling of both koenig ds (Primary Dx); Bilateral swelling of feet; Screening for diabetes mellitus; Screening for lipid disorders; History of anemia Start: 06-10-2023 Telephone encounter Gavin weiss DO Work Phone: [facility] Comment on above: Appointment (06/10/23 @ 11:00a) Start: 03-27-2023 End: 03-27-2023 ambulatory DNA SEQUENCING ASSOCIATE-C Myles Felix DNA SEQUENCING ASSOCIATE Work Phone: [facility] Work Phone: Start: 03-27-2023 End: 03-27-2023 Patient encounter procedure DNA SEQUENCING ASSOCIATE-C Myles Felix DNA SEQUENCING ASSOCIATE Work Phone: [facility]-Laboratory Work Phone: Start: 02-07-2023 End: 02-07-2023 Patient encounter procedure DNA SEQUENCING ASSOCIATE-C Myles Felix DNA SEQUENCING ASSOCIATE Work Phone: [facility] Work Phone: Start: 01-10-2023 Non-patient / Non-visit DNA SEQUENCING ASSOCIATE-C Jose A Felix DNA SEQUENCING ASSOCIATE Work Phone: [facility] Start: 01-10-2023 End: 01-10-2023 Admission to same day surgery center DNA SEQUENCING ASSOCIATE-C Myles Felix DNA SEQUENCING ASSOCIATE Work Phone: [facility]-Endoscopy Work Phone: Start: 01-10-2023 End: 01-10-2023 ambulatory DNA SEQUENCING ASSOCIATE-C Myles Felix DNA SEQUENCING ASSOCIATE Work Phone: [facility] Work Phone: Start: 12-11-2022 Telephone encounter Cori rutherford MD Work Phone: [facility] Comment on above: New Patient Start: 11-20-2022 End: 11-20-2022 ambulatory DNA SEQUENCING ASSOCIATE-C Myles Felix DNA SEQUENCING ASSOCIATE Work Phone: [facility] Work Phone: Start: 11-20-2022 End: 11-20-2022 Patient encounter procedure DNA SEQUENCING ASSOCIATE-C Myles Felix DNA SEQUENCING ASSOCIATE Work Phone: [facility] Work Phone: Start: 11-09-2022 End: 11-09-2022 Patient encounter procedure DNA SEQUENCING ASSOCIATE-C Myles Buckll DNA SEQUENCING ASSOCIATE Work Phone: [facility]-Laboratory Work Phone: Start: 10-25-2022 End: 10-25-2022 Patient encounter procedure DNA SEQUENCING ASSOCIATE-C Myles Buckll DNA SEQUENCING ASSOCIATE Work Phone: [facility]-Laboratory, Specimen Work Phone: Start: 10-04-2022 End: 10-04-2022 ambulatory DNA SEQUENCING ASSOCIATE-C Myles Trill DNA SEQUENCING ASSOCIATE Work Phone: [facility] Work Phone: Start: 10-04-2022 End: 10-04-2022 Patient encounter procedure DNA SEQUENCING ASSOCIATE-Baldomero Felix DNA SEQUENCING ASSOCIATE Work Phone: [facility]-Laboratory Work Phone: Start: 10-04-2022 End: 10-04-2022 Patient encounter procedure DNA SEQUENCING ASSOCIATE-C Myles Felix DNA SEQUENCING ASSOCIATE Work Phone: [facility] Work Phone: Start: 07-12-2022 Telephone encounter Myles Felix APRN.CLINICAL DIRECTOR Work Phone: [facility] Comment on above: Results Start: 07-09-2022 End: 07-09-2022 Subsequent hospital visit by physician [facility] Comment on above: Chronic diarrhea [K5 2.9] Start: 07-03-2022 End: 07-03-2022 Patient encounter procedure Myles Felix APRN.CLINICAL DIRECTOR Work Phone: [facility] Comment on above: Well adult exam (Isa amy Dx); Acne vulgaris; Chronic diarrhea; Bloating; Nausea; Screening for diabetes mellitus; Weight gain; Screening for lipid disorders Start: 07-03-2022 End: 07-03-2022 Patient encounter status Myles Felix APRN.CLINICAL DIRECTOR Work Phone: [facility] Start: 05-27-2022 End: 05-27-2022 ambulatory [facility] Work Phone: Start: 05-27-2022 End: 05-27-2022 Patient encounter procedure [facility] Start: 04-18-2022 End: 04-18-2022 Patient encounter procedure Sri Wharton RADIOLOGIC TECHNOLOGIST.CLINICAL DIRECTOR Work Phone: [facility] Comment on above: Pain in throat (Prim leonela Dx); Tonsillar hypertrophy Start: 03-07-2022 Telephone encounter Myles Felix APRN.CLINICAL DIRECTOR Work Phone: [facility] Comment on above: Missed Appointment ( 1st no show in 365 days (1st letter sent)) Start: 12-04-2021 End: 12-04-2021 Patient encounter procedure [facility] Start: 10-22-2017 End: 10-23-2017 Patient encounter LIAN Paul [facility] Start: 09-24-2017 Patient encounter LIAN GORDILLO [facility] Start: 08-07-2017 Patient encounter ADAN Klein [facility] Start: 08-04-2017 Patient encounter LIAN POLANCO [facility] Start: 07-25-2017 End: 07-26-2017 Patient encounter LIAN Lin SHER[facility] Start: 07-22-2017 End: 07-22-2017 Patient encounter ADAN J [facility] Start: 07-14-2017 End: 07-14-2017 Patient encounter KANDY BENITEZ [facility] Start: 07-07-2017 End: 07-07-2017 Patient encounter JHON BALL [facility] Start: 06-23-2017 End: 06-23-2017 Patient encounter ADAN J [facility] Procedures Date Procedure Procedure Detail Performing Clinician Start: 06-23-2024 Microscopic observat ion [Identifier] in Cervix by Cyto stain Rosa Leslie MD Work Phone: Start: 06-18-2024 CARMITA measurement Myles Felix DNA SEQUENCING ASSOCIATE-C Work Phone: Comment on above: Performed at: [address] [id number] Director: Greg Keita PhD, Phone: [phone] at: [facility] [id number] Director: Nia Ryan MD, Phone: [phone] Start: 06-18-2024 Antibody to lupus La protein measurement Myles Felix DNA SEQUENCING ASSOCIATE-C Work Phone: Comment on above: Previous reported re sult: TNP AIEdited by: IAN on 06/23/24:1307 AMENDED REPORT 06/23/24 1307 Anti-SS-B previously reported as: Test not performed Start: 06-18-2024 Antibody to SS-A measurement Myles Trill DNA SEQUENCING ASSOCIATE-C Work Phone: Comment on above: Previous reported re sult: TNP AIEdited by: IAN on 06/23/24:1307 AMENDED REPORT 06/23/24 1307 Anti-SS-A previously reported as: Test not performed Start: 06-18-2024 ENDOSCOPY SUPPORT SPECIALIST antibody measurement Myles Trill DNA SEQUENCING ASSOCIATE-C Work Phone: Comment on above: Previous reported re sult: TNP AIEdited by: IAN on 06/23/24:1307 AMENDED REPORT 06/23/24 1306 ENDOSCOPY SUPPORT SPECIALIST Ab previously reported as: Test not performed Start: 01-10-2023 Colonoscopy DNA SEQUENCING ASSOCIATE-C Krist in Trill DNA SEQUENCING ASSOCIATE Work Phone: Start: 11-20-2022 MRI of small intestine DNA SEQUENCING ASSOCIATE-C Myles Trill DNA SEQUENCING ASSOCIATE Work Phone: Start: 10-25-2022 Giardia Antigen (FARHAD) N P-C Myles Trill DNA SEQUENCING ASSOCIATE Work Phone: Start: 10-25-2022 Ova OR parasites identification DNA SEQUENCING ASSOCIATE-C Myles Trill DNA SEQUENCING ASSOCIATE Work Phone: Start: 07-09-2022 Us abdominal real ti me w/image limited Myles Alexandre Trill RADIOLOGIC TECHNOLOGIST.CLINICAL DIRECTOR Work Phone: Plan of Treatment Date Care Activity Detail Author Start: 2066 RSV Immunization for Adults (1 - 1-dose 75+ series) RSV Immunization for Adults (1 - 1-dose 75+ series) [facility] Start: 2051 Hepatitis B Vaccine (1 of 3 - Risk 3-dose series) Hepatitis B Vaccine (1 of 3 - Risk 3-dose series) [facility] Start: 2051 RSV Immunization aged 60 or older (1 - 1-dose 60+ series) RSV Immunization aged 60 or older (1 - 1-dose 60+ series) [facility] Start: 06-23-2029 Screening for malignant neoplasm of cervix [facility] Start: 09-09-2027 DTaP/Tdap/Td Vaccines (2 - Td or Tdap) DTaP/Tdap/Td Vaccines (2 - Td or Tdap) [facility] Start: 09-09-2027 Urine microalbumin profile [facility] Start: 06-23-2027 Screening for malignant neoplasm of cervix Pap Smear [facility] Start: 06-23-2025 Screening for malignant neoplasm of cervix Cervical Cancer Screening [facility] Start: 01-17-2025 Influenza vaccination Influenza Vaccine (Season Ended) [facility] Start: 10-26-2024 End: 10-26-2024 Patient encounter procedure 10/26/2024 11:30 AM EDT Office Visit [facility] [address] [place] [phone] Dov Anton MD [address] [place] [address] [facility] Start: 10-13-2024 End: 05-11-2025 Prolactin [Mass/volume] in Serum or Plasma [facility] Work Phone: Comment on above: Expected: 10/13/2024, Expires: Start: 08-11-2024 Iv infusion therapy/prophylaxis /dx 1st to 1 hr THER/PROPH/DIAG IV INF [facility] Start: 06-23-2024 End: 06-23-2025 Hepatitis B virus surface Ag [Presence] in Serum or Plasma by Immunoassay Hepatitis B surface antigen Lab Routine Encounter for assessment of STD exposure Expected: 06/23/2024 (Approximate), Expires: 06/23/2025 [facility] Comment on above: Expected: 06/23/2024 (Approximate), Expi res: 06/23/2025 Start: 06-23-2024 End: 06-23-2025 Hepatitis C virus Ab [Presence] in Serum or Plasma by Immunoassay Hepatitis C antibody Lab Routine Encounter for assessment of STD exposure Expected: 06/23/2024 (Approximate), Expires: 06/23/2025 [facility] Comment on above: Expected: 06/23/2024 (Approximate), Expi res: 06/23/2025 Start: 06-23-2024 End: 06-23-2025 HIV 1+2 Ab+HIV1 p24 Ag [Presence] in Serum or Plasma by Immunoassay HIV-1 and HIV-2 Antigen-Antibody Screen Lab Routine Encounter for assessment of STD exposure Expected: 06/23/2024 (Approximate), Expires: 06/23/2025 [facility] Comment on above: Expected: 06/23/2024 (Approximate), Expi res: 06/23/2025 Start: 06-23-2024 End: 06-23-2025 Reagin Ab [Presence] in Serum by RPR RPR Lab Routine Encounter for assessment of STD exposure Expected: 06/23/2024 (Approximate), Expires: 06/23/2025 [facility] Comment on above: Expected: 06/23/2024 (Approximate), Expi res: 06/23/2025 Start: 06-23-2024 End: 08-21-2025 US Breast - bilateral limited Bilateral breast US limited Imaging Routine Breast pain, left Expected: 06/23/2024, Expires: 08/21/2025 [facility] Comment on above: Expected: 06/23/2024, Expires: Start: 06-23-2024 End: 06-23-2024 Patient encounter procedure 06/23/2024 11:00 AM EST Office Visit [facility] Obstetrics and Gynecology [facility] [address] [place] [address] Rosa Leslie MD [address] [address] [facility] Obstetrics and Gynecology [facility] Start: 04-30-2024 End: 04-30-2025 Anti-DNA antibody, double-stranded Anti-DNA antibody, double-stranded Lab Routine CARMITA positive Expected: 04/30/2024 (Approximate), Expires: 04/30/2025 [facility] Comment on above: Expected: 04/30/2024 (Approximate), Expi res: 04/30/2025 Start: 04-30-2024 End: 04-30-2025 C reactive protein [Mass/volume] in Serum or Plasma C-reactive protein Lab Routine CARMITA positive Expected: 04/30/2024 (Approximate), Expires: 04/30/2025 [facility] Comment on above: Expected: 04/30/2024 (Approximate), Expi res: 04/30/2025 Start: 04-30-2024 End: 04-30-2025 CBC panel - Blood by Automated count CBC Lab Routine CARMITA positive Expected: 04/30/2024 (Approximate), Expires: 04/30/2025 [facility] Work Phone: Comment on above: Expected: 04/30/2024 (Approximate), Expi res: 04/30/2025 Start: 04-30-2024 End: 04-30-2025 Histone Ab, IgG Histone Ab, IgG Lab Routine CARMITA positive Expected: 04/30/2024 (Approximate), Expires: 04/30/2025 [facility] Comment on above: Expected: 04/30/2024 (Approximate), Expi res: 04/30/2025 Start: 04-30-2024 End: 04-30-2025 Nuclear Ab [Titer] in Serum by Immunofluorescence CARMITA Lab Routine CARMITA positive Expected: 04/30/2024 (Approximate), Expires: 04/30/2025 [facility] Comment on above: Expected: 04/30/2024 (Approximate), Expi res: 04/30/2025 Start: 04-30-2024 End: 04-30-2025 SJOGREN'S ANTIBODIES (SS-A,SS-B) ([facility]) Sjogren's Antibodies (SS-A,SS-B) ([facility]) Lab Routine CARMITA positive Expected: 04/30/2024 (Approximate), Expires: 04/30/2025 [facility] Comment on above: Expected: 04/30/2024 (Approximate), Expi res: 04/30/2025 Start: 04-30-2024 End: 04-30-2025 SM AND SM/ENDOSCOPY SUPPORT SPECIALIST ANTIBODIES ([facility]) SM and SM/ENDOSCOPY SUPPORT SPECIALIST Antibodies ([facility]) Lab Routine CARMITA positive Expected: 04/30/2024 (Approximate), Expires: 04/30/2025 [facility] Comment on above: Expected: 04/30/2024 (Approximate), Expi res: 04/30/2025 Start: 04-30-2024 End: 04-30-2024 Patient encounter procedure 04/30/2024 1:00 PM EST Office Visit [facility] [address] [place] [phone] Gavin Horne DO [address] [place] [id number] [facility] Start: 01-18-2024 Influenza vaccination [facility] Start: 09-12-2023 Iv infusion therapy/prophylaxis /dx 1st to 1 [facility] Start: 08-20-2023 End: 08-20-2023 Patient encounter procedure 08/20/2023 12:00 PM EDT Office Visit [facility] [address] [place] [phone] Gavin Horne DO [address] [place] [phone] [facility] Start: 07-14-2023 End: 02-09-2024 C reactive protein [Mass/volume] in Serum or Plasma C-REACTIVE PROTEIN (CRP) Lab Routine Left-sided headache Expected: 07/14/2023, Expires: 02/09/2024 [facility] Work Phone: Comment on above: Expected: 07/14/2023, Expires: Start: 07-14-2023 End: 02-09-2024 Cobalamin (Vitamin B12) [Mass/volume] in Serum or Plasma VITAMIN B12 BLOOD Lab Routine Left-sided headache Expected: 07/14/2023, Expires: 02/09/2024 [facility] Work Phone: Comment on above: Expected: 07/14/2023, Expires: Start: 07-14-2023 End: 02-09-2024 Thyrotropin [Units/volume] in Serum or Plasma TSH BLD Lab Routine Left-sided headache Expected: 07/14/2023, Expires: 02/09/2024 [facility] Work Phone: Comment on above: Expected: 07/14/2023, Expires: 4 Start: 07-14-2023 End: 02-09-2024 Thyroxine (T4) free [Mass/volume] in Serum or Plasma T4 FREE/FREE THYROX Lab Routine Left-sided headache Expected: 07/14/2023, Expires: 02/09/2024 [facility] Work Phone: Comment on above: Expected: 07/14/2023, Expires: 4 Start: 06-10-2023 End: 06-10-2023 Patient encounter procedure 06/10/2023 11:00 AM EST Office Visit [facility] [address] [place] [phone] Terrence Ruth MD [address] [place] [phone] [facility] Start: 01-17-2023 Influenza vaccination Influenza Vaccine (#1) [facility] Start: 01-10-2023 Colonoscopy w/biopsy single/multiple COLONOSCOPY AND BIOPSY [facility] Start: 01-10-2023 Colsc flx w/rmvl of tumor polyp lesion snare tq COLONOSCOPY W/LESION REMOVAL [facility] Start: 01-10-2023 Egd transoral biopsy single/multiple EGD BIOPSY SINGLE/MULTIPLE [facility] Start: 01-10-2023 Patient discharge [facility] Start: 11-20-2022 Following clinical pathway protocol [facility] Start: 07-25-2022 COVID-19 VACCINE (#1) COVID-19 VACCINE (#1) [facility] Comment on above: Postponed from 1991 (Declined at t his time) Start: 07-03-2022 End: 09-02-2022 CBC W Auto Differential panel - Blood CBC + DIFF Lab Routine Chronic diarrhea Nausea Expected: 07/03/2022, Expires: 09/02/2022 [facility] Work Phone: Comment on above: Expected: 07/03/2022, Expires: 3 Start: 07-03-2022 End: 09-02-2022 Comprehensive metabolic 2000 panel - Serum or Plasma COMP METABOLIC PANEL Lab Routine Chronic diarrhea Nausea Expected: 07/03/2022, Expires: 09/02/2022 [facility] Work Phone: Comment on above: Expected: 07/03/2022, Expires: Start: 07-03-2022 End: 09-02-2022 Hemoglobin A1c in Blood HGB A1C Lab Routine Screening for diabetes mellitus Expected: 07/03/2022, Expires: 09/02/2022 [facility] Work Phone: Comment on above: Expected: 07/03/2022, Expires: Start: 07-03-2022 End: 09-02-2022 Lipase [Enzymatic activity/volume] in Serum or Plasma LIPASE BLD Lab Routine Chronic diarrhea Nausea Expected: 07/03/2022, Expires: 09/02/2022 [facility] Work Phone: Comment on above: Expected: 07/03/2022, Expires: 3 Start: 07-03-2022 End: 09-02-2022 Lipid 1996 panel - Serum or Plasma LIPID PANEL BASIC Lab Routine Screening for lipid disorders Expected: 07/03/2022, Expires: 09/02/2022 [facility] Work Phone: Comment on above: Expected: 07/03/2022, Expires: Start: 07-03-2022 End: 09-02-2022 Thyrotropin [Units/volume] in Serum or Plasma TSH BLD Lab Routine Weight gain Expected: 07/03/2022, Expires: 09/02/2022 [facility] Work Phone: Comment on above: Expected: 07/03/2022, Expires: Start: 07-03-2022 End: 09-02-2022 Thyroxine (T4) free [Mass/volume] in Serum or Plasma T4 FREE/FREE THYROX Lab Routine Weight gain Expected: 07/03/2022, Expires: 09/02/2022 [facility] Work Phone: Comment on above: Expected: 07/03/2022, Expires: 3 Start: 01-17-2022 Influenza vaccination INFLUENZA (#1) [facility] Start: 12-25-2021 HPV TESTING HPV TESTING [facility] Start: 12-25-2021 PAP TESTING PAP TESTING [facility] Start: 12-25-2021 Screening for malignant neoplasm of cervix [facility] Start: 2021 Screening for malignant neoplasm of cervix [facility] Start: 12-25-2017 Screening for malignant neoplasm of cervix Cervical Cancer Screening [facility] Start: 2012 Screening for malignant neoplasm of cervix Pap Smear [facility] Start: 2010 Hepatitis A Vaccine (1 of 2 - Risk 2-dose series) Hepatitis A Vaccine (1 of 2 - Risk 2-dose series) [facility] Start: 2010 Hepatitis B Vaccine (1 of 3 - 19+ 3-dose series) Hepatitis B Vaccine (1 of 3 - 19+ 3-dose series) [facility] Start: 2010 Hepatitis B Vaccines (1 of 3 - 19+ 3-dose series) Hepatitis B Vaccines (1 of 3 - 19+ 3-dose series) [facility] Start: 2010 Pneumococcal vaccination Pneumococcal Vaccine (1 of 2 - PCV) [facility] Start: 2010 Pneumococcal Vaccine: Pediatrics (0 to 5 Years) and At-Risk Patients (6 to 49 Years) (1 of 2 - PCV) Pneumococcal Vaccine: Pediatrics (0 to 5 Years) and At-Risk Patients (6 to 49 Years) (1 of 2 - PCV) [facility] Start: 2010 SHINGRIX VACCINE (1 of 2) SHINGRIX VACCINE (1 of 2) [facility] Start: 2010 Zoster Vaccines (1 of 2) Zoster Vaccines (1 of 2) [facility] Start: 2009 Hepatitis C screening Hepatitis C Screening [facility] Start: 2009 MMR Vaccine (1 of 2 - Risk 2-dose series) MMR Vaccine (1 of 2 - Risk 2-dose series) [facility] Start: 2004 Varicella vaccination Varicella Vaccines (1 of 2 - 13+ 2-dose series) [facility] Start: 2003 Depression Monitoring Depression Monitoring [facility] Start: 2003 Depression Screening Depression Screening [facility]: 2001 Meningococcal B Vaccine: Consider Based On Risk (1 of 4 - Increased Risk) Meningococcal B Vaccine: Consider Based On Risk (1 of 4 - Increased Risk) [facility] Start: 1997 PNEUMOCOCCAL (1 - PCV) PNEUMOCOCCAL (1 - PCV) [facility] Start: 1997 Pneumococcal vaccination Pneumococcal Vaccine (1 of 2 - PCV) [facility] Start: 1997 Pneumococcal Vaccine: Pediatrics (0 to 5 Years) and At-Risk Patients (6 to 64 Years) (1 - PCV) Pneumococcal Vaccine: Pediatrics (0 to 5 Years) and At-Risk Patients (6 to 64 Years) (1 - PCV) [facility] Start: 1997 Pneumococcal Vaccine: Pediatrics (0 to 5 Years) and At-Risk Patients (6 to 64 Years) (1 of 2 - PCV) Pneumococcal Vaccine: Pediatrics (0 to 5 Years) and At-Risk Patients (6 to 64 Years) (1 of 2 - PCV) [facility] Start: 1996 COVID-19 Vaccine (#1) COVID-19 Vaccine (#1) [facility] Start: 1992 MMR Vaccines (1 of 1 - Standard series) MMR Vaccines (1 of 1 - Standard series) [facility] Start: 1992 Varicella vaccination Varicella Vaccines (1 of 2 - 2-dose childhood series) [facility] Start: 1991 COVID-19 Vaccine (#1) COVID-19 Vaccine (#1) [facility] Start: 1991 HEPATITIS B (1 of 3 - 3-dose series) HEPATITIS B (1 of 3 - 3-dose series) [facility] Start: 1991 Hepatitis B Vaccine (1 of 3 - 3-dose series) Hepatitis B Vaccine (1 of 3 - 3-dose series) [facility] Start: 1991 Hepatitis B Vaccines (1 of 3 - 3-dose series) Hepatitis B Vaccines (1 of 3 - 3-dose series) [facility] Start: 1991 HIV screening HIV Screening [facility] Start: 1991 Lipid panel Lipid Panel [facility] CHLAMYDIA/N.GONORRHO EAE AND T. VAGINALIS RNA, QL TMA ([facility]) Chlamydia/N.Gonorrhoea e and T. Vaginalis RNA, QL TMA ([facility]) Microbiology Routine Encounter for assessment of STD exposure Ordered: 06/23/2024 [facility] Comment on above: Ordered: 06/23/2024 Cytology Cervical or vaginal smear or scraping study Pap Smear Pathology and Cytology Routine Well woman exam with routine gynecological exam Screening for cervical cancer Ordered: 06/23/2024 [facility] Work Phone: Comment on above: Ordered: 06/23/2024 End: 10-13-2025 Echocardiography ECHO Cardiology Routine Chest tightness Dizziness 1 Occurrences starting 10/13/2024 until 10/13/2025 [facility] Comment on above: 1 Occurrences starting 10/13/2024 until 10/13/2025 Hepatitis A virus Ig M Ab [Presence] in Serum [facility] Hepatitis B core ant ibody measurement, IgM type [facility] Hepatitis B surface antigen measurement [facility] Hepatitis C antibody measurement [facility] In-vitro immunologic test [facility] Mycobacterium tuberc ulosis tuberculin stimulated gamma interferon [Presence] in Blood [facility] Patient referral [facility] Work Phone: Procedure [facility] TRICOMONAS VAGINALIS RNA, QUALITATIVE TMA, FEMALE Trichomonas vaginalis RNA, Qualitative, TMA, Female Lab Routine Encounter for assessment of STD exposure Ordered: 06/23/2024 [facility] Comment on above: Ordered: 06/23/2024 Urine test [facility] End: 08-02-2023 Us abdominal real time w/image limited US ABD RT UPPER QUADRANT Radiology Routine Chronic diarrhea Bloating Nausea 1 Occurrences starting 07/03/2022 until 08/02/2023 [facility] Work Phone: Comment on above: 1 Occurrences starting 07/03/2022 until 08/02/2023 [facility] Immunizations Immunization Date Immunization Notes Care Provider Magdi varela 09-08-2017 tetanus toxoid, redu og diphtheria toxoid, and acellular pertussis vaccine, adsorbed Myles Felix APRN.CNP Work Phone: [facility] 08-01-2016 influenza virus vacc ine, unspecified formulation Myles Felix APRN.CNP Work Phone: [facility] Payers Date Payer Category Payer Medicaid [facility] ODM [id number] 2023 Self-pay [id number] 2020 Unknown [id number] 2017 Medicaid [id number] Unknown [id number] Unknown [id number] Unknown [id number] Unknown [id number] Unknown [id number] Unknown [id number] Unknown [id number] Unknown [id number] Unknown [id number] Unknown [id number] Unknown [id number] Unknown [id number] Unknown [id number] [id number] Unknown [id number] Unknown [id number] Unknown [id number] Unknown [id number] Social History Date Type Detail Facility Start: 05-15-2021 End: 07-30-2023 Tobacco smoking status [facility] Unknown if ever smoked [facility] Start: 1990 Sex Assigned At Female [facility] Start: 08-01-2016 End: 07-30-2023 Tobacco smoking status NDIS Never smoked tobacco [facility] Start: 08-01-2016 Tobacco use and exposure Smokeless tobacco non-user [facility] Start: 07-25-2021 End: 10-13-2024 Alcohol intake Current non-drinker of alcohol (finding) [facility] Start: 1990 Sex Assigned At Not on file [facility] Start: 02-08-2022 End: 02-18-2022 Exposure to SARS-CoV-2 (event) Unable to assess [facility] Start: 04-08-2022 End: 04-18-2022 Exposure to SARS-CoV-2 (event) Not sure [facility] Start: 05-30-2023 End: 06-23-2023 Gender identity Not on file [facility] Start: 06-03-2023 Gender identity Identifies as female gender (finding) [facility] Start: 06-03-2023 Sexual orientation Heterosexual (fin ding) [facility] Start: 05-30-2023 End: 06-23-2023 History of Social function [facility] Adult Depression Screening Assessment 1 [facility] Start: 12-17-2021 End: 08-12-2024 Sex Female (finding) [employer] Has the [employer], [employer], [employer], or water company threatened to shut off services in your home in past 12Mo No [facility] Are you now , , , , never or living with a partner? Living with partner [facility] How often to you hav e a drink containing alcohol? Never [facility] How hard is it for y ou to pay for the very basics like food, housing, medical care, and heating Not very hard [facility] Do you feel stress - tense, restless, nervous, or anxious, or unable to sleep at night because your mind is troubled all the time - these days [OSQ] Very much [employer] (I/We) worried wheshivam er (my/our) food would run out before (I/we) got money to buy more. Sometimes true [employer] The food that (I/we) bought just didn't last, and (I/we) didn't have money to get more. Never true [employer] NEGATED: Highlighted row [facility] Goals Date Patient Goal Desired Activity /State Functional Status Date Assessment Result Facility 11-20-2022 Functional status Ambulates [facility] Work Phone: 09-17-2017 Are you deaf, or do you have serious difficulty hearing No 09/17/2017 12:25 PM Devon Izaguirre [facility] 09-17-2017 Are you blind, or do you have serious difficulty seeing, even when wearing glasses No 09/17/2017 12:25 PM Devon Izaguirre [facility] 09-17-2017 Do you have serious difficulty walking or climbing stairs No 09/17/2017 12:25 PM Devon Izaguirre [facility] 09-17-2017 Do you have difficul ty dressing or bathing No 09/17/2017 12:25 PM Devon Izaguirre [facility] 09-17-2017 Because of a physica l, mental, or emotional condition, do you have difficulty doing errands alone such as visiting a physician's office or shopping No 09/17/2017 12:25 PM Devon Izaguirre [facility] Mental Status Date Assessment Result Facility 10-01-2024 Cognitive function Voice/Name [facility] Work Phone: 08-11-2024 Cognitive function Voice/Name [facility] Work Phone: 06-11-2024 Cognitive function Voice/Name [facility] Work Phone: 09-26-2023 Cognitive function Awake;Alert;A ppropriate; Follows Commands [facility] Work Phone: 09-12-2023 Cognitive function Awake;Alert;A ppropriate; Follows Commands [facility] Work Phone: 01-10-2023 Cognitive function Awake;Alert;Appropriat e [facility] Work Phone: 01-10-2023 Cognitive function Arousable To Voice/Nam e [facility] Work Phone: 11-20-2022 Cognitive function Voice/Name [facility] Work Phone: 09-17-2017 Because of a physica l, mental, or emotional condition, do you have serious difficulty concentrating, remembering, or making decisions No 09/17/2017 12:25 PM EDT Devon Stevenson [facility] Clinical Notes 09-17-2017 to 10-13-2024 Myles Felix APRN.CLINICAL DIRECTOR - 10/13/2024 11:36 AM EDTTelephone Encounter - [facility] - 07/22/2024 1:25 PM ESTTelephone Encounter - [facility] - 07/22/2024 1:25 PM EST Note Date & Type Note Facility 10-13-2024 Note HNO ID: [id number] Author: MYLES FELIX APRN.CLINICAL DIRECTOR Service: ? Author Type: Nurse Practitioner Type: Progress Notes Filed: 10/13/2024 11:57 Note Text: Subjective The patient consented to the use of ambient AI software for draft documentation of the visit consistent with [facility]?s Notice of Privacy Practices. HPI Devon is a 34-year-old female with a history of Crohn's disease, nephropathy, and depression, presenting for a wellness visit. Devon reports situational depression secondary to relationship stressors and weight gain. She denies current use of antidepressants and expresses reluctance to initiate them due to already being on multiple medications. She endorses fatigue and requests comprehensive blood work to monitor for potential side effects of her current medications. She also requests a refill of her acne medication. Devon is currently under the care of Dr. Vazquez for nephropathy and Dr. Andersen for Crohn's disease. She reports stable kidney function, with the last evaluation in February or March showing proteinuria of 900 grams. She is scheduled for a follow-up in 1-2 weeks. She is on Entyvio for Crohn's disease, administered every 8 weeks, and reports good control of her symptoms. She is also on cyclosporine for approximately 3.5 years. Devon reports erythema of the palms, which she has been experiencing for about 1.5 years. She notes that this erythema often occurs during heat exposure, potential flares, and premenstrual syndrome (PMS). She also reports a sensation of chest tightness and tension in her arms and shoulders during these episodes, but denies tachycardia, palpitations, or chest pain. She has a history of anxiety since childhood and does not believe these symptoms are anxiety-related. She denies arthralgia, myalgia, or urinary issues. She reports a positive CARMITA test in May and is scheduled to see her teasel setter, Dr. Dov Anton, on October 26. Devon has a history of regular menstrual cycles with severe PMS, including both physical and mental symptoms. She reports hot flashes during ovulation and night sweats during severe PMS episodes. She also experiences migraines at the onset of menstruation and reports constant dizziness. She notes that her hormonal symptoms have intensified since childbirth. She reports weight gain after losing 16 pounds last summer and struggles with maintaining a healthy diet. She denies recent iron level checks and has not had an echocardiogram since 2019. She also reports current allergy symptoms. I reviewed past medical, surgical, social, and family histories today and updated chart. Allergies, chronic medications, and supplements were also reviewed. PAST MEDICAL HISTORY Diagnosis Date Abnormal Pap smear of cervix Acute blood loss anemia 09/17/2017 FSGS (focal segmental glomerulosclerosis) 07/25/2021 Mental disorder Placental abruption in third trimester (HCC) 09/17/2017 PAST SURGICAL HISTORY Procedure Laterality Date CATARACT EXTRACTION HX EXTRACTION ERUPTED TOOTH 2013 INCISION LINGUAL FRENUM FRENOTOMY 3yo ALLERGIES Patient has no known allergies. MEDICATIONS vedolizumab (ENTYVIO) 300 mg injection Inject 300 mg intravenously. lisinopril (ZESTRIL, PRINIVIL) 10 mg tablet Take 10 mg by mouth once daily. cycloSPORINE (SANDIMMUNE) 100 mg capsule tretinoin (RETIN-A) 0.025 % topical cream Apply 1 application to affected area daily at bedtime. Erythromycin-Benzoyl Peroxide gel Apply to affected area two times a day. APPLY TO AFFECTED AREA FAMILY HISTORY Problem Relation Age of Onset Hypertension Maternal Grandfather Social History Tobacco Use Smoking status: Never Smokeless tobacco: Never Vaping Use Vaping status: Never Used Substance Use Topics Alcohol use: No Drug use: No Review of Systems Constitutional: Positive for diaphoresis and fatigue. Negative for appetite change, chills, fever and unexpected weight change. Regained weight that was lost over last summer HENT: Negative for congestion, ear pain, rhinorrhea and sore throat. Eyes: Negative for pain, discharge, itching and visual disturbance. Respiratory: Negative for cough, shortness of breath and wheezing. Cardiovascular: Negative for chest pain, palpitations and leg swelling. Face and hands swollen Gastrointestinal: Negative for abdominal pain, constipation, diarrhea, nausea and vomiting. Genitourinary: Negative for difficulty urinating. Musculoskeletal: Negative for arthralgias. Skin: Negative for rash. Neurological: Positive for dizziness, tremors, weakness and headaches. Psychiatric/Behavioral: Positive for dysphoric mood. Negative for sleep disturbance. The patient is nervous/anxious. Objective BP 124/74 Pulse 72 Temp 97.9 Ht 5' 5 (1.65m) Wt 233 lb (105.7kg) SpO2 98% LMP 06/21/2023 BMI 38.77 kg/(m2). Physical Exam Constitutional: Appearance: Normal appearance. She is well-de (more content not included)... [facility] 10-13-2024 History of Present illness Narrative Subjective The patient consented to the use of ambient AI software for draft documentation of the visit consistent with [facility] s Notice of Privacy Practices. LIZZETH Walsh is a 34-year-old female with a history of Crohn's disease, nephropathy, and depression, presenting for a wellness visit. Devon reports situational depression secondary to relationship stressors and weight gain. She denies current use of antidepressants and expresses reluctance to initiate them due to already being on multiple medications. She endorses fatigue and requests comprehensive blood work to monitor for potential side effects of her current medications. She also requests a refill of her acne medication. Devon is currently under the care of Dr. Vazquez for nephropathy and Dr. Andersen for Crohn's disease. She reports stable kidney function, with the last evaluation in February or March showing proteinuria of 900 grams. She is scheduled for a follow-up in 1-2 weeks. She is on Entyvio for Crohn's disease, administered every 8 weeks, and reports good control of her symptoms. She is also on cyclosporine for approximately 3.5 years. Devon reports erythema of the palms, which she has been experiencing for about 1.5 years. She notes that this erythema often occurs during heat exposure, potential flares, and premenstrual syndrome (PMS). She also reports a sensation of chest tightness and tension in her arms and shoulders during these episodes, but denies tachycardia, palpitations, or chest pain. She has a history of anxiety since childhood and does not believe these symptoms are anxiety-related. She denies arthralgia, myalgia, or urinary issues. She reports a positive CARMITA test in May and is scheduled to see her teasel setter, Dr. Dov Anton, on October 26. Devon has a history of regular menstrual cycles with severe PMS, including both physical and mental symptoms. She reports hot flashes during ovulation and night sweats during severe PMS episodes. She also experiences migraines at the onset of menstruation and reports constant dizziness. She notes that her hormonal symptoms have intensified since childbirth. She reports weight gain after losing 16 pounds last summer and struggles with maintaining a healthy diet. She denies recent iron level checks and has not had an echocardiogram since 2019. She also reports current allergy symptoms. I reviewed past medical, surgical, social, and family histories today and updated chart. Allergies, chronic medications, and supplements were also reviewed. PAST MEDICAL HISTORY Diagnosis Date Abnormal Pap smear of cervix Acute blood loss anemia 09/17/2017 FSGS (focal segmental glomerulosclerosis) 07/25/2021 Mental disorder Placental abruption in third trimester (HCC) 09/17/2017 PAST SURGICAL HISTORY Procedure Laterality Date CATARACT EXTRACTION HX EXTRACTION ERUPTED TOOTH 2012 INCISION LINGUAL FRENUM FRENOTOMY 3yo ALLERGIES Patient has no known allergies. MEDICATIONS vedolizumab (ENTYVIO) 300 mg injection Inject 300 mg intravenously. lisinopril (ZESTRIL, PRINIVIL) 10 mg tablet Take 10 mg by mouth once daily. cycloSPORINE (SANDIMMUNE) 100 mg capsule tretinoin (RETIN-A) 0.025 % topical cream Apply 1 application to affected area daily at bedtime. Erythromycin-Benzoyl Peroxide gel Apply to affected area two times a day. APPLY TO AFFECTED AREA FAMILY HISTORY Problem Relation Age of Onset Hypertension Maternal Grandfather Social History Tobacco Use Smoking status: Never Smokeless tobacco: Never Vaping Use Vaping status: Never Used Substance Use Topics Alcohol use: No Drug use: No Review of Systems Constitutional: Positive for diaphoresis and fatigue. Negative for appetite change, chills, fever and unexpected weight change. Regained weight that was lost over last summer HENT: Negative for congestion, ear pain, rhinorrhea and sore throat. Eyes: Negative for pain, discharge, itching and visual disturbance. Respiratory: Negative for cough, shortness of breath and wheezing. Cardiovascular: Negative for chest pain, palpitations and leg swelling. Face and hands swollen Gastrointestinal: Negative for abdominal pain, constipation, diarrhea, nausea and vomiting. Genitourinary: Negative for difficulty urinating. Musculoskeletal: Negative for arthralgias. Skin: Negative for rash. Neurological: Positive for dizziness, tremors, weakness and headaches. Psychiatric/Behavioral: Positive for dysphoric mood. Negative for sleep disturbance. The patient is nervous/anxious. Objective BP 124/74 Pulse 72 Temp 97.9 Ht 5' 5 (1.65m) Wt 233 lb (105.7kg) SpO2 98% LMP 06/21/2023 BMI 38.77 kg/(m^2). Physical Exam Constitutional: Appearance: Normal appearance. She is well-developed. HENT: Head: Normocephalic and atraumatic. Right Ear: Hearing, tympanic membrane, ear canal and external ear normal. No drainage. Left Ear: Hearing, tympanic membrane, ear canal and external ear normal. No drainage. Nose: Nose normal. Mouth/Throat: Pharynx: Uvula midline. Eyes: General: Lids are normal. Right eye: No discharge. Left eye: No discharge. Conjunctiva/sclera: Conjunctivae normal. Pupils: Pupils are equal, round, and reactive to light. Neck: Thyroid: No thyromegaly. Vascular: No carotid bruit. Cardiovascular: Rate and Rhythm: Normal rate and regular rhythm. Heart sounds: Normal heart sounds. No murmur heard. Pulmonary: Effort: Pulmonary effort is normal. Breath sounds: Normal breath sounds. No wheezing, rhonchi or rales. Abdominal: General: Bowel sounds are normal. There is no distension or abdominal bruit. Palpations: Abdomen is soft. There is no mass. Tenderness: There is no abdominal tenderness. Musculoskeletal: Cervical back: Normal range of motion. Right lower leg: No edema. Left lower leg: No edema. Lymphadenopathy: Cervical: No cervical adenopathy. Upper Body: Right upper body: No supraclavicular adenopathy. Left upper body: No supraclavicular adenopathy. Skin: General: Skin is warm and dry. Findings: No bruising or rash. Neurological: General: No focal deficit present. Mental Status: She is alert and oriented to person, place, and time. Cranial Nerves: No cranial nerve deficit. Sensory: Sensation is intact. Motor: Motor function is intact. Coordination: Coordination is intact. Gait: Gait is intact. Psychiatric: Attention and Perception: Attention and perception normal. Mood and Affect: Mood and affect normal. Speech: Speech normal. Behavior: Behavior normal. Behavior is cooperative. Thought Content: Thought content normal. Cognition and Memory: Cognition normal. Judgment: Judgment normal. Labs: - (May) CARMITA: Positive - 24-hour urine protein: 900 g (reference <100 g), stable Imaging: - (2019) Echocardiogram: Normal findings 10/19/2019 07/25/2021 PHQ-9 Score 0 1 (0-4) minimal depression, (5-9) mild depression, (10-14) moderate depression, (15-19) moderately severe depression, (20-27) severe depression Assessment/Plan: 1. Well adult exam (Z00.00) Comprehensive evaluation performed. - Scheduled follow-up in 1 year; patient advised to return sooner if needed. 2. Acne vulgaris (L70.0) Patient requests re-prescription of acne medication. - Transmitted prescription for acne gel to [facility]. 3. Hot flashes (R23.2) Night sweats (R61) Headaches (R51.9) Fatigue, unspecified type (R53.83) Dizziness (R42) Symptoms may be related to hormonal fluctuations. Patient experiences regular menstrual cycles with significant PMS symptoms, including hot flashes, night sweats, and migraines. Dizziness is a constant symptom. - Ordered lab work to evaluate B12, Vitamin D, prolactin level, thyroid function tests, and adrenal hormones. 4. Palmar erythema (L53.8) Patient reports redness on palms, possibly related to hormonal changes or underlying rheumatological conditions. Recent positive CARMITA test. - Patient to follow up with teasel setter Dr. Dov Anton in October for further evaluation. 5. Chest tightness (R07.89) Intermittent chest tightness without associated pain, palpitations, or swelling. Symptoms may be related to hormonal changes or anxiety. - Ordered echocardiogram to assess for any cardiac abnormalities. 6. Screening for lipid disorders (Z13.220) Patient is overweight and has a history of poor dietary habits. - Ordered lipid panel. 7. Major depressive disorder, recurrent episode, mild (F33.0) Depressive symptoms are situational, related to health issues and relationship stress. Patient is not currently on antidepressant medication and prefers not to add any due to already being on multiple medications. - Discussed potential benefits of antidepressant medication if symptoms worsen; patient to notify if interested in future. 8. Crohn's disease without complication, unspecified gastrointestinal tract location (HCC) (K50.90) Managed by Dr. Andersen with Entyvio infusions every 8 weeks. Patient reports stable condition with occasional flare-ups. - Continue current treatment regimen with Entyvio. FU yearly, sooner if needed Myles Felix APRN.LEXIE documented in this encounter [facility] 07-22-2024 Telephone encounter Note Herlinda, Our office has attempted to contact your patient twice, to schedule their Diagnostic Breast Imaging. Thank you, Michelle Jordan Patient [employer] Ticket Checker [facility] 07-22-2024 Miscellaneous Notes Herlinda, Our office has attempted to contact your patient twice, to schedule their Diagnostic Breast Imaging. Thank you, Michelle Jordan Patient [employer] [facility] documented in this encounter [facility] 06-23-2024 History of Present illness Narrative Images from the original note were not included. Devon Blanchard 34 y.o. HPI: The patient was seen and examined today for her annual exam. Interested in STI screening, had intercourse with different partner last year and wants to be sure. Back with life long partner now. Also had chronic left breast pain since 2021. On immunosuppressants for FGS (kidney issues) and Crohns. No LMP recorded. Sexually Active: yes Any problems no Regular Periods: yes STD History: no, requests screening Control: partner with vasectomy Family History of Breast, Ovarian , Colon or Uterine Cancer: no Preventative Health Testing: Date of Last Pap Smear: UTD Abnormal Pap Smear History: yes HPV in the past Colposcopy History: no Mammogram: never Colonoscopy per PCP HPV vaccine discuss next visit OB History Para Term AB Living 2 2 1 1 0 3 SAB IAB Ectopic Multiple Live Births 0 0 0 1 3 # Outcome Date GA Lbr Nikolai/2nd Weight Sex Type Anes PTL Lv 2 Term 2020 CS-Classical DARLENE 1A 09/14/17 28w6d 2 lb 1.9 oz (0.96 kg) M CS-LTranv Spinal N DARLENE Comments: Apgars 2,7 Complications: Abruptio Placenta Name: Richard 1B 2 lb 12.8 oz (1.27 kg) M Spinal DARLENE Comments: Apgars 5,7 Name: Judd Past Medical History: Diagnosis Date Anxiety Depression Past Surgical History: Procedure Laterality Date CATARACT EXTRACTION TYMPANOSTOMY TUBE PLACEMENT WISDOM TOOTH EXTRACTION Review of Systems REVIEW OF SYSTEMS: Gen: denies weight loss, fatigue, fevers/chills GI: denies change in appetite, bloating, pain, lumps/masses, change in bowel/bladder habits Urinary: denies dysuria, frequency, hematuria, incontinence : see HPI Objective: BP 124/76 Ht 5' 5.5 (1.664 m) Wt 234 lb (106 kg) BMI 38.35 kg/m Physical Exam Gen: normal appearance, NAD Neuro: AAOx3 Psych: normal affect Lungs: normal respiratory effort Heart: normal rate Breasts: No lymphadenopathy, no nipple discharge, no masses, no skin changes External genitalia: normal, no lesions, no skin discoloration, normal introitus Urethral meatus: normal, no diverticulum or irritation present Vagina: normal, no lesions Cervix: no lesions, no motion tenderness, normal appearance Uterus: normal mobility, non tender, normal size, shape and consistency Adnexa: no masses or tenderness bilaterally Bladder: non tender Assessment: Diagnosis Plan 1. Well woman exam with routine gynecological exam Pap Smear 2. Screening for cervical cancer Pap Smear 3. Encounter for assessment of STD exposure Chlamydia/N.Gonorrhoeae and T. Vaginalis RNA, QL TMA ([employer]) Trichomonas vaginalis RNA, Qualitative, TMA, Female Hepatitis C antibody Hepatitis B surface antigen HIV-1 and HIV-2 Antigen-Antibody Screen RPR Hepatitis C antibody Hepatitis B surface antigen HIV-1 and HIV-2 Antigen-Antibody Screen RPR 4. Breast pain, left Bilateral breast US limited Plan: 1. Perform monthly self breast exam. Exercise at least 30min three times per week. 2. Maintain yearly visits with DATA INTEGRATION ANALYST for well-woman exam. 3. Establish care with General PCP for routine health maintenance. -pt on lisinopril, current partner with vasectomy, reviewed risk a/w Follow up in about 1 year (around 06/23/2025) for Annual. Orders Placed This Encounter Procedures Chlamydia/N.Gonorrhoeae and T. Vaginalis RNA, QL TMA ([facility]) Bilateral breast US limited Standing Status: Future Standing Expiration Date: 08/21/2025 Trichomonas vaginalis RNA, Qualitative, TMA, Female Hepatitis C antibody Standing Status: Future Number of Occurrences: 1 Standing Expiration Date: 06/23/2025 Hepatitis B surface antigen Standing Status: Future Number of Occurrences: 1 Standing Expiration Date: 06/23/2025 HIV-1 and HIV-2 Antigen-Antibody Screen Standing Status: Future Number of Occurrences: 1 Standing Expiration Date: 06/23/2025 RPR Standing Status: Future Number of Occurrences: 1 Standing Expiration Date: 06/23/2025 documented in this encounter [facility] 06-21-2024 Evaluation note Diagnosis Onset Date Resolution Abnormal blood chemistry chronic June 21 9:51am Crohn's disease chronic June 21, 2024 9:51am Chronic diarrhea inactive June 21, 2024 9:51am [facility] Work Phone: 1(142) 416-605901-30-2025 Telephone encounter Note* Telephone Encounter - Dahlia Sky MA - 06/17/2024 9:45 AM EST Faxed lab orders to [phone] [id number] Miscellaneous Notes* Telephone Encounter - Dahlia Sky MA - 06/17/2024 9:45 AM EST Faxed lab orders to [phone] * Telephone Encounter - Jacqui Coffman - 06/16/2024 4:10 PM EST Name of caller: Devon Contact phone number: [phone] Relationship to Patient: patient Provider: Dr Anton Practice: Rheumatology Chief Complaint/Reason for Call: Patient called stating that [facility] did not received the lab orders and asking to re fax to [phone]. Please advise. Best time of day caller can be reached: Any Patient advised that office/PCP has 24-48 business hours to return their call: N/A * Telephone Encounter - Dahlia Sky MA - 06/01/2024 9:44 AM EST Faxed lab orders to [facility] per pt request. * Telephone Encounter - Angeles Melendez - 06/01/2024 9:36 AM EST Name of caller: Devon Contact phone number: [phone] Relationship to Patient: patient Provider: Dr. Anton Practice: Rheumatology Chief Complaint/Reason for Call: Patient is requesting all lab work be faxed to [facility]. Please advise. Best time of day caller can be reached: Any Patient advised that office/PCP has 24-48 business hours to return their call: Yes [id number] Telephone encounter Note* Telephone Encounter - Jacqui Coffman - 06/16/2024 4:10 PM EST Name of caller: Devon Contact phone number: [phone] Relationship to Patient: patient Provider: Dr Anton Practice: Rheumatology Chief Complaint/Reason for Call: Patient called stating that [facility] did not received the lab orders and asking to re fax to [phone]. Please advise. Best time of day caller can be reached: Any Patient advised that office/PCP has 24-48 business hours to return their call: N/A [id number] Miscellaneous Notes* Telephone Encounter - Jacqui Coffman - 06/16/2024 4:10 PM EST Name of caller: Devon Contact phone number: [phone] Relationship to Patient: patient Provider: Dr Anton Practice: Rheumatology Chief Complaint/Reason for Call: Patient called stating that [facility] did not received the lab orders and asking to re fax to [phone]. Please advise. Best time of day caller can be reached: Any Patient advised that office/PCP has 24-48 business hours to return their call: N/A * Telephone Encounter - Dahlia Sky MA - 06/01/2024 9:44 AM EST Faxed lab orders to [facility] per pt request. * Telephone Encounter - Angeles Melendez - 06/01/2024 9:36 AM EST Name of caller: Devon Contact phone number: [phone] Relationship to Patient: patient Provider: Dr. Anton Practice: Rheumatology Chief Complaint/Reason for Call: Patient is requesting all lab work be faxed to [facility]. Please advise. Best time of day caller can be reached: Any Patient advised that office/PCP has 24-48 business hours to return their call: Yes documented in this [facility]01-14-2025 Telephone encounter Note* Telephone Encounter - Dahlia Sky MA - 06/01/2024 9:44 AM EST Faxed lab orders to [facility] per pt request. [facility] [id number] Telephone encounter Note* Telephone Encounter - Angeles Melendez - 06/01/2024 9:36 AM EST Name of caller: Devon Contact phone number: [phone] Relationship to Patient: patient Provider: Dr. Anton Practice: Rheumatology Chief Complaint/Reason for Call: Patient is requesting all lab work be faxed to [facility]. Please advise. Best time of day caller can be reached: Any Patient advised that office/PCP has 24-48 business hours to return their call: Yes [facility] [id number] History of Present illness Narrative* Dov Anton MD - 04/30/2024 1:00 PM EST CHIEF COMPLAINT: swelling HPI: 34 y/o woman with a history of increasing swelling in her hands and face which occur daily. She notices some occasional discoloration in her hands with a turn red on the palms. The symptoms started approximately 10 months ago. She has not had Raynaud's symptoms or sensitivity to cold. She has not had joint stiffness or pain. She does have a history of Crohn's disease, and is currently being treated with Entyvio which is working very well. 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 She has responded well to the medication and follows closely with her ob/gyn physician Dr. Vazquez. Her blood pressure has been doing well as have her labs with this. She started this medication in 2021. She has not had recurrent infections. The patient has no history of psoriasis. She does not have any photosensitivity or alopecia or mouth sores. She does not complain of dry eyes or dry mouth. With her swelling symptoms, she had autoimmune testing done, and was noted to have an elevated SSB but not SSA. Her other lupus serologies at the time in December 2022 were normal. The patient has been on prednisone for both of her conditions in the past, and is currently off of it. She has a family history of osteoarthritis in her mother, but no family history of lupus or other autoimmune disease. She was referred for further evaluation for possible underlying autoimmune conditions given her positive SSB antibody. General: no weight loss, fevers or night sweats HEENT: no dry eyes or mouth, oral ulcers, no visual changes or red eyes, no changes in hearing CV: no chest pain or palpitations Pulm: no worsening shortness of breath, no pleurisy GI: no nausea, GERD : no dysuria, incontinence or changes in kidney function Neuro: no new headaches, weakness or seizures Skin: no new rashes or skin lesions No Known Allergies Current Outpatient Medications Medication Sig Dispense Refill acetaminophen (Tylenol) 325 MG tablet Take 325 mg by mouth every 6 hours as needed. benzoyl peroxide-erythromycin (Benzamycin) gel Apply topically 2 times daily. cycloSPORINE (SandIMMUNE) 100 MG capsule Take 100 mg by mouth 2 times daily. lisinopril 10 MG tablet Take 10 mg by mouth 2 times daily. vedolizumab (Entyvio) 300 MG injection Infuse 300 mg into a venous catheter Once. fish oil-omega-3 fatty acids 1000 MG capsule Take 300 mg by mouth twice a day. (Patient not taking:Reported on 04/30/2024) VIT [id number] PO Take 1 tablet by mouth daily. (Patient not taking: Reported on 04/30/2024) No current facility-administered medications for this visit. Past Medical History: Diagnosis Date Anxiety Depression Past Surgical History: Procedure Laterality Date CATARACT EXTRACTION TYMPANOSTOMY TUBE PLACEMENT WISDOM TOOTH EXTRACTION Family History Problem Relation Name Age of Onset No Known Problems Maternal Grandfather Anxiety disorder Mother No Known Problems Paternal Grandmother Depression Mother Cancer Maternal Grandmother skin cancer Depression Father No Known Problems Paternal Grandfather Social History Socioeconomic History Marital status: Significant Other Spouse name: Not on file Number of children: Not on file Years of education: Not on file Highest education level: Not on file Occupational History Not on file Tobacco Use Smoking status: Never Smokeless tobacco: Never Vaping Use Vaping status: Never Used Substance and Sexual Activity Alcohol use: No Drug use: No Sexual activity: Not on file Other Topics Concern Not on file Social History Narrative Not on file Social Drivers of Health Financial Resource Strain: Not on file Food Insecurity: Not on file Transportation Needs: Not on file Physical Activity: Not on file Stress: Not on file Social Connections: Not on file Intimate Partner Violence: Not on file Housing Stability: Not on file OBJECTIVE: Visit Vitals BP 129/85 (BP Location: Left arm, Patient Position: Sitting, BP Cuff Size: Large adult) Pulse 81 HEENT: no red or dry eyes, oral mucosa moist and without lesions, no alopecia or scalp rashes, no lymphadenopathy CV: S1S2 no mrg Pulm: CTA bilat without wheezes, crackles Abd: soft, nontender MSK: mild swelling in hands, no tenderness or warmth, good ROM Neuro: CN 2-12 grossly intact, strength 5/5, no sensory loss in UE, LE, DTRs 1+ Skin: no rashes, no purpura, no bruising A/P: 1) hand and occasional face swelling, with previous SSB positivity but no syndrome consistent with Sjogren's or lupus at present. She has significant autoimmune conditions including Crohn's disease and FSGS, but these are stable on current medications. We will recheck her full lupus and Sjogren's serologies, as well as a CRP. Would not recommend changing any of her other medications at this time,but may consider once daily hydroxychloroquine if she has serologies that show possible underlying mild lupus. Will plan on seeing the patient back within 6 months or so. She will continue regular follow-up with her GI and nephrology clinicians. Orders Placed This Encounter Procedures CBC Standing Status: Future Number of Occurrences: 1 Standing Expiration Date: 04/30/2025 C-reactive protein Standing Status: Future Number of Occurrences: 1 Standing Expiration Date: 04/30/2025 CARMITA Standing Status: Future Number of Occurrences: 1 Standing Expiration Date: 04/30/2025 Sjogren's Antibodies (SS-A,SS-B) ([facility]) Standing Status: Future Number of Occurrences: 1 Standing Expiration Date: 04/30/2025 SM and SM/ENDOSCOPY SUPPORT SPECIALIST Antibodies ([facility]) Standing Status: Future Number of Occurrences: 1 Standing Expiration Date: 04/30/2025 Anti-DNA antibody, double-stranded Standing Status: Future Number of Occurrences: 1 Standing Expiration Date: 04/30/2025 Histone Ab, IgG Standing Status: Future Number of Occurrences: 1 Standing Expiration Date: 04/30/2025 documented in this [facility]06-25-2024 Telephone encounter Note* Telephone Encounter - Corry Bradley MA - 11/11/2023 2:38 PM EDT Left message informing patient, phone number to reach the office was left for any questions or concerns. Corry Bradley MA [facility]06-25-2024 Miscellaneous Notes* Telephone Encounter - Corry Bradley MA - 11/11/2023 2:38 PM EDT Left message informing patient, phone number to reach the office was left for any questions or concerns. Corry Bradley MA * Telephone Encounter - Myles Felix APRN.CNP - 11/11/2023 12:55 PM EDT See letter. Myles Felix APRN.CNP * Telephone Encounter - Amy Lovelace MA - 11/11/2023 12:00 PM EDT Patient left message on voicemail stating she needs letter for jury duty due to having bad anxiety.Amy Lovelace MA documented in this [facility] Telephone encounter Note * Telephone Encounter - Myles Felix APRN.CNP - 11/11/2023 12:55 PM EDT See letter. Myles Felix APRN.CNP [facility]06-25-2024 Telephone encounter Note* Telephone Encounter - Amy Lovelace MA - 11/11/2023 12:00 PM EDT Patient left message on voicemail stating she needs letter for jury duty due to having bad anxiety.Amy Lovelace MA [facility]05-21-2024 Telephone encounter Note* Telephone Encounter - Lian Em MA - 10/07/2023 9:07 AM EDT Called pt name in waiting room and hallway, no answer [facility]05-21-2024 Miscellaneous Notes* Telephone Encounter - Lian Em MA - 10/07/2023 9:07 AM EDT Called pt name in waiting room and hallway, no answer documented in this [facility]04[facility]-20[facility] Telephone encounter Note * Telephone Encounter - Allison Gurrola - 08/28/2023 9:25 AM EDT Name of Caller: Devon Contact Reason for Appointment: reschedule 08/20/23 ostomy rn appointment Office Name: [facility] Rheumatology [place] [id number] Miscellaneous Notes* Telephone Encounter - Allison Fallon - 08/28/2023 9:25 AM EDT Name of Caller: Devon Contact Reason for Appointment: reschedule 08/20/23 ostomy rn appointment Office Name: [facility] Rheumatology documented in this [place] [id number] Telephone encounter Note* Telephone Encounter - Dahlia Sky MA - 08/20/2023 8:53 AM EDT Canceled pt DNA SEQUENCING ASSOCIATE appt per pt req. [id number] Miscellaneous Notes* Telephone Encounter - Dahlia Sky MA - 08/20/2023 8:53 AM EDT Canceled pt DNA SEQUENCING ASSOCIATE appt per pt req. * Telephone Encounter - Pilar Chen - 08/20/2023 8:39 AM EDT Name of Caller: Devon Contact Reason for Appointment: Pt needs to resx ppt due to not feeling well Office Name: Rheum documented in this [place] [id number] Telephone encounter Note* Telephone Encounter - Pilar Chen - 08/20/2023 8:39 AM EDT Name of Caller: Devon Contact Reason for Appointment: Pt needs to resx ppt due to not feeling well Office Name: Rheum [id number] History of Present illness Narrative* Myles Felix APRN.CLINICAL DIRECTOR - 07/14/2023 11:41 AM EST Subjective Devon Blanchard is a 33 year old female here today for well adult exam. I reviewed past medical, surgical, social, and family histories today and updated chart. Allergies, chronic medications, and supplements were also reviewed. Fatigue Associated symptoms include fatigue, nausea and weakness. Pertinent negatives include no abdominal pain, arthralgias, chest pain, chills, congestion, coughing, fever, headaches, myalgias, sore throator vomiting. She continues care with Dr. Vazquez nephrology for FSGS She does have Crohn's disease - sees Dr Andersen in [place] Blood work positive for Sjogrens Has an appointment with teasel setter to evaluate further Was here 2 weeks ago for skin issues White spots to bilateral palms of hands Crandall a little swollen in the fingers Has a poison taste in her mouth - for a good year now, thought it was migraine related It was going on for a good 3 weeks, now has it every day but its not constant throughout the day No mouth dryness Left eye twitching a lot Having left jaw pain - told she had hairline fracture in her jaw last month by her dentist Sharp shooting pain No numbness or tingling No hearing loss Feels exhausted, weak - intermittent Walks in the evenings Some squats and free weights Will feel good during work outs and at times feels weak Depressed a lot - planning on seeing psychology Acne - has been controlled with erythromycin/benzoyl peroxide, RetinA Due for Pap - plans on scheduling in the Spring Triglycerides were elevated but better than last time She has been trying to eat healthier - more fruits and veggies PAST MEDICAL HISTORY Diagnosis Date Abnormal Pap smear of cervix Acute blood loss anemia 09/17/2017 FSGS (focal segmental glomerulosclerosis) 07/25/2021 Mental disorder Placental abruption in third trimester 09/17/2017 PAST SURGICAL HISTORY Procedure Laterality Date CATARACT EXTRACTION HX EXTRACTION ERUPTED TOOTH 2012 INCISION LINGUAL FRENUM FRENOTOMY 3yo ALLERGIES Patient has no known allergies. MEDICATIONS Erythromycin-Benzoyl Peroxide gel Apply to affected area twice daily. APPLY TO AFFECTED AREA tretinoin (RETIN-A) 0.025 % topical cream Apply 1 application to affected area daily at bedtime. lisinopril (ZESTRIL, PRINIVIL) 10 mg tablet Take 10 mg by mouth once daily. cycloSPORINE (SANDIMMUNE) 100 mg capsule FAMILY HISTORY Problem Relation Age of Onset Hypertension Maternal Grandfather Social History Tobacco Use Smoking status: Never Smokeless tobacco: Never Vaping Use Vaping Use: Never used Substance Use Topics Alcohol use: No Drug use: No Review of Systems Constitutional: Positive for fatigue and malaise/fatigue. Negative for appetite change, chills, fever and unexpected weight change. HENT: Negative for congestion, ear pain, rhinorrhea and sore throat. Eyes: Negative for pain, discharge, itching and visual disturbance. Respiratory: Negative for cough, shortness of breath and wheezing. Cardiovascular: Negative for chest pain, palpitations and leg swelling. Gastrointestinal: Positive for nausea. Negative for abdominal pain, constipation, diarrhea and vomiting. Colonoscopy in December x 2 weeks - was really ill, diarrhea during time she has been on it Stomach has been really good lately Genitourinary: Negative for difficulty urinating. Musculoskeletal: Negative for arthralgias and myalgias. Neurological: Positive for dizziness and weakness. Negative for tremors and headaches. Occasional headache - not unusual Psychiatric/Behavioral: Negative for dysphoric mood and sleep disturbance. The patient is not nervous/anxious. Objective BP 126/76 Pulse 73 Temp 98 Ht 5' 5 (1.65m) Wt 230 lb (104.3kg) SpO2 98% LMP 06/21/2023 BMI 38.27 kg/(m^2). Physical Exam Constitutional: Appearance: Normal appearance. She is well-developed. HENT: Head: Normocephalic and atraumatic. Right Ear: Hearing, tympanic membrane, ear canal and external ear normal. No drainage. Left Ear: Hearing, tympanic membrane, ear canal and external ear normal. No drainage. Nose: Nose normal. Mouth/Throat: Pharynx: Uvula midline. Eyes: General: Lids are normal. Right eye: No discharge. Left eye: No discharge. Conjunctiva/sclera: Conjunctivae normal. Pupils: Pupils are equal, round, and reactive to light. Neck: Thyroid: No thyromegaly. Vascular: No carotid bruit. Trachea: No tracheal deviation. Cardiovascular: Rate and Rhythm: Normal rate and regular rhythm. Heart sounds: Normal heart sounds. No murmur heard. Pulmonary: Effort: Pulmonary effort is normal. Breath sounds: Normal breath sounds. No wheezing, rhonchi or rales. Abdominal: General: Bowel sounds are normal. There is no distension or abdominal bruit. Palpations: Abdomen is soft. There is no mass. Tenderness: There is no abdominal tenderness. Musculoskeletal: Cervical back: Normal range of motion and neck supple. Right lower leg: No edema. Left lower leg: No edema. Lymphadenopathy: Cervical: No cervical adenopathy. Upper Body: Right upper body: No supraclavicular adenopathy. Left upper body: No supraclavicular adenopathy. Skin: General: Skin is warm and dry. Findings: No bruising or rash. Neurological: General: No focal deficit present. Mental Status: She is alert and oriented to person, place, and time. Cranial Nerves: No cranial nerve deficit. Sensory: Sensation is intact. Motor: Motor function is intact. Coordination: Coordination is intact. Gait: Gait is intact. Psychiatric: Mood and Affect: Mood normal. Behavior: Behavior normal. Behavior is cooperative. Thought Content: Thought content normal. Judgment: Judgment normal. Component Latest Ref Rng & Units 06/24/2023 WBC 3.70 - 11.00 k/uL 7.68 RBC 3.90 - 5.20 m/uL 4.65 Hemoglobin 11.5 - 15.5 g/dL 12.5 Hematocrit 36.0 - 46.0 % 40.0 MCV 80.0 - 100.0 fL 86.0 MCH 26.0 - 34.0 pg 26.9 MCHC 30.5 - 36.0 g/dL 31.3 RDW-CV 11.5 - 15.0 % 14.2 Platelet Count 150 - 400 k/uL 375 MPV 9.0 - 12.7 fL 9.8 Neut% % 67.0 Abs Neut (ANC) 1.45 - 7.50 k/uL 5.16 Lymph% % 25.7 Abs Lymph 1.00 - 4.00 k/uL 1.97 Providence% % 5.1 Abs Providence <0.87 k/uL 0.39 Eosin% % 1.2 Abs Eosin <0.46 k/uL 0.09 Baso% % 0.7 Abs Baso <0.11 k/uL 0.05 Immature Gran % % 0.3 IMMATURE GRANS (ABS) <0.10 k/uL <0.03 DTYPE Auto Protein, Total 6.3 - 8.0 g/dL 7.4 Albumin 3.9 - 4.9 g/dL 4.2 Calcium 8.5 - 10.2 mg/dL 9.0 Bilirubin, Total 0.2 - 1.3 mg/dL 0.4 Alkaline Phosphatase 34 - 123 U/L 78 AST 13 - 35 U/L 14 ALT 7 - 38 U/L 17 Glucose 74 - 99 mg/dL 98 BUN 7 - 21 mg/dL 9 Creatinine 0.58 - 0.96 mg/dL 0.66 Sodium 136 - 144 mmol/L 140 Potassium 3.7 - 5.1 mmol/L 4.2 Chloride 97 - 105 mmol/L 105 CO2 22 - 30 mmol/L 24 Anion Gap 9 - 18 mmol/L 11 eGFR >=60 mL/min/1.73m 120 Cholesterol, Total <200 mg/dL 190 Triglyceride <150 mg/dL 292 (H) HDL Cholesterol >39 mg/dL 40 Non HDL Cholesterol <130 mg/dL 150 (H) Fasting Time hrs 12 VLDL Cholesterol <30 mg/dL 58 (H) TC:HDL Ratio <5.10 4.75 LDL Cholesterol <100 mg/dL 92 LDL:HDL Ratio <2.54 2.30 Hemoglobin A1C 4.3 - 5.6 % 5.1 Estimated Average Glucose mg/dL 100 ASSESSMENT/PLAN: 1. Well adult exam - ICD9: V70.0, ICD10: Z00.00 (primary diagnosis) - Counseled on healthy diet and regular exercise - Follow up for annual exam in one year 2. Acne vulgaris - ICD9: 706.1, ICD10: L70.0 - TRETINOIN 0.025 % TOPICAL CREAM - ERYTHROMYCIN-BENZOYL PEROXIDE 3 %-5 % TOPICAL GEL 3. Eye twitch - ICD9: 333.81, ICD10: G24.5 - CONSULT TO NEUROLOGY 4. Left-sided headache - ICD9: 784.0, ICD10: R51.9 - CONSULT TO NEUROLOGY - TSH BLD - T4 FREE/FREE THYROX - VITAMIN B12 BLOOD - C-REACTIVE PROTEIN (CRP) 5. Altered gustatory perception - ICD9: 781.1, ICD10: R43.9 - CONSULT TO NEUROLOGY Myles Felix APRN.CNP documented in this [facility] Miscellaneous Notes* Telephone Encounter - Amy Lovelace MA - 06/25/2023 11:10 AM EST Patient received her Photobucket chat message. Amy Lovelace MA * Telephone Encounter - Amy Lovelace MA - 06/25/2023 11:01 AM EST ----- Message from Sri Wharton APRN.CNP sent at 06/25/2023 10:58 AM EST ----- A1C- no diabetes CBC, CMP were both normal Lipid panel showed elevated triglycerides but LDL was acceptable. Watch diet for sugar and saturated fats documented in this encounterLake[facility]02-05-2024 History of Present illness Narrative* Sri Wharton APRN.CNP - 06/23/2023 11:58 AM EST CHIEF COMPLAINT: Devon Blanchard is a 33 year old female, patient of PAWEL Felix, who presents today for an acute visit for swelling of her hands and feet for the lat 2 weeks. She states she notices it after she wakes up. States her hands and fingers will feel tight. Her legs feel heavy. She has been trying to watch her diet for salt and drink enough water. She is compliant with her medications and denies any CP, SOB, dizziness, palpitations, headaches, change in urination. I reviewed past medical, surgical, social, and family histories today and updated chart. Allergies, chronic medications, and supplements werealso reviewed. PMH of [facility]. The history is provided by the patient. No pharmacy affairs assistant was used. Edema This is a new problem. The current episode started 1 to 4 weeks ago. The problem occurs intermittently. The problem has been waxing and waning. Pertinent negatives include no abdominal pain, chest pain, chills, coughing, diaphoresis, fatigue, fever, headaches, myalgias, nausea, neck pain, numbness,urinary symptoms, vomiting or weakness. She has tried drinking for the symptoms. PAST MEDICAL HISTORY Diagnosis Date Abnormal Pap smear of cervix Acute blood loss anemia 09/17/2017 FSGS (focal segmental glomerulosclerosis) 07/25/2021 Mental disorder Placental abruption in third trimester 09/17/2017 PAST SURGICAL HISTORY Procedure Laterality Date CATARACT EXTRACTION HX EXTRACTION ERUPTED TOOTH 2013 INCISION LINGUAL FRENUM FRENOTOMY 3yo Social History Tobacco Use Smoking status: Never Smokeless tobacco: Never Vaping Use Vaping Use: Never used Substance Use Topics Alcohol use: No Drug use: No ALLERGIES No Known Allergies Family History Problem Relation Age of Onset Hypertension Maternal Grandfather Current Outpatient Medications Medication Sig Dispense Refill Erythromycin-Benzoyl Peroxide gel Apply to affected area twice daily. APPLY TO AFFECTED AREA 46.6 g11 tretinoin (RETIN-A) 0.025 % topical cream Apply 1 application to affected area daily at bedtime. 20g 5 lisinopril (ZESTRIL, PRINIVIL) 10 mg tablet Take 10 mg by mouth once daily. cycloSPORINE (SANDIMMUNE) 100 mg capsule No current facility-administered medications for this visit. Review of Systems Constitutional: Negative for appetite change, chills, diaphoresis, fatigue and fever. Respiratory: Negative for cough, chest tightness, shortness of breath and wheezing. Cardiovascular: Positive for leg swelling. Negative for chest pain and palpitations. Gastrointestinal: Negative for abdominal pain, diarrhea, nausea and vomiting. Genitourinary: Negative for dysuria, frequency, hematuria and urgency. Musculoskeletal: Negative for back pain, myalgias, neck pain and neck stiffness. Skin: Negative. Neurological: Negative for weakness, numbness and headaches. Hematological: Negative. BP 122/76 Pulse 70 Temp 97.8 Resp 18 Ht 5' 5 (1.65m) Wt 230 lb (104.3kg) SpO2 98% LMP 06/19/2022 BMI 38.27 kg/(m^2). Physical Exam Vitals and nursing note reviewed. Constitutional: Appearance: Normal appearance. She is obese. HENT: Mouth/Throat: Mouth: Mucous membranes are moist. Pharynx: Oropharynx is clear. Cardiovascular: Rate and Rhythm: Normal rate and regular rhythm. Pulses: Normal pulses. Heart sounds: Normal heart sounds, S1 normal and S2 normal. Pulmonary: Effort: Pulmonary effort is normal. Breath sounds: Normal breath sounds. Musculoskeletal: Right hand: Swelling (trace in fingers) present. No tenderness. Normal range of motion. Normal strength. Left hand: Swelling (trace in fingers) present. No tenderness. Normal range of motion. Normal strength. Right lower leg: No edema. Left lower leg: No edema. Right foot: No swelling. Left foot: No swelling. Feet: Right foot: Skin integrity: Skin integrity normal. Left foot: Skin integrity: Skin integrity normal. Skin: General: Skin is warm and dry. Findings: No erythema or rash. Neurological: Mental Status: She is alert and oriented to person, place, and time. Psychiatric: Mood and Affect: Mood normal. Behavior: Behavior is cooperative. Cognition and Memory: Cognition normal. ASSESSMENT/PLAN: 1. Swelling of both hands - ICD9: 729.81, ICD10: M79.89 (primary diagnosis) - Minimal swelling in fingers - COMP METABOLIC PANEL 2. Bilateral swelling of feet - ICD9: 729.81, ICD10: M79.89 - None on exam but reports having swelling when she wakes up - COMP METABOLIC PANEL 3. Screening for diabetes mellitus - ICD9: V77.1, ICD10: Z13.1 - HGB A1C 4. Screening for lipid disorders - ICD9: V77.91, ICD10: Z13.220 - LIPID PANEL BASIC 5. History of anemia - ICD9: V12.3, ICD10: Z86.2 - CBC + DIFF Has follow up with PCP in 2 weeks New medication(s) prescribed today: None. Counseling completed in adopting health behaviors such as avoiding excessive alcohol use, avoid tobacco use, improve nutrition, and engage in physical activities. Copy of written care plan, clinical summary, treatment plan, new medications, goals, and self management requirements were given to patient. Sri Wharton APRN.CNP documented in this encounterL[facility]01-[facility]-2024 Telephone encounter Note * Telephone Encounter - Dahlia Sky MA - 06/10/2023 8:50 AM EST Canceled pt ostomy rn appt per pt req [facility] [id number] Miscellaneous Notes* Telephone Encounter - Dahlia Sky MA - 06/10/2023 8:50 AM EST Canceled pt ostomy rn appt per pt req * Telephone Encounter - Martha Marrufo - 06/10/2023 8:45 AM EST Name of caller: Devon Contact phone number: [phone] Relationship to Patient: patient Provider: Dr. Horne Practice: Rheumatology Chief Complaint/Reason for Call: Devon is requesting a call back to reschedule her 06/10/[address] Horne. Please call Devon and gurindere. Best time of day caller can be reached: Any Patient advised that office/PCP has 24-48 business hours to return their call: No documented in this encounterSSt. Rita's [id number] Telephone encounter Note* Telephone Encounter - Martha Marrufo - 06/10/2023 8:45 AM EST Name of caller: Devon Contact phone number: [phone] Relationship to Patient: patient Provider: Dr. Horne Practice: Rheumatology Chief Complaint/Reason for Call: Devon is requesting a call back to reschedule her 06/10/[address] Horne. Please call Devon and shady. Best time of day caller can be reached: Any Patient advised that office/PCP has 24-48 business hours to return their call: No [facility] [id number] History and physical note Author Sri Friend [facility] January 10, 2023 6:34am Note Date/Time January 10, 2023 6: 34am [facility] Medical Records Department [address] [place] [address] History & Physical Exam 01/10/23 0634 MR#: [id number] Acct: [id number] Name: DEVON BLANCHARD Rep #:[id number] : 1990 32 From: Sri Andersen DO PCP: Myles Felix, DNA SEQUENCING ASSOCIATE-C Status:REG SD C Location: [place] [address] History and Physical Date of Admission: 01/10/23 32 F who presents to the office today for PMH focal segmental glomerulosclerosis (ob/gyn physician Dr. Vazquez), mental disorder. PCP OV 2.. with generalized abdominal pain, nausea, loose stools and bloating with PO intake exacerbating. Previously established with GI as teen whodiagnosed Crohn?s disease. *BGI established 10.04.22 GI distress onset 14/15 years with colonoscopy and reports Crohn?s; she does not remember any follow ups but PCP did prescribe Pentasa which was effective at that time; symptoms resolved and medication stopped. Symptoms are as noted above. She will avoid PO intake to minimize stool. Stools occur up to 15/day or more with abdominal cramping and urgency. Notes anxiety may have component. ROS Const Constitutional: No anorexia, fatigue, fever(s), weight change or sleep problems Eyes Eyes: No change in vision ENT ENT: No abnormal hearing, difficulty swallowing, mouth lesions, tongue swelling or throat swelling Resp Respiratory: No cough or shortness of breath Cardio Cardiology: No chest pain at rest, chest pain with exertion, shortness of breathor dyspnea on exertion Gastro GI: No difficulty swallowing Genitourinary-Female: No difficulty urinating or burning urination Musc Musculoskeletal: No joint pain, joint swelling, muscle weakness or decreased muscle mass Skin Skin: No hair loss in leg, yellowing of the eye, itchy eyes, rash, skin ulcer orskin swelling Neuro Neurology: No abnormal hearing, abnormal movements, confusion, unsteady gait/balance or memory loss Psych Psychiatric: No anxiety, No confusion and No memory loss Endo Endocrine: No fatigue or weight change Aller/Imm Allergy/Immunologic: No itchy eyes, throat swelling or tongue swelling Gt/Lymp Hematologic/Lymphatic: No easy bleeding, easy bruising or enlarged lymph nodes Exam Const General: cooperative and comfortable Nutritional Appearance: average body habitus and well nourished [facility] Head: normal to inspection Ears: hearing grossly normal bilaterally Nose: external nose normal Face and sinus: normal facial exam Mouth: oral mucosae normal Throat: posterior oropharynx normal Eyes General: appearance normal, both eyes and all related structures Neck Neck: normal visual inspection Chest Chest palpation & inspection: normal inspection of the chest and normal palpation of entire chest wall Resp Effort & Inspection: normal respiratory effort Auscultation: Bilateral: Clear to Auscultation Cardio Palpation: normal PMI Rate: regular rate Rhythm: regular rhythm GI Inspection: normal to inspection Auscultation: normal bowel sounds Percussion: normal to percussion Palpation: no hepatosplenomegaly Skin General: no rashes or lesions noted Neuro General: patient alert Extrem General: normal to inspection Psych Affect: normal affect Quality Reporting Tobacco Screening ([facility] 138) Smoking Status: Never smoker Assessment and Plan Assessment and Plan (1) Chronic diarrhea: Status: Chronic Plan: 32-year-old mother of 3 with history of focal segmental glomerulosclerosis. Shehas a pre-existing history of possible Crohn's disease that was treated with 5-ASA medication such as Pentasa. She is having diarrhea on a daily basis but is mostly in the mid afternoon to late evening. She is not having any nocturnal diarrhea. She has no rashes, arthritis or I findings possibly consistent with Crohn's disease. She is on cyclosporine at a 5 mg kilogram dose and when she takes 100 mg twice a day for focal segmental glomerulosclerosis. This has allowed her nephrotic range protein to go down to about 1.3 g from 4 to 4 g/day. Treatment with cyclosporine is also used in the treatment of Crohn's disease ofthe small bowel. She will need to undergo biochemical testing and staging with an EGD and colonoscopy and possible MR enterography and capsule endoscopy in order to delineate the extent of her disease biochemically, radiologically and histologically. She is okay with this plan Orders: Orders Comprehensive Metabolic Profil Today K52.9 - Noninfective gastroenteritis and colitis, unspecified CRP Today K52.9 - Noninfective gastroenteritis and colitis, unspecified LDH Today K52.9 - Noninfective gastroenteritis and colitis, unspecified CBC W/Diff, Automated Today K52.9 - Noninfective gastroenteritis and colitis, unspecified Erythrocyte Sed Rate Today K52.9 - Noninfective gastroenteritis and colitis, unspecified Allergen, Rast Food Profile Today K52.9 - Noninfective gastroenteritis and colitis, unspecified Anti-Mitochondrial AB Today K52.9 - Noninfective gastroenteritis and colitis, unspecified CARMITA Comprehensive Panel Today K52.9 - Noninfective gastroenteritis and colitis, unspecified Calprotectin, Stool Today K52.9 - Noninfective gastroenteritis and colitis, unspecified Fecal Fat, Qualitative Today K52.9 - Noninfective gastroenteritis and colitis, unspecified OVA+PARA w/Giardia EIA [id number] Today K52.9 - Noninfective gastroenteritis and colitis, unspecified CDIFF (PCR) Today K52.9 - Noninfective gastroenteritis and colitis, unspecified ENTERIC PATHOGEN PANEL STOOL Today K52.9 - Noninfective gastroenteritis and colitis, unspecified, K58.9 - Irritable bowel syndrome without diarrhea Stool Occult Blood iFOB Today K52.9 - Noninfective gastroenteritis and colitis, unspecified Stool Lactoferrin/WBC Today K52.9 - Noninfective gastroenteritis and colitis, unspecified ANCA Today K52.9 - Noninfective gastroenteritis and colitis, unspecified Celiac Disease Profile Today K52.9 - Noninfective gastroenteritis and colitis, unspecified Immunoglobulins G/A/M/E Today K52.9 - Noninfective gastroenteritis and colitis, unspecified GLORY + Protein Elect, Serum Today K52.9 - Noninfective gastroenteritis and colitis, unspecified Pancreatic Elastase, Fecal Today K52.9 - Noninfective gastroenteritis and colitis, unspecified Miscellaneous Lab Procedure Today K52.9 - Noninfective gastroenteritis and colitis, unspecified Miscellaneous Lab Procedure 2 Today K52.9 - Noninfective gastroenteritis and colitis, unspecified Magnesium Today K52.9 - Noninfective gastroenteritis and colitis, unspecified I have examined the patient and the H&P has been reviewed. There are no clinicalchanges since date of exam. 01/10/23 0634 <Electronically signed by Sri Andersen DO> Cosigner Signature (if applicable): CC: GREG Felix; Sri Andersen DO~ Signed [facility] Work Phone: [phone] Procedure [facility] 01-10-2023 Procedure [facility]08-25-2023 Procedure note [facility]08-25-2023 Procedure [facility] 01-03-2023 Telephone encounter Note* Telephone Encounter - Savanna Jimenez RN - 01/03/2023 11:00 AM EDT Appt skd for 06/10/2023 [id number] Miscellaneous Notes* Telephone Encounter - Savanna Jimenez RN - 01/03/2023 11:00 AM EDT Appt skd for 06/10/2023 * Telephone Encounter - Lucy Farias - 12/26/2022 10:24 AM EDT Name of caller: Devon Contact phone number: [phone] Relationship to Patient: patient Provider: Any Practice: Rheumatology Chief Complaint/Reason for Call: Patient called to schedule a new patient appointment. She would like someone to reach out to assist with scheduling. Please advise Best time of day caller can be reached: any Patient advised that office/PCP has 24-48 business hours to return their call: Yes * Telephone Encounter - Savanna Jimenez RN - 12/17/2022 3:32 PM EDT Left voice message for pt to call to sk new pt appt. * Telephone Encounter - Kyle Dukes - 12/11/2022 10:36 AM EDT Name of caller: Devon Contact phone number: [phone] Relationship to Patient: patient Provider: Dr. Jorge Practice: [facility] [place] Chief Complaint/Reason for Call: Devon has a referral in place to see Rheumatology. Devon prefersto be seen in the [place] location. Please call Devon to schedule. Best time of day caller can be reached: any Patient advised that office/PCP has 24-48 business hours to return their call: Yes documented in this encounterSSt. Rita's [id number] Telephone encounter Note* Telephone Encounter - Lucy Farias - 12/26/2022 10:24 AM EDT Name of caller: Devon Contact phone number: [phone] Relationship to Patient: patient Provider: Any Practice: Rheumatology Chief Complaint/Reason for Call: Patient called to schedule a new patient appointment. She would like someone to reach out to assist with scheduling. Please advise Best time of day caller can be reached: any Patient advised that office/PCP has 24-48 business hours to return their call: Yes [facility] [id number] Miscellaneous Notes* Telephone Encounter - Lucy Farias - 12/26/2022 10:24 AM EDT Name of caller: Devon Contact phone number: [phone] Relationship to Patient: patient Provider: Any Practice: Rheumatology Chief Complaint/Reason for Call: Patient called to schedule a new patient appointment. She would like someone to reach out to assist with scheduling. Please advise Best time of day caller can be reached: any Patient advised that office/PCP has 24-48 business hours to return their call: Yes * Telephone Encounter - Savanna Jimenez RN - 12/17/2022 3:32 PM EDT Left voice message for pt to call to sk new pt appt. * Telephone Encounter - Kyle Dukes - 12/11/2022 10:36 AM EDT Name of caller: Devon Contact phone number: [phone] Relationship to Patient: patient Provider: Dr. Jorge Practice: [facility] Re[facility]ology Chief Complaint/Reason for Call: Devon has a referral in place to see Rheumatology. Devon sierrao be seen in the [place] location. Please call Devon to schedule. Best time of day caller can be reached: any Patient advised that office/PCP has 24-48 business hours to return their call: Yes documented in this encounterSSt. Rita's [id number] Telephone encounter Note* Telephone Encounter - Savanna Jimenez RN - 12/17/2022 3:32 PM EDT Left voice message for pt to call to sk new pt appt. [facility] [id number] Telephone encounter Note* Telephone Encounter - Kyle Dukes - 12/11/2022 10:36 AM EDT Name of caller: Devon Contact phone number: [phone] Relationship to Patient: patient Provider: Dr. Jorge Practice: [facility] Re[facility] Chief Complaint/Reason for Call: Devon has a referral in place to see Rheumatology. Devon patel be seen in the [place] location. Please call Devon to schedule. Best time of day caller can be reached: any Patient advised that office/PCP has 24-48 business hours to return their call: Yes [facility] [id number] Miscellaneous Notes* Telephone Encounter - Amy Lovelace MA - 07/12/2022 7:22 AM EST Left message on patients voicemail with lab results. (Ok per per lifetime consent). Amy Lovelace MA * Telephone Encounter - Amy Lovelace MA - 07/12/2022 7:22 AM EST ----- Message from Myles Felix APRN.CNP sent at 07/11/2022 6:01 PM EST ----- Please notify patient results are normal. Thank you. Myles Felix APRN.CLINICAL DIRECTOR documented in this encounterLakehealth [facility]02-21-2023 History of Present illness Narrative* RT Baljit(R) - 07/09/2022 10:00 AM EST Radiology Service Progress Note PATIENT NAME: Devon Blanchard DATE OF SERVICE: July 09, 2022 TIME: 10:04 AM PATIENT IDENTITY VERIFICATION COMPLETED USING TWO (2) IDENTIFIERS: Name and Date of confirmedby patient verbally. FALL SCREENING: Has the patient had 2 falls in the last year or 1 fall with injury or currently using an Ambulatory Assistive Device (Walker, Cane, Wheelchair, Crutches, etc.)? No PATIENT GENDER DATA: Female. status: : No status: NO. PATIENT RELEVANT IMPLANT DATA REVIEWED: Not Applicable RADIOLOGY DEPARTMENT: Ultrasound PERIPHERAL IV DATA: Not applicable SIGNED BY: Jacqui Pugh RDMS, RVT July 09, 2022 10:04 AM documented in this encounterLakehealth [facility]point [facility] Center02-15-2023 History of Present illness Narrative* Myles Felix APRN.CNP - 07/03/2022 11:24 AM EST This note was created using NoteWriter. Subjective Devon Blanchard is a 32 year old female here today for well adult exam. I reviewed past medical, surgical, social, and family histories today and updated chart. Allergies, chronic medications, and supplements were also reviewed. She sees DATA INTEGRATION ANALYST for routine Pap smears Exercise - occasionally, walks daily Diet - has been bad since she had kids. She avoids fried foods. Could use more vegetables She has been having stomach issues. Abdominal pain, generalized and at times right upper stomach.Feels sick constantly now - nausea, diarrhea, bloating. Worse after she eats - whatever she eats. Difficult to leave the house. She saw GI in her teens and told she technically had Crohn's. Acne - continues her Retin A and erythromycin-benzoyl peroxide and works well She continues care with her ob/gyn physician Dr. Vazquez for FSGS, she is on cyclosporine PAST MEDICAL HISTORY Diagnosis Date Abnormal Pap smear of cervix Acute blood loss anemia 09/17/2017 FSGS (focal segmental glomerulosclerosis) 07/25/2021 Mental disorder Placental abruption in third trimester 09/17/2017 PAST SURGICAL HISTORY Procedure Laterality Date CATARACT EXTRACTION HX EXTRACTION ERUPTED TOOTH 2012 INCISION LINGUAL FRENUM FRENOTOMY 3yo ALLERGIES Amoxicillin and Ibuprofen MEDICATIONS Erythromycin-Benzoyl Peroxide gel^Apply to affected area twice daily. APPLY TO AFFECTED AREA^Disp: ^Rfl: lisinopril (ZESTRIL, PRINIVIL) 10 mg tablet^Take 10 mg by mouth once daily.^Disp: ^Rfl: cycloSPORINE (SANDIMMUNE) 100 mg capsule^^Disp: ^Rfl: tretinoin (RETIN-A) 0.025 % topical cream^Apply 1 application to affected area daily at bedtime.^Disp: 20 g^Rfl: 5 methylPREDNISolone (MEDROL, MELBA,) 4 mg Dose-Pack^As Instructed per package^Disp: 21 tablet^Rfl: 0 (Patient not taking: Reported on 07/03/2022) FAMILY HISTORY Problem Relation Age of Onset Hypertension Maternal Grandfather Social History Tobacco Use Smoking status: Never Smokeless tobacco: Never Vaping Use Vaping Use: Never used Substance Use Topics Alcohol use: No Drug use: No Review of Systems Constitutional: Positive for fatigue. Negative for appetite change, chills, diaphoresis, fever and unexpected weight change. Sick all the time since fall, kids started preschool HENT: Negative for congestion, ear pain, rhinorrhea and sore throat. Eyes: Positive for visual disturbance. Negative for pain, discharge and itching. Fall 2020 was last eye doctor Respiratory: Positive for shortness of breath (around her period). Negative for cough and wheezing. Cardiovascular: Negative for chest pain, palpitations and leg swelling. Gastrointestinal: Positive for abdominal distention, abdominal pain, diarrhea and nausea. Negative for blood in stool, constipation and vomiting. Genitourinary: Negative for difficulty urinating. Musculoskeletal: Positive for arthralgias (maybe, whole body hurts a lot), back pain and myalgias. Skin: Negative for rash. Neurological: Positive for dizziness (occasional) and headaches (occasional). Negative for tremors and weakness. Psychiatric/Behavioral: Negative for dysphoric mood and sleep disturbance. The patient is nervous/anxious (stressed). Objective BP 118/76 Pulse 76 Temp 36.8 C (98.3 F) Ht 165.1 cm (5' 5) Wt 103.9 kg (229 lb) LMP 06/19/2022 (Exact Date) SpO2 98% BMI 38.11 kg/m Physical Exam Constitutional: Appearance: Normal appearance. She is well-developed. She is obese. HENT: Head: Normocephalic and atraumatic. Right Ear: Hearing, tympanic membrane, ear canal and external ear normal. No drainage. Left Ear: Hearing, tympanic membrane, ear canal and external ear normal. No drainage. Nose: Nose normal. Mouth/Throat: Pharynx: Uvula midline. Eyes: General: Lids are normal. Right eye: No discharge. Left eye: No discharge. Conjunctiva/sclera: Conjunctivae normal. Pupils: Pupils are equal, round, and reactive to light. Neck: Thyroid: No thyromegaly. Vascular: No carotid bruit. Trachea: No tracheal deviation. Cardiovascular: Rate and Rhythm: Normal rate and regular rhythm. Heart sounds: Normal heart sounds. No murmur heard. Pulmonary: Effort: Pulmonary effort is normal. Breath sounds: Normal breath sounds. No wheezing, rhonchi or rales. Abdominal: General: Bowel sounds are normal. There is no distension or abdominal bruit. Palpations: Abdomen is soft. There is no mass. Tenderness: There is abdominal tenderness in the right upper quadrant and right lower quadrant. Musculoskeletal: Cervical back: Normal range of motion and neck supple. Right lower leg: No edema. Left lower leg: No edema. Lymphadenopathy: Cervical: No cervical adenopathy. Upper Body: Right upper body: No supraclavicular adenopathy. Left upper body: No supraclavicular adenopathy. Skin: General: Skin is warm and dry. Findings: No bruising or rash. Neurological: General: No focal deficit present. Mental Status: She is alert and oriented to person, place, and time. Cranial Nerves: No cranial nerve deficit. Sensory: Sensation is intact. Motor: Motor function is intact. Coordination: Coordination is intact. Gait: Gait is intact. Deep Tendon Reflexes: Reflexes are normal and symmetric. Reflex Scores: Patellar reflexes are 2+ on the right side and 2+ on the left side. Psychiatric: Mood and Affect: Mood normal. Behavior: Behavior normal. Behavior is cooperative. Thought Content: Thought content normal. Judgment: Judgment normal. ASSESSMENT/PLAN: 1. Well adult exam - ICD9: V70.0, ICD10: Z00.00 (primary diagnosis) - Counseled on healthy diet and regular exercise - Follow up for annual exam in one year 2. Acne vulgaris - ICD9: 706.1, ICD10: L70.0 Continue topical treatment - ERYTHROMYCIN-BENZOYL PEROXIDE 3 %-5 % TOPICAL GEL - TRETINOIN 0.025 % TOPICAL CREAM 3. Chronic diarrhea - ICD9: 787.91, ICD10: K52.[address] [facility] [address] [facility] - CONSULT TO GASTROENTEROLOGY - US ABD RT UPPER QUADRANT - CBC + DIFF - COMP METABOLIC PANEL - LIPASE BLD 4. Bloating - ICD9: 787.3, ICD10: R14.0 - CONSULT TO GASTROENTEROLOGY - US ABD RT UPPER QUADRANT 5. Nausea - ICD9: 787.02, ICD10: R11.0 - CONSULT TO GASTROENTEROLOGY - US ABD RT UPPER QUADRANT - CBC + DIFF - COMP METABOLIC PANEL - LIPASE BLD 6. Screening for diabetes mellitus - ICD9: V77.1, ICD10: Z13.1 - HGB A1C 7. Weight gain - ICD9: 783.1, ICD10: R63.5 - TSH BLD - T4 FREE/FREE THYROX 8. Screening for lipid disorders - ICD9: V77.91, ICD10: Z13.220 - LIPID PANEL BASIC Myles Felix APRN.LEXIE documented in this encounterLake[facility]12-01-2022 Instructions* Patient Instructions* Sri Wharton APRN.CNP - 04/18/2022 9:22 AM EST [address] [place] [address] Phone Call our [place] office at Office Hours Mon: 8:00am - 4:30pm Tue: 8:00am - 4:30pm Wed: 8:00am - 4:30pm Thur: 8:00am - 4:30pm Fri: 8:00am - 4:30pm Sat: 8:00am - 11:00am Dr. Tato Cueto documented in this encounterLakehealth [facility]point [facility] Center12-01-2022 History of Present illness Narrative* Sri Wharton APRN.CNP - 04/18/2022 9:09 AM EST Images from the original note were not included. CHIEF COMPLAINT: Devon Blanchard is a 32 year old female who presents for pain to the inside left side of her neck. Ireviewed past medical, surgical, social, and family histories today and updated chart. Allergies, chronic medications, and supplements were also reviewed. Started Friday and Friday last week Has had this intermittently over the last year Pain is on left side of throat/neck (inside), some by the the left side of her jaw Went to the dentist and it's not her teeth Had a tooth pulled on that side but that was over a year No fevers, body aches, chills/sweats, ear pain Would take leftover antibiotics previously when she would have the pain and it would seem to improve This time is the worst though Swallowing hurts when looking down Not choking No heartburn symptoms Does not get frequent sinus, ear, or strep infections Would really like to see ENT to see what is causing this The history is provided by the patient. No pharmacy affairs assistant was used. PAST MEDICAL HISTORY Diagnosis Date Abnormal Pap smear of cervix Acute blood loss anemia 09/17/2017 FSGS (focal segmental glomerulosclerosis) 07/25/2021 Mental disorder Placental abruption in third trimester 09/17/2017 PAST SURGICAL HISTORY Procedure Laterality Date CATARACT EXTRACTION HX EXTRACTION ERUPTED TOOTH 2013 INCISION LINGUAL FRENUM FRENOTOMY 3yo Social History Tobacco Use Smoking status: Never Smokeless tobacco: Never Vaping Use Vaping Use: Never used Substance Use Topics Alcohol use: No Drug use: No ALLERGIES Allergen Reactions Amoxicillin Other: See Comments High doses blisters on tongue Ibuprofen Other: See Comments Causes blisters on tongue Family History Problem Relation Age of Onset Hypertension Maternal Grandfather Current Outpatient Medications Medication Sig Dispense Refill lisinopril (ZESTRIL, PRINIVIL) 10 mg tablet Take 10 mg by mouth once daily. cycloSPORINE (SANDIMMUNE) 100 mg capsule tretinoin (RETIN-A) 0.025 % topical cream Apply 1 application to affected area daily at bedtime. 20g 5 Current Facility-Administered Medications Medication Dose Route Frequency Provider Last Rate Last Admin hydrocortisone topical cream 2.5% TOPICAL BID Annie Espana, RADIOLOGIC TECHNOLOGIST.CLINICAL DIRECTOR Review of Systems Constitutional: Negative for appetite change, chills, diaphoresis, fatigue, fever and unexpected weight change. HENT: Negative for ear pain, facial swelling, sinus pressure and sinus pain. Respiratory: Negative for cough, chest tightness, shortness of breath and wheezing. Cardiovascular: Negative for chest pain and palpitations. Gastrointestinal: Negative. Musculoskeletal: Positive for neck pain. Negative for neck stiffness. Neurological: Negative for dizziness, light-headedness and headaches. BP 114/68 Pulse 64 Temp (Src) 98 (Oral) Resp 18 Ht [Patient Refused[ (0.00m) Wt 0 lb (0.0kg) SpO2 98% LMP 02/24/2017 Physical Exam Vitals and nursing note reviewed. Constitutional: Appearance: Normal appearance. She is not ill-appearing. HENT: Head: Normocephalic and atraumatic. Jaw: No trismus, tenderness, swelling or pain on movement. Salivary Glands: Right salivary gland is not diffusely enlarged or tender. Left salivary gland is not diffusely enlarged or tender. Right Ear: Tympanic membrane, ear canal and external ear normal. Left Ear: Tympanic membrane, ear canal and external ear normal. Nose: Nose normal. Mouth/Throat: Lips: Chauncey. Mouth: Mucous membranes are moist. Pharynx: Oropharynx is clear. Uvula midline. No pharyngeal swelling, oropharyngeal exudate, posterior oropharyngeal erythema or uvula swelling. Tonsils: No tonsillar exudate or tonsillar abscesses. 2+ on the right. 3+ on the left. Eyes: Pupils: Pupils are equal, round, and reactive to light. Neck: Thyroid: No thyroid mass or thyromegaly. Comments: Area of tenderness, no palpable mass Cardiovascular: Rate and Rhythm: Normal rate and regular rhythm. Heart sounds: Normal heart sounds, S1 normal and S2 normal. Pulmonary: Effort: Pulmonary effort is normal. Breath sounds: Normal breath sounds. Musculoskeletal: Cervical back: Normal range of motion and neck supple. Lymphadenopathy: Cervical: No cervical adenopathy. Skin: General: Skin is warm and dry. Findings: No bruising, ecchymosis, erythema or rash. Neurological: Mental Status: She is alert and oriented to person, place, and time. ASSESSMENT/PLAN: 1. Pain in throat - ICD9: 784.1, ICD10: R07.0 (primary diagnosis) - Unknown etiology, patient states it feels like it is the inside of the left side of her throat. She would like to see ENT. I will send in a Medrol dose melba if she feels that she needs if her pain worsens or feels that her throat is swelling (should go to the ER if this becomes severe). - CONSULT TO ENT 2. Tonsillar hypertrophy - ICD9: 474.11, ICD10: J35.1 - CONSULT TO ENT New medication(s) prescribed today: None. Counseling completed in adopting health behaviors such as avoiding excessive alcohol use, avoid tobacco use, improve nutrition, and engage in physical activities. Copy of written care plan, clinical summary, treatment plan, new medications, goals, and self management requirements were given to patient. Sri Wharton APRN.LEXIE [facility] Miscellaneous Notes* Telephone Encounter - Kandy Kennedy - 03/07/2022 10:24 AM EDT No Show Documentation Devon Blanchard no showed for an appointment on 03/06/2022 with Myles Felix APRN.CNP at 11:20 am. She was scheduled for Well adult exam. I called and left a message for the patient regarding her missed appointment. Told her to call the office if she would like to reschedule. Resources discussed/offered to patient: na No show determined to be fault of patient: Yes This is the patients first no show in the last 12 months. Patient was rescheduled for na. Letter mailed : Yes Is this the Third or Fourth No Show? No Kandy Kennedy March 07, 2022 10:24 AM documented in this encounterL[facility] History of Past illness Narrative* Problem Noted Date Resolved Date Placental abruption in third trimester 8 09/17/2017 Monochorionic diamniotic twin gestation 08/08/19 18 09/17/2017 documented as of this encounter (statuses as of 03/07/2022) [facility] of Past illness Narrative* Problem Noted Date Resolved Date Placental abruption in third trimester 8 09/17/2017 Monochorionic diamniotic twin gestation 08/08/19 18 09/17/2017 documented as of this encounter (statuses as of 04/18/2022) [facility] of Past illness Narrative* Problem Noted Date Resolved Date Placental abruption in third trimester 8 09/17/2017 Monochorionic diamniotic twin gestation 08/08/19 18 09/17/2017 documented as of this encounter (statuses as of 07/03/2022) [facility] of [facility] illness Narrative* Problem Noted Date Resolved Date Placental abruption in third trimester 8 09/17/2017 Monochorionic diamniotic twin gestation 08/08/19 18 09/17/2017 documented as of this encounter (statuses as of 07/10/2022) [facility] of [facility] illness Narrative* Problem Noted Date Resolved Date Placental abruption in third trimester 8 09/17/2017 Monochorionic diamniotic twin gestation 08/08/19 18 09/17/2017 documented as of this encounter (statuses as of 07/12/2022) [facility] of [facility] illness Narrative* Problem Noted Date Diagnosed Date Resolved Date Placental abruption in third trimester 09/17/2017 09/17/2017 Monochorionic diamniotic twin gestation 08/07/2017 09/17/2017 documented as of this encounter (statuses as of 06/25/2023) [facility] of [facility] illness Narrative* Problem Noted Date Diagnosed Date Resolved Date Placental abruption in third trimester 09/17/2017 09/17/2017 Monochorionic diamniotic twin gestation 08/07/2017 09/17/2017 documented as of this encounter (statuses as of 06/25/2023) [facility] of [facility] illness Narrative* Problem Noted Date Diagnosed Date Resolved Date Placental abruption in third trimester 09/17/2017 09/17/2017 Monochorionic diamniotic twin gestation 08/07/2017 09/17/2017 documented as of this encounter (statuses as of 07/22/2023) [facility] noteNo assessment information availableWMarymount Hospital Work Phone: evaluation note* Diagnosis Pain in throat- Primary Throat pain Tonsillar hypertrophy Hypertrophy of tonsils alone documented in this encounter [facility] note* Diagnosis Well adult exam- Primary Routine general medical examination at a [facility] care facility Acne vulgaris Other acne Chronic diarrhea Diarrhea Bloating Flatulence, eructation, and gas pain Nausea Nausea alone Screening for diabetes mellitus Weight gain Abnormal weight gain Screening for lipid disorders documented in this encounter [facility] note* Diagnosis Chronic diarrhea Diarrhea Bloating Flatulence, eructation, and gas pain Nausea Nausea alone documented in this encounter [facility] note* Diagnosis Onset Date Resolution Status Chronic diarrhea [facility] Work Phone: evaluation note* Diagnosis Onset Date Resolution Status Crohn's disease [facility] Work Phone: evaluation note* Diagnosis Swelling of both hands- Primary Bilateral swelling of feet Swelling of limb Screening for diabetes mellitus Screening for lipid disorders History of anemia Personal history of diseases of blood and blood-forming organs [facility] [place] [facility]* Diagnosis Well adult exam- Primary Routine general medical examination at a health care facility Acne vulgaris Other acne Eye twitch Blepharospasm Left-sided headache Headache Altered gustatory perception documented in this encounter [facility] note* Diagnosis CARMITA positive- Primary [facility] [place] [facility]* Diagnosis Well woman exam with routine gynecological exam- Primary Routine gynecological examination Screening for cervical cancer Screening for malignant neoplasm of the cervix Encounter for assessment of STD exposure Breast pain, left [facility]* Diagnosis Well adult exam- Primary Routine general medical examination at a health care facility Acne vulgaris Other acne Hot flashes Symptomatic menopausal or female climacteric states Palmar erythema Toxic erythema Night sweats Generalized hyperhidrosis Headaches Chest tightness Other chest pain Fatigue, unspecified type Screening for lipid disorders Dizziness Dizziness and giddiness Major depressive disorder, recurrent episode, mild Crohn's disease without complication, unspecified gastrointestinal tract location (HCC) documented in this encounter [facility] for referral (narrative)* Diagnostic Procedure Only (Routine) - Pending Review Specialty Diagnoses / Procedures Referred By Maryana lin Referred To Contact US IMAGING Diagnoses Chronic diarrhea Bloating Nausea Procedures US ABD RT UPPER QUADRANT US ABDOMINAL REAL TIME W/IMAGE LIMITED Myles Felix APRN.CNP [address] [place] [address] Us Imaging Referral ID Status Reason Start Date Expiration Date Visits Requested Visits Authorized [id number] Pending Review Auto-Generat ed Referral 07/03/2022 08/02/2023 1 1 * Consult, Test, Treat (Routine) - Authorized Specialty Diagnoses / Procedures Referred By Maryana lin Referred To Contact Diagnoses Chronic diarrhea Bloating Nausea Procedures CONSULT TO GASTROENTEROLOGY OFFICE/OUTPATIENT [facility] 60-74 MINUTES Myles Felix APRN.CNP [address] [place] [address] Sri Andersen, DO [address] [address] Referral ID Status Reason Start Date Expiration Date Visits Requested Visits Authorized [id number] Authorized PCP Requested Referral 07/03/2022 07/03/2023 1 1 * Medication Prior Authorization - Closed Specialty Diagnoses / Procedures Referred By Maryana t Referred To Contact Diagnoses Acne vulgaris Myles Felix APRN.CNP [address] [place] [address] Referral ID Status Reason Start Date Expiration Date Visits Re quested Visits Authorized [id number] Closed 1 1 [facility] for referral (narrative)* Diagnostic Procedure Only (Routine) - Closed Specialty Diagnoses / Procedures Referred By Contac t Referred To Contact US IMAGING Diagnoses Chronic diarrhea Bloating Nausea Procedures US ABD RT UPPER QUADRANT US ABDOMINAL REAL TIME W/IMAGE LIMITED Myles Felix APRN.CNP [address] [place] [address] Us Imaging Referral ID Status Reason Start Date Expiration Date V isits Requested Visits Authorized [id number] Closed Auto-Generate d Referral 07/03/2022 08/02/2023 1 1 [facility] for referral (narrative)No reason for referral information availableWMarymount Hospital Work Phone: Reason for visit Narrative* Diagnostic Procedure Only (Routine) - Closed Specialty Diagnoses / Procedures Referred By Contac t Referred To Contact US IMAGING Diagnoses Chronic diarrhea Bloating Nausea Procedures US ABD RT UPPER QUADRANT US ABDOMINAL REAL TIME W/IMAGE LIMITED Myles Felix APRN.CLINICAL DIRECTOR [address] [place] [address] Us Imaging Referral ID Status Reason Start Date Expiration Date V isits Requested Visits Authorized [id number] Closed Auto-Generate d Referral 07/03/2022 08/02/2023 1 1 [facility] Summary Purpose Family History No Family History Records FoundNo Family History Records FoundNo Family History Records FoundNo Family History Records FoundNo Family History Records FoundNo Family History Records Found Advance Directives No Advanced Directives Records Found Advance Directive Response Recorded Date/ Time Living Will No September 20, 2020 10 :59pm Power of Government Affairs Director No September 20, 2020 10:59pm Advance Directive Response Recorded Date/ Time Living Will No September 20, 2020 9: 59pm Power of Government Affairs Director No September 20, 2020 9:59pm Advance Directive Response Recorded Date/ Time Living Will No December 13, 2022 10:29am Power of Government Affairs Director No December 13 10:29am Advance Directive Response Recorded Date/ Time Living Will No December 13, 2022 9:29am Power of Government Affairs Director No December 13 9:29am Advance Directive Response Recorded Date/ Time Living Will No December 13, 2022 10:29am Do you have a Healthcare Power of Government Affairs Director? No December 13, 2022 10:29am Reason for Referral Specialty Diagnoses / Procedures Referred By Contac t Referred To Contact Ent - Otolaryngology / [facility] Department Diagnoses Pain in throat Tonsillar hypertrophy Procedures CONSULT TO ENT OFFICE/OUTPATIENT [facility] 60-74 MINUTES Sri Wharton APRN.CLINICAL DIRECTOR [address] [place] [address] Jonel Recio [address] [place] [phone] Referral ID Status Reason Start Date Expiration Date Visits Requested Visits Authorized [id number] Authorized PCP Requested Referral 04/18/2022 04/18/2023 1 1 Specialty Diagnoses / Procedures Referred By Contac t Referred To Contact Neurology Diagnoses Eye twitch Left-sided headache Altered gustatory perception Procedures CONSULT TO NEUROLOGY OFFICE/OUTPATIENT [facility] 60 MINUTES Myles Felix, RADIOLOGIC TECHNOLOGIST.CLINICAL DIRECTOR [address] [place] [address] [address] Referral ID Status Reason Start Date Expiration Date Visits Requested Visits Authorized [id number] Authorized PCP Requested Referral 07/14/2023 07/13/2024 1 1 Specialty Diagnoses / Procedures Referred By Contac t Referred To Contact Diagnoses Acne vulgaris Myles Felix APRN.CLINICAL DIRECTOR [address] [place] [address] Referral ID Status Reason Start Date Expiration Date V isits Requested Visits Authorized [id number] Authorized 07/14/2023 08/12/2023 1 1 Chief Complaint and Reason for Visit Chief Complaint Consult E-ORDER E ORDERS DUE ON OR AROUND DATE LISTED Noninfective gastroenteritis and colitis, unspecif Reason for Visit Chronic diarrhea Chief Complaint 2 WK FU TO BE DONE EVERY 4 MONTHS 03/15/23-12/14/23 Reason for Visit Crohn's disease Chief Complaint TO BE DONE EVERY 4 M [facility] 03/15/23-12/14/23 Chief Complaint 6 MO FU ENTYVIO Reason for Visit Crohn's disease Chief Complaint 6 MO FU ENTYVIO ENTYVIO Reason for Visit Crohn's disease Chief Complaint Admit Date ENTYVIO June 11, 2024 1 0:19am WAITING ON ORDER June 18, 2024 1 1:11am 6 Month f/u June 21, 2024 9 :51am ENTYVIO August 11, 2024 10: 08am Reason for Visit Admit Date Abnormal blood chemistry June 21, 9:51am Crohn's disease June 21, 2024 9 :51am Chronic diarrhea June 21, 2024 9 :51am Chief Complaint Admit Date ENTYVJune 11, 2024 1 0:19am WAITING ON ORDER June 18, 2024 1 1:11am 6 Month f/u June 21, 2024 9 :51am ENTYVIO August 11, 2024 10: 08am ENTYVIO October 01, 2024 10:24 am Additional Source Comments INFORMATION SOURCE (unrecogn ized section and content) DATE CREATED AUTHOR 12/04/2017 [facility] DATE CREATED AUTHOR AUTHOR'S ORGANIZ ATION 10/19/2019 [facility] DATE CREATED AUTHOR AUTHOR'S ORGANIZ ATION 10/10/2023 [facility] DATE CREATED AUTHOR AUTHOR'S ORGANIZ ATION 07/24/2024 [facility] DATE CREATED AUTHOR AUTHOR'S ORGANIZ ATION 10/16/2024 [facility] DATE CREATED AUTHOR AUTHOR'S ORGANIZ ATION 10/18/2024 [facility] Goals (unrecognized section and content) Goals may be documented in a n alternate sectionGoals may be documented in an alternate sectionGoals may be documented in an alternate sectionGoals may be documented in an alternate sectionGoals may be documented in an alternate sectionGoals may be documented in an alternate sectionGoals may be documented in an alternate sectionGoals may be documented in an alternate sectionGoals may be documented in an alternate section Source Comments (unrecognize d section and content) In the event this informatio n is protected by the Federal Confidentiality of Alcohol and Drug Abuse Patient Records regulations: The Federal rules restrict any use of the information to criminally investigate or prosecute any alcohol or drug abuse patient.[facility] CenterIn the event this information is protected by the Federal Confidentiality of Alcohol and Drug Abuse Patient Records regulations: The Federal rules restrict any use of the information to criminally investigate or prosecute any alcohol or drug abuse patient.[facility] CenterIn the event this information is protected by the Federal Confidentiality of Alcohol and Drug Abuse Patient Records regulations: The Federal rules restrict any use of the information to criminally investigate or prosecute any alcohol or drug abuse patient.[facility] CenterIn the event this information is protected by the Federal Confidentiality of Alcohol and Drug Abuse Patient Records regulations: The Federal rules restrict any use of the information to criminally investigate or prosecute any alcohol or drug abuse patient.[facility] CenterIn the event this information is protected by the Federal Confidentiality of Alcohol and Drug Abuse Patient Records regulations: The Federal rules restrict any use of the information to criminally investigate or prosecute any alcohol or drug abuse patient.[facility] CenterIn the event this information is protected by the Federal Confidentiality of Alcohol and Drug Abuse Patient Records regulations: The Federal rules restrict any use of the information to criminally investigate or prosecute any alcohol or drug abuse patient.[facility] CenterIn the event this information is protected by the Federal Confidentiality of Alcohol and Drug Abuse Patient Records regulations: The Federal rules restrict any use of the information to criminally investigate or prosecute any alcohol or drug abuse patient.[facility] CenterIn the event this information is protected by the Federal Confidentiality of Alcohol and Drug Abuse Patient Records regulations: The Federal rules restrict any use of the information to criminally investigate or prosecute any alcohol or drug abuse patient.[facility] CenterIn the event this information is protected by the Federal Confidentiality of Alcohol and Drug Abuse Patient Records regulations: The Federal rules restrict any use of the information to criminally investigate or prosecute any alcohol or drug abuse patient.[facility] CenterIn the event this information is protected by the Federal Confidentiality of Alcohol and Drug Abuse Patient Records regulations: The Federal rules restrict any use of the information to criminally investigate or prosecute any alcohol or drug abuse patient.[facility] CenterIn the event this information is protected by the Federal Confidentiality of Alcohol and Drug Abuse Patient Records regulations: The Federal rules restrict any use of the information to criminally investigate or prosecute any alcohol or drug abuse patient.[facility] Reason for Visit (unrecogniz ed section and content) Reason Comments Missed Appointment 1st no show in 365 d ays (1st letter sent) Reason Comments neck pain Reason Comments Wellness No pap Referral Request To gastro. Gets diar franck, nausea and bloating. Reason Comments Results Reason Onset Date Comments New Patient 12/11/2022 Reason Onset Date Comments Appointment 06/10/2023 06/10/23 @ 11:00a Reason Comments Swelling Duration: about 2 we eksDescription: After she wakes up her fingers, legs, and feet feel swollen and tight Reason Comments Physical No pap . Hands disco loration . Has apt. With teasel setter in August. Comes and goes . Weird taste in mouth. Fatigue Reason Onset Date Comments resx appt 08/20/2023 Reason Onset Date Comments Appointment Request 08/28/2023 Reason Comments Appointment Reason Comments Patient Update Reason Comments Consult Abnormal labs Specialty Diagnoses / Procedures Referred By Maryana lin Referred To Contact Rheumatology Diagnoses Abnormal labs Procedures SC OFFICE CONSULTATION NEW/ESTAB PATIENT 15 MIN Friend, Sri [address], [address] [place] [address] Phone: tel: fax: [facility] [address] [place] [phone] Phone: tel: fax: Referral ID Status Reason Start Date Expiration Date Visits Re quested Visits Authorized [id number] Closed 05/19/2023 05/19/2024 1 1 Reason Onset Date Comments Lab Orders 06/01/2024 Reason Comments New Patient Left breast pain rec ently worse in 6 month Reason Onset Date Comments Appointment 07/22/2024 Reason Comments Wellness No pap Care Teams (unrecognized sec tion and content) Business Support Assistant Relationship Specialty Start Date End Date Myles Felix, RADIOLOGIC TECHNOLOGIST.CLINICAL DIRECTOR [address], [place] [id number] PCP - General Internal Medicine 11/15/16 Business Support Assistant Relationship Specialty Start Date End Date Myles Felix APRN.CLINICAL DIRECTOR [address] [place] [address] PCP - General Internal Medicine 11/15/16 Team Status: Active Member Role Status Dates Myles Felix DNA SEQUENCING ASSOCIATE, DNA SEQUENCING ASSOCIATE-C Primary Care Provider Active Team Status: Inactive Member Role Status Dates Myles Felix DNA SEQUENCING ASSOCIATE, DNA SEQUENCING ASSOCIATE-C Primary Care Provider Active Dr. Diana Vazquez , DO Attending Provider, Referring P rovider Active Business Support Assistant Relationship Specialty Start Date End Date CieloMyles weaver RADIOLOGIC TECHNOLOGIST.CLINICAL DIRECTOR [address] [place] [address] PCP - General Internal Medicine 11/15/16 Business Support Assistant Relationship Specialty Start Date End Date CieloMyles weaver RADIOLOGIC TECHNOLOGIST.CLINICAL DIRECTOR [address] [place] [address] PCP - General Internal Medicine 11/15/16 Business Support Assistant Relationship Specialty Start Date End Date CieloMyles weaver RADIOLOGIC TECHNOLOGIST.CLINICAL DIRECTOR [address] [place] [address] PCP - General Internal Medicine 11/15/16 Team Status: Inactive Member Role Status Dates Myles Felix DNA SEQUENCING ASSOCIATE, DNA SEQUENCING ASSOCIATE-C Primary Care Provider, Referrin g Provider Active Dr. Sri Andersen , Attending Provider Active Team Status: Active Member Role Status Dates Myles Felix DNA SEQUENCING ASSOCIATE, DNA SEQUENCING ASSOCIATE-C Primary Care Provider Active Dr. Sri Andersen DO Attending Provider, Referring Provider Active Team Status: Inactive Member Role Status Dates Myles Felix DNA SEQUENCING ASSOCIATE, DNA SEQUENCING ASSOCIATE-C Primary Care Provider Active Dr. Sri Andersen DO Attending Provider, Referring Provider Active Team Status: Active Member Role Status Dates Myles Felix DNA SEQUENCING ASSOCIATE, DNA SEQUENCING ASSOCIATE-C Primary Care Provider, Referrin g Provider Active Dr. Sri Andersen DO Attending Provider, Other Prov ider Active Team Status: Inactive Member Role Status Dates Myles Felix DNA SEQUENCING ASSOCIATE, DNA SEQUENCING ASSOCIATE-C Primary Care Provider Active Dr. Diana Vazquez DO Attending Provider, Referring P rovider Active Dr. Sri Andersen DO Other Provider Active Business Support Assistant Relationship Specialty Start Date End Date Myles Felix RADIOLOGIC TECHNOLOGIST.CLINICAL DIRECTOR [address], [place] [id number] PCP - General Internal Medicine 11/15/16 Business Support Assistant Relationship Specialty Start Date End Date Myles Felxi, RADIOLOGIC TECHNOLOGIST.CLINICAL DIRECTOR [address] [facility], [place] [phone] PCP - General Internal Medicine 11/15/16 Business Support Assistant Relationship Specialty Start Date End Date Myles Felix, RADIOLOGIC TECHNOLOGIST.CLINICAL DIRECTOR [address] [facility] [place] [phone] PCP - General Internal Medicine 11/15/16 Business Support Assistant Relationship Specialty Start Date End Date Myles Felix, RADIOLOGIC TECHNOLOGIST.CLINICAL DIRECTOR [address] [place], [place] [phone] PCP - General Internal Medicine 11/15/16 Business Support Assistant Relationship Specialty Start Date End Date Myles Felix, RADIOLOGIC TECHNOLOGIST.CLINICAL DIRECTOR [address] [facility], [place] [phone] PCP - General Internal Medicine 11/15/16 Team Status: Inactive Member Role Status Dates Myles Felix NP, NP-C Primary Care Provider Active Start: June 11, 2024 End: June 11, 2024 Dr. Sri Andersen DO Attending Provider Active Start: June 11, 2024 End: June 11, 2024 Dr. Sri Andersen DO Referring Provider Active Start: June 11, 2024 End: June 11, 2024 Team Status: Inactive Member Role Status Dates [employer]IM AG Attending Provider Active Start: June 18, 2024 End: June 18, 2024 Q[employer]IM AG Referring Provider Active Start: June 18, 2024 End: June 18, 2024 Myles Felix NP, NP-C Primary Care Provider Active Start: June 18, 2024 End: June 18, 2024 Team Status: Inactive Member Role Status Dates Myles Felix NP DNA SEQUENCING ASSOCIATE-C Primary Care Provider Active Start: June 21, 2024 End: June 21, 2024 Myles Felix NP, NP-C Referring Provider Active Start: June 21, 2024 End: June 21, 2024 Dr. Sri Andersen DO Attending Provider Active Start: June 21, 2024 End: June 21, 2024 Team Status: Inactive Member Role Status Dates Myles Felix NP DNA SEQUENCING ASSOCIATE-C Primary Care Provider Active Start: June 21, 2024 End: June 21, 2024 Dr. Sri Andersen DO Attending Provider Active Start: June 21, 2024 End: June 21, 2024 Dr. Sri Andersen DO Referring Provider Active Start: June 21, 2024 End: June 21, 2024 Team Status: Inactive Member Role Status Dates Myles Felix NP, NP-C Primary Care Provider Active Start: August 11, 2024 End: August 11, 2024 Dr. Sri Andersen DO Attending Provider Active Start: August 11, 2024 End: August 11, 2024 Dr. Sri Andersen DO Referring Provider Active Start: August 11, 2024 End: August 11, 2024 Team Status: Inactive Member Role Status Dates Myles Felix NP [employer] SEQUENCING ASSOCIATE-C Primary Care Provider Active Start: October 01, 2024 End: October 01, 2024 Dr. Sri Andersen DO Attending Provider Active Start: October 01, 2024 End: October 01, 2024 Dr. Sri Andersen DO Referring Provider Active Start: October 01, 2024 End: October 01, 2024 Business Support Assistant Relationship Specialty Start Date End Date Myles Felix APRN.CNP [address] [place] [id number] PCP - General Internal Medicine 11/15/16 FOR RECORDS PERTAINING TO PATIENTS WHO ARE OR HAVE BEEN ENROLLED IN A CHEMICAL DEPENDENCY/SUBSTANCEABUSE PROGRAM, SOME INFORMATION MAY BE OMITTED. This clinical summary was aggregated from multiple sources. Caution should be exercised in using it in the provision of clinical care. This summary normalizes information from multiple sources, and as a consequence, information in this document may materially change the coding, format and clinical context of patient data. In addition, data may be omitted in some cases. CLINICAL DECISIONS SHOULD BE BASED ON THE PRIMARY CLINICAL RECORDS. [employer] provides no warranty or guarantee of the accuracy or completeness of information in this document.
== END | disposition home or self-care (01) ==
LOC: LAB 10:42
PROVIDERS: PCP Nurse Practitioner Family; Referring Provider Internal Medicine Gastroenterology; Visit Provider Internal Medicine Nephrology
DX: N04.1 Nephrotic syndrome with focal and segmental glomerular lesions (principal)
CPT/HCPCS: 36415; 80048; 82570; 84156; 85027

== ENCOUNTER 2024-11-26 10:20 | Outpatient (CLI) | payer MEDICAID, SELFPAY ==
[2024-11-26 10:35] VITALS: BP 135/79; PULSE 73; RESP 16; TEMP 37.1; O2SAT 98; BMI 38.9
[2024-11-26] MEDS: 0.9% NaCl IVPB Med Flush (100mL) 15 ML IV (11:11)
[2024-11-26] MEDS: Vedolizumab 300 MG in 0.9% Normal Saline (250mL Bag) 250 ML 500 MG IV (11:11)
[2024-11-26 11:54] VITALS: BP 144/57; PULSE 72
== END 2024-11-26 23:59 | disposition home or self-care (01) ==
LOC: MEDOUTP 10:21
PROVIDERS: PCP Nurse Practitioner Family; Referring Provider Internal Medicine Gastroenterology; Visit Provider Internal Medicine Gastroenterology
DX: K50.90 Crohn's disease, unspecified, without complications (principal)
CPT/HCPCS: 96365; J3380

== ENCOUNTER 2025-01-21 10:22 | Outpatient (CLI) | payer MEDICAID, SELFPAY ==
[2025-01-21 10:28] VITALS: BP 145/99; PULSE 84; RESP 16; TEMP 36.2; O2SAT 98; BMI 38.9
[2025-01-21] MEDS: 0.9% NaCl IVPB Med Flush (100mL) 15 ML IV (10:43)
[2025-01-21] MEDS: 0.9% NaCl Peripheral Flush Adult IV (10:43)
[2025-01-21] MEDS: Vedolizumab 300 MG in 0.9% Normal Saline (250mL Bag) 250 ML 500 MG IV (11:24)
[2025-01-21 12:08] VITALS: BP 123/91; PULSE 82; RESP 16; TEMP 36.8; O2SAT 100
== END 2025-01-21 23:59 | disposition home or self-care (01) ==
LOC: MEDOUTP 10:22
PROVIDERS: PCP Nurse Practitioner Family; Referring Provider Internal Medicine Gastroenterology; Visit Provider Internal Medicine Gastroenterology
DX: K50.90 Crohn's disease, unspecified, without complications (principal)
CPT/HCPCS: 96365; A4216; J3380

== ENCOUNTER 2025-03-18 10:28 | Outpatient (CLI) | payer MEDICAID, SELFPAY ==
[2025-03-18 11:04] VITALS: BP 130/74; PULSE 76; RESP 16; TEMP 35.8; O2SAT 99; BMI 38.9
[2025-03-18] MEDS: Vedolizumab 300 MG in 0.9% Normal Saline (250mL Bag) 250 ML 500 MG IV (11:09)
[2025-03-18] MEDS: 0.9% NaCl IVPB Med Flush (100mL) 15 ML IV (11:09)
[2025-03-18] MEDS: 0.9% NaCl Peripheral Flush Adult IV (11:09)
[2025-03-18 11:56] VITALS: BP 137/77; PULSE 77; RESP 16; TEMP 36; O2SAT 100
== END 2025-03-18 23:59 | disposition home or self-care (01) ==
LOC: MEDOUTP 10:28
PROVIDERS: PCP Nurse Practitioner Family; Referring Provider Internal Medicine Gastroenterology; Visit Provider Internal Medicine Gastroenterology
DX: K50.90 Crohn's disease, unspecified, without complications (principal)
CPT/HCPCS: 96365; A4216; J3380

== ENCOUNTER → 2025-04-28 | Outpatient (CLI) | payer MEDICAID, SELFPAY ==
[2025-04-28 11:18] LABS: Creatinine, Urine (random) 21.20 mg/dL (28.00-217.00); Protein, Urine (Random) 31.5 mg/dL (0.0-12.0); Protein:Creat Ratio 1486 mg/g CRE (0-200)
[2025-04-28 11:26] LABS: Anion Gap 15 (5-15); BUN 12 mg/dL (4-19); BUN/Creat Ratio 16.7 RATIO (10-20); Calcium,Total 9.4 mg/dL (7.6-11.0); Carbon Dioxide 23.6 mmol/L (21.0-32.0); Chloride 101 mmol/L (98-108); Glucose 95 mg/dL (70-99); Potassium 4.2 mmol/L (3.3-5.1)
== END | disposition home or self-care (01) ==
PROVIDERS: PCP Nurse Practitioner Family; Referring Provider Internal Medicine Nephrology; Visit Provider Internal Medicine Nephrology
DX: N04.1 Nephrotic syndrome with focal and segmental glomerular lesions (principal)
CPT/HCPCS: 36415; 80048; 82570; 84156